=== PATIENT | female | born 1960 | race Caucasian/White ===

== ENCOUNTER 2024-07-03 14:50 | Inpatient (IN) | payer OTHER ==
[~2024-07-03] VITALS: Ht 157.5 cm; Wt 113.8 kg
--- NOTE | 2024-07-03 15:06 | ERN ---
ED Note History of Present Illness Stated Complaint: SENT BY DOC, FLUID OVERLOAD CHEST DOWN TO FEET Chief Complaint: Shortness of Breath Time Seen by MD: 14:58 Dictation: PATIENT IS A 64-YEAR-OLD FEMALE COMING IN TODAY FROM HER LOCAL PRIMARY CARE DOCTOR'S OFFICE WITH COMPLAINTS OF SHORTNESS A BREATH POSSIBLE FLUID OVERLOAD AND EDEMA TO HER LOWER EXTREMITIES. STATES THE ONSET WAS SEVERAL DAYS AGO. NO FEVER NO CHILLS NO CHEST PAIN NO BACK PAIN. SHE ALSO STATES SHE HAS BEEN STANDING UP FOR THE LAST 2-1/2 WEEKS AND ONLY SITS DOWN LONG ENOUGH TO TAKE A BREATH. SHE STATES SHE WILL SHE LIES DOWN SHE GETS SHORT OF BREATH. SHE STATES HER ONLY SIGNIFICANT MEDICAL HISTORY IS ANEMIA AND ASTHMA. HOWEVER SHE HAS NEVER HAD ANY BLOOD TRANSFUSIONS. PATIENT DOES STATE THAT SHE HAS HAD HEAVY VAGINAL BLEEDING OFF AND ON FOR SEVERAL MONTHS WORSE IN THE LAST 30 DAYS. SHE STATES SHE WAS SUPPOSED TO SEE AN CATHODIC PROTECTION TECHNICIAN DOCTOR TOMORROW HOWEVER CAME TO THE EMERGENCY ROOM. Allergies: Coded Allergies: Cephalosporins (Unverified Allergy, Unknown, 07/03/24) Latex, Natural Rubber (Unverified Allergy, Unknown, 07/03/24) cephalexin (Unverified Allergy, Unknown, 07/03/24) meperidine (Unverified Allergy, Unknown, 07/03/24) Past Medical History Past Medical History: Asthma, Other (ANEMIA) PSYCH History: no pertinent psych hx History: Not Applicable RN Note Reviewed/Agreed w/PFSH: Yes Review of System Dictation CONSTITUTIONAL: NEGATIVE EXCEPT FOR HPI HEAD/FACE: NEGATIVE EXCEPT FOR HPI EENT: NEGATIVE EXCEPT FOR HPI RESPIRATORY: NEGATIVE EXCEPT FOR HPI SHORTNESS A BREATH/EDEMA TO LOWER EXTREMITY GASTROINTESTINAL/ABDOMINAL: NEGATIVE EXCEPT FOR HPI GENITOURINARY: NEGATIVE EXCEPT FOR HPI MUSCULOSKELETAL: NEGATIVE EXCEPT FOR HPI INTEGUMENTARY: NEGATIVE EXCEPT FOR HPI NEUROLOGICAL/PSYCH: NEGATIVE EXCEPT FOR HPI HEMATOLOGIC/LYMPHATIC: NEGATIVE EXCEPT FOR HPI ALL SYSTEMS NEGATIVE, EXCEPT NOTED ABOVE. 13 POINT REVIEW OF SYSTEMS ASSESSED AND ALL NEGATIVE EXCEPT FOR ABOVE. Initial Vital Sign VS Vital Signs Date Time Temp Pulse Resp B/P (MAP) Pulse Ox O2 Delivery O2 Flow Rate FiO2 07/03/24 15:01 99.5 118 20 166/87 98 0 07/03/24 17:02 Room Air* 21 Physical Exam Dictation VITAL SIGNS REVIEWED GENERAL APPEARANCE: ALERT, ORIENTED X 3, MILD DISTRESS AND OBESE. APPEARS VERY DECONDITIONED HEAD AND FACE: NON-TRAUMATIC. EYES: PERRL, PINK CONJUNCTIVAS, EYELID NO TRAUMA, ANTERIOR CHAMBER WITH ARCUS SENILIS. EARS: PINNAS INTACT AND NO SIGNS OF TRAUMA OR ERYTHEMA EAR CANALS CLEAR AND NO DISCHARGE TM NO ERYTHEMA NOSE: NO DISCHARGE, NO BLEEDING. OROPHARYNX: MOUTH NORMAL, TONGUE PINK, PHARYNX CLEAR,NO ERYTHEMA, TONSILS NO EXUDATES, NO ABSCESSES NOTED, MUCOUS MEMBRANE MOIST NECK: SUPPLE, NON-TENDER, NO THYROMEGALY, NO MASSES, NO JVD, NO BRUITS BREAST:DEFERRED CHEST:NO TENDERNESS, NO CREPITUS, NO PARADOXICAL MOVEMENT, NO RETRACTIONS LUNGS:CLEAR, WELL-VENTILATED, SYMMETRIC, NO RALES, NO WHEEZING, NO RHONCHI, NO STRIDOR, GOOD BREATH SOUNDS BILATERALLY HEART: REGULAR RATE, REGULAR RHYTHM, NO MURMUR, NO GALLOPS VASCULAR: 3+ PERIPHERAL EDEMA TO KNEES, ABDOMEN: SOFT, POSITIVE BOWEL SOUNDS, NONDISTENDED, NO GUARDING, NONTENDER, NO REBOUND, NO MASSES NO HEPATOMEGALY, NO SPLENOMEGALY, NO ALEXANDRA'S SIGN, NO HERNIAS. RECTAL: DEFERRED GENITAL: EXTERNAL EXAM NEGATIVE, INTERNAL EXAM DEMONSTRATES OS IS OPEN WITH APPROXIMATELY 3 ML OF MAICO BLOOD. NO CMT NO LESIONS IN THE VAGINAL NEUROLOGICAL: NORMAL SPEECH, MOTOR FUNCTION INTACT, SENSORY FUNCTION INTACT MUSCULOSKELETAL: NECK NONTENDER, FULL RANGE OF MOTION, BACK NONTENDER, FULL RANGE OF MOTION, EXTREMITIES: NONTENDER, FULL RANGE OF MOTION SKIN: COLOR PINK, DRY, NO TURGOR, NO RASH, NO LACERATIONS, NO ABRASIONS, NO CONTUSIONS. LYMPHATIC: DEFERRED Results (Laboratory/Radiology) Laboratory/Radiology Laboratory Tests Test 07/03/24 16:19 07/03/24 16:48 White Blood Count 5.0 K/uL (4.8-10.8) Red Blood Count 2.34 MIL/uL (4.00-5.50) L Hemoglobin 6.2 g/dL (12.0-16.0) *L Hematocrit 20.8 % (36-48) *L Mean Corpuscular Volume 88.9 fL (79-99) Mean Corpuscular Hemoglobin 26.5 pg (27.0-33.0) L Mean Corpuscular Hemoglobin Concent 29.8 g/dL (32.0-36.0) L Red Cell Distribution Width 17.1 % (11.0-15.5) H Platelet Count 173 K/uL (130-400) Mean Platelet Volume 10.8 fL (7.5-10.5) H Immature Granulocyte % (Auto) 0.6 % (0-1) Neutrophils (%) (Auto) 75.0 % (40.0-77.0) Lymphocytes (%) (Auto) 9.4 % (21.0-51.0) L Monocytes (%) (Auto) 8.2 % (3.0-13.0) Eosinophils (%) (Auto) 6.0 % (0.0-8.0) Basophils (%) (Auto) 0.8 % (0.0-5.0) Neutrophils # (Auto) 3.7 K/uL (1.8-7.7) Lymphocytes # (Auto) 0.5 K/uL (1.0-4.8) L Monocytes # (Auto) 0.4 K/uL (0.1-1.0) Eosinophils # (Auto) 0.30 K/uL (0.00-0.70) Basophils # (Auto) 0.04 K/uL (0.00-0.20) Absolute Immature Granulocyte (auto 0.03 K/uL (0-1) Nucleated Red Blood Cells 0.0 % (0.0-0.19) White Cell Morphology Comment See comments Red Blood Cell Morphology See comments Sodium Level 137 mmol/L (136-145) Potassium Level 3.9 mmol/L (3.5-5.1) Chloride Level 102 mmol/L (101-111) Carbon Dioxide Level 30 mmol/L (21-32) Blood Urea Nitrogen 11 mg/dL (7-18) Creatinine 0.8 mg/dL (0.5-1.0) Glomerular Filtration Rate Calc 83 mL/min (>90) Random Glucose 129 mg/dL (70-105) H Total Calcium 8.8 mg/dL (8.5-10.1) Magnesium Level 1.90 mg/dL (1.80-2.40) Troponin I High Sensitivity 10 ng/L (4-50) B-Type Natriuretic Peptide 29 pg/mL (0-100) Urine Color YELLOW (YELLOW) Urine Appearance CLEAR (CLEAR) Urine pH 6.0 (5.0-8.0) Urine Specific [place] 1.022 (1.001-1.031) Urine Protein 20 mg/dL (NEGATIVE) H Urine Glucose (UA) NEGATIVE mg/dL (NEGATIVE) Urine Ketones 5 mg/dL (NEGATIVE) H Urine Occult Blood LARGE (NEGATIVE) H Urine Nitrate NEGATIVE (NEGATIVE) Urine Bilirubin NEGATIVE mg/dL (NEGATIVE) Urine Urobilinogen 2.0 mg/dL (0.2-1.0) H Urine Leukocyte Esterase NEGATIVE Shirley/uL Urine RBC 51-100 /HPF (0-1) H Urine WBC 6-10 /HPF (0-1) H Urine Squamous Epithelial Cells RARE /HPF (0-2) Urine Bacteria RARE /HPF (None Seen) CHEST 1VW REASON: SHORTNESS OF BREATH COMPARISON: None. FINDINGS: Single view of the chest was obtained. Lungs are clear. Heart size is normal. There is no pulmonary vascular congestion. Mediastinum and bony thorax appear unremarkable. IMPRESSION: 1. Normal single view chest x-ray. Labs Reviewed?: Yes EKG Comment: EKG SINUS TACHYCARDIA/HEART RATE 113/AXIS NORMAL/NO ECTOPY ED Course ED Course Orders Procedure Category Date Status Time Covid19 (Sars Antigen LAB 07/03/24 In Process Rapid) 14:59 Cbc With Differential LAB 07/03/24 Complete 14:59 B-Type Natriuretic LAB 07/03/24 Complete Peptide 14:59 Chest 1vw RAD 07/03/24 Resulted 14:59 12 Lead Ekg Tracing- EKG 07/03/24 Complete Technical 14:59 Magnesium LAB 07/03/24 Complete 14:59 Troponin I High LAB 07/03/24 Complete Sensitivity 14:59 Urinalysis Profile LAB 07/03/24 Complete 14:59 Basic Metabolic Panel LAB 07/03/24 Complete 14:59 Type And Screen BBK 07/03/24 In Process 16:57 Rbc-No Active Bleeding BBK 07/03/24 In Process 16:57 *Nursing CPOE 07/03/24 Transmitted Communication: 16:57 Us Pelvic Non-Ob Comp US 07/03/24 Resulted 17:06 Culture Urine NEEMA 07/03/24 In Process 17:07 Obstetrical Consult CONPHYSVC 07/03/24 Transmitted 18:35 Vital Signs Date Time Temp Pulse Resp B/P (MAP) Pulse Ox O2 Delivery O2 Flow Rate FiO2 07/03/24 17:02 97.9 120 24 153/85 99 Room Air* 0 21 07/03/24 15:01 99.5 118 20 166/87 98 0 1708, PATIENT HAS A H&H OF 6.2 AND 20.8 RESPECTIVELY. HAS A HISTORY OF DYSFUNCTIONAL UTERINE BLEEDING FOR MORE THAN 30 DAYS HAS NEVER SEEN AN CATHODIC PROTECTION TECHNICIAN DOCTOR NO PELVIC PAIN AT THIS TIME. WE WILL FOLLOW UP TO ADMINISTER1 UNIT PACKED RED BLOOD CELLS WE WILL PERFORM NON OB ULTRASOUND OF THE ABDOMEN PELVIS, WE WILL CONSULT OB AND HAVE PATIENT ADMITTED 171/SPOKE WITH DR. JAMESON OB. REVIEWED LABS AND PATIENT'S MEDICAL HISTORY HE SAID TO PERFORM ULTRASOUND AND A PELVIC EXAM AND THEN CALL HIM BACK WITH THE RESULTS. 1839/SPOKE WITH DR. JAMESON AND REVIEWED PELVIC EXAM/LABS/ULTRASOUND REPORT. SAID TO PLZ CONSULT HIM AND ADMIT TO HOSPITALIST AND HE WOULD SEE PATIENT IN THE MORNING. 50 SPOKE WITH MISA FELICIANO HOSPITALIST REVIEWED ULTRASOUND REPORT PELVIC LABS INTERVENTIONS TO INCLUDE MY DISCUSSION WITH DR. JAMESON AND HIS CONSULTATION. SHE AGREED TO ADMIT PATIENT. HEART Score Response (Comments) Value History: Low suspicion (0) 0 Age: 45-65yrs (+1) 1 Risk Factors: 1-2 risk factors (+1) 1 Initial Troponin: Normal limit (0) 0 Total 2 Medical Decision Making MDM MDM: DIFFERENTIAL DIAGNOSIS: SEVERE ANEMIA/CHF/ACS/AMI/PNEUMONIA/BRONCHITIS/ELECTROLYTE IMBALANCE/DEHYDRATION DYSFUNCTIONAL UTERINE BLEEDING/UTERINE MASS RATIONALE: TESTS CONSIDERED AND ORDERED SECONDARY TO SHARED DECISION MAKING INCLUDE: LABS, ECG AND RADIOLOGY PREVIOUS OUTSIDE RECORDS REVIEWED: OLD ER VISITS. NONE RISK OF COMPLICATION AND/OR MORBIDITY OR MORTALITY OF PATIENT MANAGEMENT: MODERATE MEDICATIONS-PER MEDICATION RECONCILIATION SEE NURSE'S NOTES NEED FOR HOSPITALIZATION: PATIENT DOES MEET CRITERIA FOR HOSPITALIZATION. BLOOD TRANSFUSION, OB CONSULTATION NEED FOR EMERGENCY MAJOR/MINOR SURGERY: NO THERE ARE NO SOCIAL CONCERNS WITH THIS PATIENT. PRESCRIPTION DRUG MANAGEMENT PRESCRIPTIONS WILL INCLUDE SYMPTOMATIC CARE PATIENT'S PRIOR EXTERNAL MEDICAL RECORDS FROM OTHER ER VISITS WERE REVIEWED BY ME INDICATED. PRIOR TESTING AND RESULTS FROM PREVIOUS VISITS WERE REVIEWED. PRIOR TESTS WERE TAKEN INTO ACCOUNT WITH MEDICAL DECISION MAKING AND RESOURCE UTILIZATION, INDEPENDENT HISTORIAN/HISTORIANS WERE USED TO OBTAIN COMPLETE MEDICAL HISTORY. I INDEPENDENTLY INTERPRETED THE TEST THAT WERE PERFORMED, RESULTS WERE REVIEWED BY ME AND CONSIDERED FINDINGS ON RADIOLOGY IF ORDERED. MEDICAL MANAGEMENT AND EXAMINATION INTERPRETATION DISCUSSIONS WERE HAD BY ME WITH OTHER QUALIFIED HEALTHCARE PROFESSIONALS INDICATED FOR THE PATIENT'S CARE. DX & DISP Disposition: Inpatient Decision to Admit Time: 17:10 Departure Impression: Primary Impression: Symptomatic anemia Additional Impressions: Dysfunctional uterine bleeding, Hyperglycemia, Uterine fibroid Condition: Stable Time of Disposition: 17:11 I have reviewed the case, and I agree with, Diagnosis and Plan LEE ANN HARPER NP Jul 03, 2024 15:06
--- NOTE | 2024-07-03 15:10 | EKG ---
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
--- NOTE | 2024-07-03 15:46 | HMCIMG ---
CHEST 1VW REASON: SHORTNESS OF BREATH COMPARISON: None. FINDINGS: Single view of the chest was obtained. Lungs are clear. Heart size is normal. There is no pulmonary vascular congestion. Mediastinum and bony thorax appear unremarkable. IMPRESSION: 1. Normal single view chest x-ray.
--- NOTE | 2024-07-03 16:25 | NUR ---
PT JUST BROUGHT INTO MY ED BED 10
[2024-07-03 16:37] LABS: BASOPHILS # (AUTO) 0.04 K/uL (0.00-0.20); BASOPHILS % (AUTO) 0.8 % (0.0-5.0); CREATININE 0.8 mg/dL (0.5-1.0); IMMATURE GRANULOCYTE ABSOLUTE 0.03 K/uL (0-1); LYMPHOCYTES # (AUTO) 0.5 K/uL (1.0-4.8); LYMPHOCYTES % (AUTO) 9.4 % (21.0-51.0); MAGNESIUM 1.9 mg/dL (1.80-2.40); MEAN CORPUSCULAR HEMOGLOBIN 26.5 pg (27.0-33.0); MEAN CORPUSCULAR HGB CONC 29.8 g/dL (32.0-36.0); MEAN CORPUSCULAR VOLUME 88.9 fL (79-99); MONOCYTES # (AUTO) 0.4 K/uL (0.1-1.0); MONOCYTES % (AUTO) 8.2 % (3.0-13.0); NEUTROPHILS # (AUTO) 3.7 K/uL (1.8-7.7); PLATELET COUNT (AUTO) 173 K/uL (130-400); POTASSIUM 3.9 mmol/L (3.5-5.1); RED BLOOD CELL COUNT(AUTO) 2.34 MIL/uL (4.00-5.50); RED CELL DISTRIBUTION WIDTH 17.1 % (11.0-15.5)
[2024-07-03 16:53] LABS: HEMATOCRIT 20.8 % (36-48)
[2024-07-03 16:57] LABS: APPEARANCE,URINE CLEAR (CLEAR); BILIRUBIN,URINE NEGATIVE (NEGATIVE); COLOR,URINE YELLOW (YELLOW); GLUCOSE, URINE (UA) NEGATIVE (NEGATIVE); KETONES,URINE 5 mg/dL (NEGATIVE); LEUKOCYTE ESTERASE ,URINE NEGATIVE Leu/uL (NEGATIVE); NITRATE,URINE NEGATIVE (NEGATIVE); OCCULT BLOOD,URINE LARGE (NEGATIVE); PROTEIN,URINE 20 mg/dL (NEGATIVE)
[2024-07-03 16:59] LABS: ADD UA MICROSCOPIC YES
[2024-07-03 17:04] LABS: BACTERIA,URINE RARE /HPF (None Seen); MUCUS,URINE RARE LPF (None Seen); RBC,URINE 51-100 /HPF (0-1); SQUAMOUS EPITHELIAL CELL,UR RARE /HPF (0-2)
[2024-07-03 17:11] LABS: B-TYPE NATRIURETIC PEPTIDE 29 pg/mL (0-100)
--- NOTE | 2024-07-03 17:31 | NUR ---
PT CHANGED INTO A HOSPITAL GOWN AND HOSPITAL SOCKS BY [facility] COUNSEL DOLORES
--- NOTE | 2024-07-03 17:39 | NUR ---
SONO TECH AT BEDSIDE W/PT
--- NOTE | 2024-07-03 18:28 | NUR ---
LEE ANN FELICIANO JUST COMPLETED HIS PELVIC EXAM W/STUDENT NURSE JAVAD
--- NOTE | 2024-07-03 18:29 | NUR ---
OXYGEN: PT PLACED ON 4L VIA N/C D/T EXREME SOB WHILE PLACED IN SEMI FOWLERS POSITION.
--- NOTE | 2024-07-03 18:49 | HMCIMG ---
US PELVIC NON-OB COMP HISTORY: Dysfunctional uterine bleeding COMPARISON: None TECHNIQUE: Transabdominal pelvic ultrasound study was performed. FINDINGS: The uterus measures 9.8 x 6.3 x 5.4 cm. Both ovaries are not seen. Both ovaries are not seen. There is fibroid in the posterior aspect of the uterus on the right measuring 3.2 x 3.5 x 3.3 cm. Small amount of free fluid is seen in the cul-de-sac. Endometrium is thick measuring 10 mm. IMPRESSION: 1. No adnexal mass is seen. Fibroid uterus. Thickened endometrium.
--- NOTE | 2024-07-03 18:51 | NUR ---
OB CONSULT: LEE ANN FELICIANO SPOKE TO DR JAMESON
--- NOTE | 2024-07-03 18:54 | NUR ---
[facility] INDUSTRIAL HEALTH ENGINEER CURRENTLY AT BEDSIDE W/THE PT
--- NOTE | 2024-07-03 19:20 | NUR ---
REPORT ENDORSED TO SONYA MATOS
[2024-07-03] MEDS ORDERED: acetaMINOPHEN 325 MG TAB PO PRN ×2 (19:30)
[2024-07-03] MEDS ORDERED: PoTASSium chloRIDE 20MEQ/100ML 100 ML IV PRN (19:30)
[2024-07-03] MEDS ORDERED: PoTASSium chl 10% ELIXIR 20MEQ 20 MEQ/15 ML UDCUP PO PRN (19:30)
[2024-07-03] MEDS ORDERED: ondanSETRON 4MG INJ IV PRN (19:30)
--- NOTE | 2024-07-03 19:30 | HP ---
[facility] HISTORY [facility] PHYSICAL Date of Service: Jul 03, 2024 Time of Service: 19:18 PCP: Kaitlynn Fu HISTORY OF PRESENT ILLNESS: This is a 64-year-old female with past medical history of asthma, anemia, hypothyroidism and morbid obesity who presents to the ED after coming from PCP's clinic today for complaints of shortness of breaths, edema and possible fluid overload evaluation.Patient states she has been having shortness of breath because of her Asthma and anemia because she has been having menstrual bleed for 3 weeks every month since 4 years ago and it has slowed down 10 months ago that sometimes she missed the period for a month however was started on Levothyroxine by her primary and coincidentally she said after taking it she started having 3 weeks of bleeding again and a week off without bleeding so she stopped taking her Levothyroxine last April but she started having progressive shortness of breath and edema 3 weeks ago.Patient reports she was sick for the past 3 weeks with cough and fever and her legs started to get swollen and today she went to her PCP because swelling has gone up to her abdomen and she has not been able to have a good sleep because if she lies down she gets very short of breath so she had to stand up most of the time to catch her breath. Patient reports she is supposed to see an OBGYN doctor tomorrow. Seen and examined patient in the ED awake,alert and coherent,pale looking .Patient denies fever,chills,chest pain,palpitation,cough , nausea, bloody emesis, bloody stool and abdominal pain.Patient reports she voids little and her last bowel movement is today and it was normal. Latest vital signs temperature 97.9, heart rate 120, respiration 24, pressure 153/85, saturation 99% on room air. Labs: WBC 5, hemoglobin 6.2, hematocrit 20.8 platelet count 173. Glucose 129 the rest of the chemistry is unremarkable BNP 29 troponin 10. Urinalysis remarkable for large hematuria positive for RBC, WBC urobilinogen , protein and ketones. SARs COVID result is negative. Chest x-ray result is normal. Pelvic ultrasound result revealed no adnexal mass is seen. Fibroid uterus thickened endometrium. While in the ER patient is pending to be transfused with 1 unit PRBC per ER recommendation. As per ER METALLURGICAL ENGINEERING TECHNICIAN's report he already consulted OBGYN Dr. Sabillon and agreed to evaluate the patient. We will admit patient for further medical management. Addendum : Post Transfusion primary nurse called and reported patient developed increased shortness of breath needing oxygen supplementation.Will request ABG ,Give Lasix 20mg IV x1 and Duoneb treatment and will transfer patient to PCCU and consult Pulmonology REVIEW OF SYSTEMS CONSTITUTIONAL: Appears pale looking Denies fevers, chills, or night sweats. No unintentional weight loss reported. NEUROLOGICAL: Denies headache, amaurosis fugax, motor weakness, sensory deficit, vertigo/spinning sensation, gait abnormalities, or tremors. ENT: No hearing loss, otalgia, otorrhea, rhinitis, rhinorrhea, hoarseness, or sore throat. CARDIOVASCULAR: Denies any exertional angina, dyspnea on exertion, orthopnea, paroxysmal nocturnal dyspnea, palpitations, life-threatening arrhythmias, claudication. PULMONARY: Complaints of shortness of breaths Denies cough, phlegm/sputum, hemoptysis, pleuritic chest pain. SLEEP: Complains of insomnia Denies morning headaches, daytime somnolence or napping. Denies knowledge of snoring. GASTROINTESTINAL: Complains of abdominal distention Denies any type of dysphagia to either liquids or solids. Denies nausea, vomiting, pyrosis, early satiety, abdominal pain, diarrhea, constipation, or changes in stool consistency or caliber. Denies coffee-ground emesis, hematemesis, hematochezia, or melanotic stools. GENITOURINARY: Complaints of voiding little amount of urine Denies frequency, urgency, nocturia, incontinence (Storage/Irritative symptoms.) Low urinary stream, straining to void, urinary intermittency or hesitancy, splitting of the voiding stream, terminal dribbling. ENDOCRINOLOGIC: Denies polyuria, polydipsia, polyphagia or heat/cold intolerances. HEMATOLOGIC: Complain of heavy menstrual bleeding Denies thrombophilia/previous clots, or coagulopathy ONCOLOGIC: Denies personal history of malignancy. DERMATOLOGIC: Denies rashes or pruritus. PSYCHIATRIC: Denies any suicidal or homicidal ideation. Denies hallucinations. PAST MEDICAL HISTORY: [ Asthma, anemia, hypothyroidism and morbid obesity ] PAST SURGICAL HISTORY: [ x1 and tubal ligation] PAST SOCIAL HISTORY: [ Patient lives with . Patient denies alcohol tobacco and recreational drug use ] FAMILY HISTORY: [ Noncontributory] Coded Allergies: Cephalosporins (Unverified Allergy, Unknown, 07/03/24) Latex, Natural Rubber (Unverified Allergy, Unknown, 07/03/24) cephalexin (Unverified Allergy, Unknown, 07/03/24) meperidine (Unverified Allergy, Unknown, 07/03/24) PHYSICAL EXAM GENERAL APPEARANCE: The patient is awake, alert, and oriented NEUROLOGICAL: Cranial nerves II-XII grossly intact. Motor is 5/5 in bilateral upper and lower extremities proximal to distal. No sensory deficits. HEENT: Face is symmetric. Pupils are equal and reactive. Extraocular movements are intact. NECK: Supple. No JVD. No thyromegaly. No submental, submandibular, pre- /postauricular, occipital or supraclavicular lymphadenopathy. CHEST: Normal chest expansion. No Telemetry. LUNGS: Diminished breath sounds CARDIOVASCULAR: Regular. S1 and S2 normal. No appreciable rubs, murmurs or gallops. ABDOMEN: Abdomen is distended and firmed There is no rebound, voluntary guarding, or rigidity. : Deferred. No Ma. EXTREMITIES: 3+ edema from bilateral lower extremities up to abdomen SKIN: No skin breakdown. Vital Sign (Last 24 Hours) 07/03/24 17:02 Temp 97.9 Pulse 120 Resp 24 B/P (MAP) 153/85 Pulse Ox 99 O2 Delivery Room Air* O2 Flow Rate 0 FiO2 21 LABS: Laboratory: Test 07/03/24 18:33 07/03/24 16:48 07/03/24 16:19 Range/Units SARS-CoV-2 Antigen (Rapid) PRESUMPTIVE NEGATIVE NEGATIVE Urine Color YELLOW YELLOW Urine Appearance CLEAR CLEAR Urine pH 6.0 5.0-8.0 Urine Specific [place] 1.022 1.001-1.031 Urine Protein 20 H NEGATIVE mg/dL Urine Glucose (UA) NEGATIVE NEGATIVE mg/dL Urine Ketones 5 H NEGATIVE mg/dL Urine Occult Blood LARGE H NEGATIVE Urine Nitrate NEGATIVE NEGATIVE Urine Bilirubin NEGATIVE NEGATIVE mg/dL Urine Urobilinogen 2.0 H 0.2-1.0 mg/dL Urine Leukocyte Esterase NEGATIVE NEGATIVE Shirley/uL Urine RBC 51-100 H 0-1 /HPF Urine WBC 6-10 H 0-1 /HPF Urine Squamous Epithelial Cells RARE 0-2 /HPF Urine Bacteria RARE None Seen /HPF White Blood Count 5.0 4.8-10.8 K/uL Red Blood Count 2.34 L 4.00-5.50 MIL/uL Hemoglobin 6.2 *L 12.0-16.0 g/dL Hematocrit 20.8 *L 36-48 % Mean Corpuscular Volume 88.9 79-99 fL Mean Corpuscular Hemoglobin 26.5 L 27.0-33.0 pg Mean Corpuscular Hemoglobin Concent 29.8 L 32.0-36.0 g/dL Red Cell Distribution Width 17.1 H 11.0-15.5 % Platelet Count 173 130-400 K/uL Mean Platelet Volume 10.8 H 7.5-10.5 fL Immature Granulocyte % (Auto) 0.6 0-1 % Neutrophils (%) (Auto) 75.0 40.0-77.0 % Lymphocytes (%) (Auto) 9.4 L 21.0-51.0 % Monocytes (%) (Auto) 8.2 3.0-13.0 % Eosinophils (%) (Auto) 6.0 0.0-8.0 % Basophils (%) (Auto) 0.8 0.0-5.0 % Neutrophils # (Auto) 3.7 1.8-7.7 K/uL Lymphocytes # (Auto) 0.5 L 1.0-4.8 K/uL Monocytes # (Auto) 0.4 0.1-1.0 K/uL Eosinophils # (Auto) 0.30 0.00-0.70 K/uL Basophils # (Auto) 0.04 0.00-0.20 K/uL Absolute Immature Granulocyte (auto 0.03 0-1 K/uL Nucleated Red Blood Cells 0.0 0.0-0.19 % White Cell Morphology Comment See comments Red Blood Cell Morphology See comments Sodium Level 137 136-145 mmol/L Potassium Level 3.9 3.5-5.1 mmol/L Chloride Level 102 101-111 mmol/L Carbon Dioxide Level 30 21-32 mmol/L Blood Urea Nitrogen 11 7-18 mg/dL Creatinine 0.8 0.5-1.0 mg/dL Glomerular Filtration Rate Calc 83 >90 mL/min Random Glucose 129 H 70-105 mg/dL Total Calcium 8.8 8.5-10.1 mg/dL Magnesium Level 1.90 1.80-2.40 mg/dL Troponin I High Sensitivity 10 4-50 ng/L B-Type Natriuretic Peptide 29 0-100 pg/mL DIAGNOSTICS / RADIOLOGY: [ ] ASSESSMENT: Severe blood loss anemia POA Acute Respiratory Failure POA Suspected uterine bleeding POA Fibroid uterus and thickened endometrium per pelvic ultrasound POA Uncontrolled hypertension POA Morbid obesity POA Hypothyroidism POA Suspected urinary tract infection POA PLAN: We will admit patient in medical telemetry We will start on heart healthy diet We will start on Levaquin 500 mg IV daily We will continue to transfuse 1 unit of blood PRBC and check H and H 1 hour post transfusion We will start on Famotidine 20 mg IV bid for GI prophylaxis We will replace electrolytes as needed per protocol We will obtain urine culture and deescalate antibiotic therapy We will add prn medication for fever,pain,nausea and vomiting We will reconcile home meds once medlist available We will seek OBGYN consultation We will obtain H and H p.r.n. bleeding We will request labs in am Further orders to follow depending on above results Case discussed with attending physician and came up with above treatment and plan of care. ADVANCED CARE PLANNING 1. Which of the following were discussed? Hospice Care - No Therapeutic options - Yes Advance Directives - No Other discussions - 2. Discussed with who? Patient 3. Voluntary nature of this service was explained to the patient? Yes 4. Amount of time spent - ___20____ 5. Reviewed by Physician? (if this service was performed by NPP) Yes Patient seen and examined by me. Agree with note by METALLURGICAL ENGINEERING TECHNICIAN SEE ADDITIONAL ORDERS PER CHART DISCUSSED WITH NURSING STAFF MIKI BARBOSA Jul 03, 2024 19:30
[2024-07-03] MEDS: furoSEMIDE 20MG VIAL IV ONE (23:34)
[2024-07-03] MEDS: FAMOTIDINE 20MG VIAL IV SCH (23:35)
[2024-07-03] MEDS: levoFLOXacin 500 MG/D5W 100 ML 100 ML IV SCH (23:35)
[2024-07-04] VITALS (18 sets, daily range): BP systolic 114–170; BP diastolic 62–79; PULSE 16–118; RESP 18–21; TEMP 97.8–98.6; O2SAT 95–99
--- NOTE | 2024-07-04 00:05 | NUR ---
BLOOD TRANFSUION 1PRBC GIVEN AT 23.30 WITH NO TRANSFUSION REACTION NOTED PT VS STABLE
--- NOTE | 2024-07-04 02:14 | NUR ---
REPORTED TO DON LINEN ROOM HOUSEPERSON PT HAVING BILAT UPPER LOBE WHEEZES, HOOKED TO O2 5L. SATS 98%- ORDERS MADE
[2024-07-04] MEDS: IpraTROPium/alBUTERol SULFATE 3 ML SOLUTION IH SCH (02:42)
--- NOTE | 2024-07-04 03:33 | NUR ---
SENT REPEAT H/H POST BLOOD TRANFUSION STILL FOR ABG- RT AWARE
[2024-07-04 03:58] LABS: ABG BASE EXCESS -0.4 mmol/L (-2.0-3.0); ABG HCO3 22.6 mmol/L (21.0-28.0); ABG OXYGEN SATURATION 97.6 % (94.0-98.0); ABG PCO2 30 mmHg (32-45); ABG PH 7.491 (7.350-7.450); CARBON MONOXIDE 0.9 % (0.5-1.5); DEVICE COMMENT RB,RN LEAH; HHb 2.4; PO2, ARTERIAL BG 98.6 mmHg (83.0-108.0); VENT MODE, BG RA,21 (ROOM AIR)
[2024-07-04] MEDS ORDERED: LEVO25CA4 PO (03:58)
[2024-07-04 04:03] LABS: BASOPHILS # (AUTO) 0.04 K/uL (0.00-0.20); BASOPHILS % (AUTO) 0.8 % (0.0-5.0); EOSINOPHILS # (AUTO) 0.48 K/uL (0.00-0.70); IMMATURE GRANULOCYTE ABSOLUTE 0.02 K/uL (0-1); LYMPHOCYTES # (AUTO) 0.7 K/uL (1.0-4.8); LYMPHOCYTES % (AUTO) 12.8 % (21.0-51.0); MEAN CORPUSCULAR HEMOGLOBIN 27.2 pg (27.0-33.0); MEAN CORPUSCULAR HGB CONC 30.4 g/dL (32.0-36.0); MEAN CORPUSCULAR VOLUME 89.5 fL (79-99); MONOCYTES # (AUTO) 0.6 K/uL (0.1-1.0); MONOCYTES % (AUTO) 11.6 % (3.0-13.0); NEUTROPHILS # (AUTO) 3.5 K/uL (1.8-7.7); NEUTROPHILS % (AUTO) 65.4 % (40.0-77.0); PLATELET COUNT (AUTO) 146 K/uL (130-400); RED BLOOD CELL COUNT(AUTO) 2.57 MIL/uL (4.00-5.50); RED CELL DISTRIBUTION WIDTH 16.2 % (11.0-15.5); WHITE BLOOD COUNT (AUTO) 5.3 K/uL (4.8-10.8)
[2024-07-04] MEDS: MAGNESIUM 2GM PREMIX 50ML 50 ML IV PRN (04:55)
[2024-07-04 08:01] LABS: INR 1.32 (0.85-1.15)
[2024-07-04 08:03] LABS: PARTIAL THROMBOPLASTIN TIME 25.2 SEC (26.3-35.5)
--- NOTE | 2024-07-04 08:51 | NUR ---
DR. JAMESON IN TO SEE PATIENT. UPDATE GIVEN.
[2024-07-04 08:52] LABS: ALBUMIN 2.3 g/dL (3.5-5.0); BILIRUBIN,TOTAL 2.8 mg/dL (0.2-1.0); CREATININE 0.8 mg/dL (0.5-1.0); MAGNESIUM 2.1 mg/dL (1.80-2.40); POTASSIUM 3.8 mmol/L (3.5-5.1); THYROID STIMULATING HORMONE 3.13 uIU/mL (0.36-3.74); TOTAL PROTEIN, SERUM 5.7 g/dL (6.0-8.3)
--- NOTE | 2024-07-04 10:13 | PN ---
[facility] PROGRESS NOTE Date of Service: Jul 04, 2024 Time of Service: 10:[address] REYNOLDS SUBJECTIVE: [ This is a 64-year-old female with past medical history of asthma, anemia, hypothyroidism and morbid obesity who presents to the ED after coming from PCP's clinic today for complaints of shortness of breaths, edema and possible fluid overload evaluation.Patient states she has been having shortness of breath because of her Asthma and anemia because she has been having menstrual bleed for 3 weeks every month since 4 years ago and it has slowed down 10 months ago that sometimes she missed the period for a month however was started on Levothyroxine by her primary and coincidentally she said after taking it she started having 3 weeks of bleeding again and a week off without bleeding so she stopped taking her Levothyroxine last April but she started having progressive shortness of breath and edema 3 weeks ago.Patient reports she was sick for the past 3 weeks with cough and fever and her legs started to get sw ollen and today she went to her PCP because swelling has gone up to her abdomen and she has not been able to have a good sleep because if she lies down she gets very short of breath so she had to stand up most of the time to catch her breath. Patient reports she is supposed to see an OBGYN doctor tomorrow. Seen and examined patient in the ED awake,alert and coherent,pale looking . Patient denies fever,chills,chest pain,palpitation,cough , nausea, bloody emesis, bloody stool and abdominal pain.Patient reports she voids little and her last bowel movement is today and it was normal. Latest vital signs temperature 97.9, heart rate 120, respiration 24, pressure 153/85, saturation 99% on room air. Labs: WBC 5, hemoglobin 6.2, hematocrit 20.8 platelet count 173. Glucose 129 the rest of the chemistry is unremarkable BNP 29 troponin 10. Urinalysis remarkable for large hematuria positive for RBC, WBC urobilinogen , protein and ketones. SARs COVID result is negative. Chest x-ray result is normal. Pelvic ultrasound result revealed no adnexal mass is seen. Fibroid uterus thickened endometrium. While in the ER patient is pending to be transfused with 1 unit PRBC per ER recommendation. As per ER COFFEE SHOP MANAGER's report he already consulted OBGYN Dr. Sabillon and agreed to evaluate the patient. We will admit patient for further medical management. Addendum : Post Transfusion primary nurse called and reported patient developed increased shortness of breath needing oxygen supplementation.Will request ABG ,Give Lasix 20mg IV x1 and Duoneb treatment and will transfer patient to PCCU and consult Pulmonology 07/04 patient was seen by nurse practitioner and physician during rounding in room 223 comfortably lying in bed. Patient is on room air. Patient pending evaluation by business support specialist and clearance for possible D and C. Patient was evaluated by Dr. Ridge ZEPEDA and would like to perform DandC on Sunday. Medical clearance needed. We will continue to monitor patient. A.m. labs] REVIEW OF SYSTEMS CONSTITUTIONAL: Appears pale looking Denies fevers, chills, or night sweats. No unintentional weight loss reported. NEUROLOGICAL: Denies headache, amaurosis fugax, motor weakness, sensory deficit, vertigo/spinning sensation, gait abnormalities, or tremors. ENT: No hearing loss, otalgia, otorrhea, rhinitis, rhinorrhea, hoarseness, or sore throat. CARDIOVASCULAR: Denies any exertional angina, dyspnea on exertion, orthopnea, paroxysmal nocturnal dyspnea, palpitations, life-threatening arrhythmias, claudication. PULMONARY: Complaints of shortness of breaths when ambulating Denies cough, phlegm/sputum, hemoptysis, pleuritic chest pain. SLEEP: Complains of insomnia Denies morning headaches, daytime somnolence or napping. Denies knowledge of snoring. GASTROINTESTINAL: Complains of abdominal distention Denies any type of dysphagia to either liquids or solids. Denies nausea, vomiting, pyrosis, early satiety, abdominal pain, diarrhea, constipation, or changes in stool consistency or caliber. Denies coffee-ground emesis, hematemesis, hematochezia, or melanotic stools. GENITOURINARY: Denies frequency, urgency, nocturia, incontinence (Storage/Irritative symptoms.) Low urinary stream, straining to void, urinary intermittency or hesitancy, splitting of the voiding stream, terminal dribbling. ENDOCRINOLOGIC: Denies polyuria, polydipsia, polyphagia or heat/cold intolerances. HEMATOLOGIC: Complain of heavy menstrual bleeding Denies thrombophilia/previous clots, or coagulopathy ONCOLOGIC: Denies personal history of malignancy. DERMATOLOGIC: Denies rashes or pruritus. PSYCHIATRIC: Denies any suicidal or homicidal ideation. Denies hallucinations. PHYSICAL EXAM GENERAL APPEARANCE: The patient is awake, alert, and oriented NEUROLOGICAL: Cranial nerves II-XII grossly intact. Motor is 5/5 in bilateral upper and lower extremities proximal to distal. No sensory deficits. HEENT: Face is symmetric. Pupils are equal and reactive. Extraocular movements are intact. NECK: Supple. No JVD. No thyromegaly. No submental, submandibular, pre- /postauricular, occipital or supraclavicular lymphadenopathy. CHEST: Normal chest expansion. No Telemetry. LUNGS: Diminished breath sounds CARDIOVASCULAR: Regular. S1 and S2 normal. No appreciable rubs, murmurs or gallops. ABDOMEN: Abdomen is distended and firmed There is no rebound, voluntary guarding, or rigidity. : Deferred. No Ma. EXTREMITIES: 2+ edema from bilateral lower extremities up to abdomen SKIN: No skin breakdown. Vital Signs (last 8hr) Date Time Temp Pulse Resp B/P (MAP) Pulse Ox O2 Delivery O2 Flow Rate FiO2 07/04/24 07:45 95 Room Air* 0 07/04/24 07:14 98 Room Air* 0 07/04/24 07:00 98.2 108 20 139/68 98 Room Air 07/04/24 06:51 105 21 N/A Room Air 07/04/24 06:51 105 07/04/24 04:59 98.1 107 20 134/62 98 Room Air 07/04/24 04:51 104 20 N/Cannula Low lpm 0.0 07/04/24 03:47 98.2 100 18 125/62 98 Room Air* 0 07/04/24 02:42 104 19 LABS: Laboratory: Test 07/04/24 07:25 07/04/24 03:57 07/04/24 03:30 07/03/24 18:33 Range/Units Prothrombin Time 14.0 H 9.6-11.6 SEC Prothromb Time International Ratio 1.32 H 0.85-1.15 Activated Partial Thromboplast Time 25.2 L 26.3-35.5 SEC Sodium Level 138 136-145 mmol/L Potassium Level 3.8 3.5-5.1 mmol/L Chloride Level 103 101-111 mmol/L Carbon Dioxide Level 27 21-32 mmol/L Blood Urea Nitrogen 11 7-18 mg/dL Creatinine 0.8 0.5-1.0 mg/dL Glomerular Filtration Rate Calc 83 >90 mL/min Random Glucose 100 70-105 mg/dL Total Calcium 8.6 8.5-10.1 mg/dL Magnesium Level 2.10 1.80-2.40 mg/dL Total Bilirubin 2.8 H 0.2-1.0 mg/dL Aspartate Amino Transf (AST/SGOT) 125 H 10-37 U/L Alanine Aminotransferase (ALT/SGPT) 88 H 12-78 U/L Alkaline Phosphatase 147 H 50-136 U/L Total Protein 5.7 L 6.0-8.3 g/dL Albumin 2.3 L 3.5-5.0 g/dL Thyroid Stimulating Hormone (TSH) 3.13 0.36-3.74 uIU/mL Blood Gas Specimen Type Arterial Arterial Blood pH 7.491 H 7.350-7.450 Arterial Blood Partial Pressure CO2 30 L 32-45 mmHg Arterial Blood Partial Pressure O2 98.6 83.0-108.0 mmHg Arterial Blood HCO3 22.6 21.0-28.0 mmol/L Arterial Blood Oxygen Saturation 97.6 94.0-98.0 % Arterial Blood Base Excess -0.4 -2.0-3.0 mmol/L Hemoglobin (Blood Gas) 8.0 L 12.0-16.0 g/dL Sodium (Blood Gas) 131 L 136-145 MMOL/L Bedside Potassium (Blood Gas) 3.7 3.4-4.5 MMOL/L Bedside Chloride (Blood Gas) 100 98-107 MMOL/L Bedside Glucose (Blood Gas) 105 H 65-95 MG/DL Bedside Ionized Calcium (Blood Gas) 1.16 1.15-1.33 MMOL/L Bedside Lactic Acid (Blood Gas) 1.55 H 0.36-0.75 MMOL/L Blood Gas Temperature 37.0 35.5-37.0 CELSIUS Blood Gas Vent Mode RA,21 ROOM AIR FiO2 21.0 % Blood Gas Specimen Comment JESÚS,RN SONYA White Blood Count 5.3 4.8-10.8 K/uL Red Blood Count 2.57 L 4.00-5.50 MIL/uL Hemoglobin 7.0 *L 12.0-16.0 g/dL Hematocrit 23.0 L 36-48 % Mean Corpuscular Volume 89.5 79-99 fL Mean Corpuscular Hemoglobin 27.2 27.0-33.0 pg Mean Corpuscular Hemoglobin Concent 30.4 L 32.0-36.0 g/dL Red Cell Distribution Width 16.2 H 11.0-15.5 % Platelet Count 146 130-400 K/uL Mean Platelet Volume 10.7 H 7.5-10.5 fL Immature Granulocyte % (Auto) 0.4 0-1 % Neutrophils (%) (Auto) 65.4 40.0-77.0 % Lymphocytes (%) (Auto) 12.8 L 21.0-51.0 % Monocytes (%) (Auto) 11.6 3.0-13.0 % Eosinophils (%) (Auto) 9.0 H 0.0-8.0 % Basophils (%) (Auto) 0.8 0.0-5.0 % Neutrophils # (Auto) 3.5 1.8-7.7 K/uL Lymphocytes # (Auto) 0.7 L 1.0-4.8 K/uL Monocytes # (Auto) 0.6 0.1-1.0 K/uL Eosinophils # (Auto) 0.48 0.00-0.70 K/uL Basophils # (Auto) 0.04 0.00-0.20 K/uL Absolute Immature Granulocyte (auto 0.02 0-1 K/uL Nucleated Red Blood Cells 0.0 0.0-0.19 % SARS-CoV-2 Antigen (Rapid) PRESUMPTIVE NEGATIVE NEGATIVE Test 07/03/24 16:48 07/03/24 16:19 Range/Units Urine Color YELLOW YELLOW Urine Appearance CLEAR CLEAR Urine pH 6.0 5.0-8.0 Urine Specific Strandquist 1.022 1.001-1.031 Urine Protein 20 H NEGATIVE mg/dL Urine Glucose (UA) NEGATIVE NEGATIVE mg/dL Urine Ketones 5 H NEGATIVE mg/dL Urine Occult Blood LARGE H NEGATIVE Urine Nitrate NEGATIVE NEGATIVE Urine Bilirubin NEGATIVE NEGATIVE mg/dL Urine Urobilinogen 2.0 H 0.2-1.0 mg/dL Urine Leukocyte Esterase NEGATIVE NEGATIVE Shirley/uL Urine RBC 51-100 H 0-1 /HPF Urine WBC 6-10 H 0-1 /HPF Urine Squamous Epithelial Cells RARE 0-2 /HPF Urine Bacteria RARE None Seen /HPF White Cell Morphology Comment See comments Red Blood Cell Morphology See comments Troponin I High Sensitivity 10 4-50 ng/L B-Type Natriuretic Peptide 29 0-100 pg/mL Current Medications Medications (Trade) Dose Ordered Sig/Avinash Route PRN Reason Start Time Stop Time Status Last Admin Dose Admin Acetaminophen (TYLenol 325MG TAB) 650 mg Q4H PRN PO MILD PAIN (1-3) 07/03/24 19:30 08/02/24 19:29 Acetaminophen (TYLenol 325MG TAB) 650 mg Q6H PRN PO TEMPERATURE GREATER THAN 101.5 07/03/24 19:30 08/02/24 19:29 Albuterol (DUOneb) 1 UDVIAL [id number] IH 07/04/24 00:00 08/03/24 00:00 07/04/24 06:48 1 UDVIAL Famotidine (Pepcid 20mg Vial) 20 mg BID IV 07/03/24 21:00 08/02/24 20:59 07/04/24 08:41 20 MG Hydralazine HCl (APRESOLine 20MG INJ) 10 mg Q6H PRN IV ADMINISTER FOR SBP > 160 07/04/24 02:30 08/03/24 02:29 Levofloxacin/ Dextrose 100 ml @ 100 mls/hr Q24H IV 07/03/24 19:30 07/13/24 19:29 07/03/24 23:35 100 MLS/HR Levothyroxine Sodium (SYNTHroid 25MCG TAB) 25 mcg SYN PO 07/05/24 06:30 08/04/24 06:29 Magnesium Sulfate 50 ml @ 0 mls/hr PROTOCOL PRN IV OTHER [SEE ORDER COMMENTS] 07/03/24 19:30 08/02/24 19:29 07/04/24 04:55 20 MLS/HR Ondansetron HCl (zoFRAN 4MG INJ) 4 mg Q6H PRN IV NAUSEA/VOMITING 07/03/24 19:30 08/02/24 19:29 Potassium Chloride 100 ml @ 100 mls/hr AD PRN IV POTASSIUM PROTOCOL 07/03/24 19:30 08/02/24 19:29 Potassium Chloride (K-Dur/Klor-Con 20meq) 20 meq AD PRN PO POTASSIUM PROTOCOL 07/03/24 19:30 08/02/24 19:29 Potassium Chloride (KCl 10% Elixir 20meq/15ml) 20 meq AD PRN PO POTASSIUM PROTOCOL 07/03/24 19:30 08/02/24 19:29 DIAGNOSTICS / RADIOLOGY: [ ] ASSESSMENT: Severe acute blood loss anemia requiring blood transfusion POA Multifactorial anemia POA Acute hypoxic Respiratory Failure POA Suspected uterine bleeding POA Fibroid uterus and thickened endometrium per pelvic ultrasound POA Uncontrolled hypertension POA Morbid obesity POA Hypothyroidism POA acute complicated cystitis POA PLAN: 07/07/2024 possible D and C by OBGYN We will admit patient in medical telemetry We will start on heart healthy diet We will start on Levaquin 500 mg IV daily We will continue to transfuse 1 unit of blood PRBC and check H and H 1 hour post transfusion We will start on Famotidine 20 mg IV bid for GI prophylaxis We will replace electrolytes as needed per protocol We will obtain urine culture and deescalate antibiotic therapy We will add prn medication for fever,pain,nausea and vomiting We will reconcile home meds once medlist available We will request labs in am Further orders to follow depending on above results Case discussed with attending physician and came up with above treatment and plan of care. ATTESTATION BY PHYSICIAN I have seen and examined the patient. I reviewed the documentation, medical decision making, and treatment plan as noted by the mid-level provider above. I agree with the findings and plan of care. NICHOLAS REYNOLDS MD, [facility]AT[facility] B [employer] ARCHITECT Jul 04, 2024 10:13
--- NOTE | 2024-07-04 10:22 | HP ---
HISTORY OF PRESENT ILLNESS: A 64-year-old female who presented to the ER by instruction of her PCP due to shortness of breath, fatigue and vaginal bleeding. I am consulted due to the anemia and the vaginal bleeding. The patient states that she has never gone through menopause and that she has been having periods regularly until about 3 months ago where they began to be constant and heavy with clots. The patient denies taking any blood thinners. This patient has a history of 7 pregnancies with 5 vaginal deliveries, 1 and a spontaneous miscarriage. She denies any pelvic pain. PAST HISTORY: Systemic illnesses, asthma, anemia, hypothyroidism, morbid obesity. SURGICAL HISTORY: x 1 with tubal ligation. ALLERGIES: LATEX, CEPHALOSPORIN, AND DEMEROL. PHYSICAL EXAMINATION: VITAL SIGNS: Stable, afebrile. GENERAL APPEARANCE: Alert, active, oriented in three spheres, no acute distress. ABDOMEN: Soft and nontender. Pelvic exam deferred. EXTREMITIES: 3+ pedal edema. NEUROLOGIC: Grossly intact. A pelvic ultrasound was performed, revealing a 3.5 cm fibroid on the uterus. The endometrial stripe was slightly thickened at 1 cm. No adnexal masses. ASSESSMENT: * Postmenopausal bleeding. * Anemia secondary to chronic blood loss. * Hypertension. * Morbid obesity. * Hypothyroidism. PLAN: Given the patient's presentation, we need to rule out endometrial adenocarcinoma. I spoke to the nurse and ordered an FSH and also requested a medical clearance for D and C, with hysteroscopy. We will proceed with this procedure as soon as she is medically cleared. TID: [id number] RECEIPT: [id number]
[2024-07-04 13:17] LABS: MEAN CORPUSCULAR HGB CONC 30.6 g/dL (32.0-36.0); MEAN CORPUSCULAR VOLUME 88.4 fL (79-99); RED BLOOD CELL COUNT(AUTO) 2.33 MIL/uL (4.00-5.50); RED CELL DISTRIBUTION WIDTH 16.5 % (11.0-15.5); WHITE BLOOD COUNT (AUTO) 4.1 K/uL (4.8-10.8)
[2024-07-04 13:32] LABS: HEMATOCRIT 20.6 % (36-48)
--- NOTE | 2024-07-04 15:30 | NUR ---
INITIATED BLOOD TRANSFUSION. HGB 6.3/HCT 20.3
--- NOTE | 2024-07-04 16:33 | CONS ---
[facility] CONSULTATION NOTE Date Patient Seen: Jul 04, 2024 Time of Visit: 16:26 Supervising Physician: WALESKA SMALL MD Reason for Consultation: Pulmonary clearance for D&C Primary Care Physician: [ ] Outpatient Specialists: [ ] Inpatient Consults: [ ] PROBLEM LIST: - Acute hypoxic respiratory failure on admission - Acute blood loss anemia secondary to uterine bleed on admission - Underlying asthma, without exacerbation - Severe morbid obesity class III, BMI 46.7 kg/mw - Essential hypertension - Hypothyroidism - Untreated/suspected undiagnosed obstructive sleep apnea - Obesity hypoventilation syndrome - Uterine bleed secondary to uterine fibroids as per medical history - Hyperlipidemia HPI: [facility] consulted for pulmonary clearance Medical history reviewed, patient is seen and evaluated Currently on 2 liters O2, awake, alert, well hydrated Presented with severe dizziness, dyspnea and marked vaginal bleeding Patient has underlying medical history of uterine fibroids On admission, patient with low hemoglobin requiring transfusion of blood products currently, no distress, pale, weak and with orthopnea Planned for DNC as per OBGYN PAST MEDICAL HX: Morbid obesity, severe class III Hypertension, asthma Suspected, untreated and undiagnosed obstructive sleep apnea Hypothyroidism Uterine fibroids PAST SURGICAL HX: noncontributory SOCIAL HISTORY: No tobacco, ETOH, or illicit drug use Coded Allergies: Cephalosporins (Unverified Allergy, Unknown, 07/03/24) Latex, Natural Rubber (Unverified Allergy, Unknown, 07/03/24) cephalexin (Unverified Allergy, Unknown, 07/03/24) meperidine (Unverified Allergy, Unknown, 07/03/24) REVIEW OF SYSTEMS: 12 point ROS reviewed with patient. Pertinent positives mentioned above. Otherwise negative. PHYSICAL EXAM: GENERAL: alert, weak, awake oriented x 3 HEENT: EOMI, Sclera non icteric, moist mucosa NECK: Supple, no JVD, trachea midline LUNGS: Clear breath sounds bilaterally. No wheezes HEART: Regular rate and rhythm. Normal S1 and S2, without murmurs ABD: Abdomen soft, nontender. Bowel sounds present EXT: No clubbing cyanosis or edema NEURO: Alert and oriented to person, follows commands Vital Signs (last 8hr) Date Time Temp Pulse Resp B/P (MAP) Pulse Ox O2 Delivery O2 Flow Rate FiO2 07/04/24 11:10 102 21 N/A Room Air 07/04/24 11:08 102 21 07/04/24 11:00 97.9 103 20 114/68 97 Room Air LABS: Hematology Labs: Test 07/04/24 13:07 07/04/24 03:30 07/03/24 16:19 Range/Units White Blood Count 4.1 L 4.8-10.8 K/uL Red Blood Count 2.33 L 4.00-5.50 MIL/uL Hemoglobin 6.3 *L 12.0-16.0 g/dL Hematocrit 20.6 *L 36-48 % Mean Corpuscular Volume 88.4 79-99 fL Mean Corpuscular Hemoglobin 27.0 27.0-33.0 pg Mean Corpuscular Hemoglobin Concent 30.6 L 32.0-36.0 g/dL Red Cell Distribution Width 16.5 H 11.0-15.5 % Platelet Count 130 130-400 K/uL Mean Platelet Volume 10.6 H 7.5-10.5 fL Nucleated Red Blood Cells 0.0 0.0-0.19 % Immature Granulocyte % (Auto) 0.4 0-1 % Neutrophils (%) (Auto) 65.4 40.0-77.0 % Lymphocytes (%) (Auto) 12.8 L 21.0-51.0 % Monocytes (%) (Auto) 11.6 3.0-13.0 % Eosinophils (%) (Auto) 9.0 H 0.0-8.0 % Basophils (%) (Auto) 0.8 0.0-5.0 % Neutrophils # (Auto) 3.5 1.8-7.7 K/uL Lymphocytes # (Auto) 0.7 L 1.0-4.8 K/uL Monocytes # (Auto) 0.6 0.1-1.0 K/uL Eosinophils # (Auto) 0.48 0.00-0.70 K/uL Basophils # (Auto) 0.04 0.00-0.20 K/uL Absolute Immature Granulocyte (auto 0.02 0-1 K/uL White Cell Morphology Comment See comments Red Blood Cell Morphology See comments Chemistry Labs: Test 07/04/24 07:25 07/03/24 16:19 Range/Units Sodium Level 138 136-145 mmol/L Potassium Level 3.8 3.5-5.1 mmol/L Chloride Level 103 101-111 mmol/L Carbon Dioxide Level 27 21-32 mmol/L Blood Urea Nitrogen 11 7-18 mg/dL Creatinine 0.8 0.5-1.0 mg/dL Glomerular Filtration Rate Calc 83 >90 mL/min Random Glucose 100 70-105 mg/dL Total Calcium 8.6 8.5-10.1 mg/dL Magnesium Level 2.10 1.80-2.40 mg/dL Total Bilirubin 2.8 H 0.2-1.0 mg/dL Aspartate Amino Transf (AST/SGOT) 125 H 10-37 U/L Alanine Aminotransferase (ALT/SGPT) 88 H 12-78 U/L Alkaline Phosphatase 147 H 50-136 U/L Total Protein 5.7 L 6.0-8.3 g/dL Albumin 2.3 L 3.5-5.0 g/dL Thyroid Stimulating Hormone (TSH) 3.13 0.36-3.74 uIU/mL Troponin I High Sensitivity 10 4-50 ng/L B-Type Natriuretic Peptide 29 0-100 pg/mL Coagulation Labs: Test 07/04/24 07:25 Range/Units Prothrombin Time 14.0 H 9.6-11.6 SEC Prothromb Time International Ratio 1.32 H 0.85-1.15 Activated Partial Thromboplast Time 25.2 L 26.3-35.5 SEC DIAGNOSTICS / RADIOLOGY RESULTS: [ Imaging scans reviewed at bedside ] PLAN There is no absolute contraindication for DNC from the pulmonary standpoint monitor blood pressure closely aspiration precautions continue supplemental oxygen NEURO: Minimize central acting medications as possible. Maintain fall precautions, adequate lighting during the day PULMONARY: Supplemental 02 as needed. Maintain aspiration precautions at all times CARDIOVASCULAR: Follow hemodynamics. Vital signs per facility protocol GI & NUTRITION: Continue with nutritional support. Continue stool softeners and laxatives as needed. KIDNEYS & ELECTROLYTES: Strict monitoring of intake, output and overall fluid balance. Avoid nephrotoxic medications to the extent possible. Medications to be dosed according to renal function. Monitor electrolytes and replace as needed ENDOCRINE: Maintain blood glucose between 100-180 at all times. Hypoglycemia protocol in place INFECTIOUS DISEASE: Trend temperature, WBC and procalcitonin level Follow cultures, deescalate antibiotics as soon as possible. Panculture if new onset fever ONCOLOGY/HEMATOLOGY/COAGULATION: Monitor for s/s of bleeding Monitor hemoglobin, coagulation studies as needed SKIN: Pressure ulcer prevention per facility protocol Specialty mattress ORTHO/REHAB: Continue PT/OT Prophylaxis: Continue GI and DVT prophylaxis Code Status: Full Resuscitation Disposition: TBD Other: Total patient care time exceeds 35 minutes excluding all procedures. ATTESTATION BY PHYSICIAN The clinical note was scribed on my behalf by LOIS Faustin and I attest to the accuracy of the clinical documentation Waleska Small MD I personally scribed for WALESKA SMALL MD ([email or web address]) on 07/04/24 at 16:33. Electronically submitted by Mich Foster ([email or web address]). WALESKA SMALL MD Jul 04, 2024 16:33
--- NOTE | 2024-07-04 18:15 | NUR ---
BLOOD TRANSFUSION COMPLETED AND TOLERATED WELL.
[2024-07-04] MEDS: hydrALAZine 20MG/ML VIAL IV PRN (18:43)
--- NOTE | 2024-07-04 18:43 | NUR ---
BP 170\90, MEDICATED WITH HYDRALAZINE 10 MG IV.
[2024-07-04 19:18] LABS: HEMATOCRIT 27.3 % (36-48)
--- NOTE | 2024-07-04 21:28 | NUR ---
D/C PLAN CM spoke to patient regarding d/c planning. Patient lives with spouse. Reports she is independent with ADL's. Denies having any home services or DME. No needs verbalized. Plan to home. Addendum: 07/04/24 at 2128 by NIKOLAY CHEN CM Amended: Links added.
--- NOTE | 2024-07-04 21:30 | NUR ---
PATIENT AAOX4, PATIENT STATES SHE IS UNABLE TO SIT DOWN WITHOUT COUGHING AND BEING VERY SHORT OF BREATH. MISA FOR HOSPITALIST MADE AWARE. HOSPITALIST RECOMMEND USING RECLINER. NEW ORDERS: BNP, D-DIMER.
[2024-07-05] VITALS (13 sets, daily range): BP systolic 116–139; BP diastolic 55–75; PULSE 100–107; RESP 18–20; TEMP 97.7–98.6; O2SAT 98–99
[2024-07-05 03:45] LABS: BASOPHILS # (AUTO) 0.05 K/uL (0.00-0.20); BASOPHILS % (AUTO) 0.9 % (0.0-5.0); EOSINOPHILS # (AUTO) 0.48 K/uL (0.00-0.70); EOSINOPHILS % (AUTO) 8.6 % (0.0-8.0); HEMATOCRIT 23.4 % (36-48); IMMATURE GRANULOCYTE ABSOLUTE 0.02 K/uL (0-1); LYMPHOCYTES # (AUTO) 0.6 K/uL (1.0-4.8); LYMPHOCYTES % (AUTO) 10.8 % (21.0-51.0); MEAN CORPUSCULAR HEMOGLOBIN 27.3 pg (27.0-33.0); MEAN CORPUSCULAR HGB CONC 30.8 g/dL (32.0-36.0); MEAN CORPUSCULAR VOLUME 88.6 fL (79-99); MONOCYTES # (AUTO) 0.7 K/uL (0.1-1.0); MONOCYTES % (AUTO) 12.4 % (3.0-13.0); NEUTROPHILS # (AUTO) 3.7 K/uL (1.8-7.7); NEUTROPHILS % (AUTO) 66.9 % (40.0-77.0); PLATELET COUNT (AUTO) 150 K/uL (130-400); RED BLOOD CELL COUNT(AUTO) 2.64 MIL/uL (4.00-5.50); RED CELL DISTRIBUTION WIDTH 16.7 % (11.0-15.5); WHITE BLOOD COUNT (AUTO) 5.6 K/uL (4.8-10.8)
[2024-07-05 03:59] LABS: ALBUMIN 2.1 g/dL (3.5-5.0); BILIRUBIN,TOTAL 2.6 mg/dL (0.2-1.0); CREATININE 0.8 mg/dL (0.5-1.0); MAGNESIUM 2.1 mg/dL (1.80-2.40); POTASSIUM 3.7 mmol/L (3.5-5.1); TOTAL PROTEIN, SERUM 5.2 g/dL (6.0-8.3)
--- NOTE | 2024-07-05 04:59 | NUR ---
D-DIMER LEVEL [id number]. HOSPITALIST MADE AWARE. PATIENT UNABLE TO LIE FLAT DUE TO SHORTNESS OF BREATH. HOSPITALIST AWARE.
[2024-07-05] MEDS ORDERED: IOHEXOL 350 MG/ML 100ML INFUS..BTL IV ONE (05:06)
--- NOTE | 2024-07-05 05:21 | NUR ---
PT UNABLE TO LAY DOWN FLAT FOR CT EXAM..CT PE EXAM WILL BE PENDING UNTIL FURTHER NOTICE
[2024-07-05] MEDS: levoTHYROxine 25 MCG TABLET PO SCH (06:30)
[2024-07-05] MEDS: PoTASSium chloRIDE 20MEQ ER 20 MEQ ERTAB PO PRN (06:33)
--- NOTE | 2024-07-05 08:37 | PN ---
[facility] PROGRESS NOTE Date Patient Seen: Jul 05, 2024 Time of Visit: 08:31 Supervising Physician: Dr. Small Primary Care Physician: Hospitalist Outpatient Specialists: [facility] Inpatient Consults: Dr. Small PROBLEM LIST: Acute hypoxic respiratory failure on admission Acute blood loss anemia secondary to uterine bleed on admission Underlying asthma, without exacerbation Severe morbid obesity class III, BMI 46.7 kg/mw Essential hypertension Hypothyroidism Untreated/suspected undiagnosed obstructive sleep apnea Obesity hypoventilation syndrome Uterine bleed secondary to uterine fibroids as per medical history Hyperlipidemia INTERVAL HISTORY: 07/05 patient is awake alert and oriented not in acute distress. No acute event overnight. Her vital signs this morning blood pressure of 134/71 heart rate is 106 respiratory rate is 18. She is on room air saturation oxygen 98%. Her chest x-ray Is clear, but patient has not been able to lay flat for CT scan with PE protocol. Her D dimer is >1K. Will obtain venous Doppler of the lower extremity. Given her Wells score for PE is 1.5 pts, 1.3% chance of PE. We can hold off on CT PE for now. Besides, we can not anticoagulate her since she has severe blood loss anemia. Her lab this morning with hemoglobin of 7.2 is down from 8.4 yesterday after she received 1 unit of PRBC. Continue to monitor HH. Continue with D and C per Obgyn. REVIEW OF SYSTEMS: 12 point ROS reviewed with patient. Pertinent positives mentioned above. Otherwise negative. PHYSICAL EXAM: GENERAL: alert, weak, awake oriented x 3 HEENT: EOMI, Sclera non icteric, moist mucosa NECK: Supple, no JVD, trachea midline LUNGS: Clear breath sounds bilaterally. No wheezes HEART: Regular rate and rhythm. Normal S1 and S2, without murmurs ABD: Abdomen soft, nontender. Bowel sounds present EXT: No clubbing cyanosis or edema NEURO: Alert and oriented to person, follows commands Vital Signs (last 8hr) Date Time Temp Pulse Resp B/P (MAP) Pulse Ox O2 Delivery O2 Flow Rate FiO2 07/05/24 08:07 98 Room Air* 0 21 07/05/24 07:41 97.7 106 18 134/71 99 Room Air 07/05/24 06:31 107 20 N/A Room Air 21 07/05/24 06:30 107 20 07/05/24 04:23 98.6 100 18 132/59 96 Room Air LABS: Hematology Labs: Test 07/05/24 03:37 07/03/24 16:19 Range/Units White Blood Count 5.6 # 4.8-10.8 K/uL Red Blood Count 2.64 L 4.00-5.50 MIL/uL Hemoglobin 7.2 L 12.0-16.0 g/dL Hematocrit 23.4 L 36-48 % Mean Corpuscular Volume 88.6 79-99 fL Mean Corpuscular Hemoglobin 27.3 27.0-33.0 pg Mean Corpuscular Hemoglobin Concent 30.8 L 32.0-36.0 g/dL Red Cell Distribution Width 16.7 H 11.0-15.5 % Platelet Count 150 130-400 K/uL Mean Platelet Volume 10.8 H 7.5-10.5 fL Immature Granulocyte % (Auto) 0.4 0-1 % Neutrophils (%) (Auto) 66.9 40.0-77.0 % Lymphocytes (%) (Auto) 10.8 L 21.0-51.0 % Monocytes (%) (Auto) 12.4 3.0-13.0 % Eosinophils (%) (Auto) 8.6 H 0.0-8.0 % Basophils (%) (Auto) 0.9 0.0-5.0 % Neutrophils # (Auto) 3.7 1.8-7.7 K/uL Lymphocytes # (Auto) 0.6 L 1.0-4.8 K/uL Monocytes # (Auto) 0.7 0.1-1.0 K/uL Eosinophils # (Auto) 0.48 0.00-0.70 K/uL Basophils # (Auto) 0.05 0.00-0.20 K/uL Absolute Immature Granulocyte (auto 0.02 0-1 K/uL Nucleated Red Blood Cells 0.0 0.0-0.19 % White Cell Morphology Comment See comments Red Blood Cell Morphology See comments Chemistry Labs: Test 07/05/24 03:37 07/04/24 07:25 07/03/24 16:19 Range/Units Sodium Level 138 136-145 mmol/L Potassium Level 3.7 3.5-5.1 mmol/L Chloride Level 104 101-111 mmol/L Carbon Dioxide Level 28 21-32 mmol/L Blood Urea Nitrogen 11 7-18 mg/dL Creatinine 0.8 0.5-1.0 mg/dL Glomerular Filtration Rate Calc 83 >90 mL/min Random Glucose 104 70-105 mg/dL Total Calcium 8.7 8.5-10.1 mg/dL Magnesium Level 2.10 1.80-2.40 mg/dL Total Bilirubin 2.6 H 0.2-1.0 mg/dL Aspartate Amino Transf (AST/SGOT) 104 H 10-37 U/L Alanine Aminotransferase (ALT/SGPT) 79 H 12-78 U/L Alkaline Phosphatase 136 50-136 U/L B-Type Natriuretic Peptide 29 0-100 pg/mL Total Protein 5.2 L 6.0-8.3 g/dL Albumin 2.1 L 3.5-5.0 g/dL Thyroid Stimulating Hormone (TSH) 3.13 0.36-3.74 uIU/mL Follicle Stimulating Hormone 13.5 L 25.8-134.8 mIU/mL Troponin I High Sensitivity 10 4-50 ng/L Coagulation Labs: Test 07/05/24 03:37 07/04/24 07:25 Range/Units D-Dimer Quantitative (PE/DVT) 2631 *H 0-500 ng/mL Prothrombin Time 14.0 H 9.6-11.6 SEC Prothromb Time International Ratio 1.32 H 0.85-1.15 Activated Partial Thromboplast Time 25.2 L 26.3-35.5 SEC DIAGNOSTICS / RADIOLOGY RESULTS: [ ] PLAN There is no absolute contraindication for DNC from the pulmonary standpoint monitor blood pressure closely aspiration precautions continue supplemental oxygen NEURO: Minimize central acting medications as possible. Maintain fall precautions, adequate lighting during the day PULMONARY: Supplemental 02 as needed. Maintain aspiration precautions at all times CARDIOVASCULAR: Follow hemodynamics. Vital signs per facility protocol GI & NUTRITION: Continue with nutritional support. Continue stool softeners and laxatives as needed. KIDNEYS & ELECTROLYTES: Strict monitoring of intake, output and overall fluid balance. Avoid nephrotoxic medications to the extent possible. Medications to be dosed according to renal function. Monitor electrolytes and replace as needed ENDOCRINE: Maintain blood glucose between 100-180 at all times. Hypoglycemia protocol in place INFECTIOUS DISEASE: Trend temperature, WBC and procalcitonin level Follow cultures, deescalate antibiotics as soon as possible. Panculture if new onset fever ONCOLOGY/HEMATOLOGY/COAGULATION: Monitor for s/s of bleeding Monitor hemoglobin, coagulation studies as needed SKIN: Pressure ulcer prevention per facility protocol Specialty mattress ORTHO/REHAB: Continue PT/OT Prophylaxis: Continue GI and DVT prophylaxis Code Status: Full Resuscitation Disposition: TBD Other: Total patient care time exceeds 35 minutes excluding all procedures. DEBBIE NAVARRO [facility] Jul 05, 2024 08:37
--- NOTE | 2024-07-05 09:14 | HMCIMG ---
ULTRASOUND ABDOMEN LIMITED INDICATION: Elevated liver enzymes COMPARISON: None FINDINGS: Examination is images secondary to patient body habitus and extensive overlying bowel gas. The liver is coarse in echotexture and increased in echogenicity; no focal lesion demonstrated. Main portal vein is patent, and normal direction of vascular flow demonstrated. The common bile duct diameter measures 4.0 mm. Gallbladder was not well-demonstrated secondary to extensive overlying bowel gas. Pancreas is obscured by overlying bowel gas as well. The right kidney measures 10.8 x 5.0 x 4.6 cm,and is normal in echogenicity, without evidence for hydronephrosis.No shadowing stones demonstrated. Small amount of free fluid scattered throughout the all four quadrants of the abdomen. IMPRESSION: Limitations as reported. Findings suggesting cirrhotic or other underlying liver disease and small-volume abdominal ascites. Pancreas and gallbladder were not well-demonstrated.
[2024-07-05] MEDS: furoSEMIDE 20MG VIAL IV ONE (11:17)
--- NOTE | 2024-07-05 12:23 | PN ---
[facility] PROGRESS NOTE Date of Service: Jul 05, 2024 Time of Service: 12:[address] Garcia SUBJECTIVE: [ This is a 64-year-old female with past medical history of asthma, anemia, hypothyroidism and morbid obesity who presents to the ED after coming from PCP's clinic today for complaints of shortness of breaths, edema and possible fluid overload evaluation.Patient states she has been having shortness of breath because of her Asthma and anemia because she has been having menstrual bleed for 3 weeks every month since 4 years ago and it has slowed down 10 months ago that sometimes she missed the period for a month however was started on Levothyroxine by her primary and coincidentally she said after taking it she started having 3 weeks of bleeding again and a week off without bleeding so she stopped taking her Levothyroxine last April but she started having progressive shortness of breath and edema 3 weeks ago.Patient reports she was sick for the past 3 weeks with cough and fever and her legs started to get swollen and today she went to her PCP because swelling has gone up to her abdomen and she has not been able to have a good sleep because if she lies down she gets very short of breath so she had to stand up most of the time to catch her breath. Patient reports she is supposed to see an OBGYN doctor tomorrow. Seen and examined patient in the ED awake,alert and coherent,pale looking .Patient denies fever,chills,chest pain,palpitation,cough , nausea, bloody emesis, bloody stool and abdominal pain.Patient reports she voids little and her last bowel movement is today and it was normal. Latest vital signs temperature 97.9, heart rate 120, respiration 24, pressure 153/85, saturation 99% on room air. Labs: WBC 5, hemoglobin 6.2, hematocrit 20.8 platelet count 173. Glucose 129 the rest of the chemistry is unremarkable BNP 29 troponin 10. Urinalysis remarkable for large hematuria positive for RBC, WBC urobilinogen , protein and ketones. SARs COVID result is negative. Chest x-ray result is normal. Pelvic ultrasound result revealed no adnexal mass is seen. Fibroid uterus thickened endometrium. While in the ER patient is pending to be transfused with 1 unit PRBC per ER recommendation. As per ER RELIEF CAPTAIN's report he already consulted OBGYN Dr. Sabillon and agreed to evaluate the patient. We will admit patient for further medical management. Addendum : Post Transfusion primary nurse called and reported patient developed increased shortness of breath needing oxygen supplementation.Will request ABG ,Give Lasix 20mg IV x1 and Duoneb treatment and will transfer patient to PCCU and consult Pulmonology 07/04 patient was seen by nurse practitioner and physician during rounding in room 223 comfortably lying in bed. Patient is on room air. Patient pending evaluation by cloth doffer and clearance for possible D and C. Patient was evaluated by Dr. Ridge ZEPEDA and would like to perform DandC on Sunday07/07/2024. Medical clearance needed. We will continue to monitor patient. A.m. labs 07/05 patient was seen by RELIEF CAPTAIN and physician during rounding in room 223. 2D echo still pending. Venous Doppler was ordered by cloth doffer pending results. Patient was also cleared by cloth doffer for D&C on Sunday with Dr. Sabillon. Ultrasound abdomen shows cirrhosis abdominal ascites small. We will continue to monitor patient in the meantime. Continue IV antibiotics Levaquin. A.m. labs] REVIEW OF SYSTEMS CONSTITUTIONAL: Appears pale looking Denies fevers, chills, or night sweats. No unintentional weight loss reported. NEUROLOGICAL: Denies headache, amaurosis fugax, motor weakness, sensory def icit, vertigo/spinning sensation, gait abnormalities, or tremors. ENT: No hearing loss, otalgia, otorrhea, rhinitis, rhinorrhea, hoarseness, or sore throat. CARDIOVASCULAR: Denies any exertional angina, dyspnea on exertion, orthopnea, paroxysmal nocturnal dyspnea, palpitations, life-threatening arrhythmias, claudication. PULMONARY: Complaints of shortness of breaths when ambulating Denies cough, phlegm/sputum, hemoptysis, pleuritic chest pain. SLEEP: Complains of insomnia Denies morning headaches, daytime somnolence or napping. Denies knowledge of snoring. GASTROINTESTINAL: Complains of abdominal distention Denies any type of dysphagia to either liquids or solids. Denies nausea, vomiting, pyrosis, early satiety, abdominal pain, diarrhea, constipation, or changes in stool consistency or caliber. Denies coffee-ground emesis, hematemesis, hematochezia, or melanotic stools. GENITOURINARY: Denies frequency, urgency, nocturia, incontinence (Storage/Irritative symptoms.) Low urinary stream, straining to void, urinary intermittency or hesitancy, splitting of the voiding stream, terminal dribbling. ENDOCRINOLOGIC: Denies polyuria, polydipsia, polyphagia or heat/cold intolerances. HEMATOLOGIC: Complain of heavy menstrual bleeding Denies thrombophilia/previous clots, or coagulopathy ONCOLOGIC: Denies personal history of malignancy. DERMATOLOGIC: Denies rashes or pruritus. PSYCHIATRIC: Denies any suicidal or homicidal ideation. Denies hallucinations. PHYSICAL EXAM GENERAL APPEARANCE: The patient is awake, alert, and oriented NEUROLOGICAL: Cranial nerves II-XII grossly intact. Motor is 5/5 in bilateral upper and lower extremities proximal to distal. No sensory deficits. HEENT: Face is symmetric. Pupils are equal and reactive. Extraocular movements are intact. NECK: Supple. No JVD. No thyromegaly. No submental, submandibular, pre- /postauricular, occipital or supraclavicular lymphadenopathy. CHEST: Normal chest expansion. No Telemetry. LUNGS: Diminished breath sounds CARDIOVASCULAR: Regular. S1 and S2 normal. No appreciable rubs, murmurs or gallops. ABDOMEN: Abdomen is distended and firmed There is no rebound, voluntary guarding, or rigidity. : Deferred. No Ma. EXTREMITIES: 2+ edema from bilateral lower extremities up to abdomen SKIN: No skin breakdown. Vital Signs (last 8hr) Date Time Temp Pulse Resp B/P (MAP) Pulse Ox O2 Delivery O2 Flow Rate FiO2 07/05/24 12:14 98.1 107 18 130/66 97 Room Air 07/05/24 11:33 102 20 07/05/24 11:33 102 20 N/A Room Air 07/05/24 08:07 98 Room Air* 0 07/05/24 07:41 97.7 106 18 134/71 99 Room Air 07/05/24 06:31 107 20 N/A Room Air 07/05/24 06:30 107 20 07/05/24 04:23 98.6 100 18 132/59 96 Room Air LABS: Laboratory: Test 07/05/24 03:37 07/04/24 07:25 07/04/24 03:57 07/03/24 18:33 Range/Units White Blood Count 5.6 # 4.8-10.8 K/uL Red Blood Count 2.64 L 4.00-5.50 MIL/uL Hemoglobin 7.2 L 12.0-16.0 g/dL Hematocrit 23.4 L 36-48 % Mean Corpuscular Volume 88.6 79-99 fL Mean Corpuscular Hemoglobin 27.3 27.0-33.0 pg Mean Corpuscular Hemoglobin Concent 30.8 L 32.0-36.0 g/dL Red Cell Distribution Width 16.7 H 11.0-15.5 % Platelet Count 150 130-400 K/uL Mean Platelet Volume 10.8 H 7.5-10.5 fL Immature Granulocyte % (Auto) 0.4 0-1 % Neutrophils (%) (Auto) 66.9 40.0-77.0 % Lymphocytes (%) (Auto) 10.8 L 21.0-51.0 % Monocytes (%) (Auto) 12.4 3.0-13.0 % Eosinophils (%) (Auto) 8.6 H 0.0-8.0 % Basophils (%) (Auto) 0.9 0.0-5.0 % Neutrophils # (Auto) 3.7 1.8-7.7 K/uL Lymphocytes # (Auto) 0.6 L 1.0-4.8 K/uL Monocytes # (Auto) 0.7 0.1-1.0 K/uL Eosinophils # (Auto) 0.48 0.00-0.70 K/uL Basophils # (Auto) 0.05 0.00-0.20 K/uL Absolute Immature Granulocyte (auto 0.02 0-1 K/uL Nucleated Red Blood Cells 0.0 0.0-0.19 % D-Dimer Quantitative (PE/DVT) 2631 *H 0-500 ng/mL Sodium Level 138 136-145 mmol/L Potassium Level 3.7 3.5-5.1 mmol/L Chloride Level 104 101-111 mmol/L Carbon Dioxide Level 28 21-32 mmol/L Blood Urea Nitrogen 11 7-18 mg/dL Creatinine 0.8 0.5-1.0 mg/dL Glomerular Filtration Rate Calc 83 >90 mL/min Random Glucose 104 70-105 mg/dL Total Calcium 8.7 8.5-10.1 mg/dL Magnesium Level 2.10 1.80-2.40 mg/dL Total Bilirubin 2.6 H 0.2-1.0 mg/dL Aspartate Amino Transf (AST/SGOT) 104 H 10-37 U/L Alanine Aminotransferase (ALT/SGPT) 79 H 12-78 U/L Alkaline Phosphatase 136 50-136 U/L B-Type Natriuretic Peptide 29 0-100 pg/mL Total Protein 5.2 L 6.0-8.3 g/dL Albumin 2.1 L 3.5-5.0 g/dL Prothrombin Time 14.0 H 9.6-11.6 SEC Prothromb Time International Ratio 1.32 H 0.85-1.15 Activated Partial Thromboplast Time 25.2 L 26.3-35.5 SEC Thyroid Stimulating Hormone (TSH) 3.13 0.36-3.74 uIU/mL Follicle Stimulating Hormone 13.5 L 25.8-134.8 mIU/mL Blood Gas Specimen Type Arterial Arterial Blood pH 7.491 H 7.350-7.450 Arterial Blood Partial Pressure CO2 30 L 32-45 mmHg Arterial Blood Partial Pressure O2 98.6 83.0-108.0 mmHg Arterial Blood HCO3 22.6 21.0-28.0 mmol/L Arterial Blood Oxygen Saturation 97.6 94.0-98.0 % Arterial Blood Base Excess -0.4 -2.0-3.0 mmol/L Hemoglobin (Blood Gas) 8.0 L 12.0-16.0 g/dL Sodium (Blood Gas) 131 L 136-145 MMOL/L Bedside Potassium (Blood Gas) 3.7 3.4-4.5 MMOL/L Bedside Chloride (Blood Gas) 100 98-107 MMOL/L Bedside Glucose (Blood Gas) 105 H 65-95 MG/DL Bedside Ionized Calcium (Blood Gas) 1.16 1.15-1.33 MMOL/L Bedside Lactic Acid (Blood Gas) 1.55 H 0.36-0.75 MMOL/L Blood Gas Temperature 37.0 35.5-37.0 CELSIUS Blood Gas Vent Mode RA,21 ROOM AIR FiO2 21.0 % Blood Gas Specimen Comment RB,RN SONYA SARS-CoV-2 Antigen (Rapid) PRESUMPTIVE NEGATIVE NEGATIVE Test 07/03/24 16:48 07/03/24 16:19 Range/Units Urine Color YELLOW YELLOW Urine Appearance CLEAR CLEAR Urine pH 6.0 5.0-8.0 Urine Specific [place] 1.022 1.001-1.031 Urine Protein 20 H NEGATIVE mg/dL Urine Glucose (UA) NEGATIVE NEGATIVE mg/dL Urine Ketones 5 H NEGATIVE mg/dL Urine Occult Blood LARGE H NEGATIVE Urine Nitrate NEGATIVE NEGATIVE Urine Bilirubin NEGATIVE NEGATIVE mg/dL Urine Urobilinogen 2.0 H 0.2-1.0 mg/dL Urine Leukocyte Esterase NEGATIVE NEGATIVE Shirley/uL Urine RBC 51-100 H 0-1 /HPF Urine WBC 6-10 H 0-1 /HPF Urine Squamous Epithelial Cells RARE 0-2 /HPF Urine Bacteria RARE None Seen /HPF White Cell Morphology Comment See comments Red Blood Cell Morphology See comments Troponin I High Sensitivity 10 4-50 ng/L Current Medications Medications (Trade) Dose Ordered Sig/Avinash Route PRN Reason Start Time Stop Time Status Last Admin Dose Admin Acetaminophen (TYLenol 325MG TAB) 650 mg Q4H PRN PO MILD PAIN (1-3) 07/03/24 19:30 08/02/24 19:29 Acetaminophen (TYLenol 325MG TAB) 650 mg Q6H PRN PO TEMPERATURE GREATER THAN 101.5 07/03/24 19:30 08/02/24 19:29 Albuterol (DUOneb) 1 UDVIAL [id number] IH 07/04/24 00:00 08/03/24 00:00 07/05/24 11:33 1 UDVIAL Famotidine (Pepcid 20mg Vial) 20 mg BID IV 07/03/24 21:00 08/02/24 20:59 07/05/24 09:09 20 MG Furosemide (LASix 40MG VIAL) 40 mg Q8H IV 07/05/24 16:00 08/04/24 15:59 Hydralazine HCl (APRESOLine 20MG INJ) 10 mg Q6H PRN IV ADMINISTER FOR SBP > 160 07/04/24 02:30 08/03/24 02:29 07/04/24 18:43 10 MG Levofloxacin/ Dextrose 100 ml @ 100 mls/hr Q24H IV 07/03/24 19:30 07/13/24 19:29 07/04/24 21:17 100 MLS/HR Levothyroxine Sodium (SYNTHroid 25MCG TAB) 25 mcg SYN PO 07/05/24 06:30 08/04/24 06:29 Magnesium Sulfate 50 ml @ 0 mls/hr PROTOCOL PRN IV OTHER [SEE ORDER COMMENTS] 07/03/24 19:30 08/02/24 19:29 07/04/24 04:55 20 MLS/HR Ondansetron HCl (zoFRAN 4MG INJ) 4 mg Q6H PRN IV NAUSEA/VOMITING 07/03/24 19:30 08/02/24 19:29 Potassium Chloride 100 ml @ 100 mls/hr AD PRN IV POTASSIUM PROTOCOL 07/03/24 19:30 08/02/24 19:29 Potassium Chloride (K-Dur/Klor-Con 20meq) 20 meq AD PRN PO POTASSIUM PROTOCOL 07/03/24 19:30 08/02/24 19:29 07/05/24 09:10 20 MEQ Potassium Chloride (KCl 10% Elixir 20meq/15ml) 20 meq AD PRN PO POTASSIUM PROTOCOL 07/03/24 19:30 08/02/24 19:29 DIAGNOSTICS / RADIOLOGY: [ ] ASSESSMENT: Severe acute blood loss anemia requiring blood transfusion POA Multifactorial anemia POA Acute hypoxic Respiratory Failure POA Suspected uterine bleeding POA Fibroid uterus and thickened endometrium per pelvic ultrasound POA Uncontrolled hypertension POA Morbid obesity POA Hypothyroidism POA acute complicated cystitis POA PLAN: 07/07/2024 possible D and C by OBGYN We will admit patient in medical telemetry We will start on heart healthy diet We will start on Levaquin 500 mg IV daily We will continue to transfuse 1 unit of blood PRBC and check H and H 1 hour post transfusion We will start on Famotidine 20 mg IV bid for GI prophylaxis We will replace electrolytes as needed per protocol We will obtain urine culture and deescalate antibiotic therapy We will add prn medication for fever,pain,nausea and vomiting We will reconcile home meds once medlist available We will request labs in am Further orders to follow depending on above results Case discussed with attending physician and came up with above treatment and plan of care. ATTESTATION BY PHYSICIAN I have seen and examined the patient. I reviewed the documentation, medical decision making, and treatment plan as noted by the mid-level provider above. I agree with the findings and plan of care. MD RAMON Garcia KATARZYNA B [employer] DES[employer] Jul 05, 2024 12:23
[2024-07-05 12:36] LABS: HEMATOCRIT 27.4 % (36-48)
[2024-07-05] MEDS: furoSEMIDE 40MG VIAL IV SCH (16:10)
--- NOTE | 2024-07-05 18:20 | HMCIMG ---
US VENOUS DOPPLER BILATERAL CLINICAL HISTORY: elevated d dimer COMPARISON: None FINDINGS: Bilateral lower extremity venous Doppler ultrasound was performed. Compression only was performed. There is normal compressibility of the right lower extremity venous vasculature. The left lower extremity also demonstrates normal compressibility with exception of the left distal superficial femoral vein which was not identified. IMPRESSION: Non-identification of the left distal superficial femoral vein otherwise there was no identified deep venous thrombosis.
[2024-07-05 21:37] LABS: HEMATOCRIT 23.9 % (36-48)
[2024-07-06] VITALS (13 sets, daily range): BP systolic 130–154; BP diastolic 56–81; PULSE 95–117; RESP 18–20; TEMP 98.1–98.7; O2SAT 98–100
[2024-07-06 03:51] LABS: BASOPHILS # (AUTO) 0.03 K/uL (0.00-0.20); BASOPHILS % (AUTO) 0.5 % (0.0-5.0); EOSINOPHILS # (AUTO) 0.49 K/uL (0.00-0.70); EOSINOPHILS % (AUTO) 8.9 % (0.0-8.0); HEMATOCRIT 24.4 % (36-48); IMMATURE GRANULOCYTE ABSOLUTE 0.03 K/uL (0-1); LYMPHOCYTES # (AUTO) 0.7 K/uL (1.0-4.8); MEAN CORPUSCULAR HEMOGLOBIN 26.4 pg (27.0-33.0); MEAN CORPUSCULAR HGB CONC 29.9 g/dL (32.0-36.0); MEAN CORPUSCULAR VOLUME 88.4 fL (79-99); MONOCYTES # (AUTO) 0.8 K/uL (0.1-1.0); MONOCYTES % (AUTO) 15.1 % (3.0-13.0); NEUTROPHILS # (AUTO) 3.5 K/uL (1.8-7.7); PLATELET COUNT (AUTO) 143 K/uL (130-400); RED BLOOD CELL COUNT(AUTO) 2.76 MIL/uL (4.00-5.50); RED CELL DISTRIBUTION WIDTH 16.6 % (11.0-15.5); WHITE BLOOD COUNT (AUTO) 5.5 K/uL (4.8-10.8)
[2024-07-06 04:07] LABS: ALBUMIN 2.2 g/dL (3.5-5.0); BILIRUBIN,TOTAL 2.2 mg/dL (0.2-1.0); CREATININE 0.9 mg/dL (0.5-1.0); MAGNESIUM 1.9 mg/dL (1.80-2.40); POTASSIUM 3.3 mmol/L (3.5-5.1); TOTAL PROTEIN, SERUM 5.5 g/dL (6.0-8.3)
[2024-07-06 09:05] LABS: HEMATOCRIT 26.6 % (36-48)
--- NOTE | 2024-07-06 09:25 | PN ---
[facility] PROGRESS NOTE Date Patient Seen: Jul 06, 2024 Time of Visit: 09:22 Supervising Physician: Dr. Small Primary Care Physician: Hospitalist Outpatient Specialists: STUART Inpatient Consults: Dr. Small PROBLEM LIST: Acute hypoxic respiratory failure on admission Fluid overload- anasarca Acute blood loss anemia secondary to uterine bleed on admission Underlying asthma, without exacerbation Liver cirrhosis- non alcohol Severe morbid obesity class III, BMI 46.7 kg/mw Essential hypertension Hypothyroidism Untreated/suspected undiagnosed obstructive sleep apnea Obesity hypoventilation syndrome Uterine bleed secondary to uterine fibroids as per medical history Hyperlipidemia INTERVAL HISTORY: 07/05 patient is awake alert and oriented not in acute distress. No acute event overnight. Her vital signs this morning blood pressure of 134/71 heart rate is 106 respiratory rate is 18. She is on room air saturation oxygen 98%. Her chest x-ray Is clear, but patient has not been able to lay flat for CT scan with PE protocol. Her D dimer is >1K. Will obtain venous Doppler of the lower extremity. Given her Wells score for PE is 1.5 pts, 1.3% chance of PE. We can hold off on CT PE for now. Besides, we can not anticoagulate her since she has severe blood loss anemia. Her lab this morning with hemoglobin of 7.2 is down from 8.4 yesterday after she received 1 unit of PRBC. Continue to monitor HH. Continue with D and C per Obgyn. 07/06 patient is awake alert oriented x3, no acute event overnight. Patient has been diuresed yesterday with the Lasix 60 mg and followed by 40 mg t.i.d., urine output is 2.9 L balance of-2.4 L. this morning with creatinine remains stable at 0.9 potassium is 3.3 we will replace this per protocol. She remains on room air with good saturation oxygen. Otherwise her liver function also has improved with total bilirubin of 2.2 down from 2.6 AST is 105 and ALT is 84 this is similar to yesterday hemoglobin is stable at 8.0. Urine culture negative to date. Ultrasound of the abdomen yesterday with small amount of ascites no need to do paracentesis. Patient has liver cirrhosis. Otherwise there is no contraindication from pulmonary standpoint proceed with OBGYN plan per surgery, continue to optimized diuretic for now and continue to monitor H.H. REVIEW OF SYSTEMS: 12 point ROS reviewed with patient. Pertinent positives mentioned above. Otherwise negative. PHYSICAL EXAM: GENERAL: alert, weak, awake oriented x 3 HEENT: EOMI, Sclera non icteric, moist mucosa NECK: Supple, no JVD, trachea midline LUNGS: Clear breath sounds bilaterally. No wheezes HEART: Regular rate and rhythm. Normal S1 and S2, without murmurs ABD: Abdomen soft, nontender. Bowel sounds present EXT: No clubbing cyanosis or edema NEURO: Alert and oriented to person, follows commands Vital Signs (last 8hr) Date Time Temp Pulse Resp B/P (MAP) Pulse Ox O2 Delivery O2 Flow Rate FiO2 07/06/24 08:00 100 Room Air* 0 21 07/06/24 07:48 98.6 117 20 139/70 100 Room Air 07/06/24 06:25 102 20 N/A Room Air 21 07/06/24 06:25 102 20 07/06/24 04:07 98.4 103 18 130/56 100 Room Air LABS: Hematology Labs: Test 07/06/24 08:55 07/06/24 03:23 Range/Units Hemoglobin 8.0 L 12.0-16.0 g/dL Hematocrit 26.6 L 36-48 % White Blood Count 5.5 4.8-10.8 K/uL Red Blood Count 2.76 L 4.00-5.50 MIL/uL Mean Corpuscular Volume 88.4 79-99 fL Mean Corpuscular Hemoglobin 26.4 L 27.0-33.0 pg Mean Corpuscular Hemoglobin Concent 29.9 L 32.0-36.0 g/dL Red Cell Distribution Width 16.6 H 11.0-15.5 % Platelet Count 143 130-400 K/uL Mean Platelet Volume 10.7 H 7.5-10.5 fL Immature Granulocyte % (Auto) 0.5 0-1 % Neutrophils (%) (Auto) 63.0 40.0-77.0 % Lymphocytes (%) (Auto) 12.0 L 21.0-51.0 % Monocytes (%) (Auto) 15.1 H 3.0-13.0 % Eosinophils (%) (Auto) 8.9 H 0.0-8.0 % Basophils (%) (Auto) 0.5 0.0-5.0 % Neutrophils # (Auto) 3.5 1.8-7.7 K/uL Lymphocytes # (Auto) 0.7 L 1.0-4.8 K/uL Monocytes # (Auto) 0.8 0.1-1.0 K/uL Eosinophils # (Auto) 0.49 0.00-0.70 K/uL Basophils # (Auto) 0.03 0.00-0.20 K/uL Absolute Immature Granulocyte (auto 0.03 0-1 K/uL Nucleated Red Blood Cells 0.0 0.0-0.19 % Chemistry Labs: Test 07/06/24 03:23 07/05/24 03:37 Range/Units Sodium Level 139 136-145 mmol/L Potassium Level 3.3 L 3.5-5.1 mmol/L Chloride Level 102 101-111 mmol/L Carbon Dioxide Level 31 21-32 mmol/L Blood Urea Nitrogen 10 7-18 mg/dL Creatinine 0.9 0.5-1.0 mg/dL Glomerular Filtration Rate Calc 72 >90 mL/min Random Glucose 109 H 70-105 mg/dL Total Calcium 8.5 8.5-10.1 mg/dL Magnesium Level 1.90 1.80-2.40 mg/dL Total Bilirubin 2.2 H 0.2-1.0 mg/dL Aspartate Amino Transf (AST/SGOT) 105 H 10-37 U/L Alanine Aminotransferase (ALT/SGPT) 84 H 12-78 U/L Alkaline Phosphatase 138 H 50-136 U/L Total Protein 5.5 L 6.0-8.3 g/dL Albumin 2.2 L 3.5-5.0 g/dL B-Type Natriuretic Peptide 29 0-100 pg/mL Coagulation Labs: Test 07/05/24 03:37 Range/Units D-Dimer Quantitative (PE/DVT) 2631 *H 0-500 ng/mL DIAGNOSTICS / RADIOLOGY RESULTS: [ ] PLAN There is no absolute contraindication for DNC from the pulmonary standpoint monitor blood pressure closely aspiration precautions continue supplemental oxygen NEURO: Minimize central acting medications as possible. Maintain fall precautions, adequate lighting during the day PULMONARY: Supplemental 02 as needed. Maintain aspiration precautions at all times CARDIOVASCULAR: Follow hemodynamics. Vital signs per facility protocol GI & NUTRITION: Continue with nutritional support. Continue stool softeners and laxatives as needed. KIDNEYS & ELECTROLYTES: Strict monitoring of intake, output and overall fluid balance. Avoid nephrotoxic medications to the extent possible. Medications to be dosed according to renal function. Monitor electrolytes and replace as needed ENDOCRINE: Maintain blood glucose between 100-180 at all times. Hypoglycemia protocol in place INFECTIOUS DISEASE: Trend temperature, WBC and procalcitonin level Follow cultures, deescalate antibiotics as soon as possible. Panculture if new onset fever ONCOLOGY/HEMATOLOGY/COAGULATION: Monitor for s/s of bleeding Monitor hemoglobin, coagulation studies as needed SKIN: Pressure ulcer prevention per facility protocol Specialty mattress ORTHO/REHAB: Continue PT/OT Prophylaxis: Continue GI and DVT prophylaxis Code Status: Full Resuscitation Disposition: TBD Other: Total patient care time exceeds 35 minutes excluding all procedures. DEBBIE NAVARRO [facility] Jul 06, 2024 09:25
--- NOTE | 2024-07-06 13:19 | PN ---
[facility] PROGRESS NOTE Date of Service: Jul 06, 2024 Time of Service: 13:[address] LIZARRAGA SUBJECTIVE: [ This is a 64-year-old female with past medical history of asthma, anemia, hypothyroidism and morbid obesity who presents to the ED after coming from PCP's clinic today for complaints of shortness of breaths, edema and possible fluid overload evaluation.Patient states she has been having shortness of breath because of her Asthma and anemia because she has been having menstrual bleed for 3 weeks every month since 4 years ago and it has slowed down 10 months ago that sometimes she missed the period for a month however was started on Levothyroxine by her primary and coincidentally she said after taking it she started having 3 weeks of bleeding again and a week off without bleeding so she stopped taking her Levothyroxine last April but she started having progressive shortness of breath and edema 3 weeks ago.Patient reports she was sick for the past 3 weeks with cough and fever and her legs started to get swollen and today she went to her PCP because swelling has gone up to her abdomen and she has not been able to have a good sleep because if she lies down she gets very short of breath so she had to stand up most of the time to catch her breath. Patient reports she is supposed to see an OBGYN doctor tomorrow. Seen and examined patient in the ED awake,alert and coherent,pale looking .Patient denies fever,chills,chest pain,palpitation,cough , nausea, bloody emesis, bloody stool and abdominal pain.Patient reports she voids little and her last bowel movement is today and it was normal. Latest vital signs temperature 97.9, heart rate 120, respiration 24, pressure 153/85, saturation 99% on room air. Labs: WBC 5, hemoglobin 6.2, hematocrit 20.8 platelet count 173. Glucose 129 the rest of the chemistry is unremarkable BNP 29 troponin 10. Urinalysis remarkable for large hematuria positive for RBC, WBC urobilinogen , protein and ketones. SARs COVID result is negative. Chest x-ray result is normal. Pelvic ultrasound result revealed no adnexal mass is seen. Fibroid uterus thickened endometrium. While in the ER patient is pending to be transfused with 1 unit PRBC per ER recommendation. As per ER BURR GRINDER's report he already consulted OBGYN Dr. Sabillon and agreed to evaluate the patient. We will admit patient for further medical management. Addendum : Post Transfusion primary nurse called and reported patient developed increased shortness of breath needing oxygen supplementation.Will request ABG ,Give Lasix 20mg IV x1 and Duoneb treatment and will transfer patient to PCCU and consult Pulmonology 07/04 patient was seen by nurse practitioner and physician during rounding in room 223 comfortably lying in bed. Patient is on room air. Patient pending evaluation by nurse rn bsn and clearance for possible D and C. Patient was evaluated by Dr. Ridge ZEPEDA and would like to perform DandC on Sunday07/07/2024. Medical clearance needed. We will continue to monitor patient. A.m. labs 07/05 patient was seen by BURR GRINDER and physician during rounding in room 223. 2D echo still pending. Venous Doppler was ordered by nurse rn bsn pending results. Patient was also cleared by nurse rn bsn for D&C on Sunday with Dr. Sabillon. Ultrasound abdomen shows cirrhosis abdominal ascites small. We will continue to monitor patient in the meantime. Continue IV antibiotics Levaquin. A.m. labs 07/06 patient was seen by BURR GRINDER and physician during rounding. Patient was cleared by nurse rn bsn for D&C to be performed on 07/07/2024. Patient is also cleared from the medical point to proceed with D and C. Patient is still pending 2D echo in the meantime. We will continue to monitor the patient a.m. labs] REVIEW OF SYSTEMS CONSTITUTIONAL: Appears pale looking Denies fevers, chills, or night sweats. No unintentional weight loss reported. NEUROLOGICAL: Denies headache, amaurosis fugax, motor weakness, sensory deficit, vertigo/spinning sensation, gait abnormalities, or tremors. ENT: No hearing loss, otalgia, otorrhea, rhinitis, rhinorrhea, hoarseness, or sore throat. CARDIOVASCULAR: Denies any exertional angina, dyspnea on exertion, orthopnea, paroxysmal nocturnal dyspnea, palpitations, life-threatening arrhythmias, claudication. PULMONARY: Complaints of shortness of breaths when ambulating Denies cough, phlegm/sputum, hemoptysis, pleuritic chest pain. SLEEP: Complains of insomnia Denies morning headaches, daytime somnolence or napping. Denies knowledge of snoring. GASTROINTESTINAL: Complains of abdominal distention Denies any type of dysphagia to either liquids or solids. Denies nausea, vomiting, pyrosis, early satiety, abdominal pain, diarrhea, constipation, or changes in stool consistency or caliber. Denies coffee-ground emesis, hematemesis, hematochezia, or melanotic stools. GENITOURINARY: Denies frequency, urgency, nocturia, incontinence (Storage/Irritative symptoms.) Low urinary stream, straining to void, urinary intermittency or hesitancy, splitting of the voiding stream, terminal dribbling. ENDOCRINOLOGIC: Denies polyuria, polydipsia, polyphagia or heat/cold intolerances. HEMATOLOGIC: Complain of heavy menstrual bleeding Denies throm bophilia/previous clots, or coagulopathy ONCOLOGIC: Denies personal history of malignancy. DERMATOLOGIC: Denies rashes or pruritus. PSYCHIATRIC: Denies any suicidal or homicidal ideation. Denies hallucinations. PHYSICAL EXAM GENERAL APPEARANCE: The patient is awake, alert, and oriented NEUROLOGICAL: Cranial nerves II-XII grossly intact. Motor is 5/5 in bilateral upper and lower extremities proximal to distal. No sensory deficits. HEENT: Face is symmetric. Pupils are equal and reactive. Extraocular movements are intact. NECK: Supple. No JVD. No thyromegaly. No submental, submandibular, pre- /postauricular, occipital or supraclavicular lymphadenopathy. CHEST: Normal chest expansion. No Telemetry. LUNGS: Diminished breath sounds CARDIOVASCULAR: Regular. S1 and S2 normal. No appreciable rubs, murmurs or gallops. ABDOMEN: Abdomen is distended and firmed There is no rebound, voluntary gu arding, or rigidity. : Deferred. No Ma. EXTREMITIES: 2+ edema from bilateral lower extremities up to abdomen SKIN: No skin breakdown. Vital Signs (last 8hr) Date Time Temp Pulse Resp B/P (MAP) Pulse Ox O2 Delivery O2 Flow Rate FiO2 07/06/24 12:20 98.1 106 20 149/81 98 Room Air 07/06/24 11:25 100 20 07/06/24 08:00 100 Room Air* 0 07/06/24 07:48 98.6 117 20 139/70 100 Room Air 07/06/24 06:25 102 20 N/A Room Air 07/06/24 06:25 102 20 LABS: Laboratory: Test 07/06/24 08:55 07/06/24 03:23 07/05/24 03:37 Range/Units Hemoglobin 8.0 L 12.0-16.0 g/dL Hematocrit 26.6 L 36-48 % White Blood Count 5.5 4.8-10.8 K/uL Red Blood Count 2.76 L 4.00-5.50 MIL/uL Mean Corpuscular Volume 88.4 79-99 fL Mean Corpuscular Hemoglobin 26.4 L 27.0-33.0 pg Mean Corpuscular Hemoglobin Concent 29.9 L 32.0-36.0 g/dL Red Cell Distribution Width 16.6 H 11.0-15.5 % Platelet Count 143 130-400 K/uL Mean Platelet Volume 10.7 H 7.5-10.5 fL Immature Granulocyte % (Auto) 0.5 0-1 % Neutrophils (%) (Auto) 63.0 40.0-77.0 % Lymphocytes (%) (Auto) 12.0 L 21.0-51.0 % Monocytes (%) (Auto) 15.1 H 3.0-13.0 % Eosinophils (%) (Auto) 8.9 H 0.0-8.0 % Basophils (%) (Auto) 0.5 0.0-5.0 % Neutrophils # (Auto) 3.5 1.8-7.7 K/uL Lymphocytes # (Auto) 0.7 L 1.0-4.8 K/uL Monocytes # (Auto) 0.8 0.1-1.0 K/uL Eosinophils # (Auto) 0.49 0.00-0.70 K/uL Basophils # (Auto) 0.03 0.00-0.20 K/uL Absolute Immature Granulocyte (auto 0.03 0-1 K/uL Nucleated Red Blood Cells 0.0 0.0-0.19 % Sodium Level 139 136-145 mmol/L Potassium Level 3.3 L 3.5-5.1 mmol/L Chloride Level 102 101-111 mmol/L Carbon Dioxide Level 31 21-32 mmol/L Blood Urea Nitrogen 10 7-18 mg/dL Creatinine 0.9 0.5-1.0 mg/dL Glomerular Filtration Rate Calc 72 >90 mL/min Random Glucose 109 H 70-105 mg/dL Total Calcium 8.5 8.5-10.1 mg/dL Magnesium Level 1.90 1.80-2.40 mg/dL Total Bilirubin 2.2 H 0.2-1.0 mg/dL Aspartate Amino Transf (AST/SGOT) 105 H 10-37 U/L Alanine Aminotransferase (ALT/SGPT) 84 H 12-78 U/L Alkaline Phosphatase 138 H 50-136 U/L Total Protein 5.5 L 6.0-8.3 g/dL Albumin 2.2 L 3.5-5.0 g/dL D-Dimer Quantitative (PE/DVT) 2631 *H 0-500 ng/mL B-Type Natriuretic Peptide 29 0-100 pg/mL Current Medications Medications (Trade) Dose Ordered Sig/Avinash Route PRN Reason Start Time Stop Time Status Last Admin Dose Admin Acetaminophen (TYLenol 325MG TAB) 650 mg Q4H PRN PO MILD PAIN (1-3) 07/03/24 19:30 08/02/24 19:29 Acetaminophen (TYLenol 325MG TAB) 650 mg Q6H PRN PO TEMPERATURE GREATER THAN 101.5 07/03/24 19:30 08/02/24 19:29 Albuterol (DUOneb) 1 UDVIAL [id number] IH 07/04/24 00:00 08/03/24 00:00 07/06/24 11:21 1 UDVIAL Famotidine (Pepcid 20mg Vial) 20 mg BID IV 07/03/24 21:00 08/02/24 20:59 07/06/24 09:38 20 MG Furosemide (LASix 40MG VIAL) 40 mg Q8H IV 07/05/24 16:00 08/04/24 15:59 07/06/24 09:38 40 MG Hydralazine HCl (APRESOLine 20MG INJ) 10 mg Q6H PRN IV ADMINISTER FOR SBP > 160 07/04/24 02:30 08/03/24 02:29 07/04/24 18:43 10 MG Levofloxacin/ Dextrose 100 ml @ 100 mls/hr Q24H IV 07/03/24 19:30 07/13/24 19:29 07/05/24 20:13 100 MLS/HR Levothyroxine Sodium (SYNTHroid 25MCG TAB) 25 mcg SYN PO 07/05/24 06:30 08/04/24 06:29 Magnesium Sulfate 50 ml @ 0 mls/hr PROTOCOL PRN IV OTHER [SEE ORDER COMMENTS] 07/03/24 19:30 08/02/24 19:29 07/04/24 04:55 20 MLS/HR Ondansetron HCl (zoFRAN 4MG INJ) 4 mg Q6H PRN IV NAUSEA/VOMITING 07/03/24 19:30 08/02/24 19:29 Potassium Chloride 100 ml @ 100 mls/hr AD PRN IV POTASSIUM PROTOCOL 07/03/24 19:30 08/02/24 19:29 Potassium Chloride (K-Dur/Klor-Con 20meq) 20 meq AD PRN PO POTASSIUM PROTOCOL 07/03/24 19:30 08/02/24 19:29 07/06/24 12:17 20 MEQ Potassium Chloride (KCl 10% Elixir 20meq/15ml) 20 meq AD PRN PO POTASSIUM PROTOCOL 07/03/24 19:30 08/02/24 19:29 DIAGNOSTICS / RADIOLOGY: [ ] ASSESSMENT: Severe acute blood loss anemia requiring blood transfusion POA Multifactorial anemia POA Acute hypoxic Respiratory Failure POA Suspected uterine bleeding POA Fibroid uterus and thickened endometrium per pelvic ultrasound POA Uncontrolled hypertension POA Morbid obesity POA Hypothyroidism POA acute complicated cystitis POA PLAN: 07/07/2024 possible D and C by OBGYN We will admit patient in medical telemetry We will start on heart healthy diet We will start on Levaquin 500 mg IV daily We will continue to transfuse 1 unit of blood PRBC and check H and H 1 hour post transfusion We will start on Famotidine 20 mg IV bid for GI prophylaxis We will replace electrolytes as needed per protocol We will obtain urine culture and deescalate antibiotic therapy We will add prn medication for fever,pain,nausea and vomiting We will reconcile home meds once medlist available We will request labs in am Further orders to follow depending on above results Case discussed with attending physician and came up with above treatment and plan of care. ATTESTATION BY PHYSICIAN I have seen and examined the patient. I reviewed the documentation, medical decision making, and treatment plan as noted by the mid-level provider above. I agree with the findings and plan of care. BhadrirajuMD STANFORD NAVARRO FIELD IDENTIFICATION SPECIALIST Jul 06, 2024 13:19
[2024-07-06 15:15] LABS: HEMATOCRIT 25.4 % (36-48)
--- NOTE | 2024-07-06 16:06 | NUR ---
WILL DEFER FROM TAKING FUROSEMIDE AT THIS TIME DUE TO WAITING ON ECHO TO BE DONE AND STATES SHE DOES NOT WANT TO HAVE TO GET UP TO GO TO BATHROOM WHILE TEST IS BEING DONE. WILL GIVE MEDICATION AT 6 OR 7PM.
[2024-07-06 22:01] LABS: HEMATOCRIT 24.9 % (36-48)
[2024-07-07] VITALS (24 sets, daily range): BP systolic 92–171; BP diastolic 46–83; PULSE 99–116; RESP 14–20; TEMP 97.2–98.7; O2SAT 98–100
[2024-07-07 03:40] LABS: BASOPHILS # (AUTO) 0.05 K/uL (0.00-0.20); BASOPHILS % (AUTO) 1.2 % (0.0-5.0); EOSINOPHILS # (AUTO) 0.41 K/uL (0.00-0.70); EOSINOPHILS % (AUTO) 9.6 % (0.0-8.0); IMMATURE GRANULOCYTE ABSOLUTE 0.02 K/uL (0-1); LYMPHOCYTES # (AUTO) 0.5 K/uL (1.0-4.8); LYMPHOCYTES % (AUTO) 12.6 % (21.0-51.0); MEAN CORPUSCULAR HEMOGLOBIN 27.3 pg (27.0-33.0); MEAN CORPUSCULAR HGB CONC 30.4 g/dL (32.0-36.0); MEAN CORPUSCULAR VOLUME 89.9 fL (79-99); MONOCYTES # (AUTO) 0.6 K/uL (0.1-1.0); NEUTROPHILS # (AUTO) 2.7 K/uL (1.8-7.7); NEUTROPHILS % (AUTO) 62.1 % (40.0-77.0); PLATELET COUNT (AUTO) 134 K/uL (130-400); RED BLOOD CELL COUNT(AUTO) 2.78 MIL/uL (4.00-5.50); RED CELL DISTRIBUTION WIDTH 16.6 % (11.0-15.5); WHITE BLOOD COUNT (AUTO) 4.3 K/uL (4.8-10.8)
[2024-07-07 03:56] LABS: ALBUMIN 2.2 g/dL (3.5-5.0); BILIRUBIN,TOTAL 1.6 mg/dL (0.2-1.0); CREATININE 0.9 mg/dL (0.5-1.0); MAGNESIUM 2.1 mg/dL (1.80-2.40); POTASSIUM 3.2 mmol/L (3.5-5.1); TOTAL PROTEIN, SERUM 5.6 g/dL (6.0-8.3)
--- NOTE | 2024-07-07 08:30 | NUR ---
TRANSFER-OR OR team here for patient for OR. Patient transferred to OR.
[2024-07-07] MEDS ORDERED: rocuRONium bROMide 10MG/1ML 5ML VL ONE (09:06)
[2024-07-07] MEDS ORDERED: phenylEPHRINE HCL 10 MG/ML 1ML VIAL IV ONE (09:06)
[2024-07-07] MEDS ORDERED: ondanSETRON 4MG INJ ONE (09:06)
[2024-07-07] MEDS ORDERED: SUCCINYLCHOLINE CHLORIDE 20 MG/ML 10 ML VIAL ONE (09:06)
[2024-07-07] MEDS ORDERED: proPOFol 10 MG/ML 20ML VIAL IV ONE (09:06)
[2024-07-07] MEDS ORDERED: MIDAZOLAM HCL 1 MG/ML 2ML VIAL ONE (09:06)
[2024-07-07] MEDS ORDERED: FENTanyl CITRate PF 50 MCG/1 ML 2ML VIAL ONE (09:07)
[2024-07-07] MEDS: CLINDAMYCIN IVPB 900MG/50ML 50 ML IV ONE (09:37)
--- NOTE | 2024-07-07 10:11 | OP ---
DATE OF PROCEDURE: 07/07/2024 PREOPERATIVE DIAGNOSES: Postmenopausal bleeding. POSTOPERATIVE DIAGNOSES: 1. Postmenopausal bleeding. 2. Endometrial polyps. PROCEDURE: D and C with hysteroscopy and excision of endometrial polyp. SURGEON: Ean Sabillon MD ANESTHESIA: General. COUNTS: Complete. COMPLICATIONS: None. DRAINS: None. SPECIMENS: 1. Large endometrial polyp. 2. Endometrial curettings. ESTIMATED BLOOD LOSS: Minimal. FINDINGS: 1. Examination under anesthesia revealed a normal external genitalia and vagina. There was an aborting polyp seen through the cervical os. It was smooth in appearance and did not show any active bleeding. 2. Hysteroscopy revealed a cavity that was regular in size, shape, and contour. No suspicious lesions. DESCRIPTION OF PROCEDURE: Under general anesthesia, the patient was scrubbed and draped in the usual dorsal lithotomy position. A weighted speculum was placed in the vagina and the cervix was visualized. The cervix was secured with long Allis. The polyp was grasped with a ring forceps and twisted clockwise until it was removed and forwarded to pathology. At this point, the cervix was probed and no dilation was necessary. Hysteroscope was introduced revealing the above described findings. Sharp curettage was performed yielding a scant amount of tissue, which was forwarded to pathology. Once no further tissue was obtained, the curette was removed. There was no bleeding per the cervical os. The hysteroscopy was repeated and showed no evidence of perforation and no active bleeding. The patient tolerated the procedure well without evidence of any complications. She was transferred to recovery following extubation. TID: [id number] RECEIPT: [id number]
--- NOTE | 2024-07-07 10:30 | NUR ---
RECEIVED-Transfer back to floor Patient back from surgical procedure. Patient alert and oriented with no complaints of pain.
--- NOTE | 2024-07-07 11:32 | PN ---
[facility] PROGRESS NOTE Date of Service: Jul 07, 2024 Time of Service: 11:[address] Bernardo SUBJECTIVE: [ This is a 64-year-old female with past medical history of asthma, anemia, hypothyroidism and morbid obesity who presents to the ED after coming from PCP's clinic today for complaints of shortness of breaths, edema and possible fluid overload evaluation.Patient states she has been having shortness of breath because of her Asthma and anemia because she has been having menstrual bleed for 3 weeks every month since 4 years ago and it has slowed down 10 months ago that sometimes she missed the period for a month however was started on Levothyroxine by her primary and coincidentally she said after taking it she started having 3 weeks of bleeding again and a week off without bleeding so she stopped taking her Levothyroxine last April but she started having progressive shortness of breath and edema 3 weeks ago.Patient reports she was sick for the past 3 weeks with cough and fever and her legs started to get sw ollen and today she went to her PCP because swelling has gone up to her abdomen and she has not been able to have a good sleep because if she lies down she gets very short of breath so she had to stand up most of the time to catch her breath. Patient reports she is supposed to see an OBGYN doctor tomorrow. Seen and examined patient in the ED awake,alert and coherent,pale looking . Patient denies fever,chills,chest pain,palpitation,cough , nausea, bloody emesis, bloody stool and abdominal pain.Patient reports she voids little and her last bowel movement is today and it was normal. Latest vital signs temperature 97.9, heart rate 120, respiration 24, pressure 153/85, saturation 99% on room air. Labs: WBC 5, hemoglobin 6.2, hematocrit 20.8 platelet count 173. Glucose 129 the rest of the chemistry is unremarkable BNP 29 troponin 10. Urinalysis remarkable for large hematuria positive for RBC, WBC urobilinogen , protein and ketones. SARs COVID result is negative. Chest x-ray result is normal. Pelvic ultrasound result revealed no adnexal mass is seen. Fibroid uterus thickened endometrium. While in the ER patient is pending to be transfused with 1 unit PRBC per ER recommendation. As per ER PRECISION LENS GENERATOR's report he already consulted OBGYN Dr. Sabillon and agreed to evaluate the patient. We will admit patient for further medical management. Addendum : Post Transfusion primary nurse called and reported patient developed increased shortness of breath needing oxygen supplementation.Will request ABG ,Give Lasix 20mg IV x1 and Duoneb treatment and will transfer patient to PCCU and consult Pulmonology 07/04 patient was seen by nurse practitioner and physician during rounding in room 223 comfortably lying in bed. Patient is on room air. Patient pending evaluation by software sales manager and clearance for possible D and C. Patient was evaluated by Dr. Ridge ZEPEDA and would like to perform DandC on Sunday. Medical clearance needed. We will continue to monitor patient. A.m. labs 07/05 patient was seen by PRECISION LENS GENERATOR and physician during rounding in room 223. 2D echo still pending. Venous Doppler was ordered by software sales manager pending results. Patient was also cleared by software sales manager for D&C on Sunday with Dr. Sabillon. Ultrasound abdomen shows cirrhosis abdominal ascites small. We will continue to monitor patient in the meantime. Continue IV antibiotics Levaquin. A.m. labs 07/06 patient was seen by PRECISION LENS GENERATOR and physician during rounding. Patient was cleared by software sales manager for D&C to be performed on 07/07/2024. Patient is also c leared from the medical point to proceed with D and C. Patient is still pending 2D echo in the meantime. We will continue to monitor the patient a.m. labs 07/07 patient was seen by nurse practitioner and physician during rounding. Patient's hemoglobin today is 7.6. Patient was taken to OR for D and C with Dr. Sabillon. Potassium 3.2 RN we will replace as appropriate. We will continue to monitor patient in the meantime. A.m. labs] REVIEW OF SYSTEMS CONSTITUTIONAL: Denies fevers, chills, or night sweats. No unintentional weight loss reported. NEUROLOGICAL: Denies headache, amaurosis fugax, motor weakness, sensory deficit, vertigo/spinning sensation, gait abnormalities, or tremors. ENT: No hearing loss, otalgia, otorrhea, rhinitis, rhinorrhea, hoarseness, or sore throat. CARDIOVASCULAR: Denies any exertional angina, dyspnea on exertion, orthopnea, paroxysmal nocturnal dyspnea, palpitations, life-threatening arrhythmias, claudication. PULMONARY: Denies shortness of breaths Denies cough, phlegm/sputum, hemoptysis, pleuritic chest pain. SLEEP: Complains of insomnia Denies morning headaches, daytime somnolence or napping. Denies knowledge of snoring. GASTROINTESTINAL: Complains of abdominal distention Denies any type of dysphagia to either liquids or solids. Denies nausea, vomiting, pyrosis, early satiety, abdominal pain, diarrhea, constipation, or changes in stool consistency or caliber. Denies coffee-ground emesis, hematemesis, hematochezia, or melanotic stools. GENITOURINARY: Denies frequency, urgency, nocturia, incontinence (Storage/Irritative symptoms.) Low urinary stream, straining to void, urinary intermittency or hesitancy, splitting of the voiding stream, terminal dribbling. ENDOCRINOLOGIC: Denies polyuria, polydipsia, polyphagia or heat/cold intolerances. HEMATOLOGIC: Denies thrombophilia/previous clots, or coagulopathy ONCOLOGIC: Denies personal history of malignancy. DERMATOLOGIC: Denies rashes or pruritus. PSYCHIATRIC: Denies any suicidal or homicidal ideation. Denies hallucinations. PHYSICAL EXAM GENERAL APPEARANCE: The patient is awake, alert, and oriented NEUROLOGICAL: Cranial nerves II-XII grossly intact. Motor is 5/5 in bilateral upper and lower extremities proximal to distal. No sensory deficits. HEENT: Face is symmetric. Pupils are equal and reactive. Extraocular movements are intact. NECK: Supple. No JVD. No thyromegaly. No submental, submandibular, pre- /postauricular, occipital or supraclavicular lymphadenopathy. CHEST: Normal chest expansion. No Telemetry. LUNGS: Diminished breath sounds CARDIOVASCULAR: Regular. S1 and S2 normal. No appreciable rubs, murmurs or gallops. ABDOMEN: Abdomen is distended and firmed There is no rebound, voluntary guarding, or rigidity. : Deferred. No Ma. EXTREMITIES: 2+ edema from bilateral lower extremities up to abdomen SKIN: No skin breakdown. Vital Signs (last 8hr) Date Time Temp Pulse Resp B/P (MAP) Pulse Ox O2 Delivery O2 Flow Rate FiO2 07/07/24 11:22 106 18 07/07/24 10:40 97.5 100 18 104/58 97 Room Air 07/07/24 10:35 102 18 106/57 96 Room Air 07/07/24 10:30 102 17 105/59 96 Room Air 07/07/24 10:25 104 16 123/57 95 Room Air 07/07/24 10:20 102 15 104/54 97 Room Air 07/07/24 10:15 99 14 117/57 96 Room Air 07/07/24 10:10 99 15 100/50 100 Nonrebreathing Mask 100 07/07/24 10:05 104 17 109/50 100 Nonrebreathing Mask 100 07/07/24 10:00 99 14 94/49 100 Nonrebreathing Mask 100 07/07/24 09:55 97.2 100 14 92/46 100 Nonrebreathing Mask 100 07/07/24 08:50 98.1 116 20 171/83 100 Room Air 07/07/24 08:25 100 Room Air* 0 21 07/07/24 08:22 98.6 106 20 129/65 98 Room Air 07/07/24 06:37 106 18 07/07/24 06:37 106 20 N/A Room Air 07/07/24 04:16 98.1 105 18 138/65 99 Room Air LABS: Laboratory: Test 07/07/24 03:22 Range/Units White Blood Count 4.3 L 4.8-10.8 K/uL Red Blood Count 2.78 L 4.00-5.50 MIL/uL Hemoglobin 7.6 L 12.0-16.0 g/dL Hematocrit 25.0 L 36-48 % Mean Corpuscular Volume 89.9 79-99 fL Mean Corpuscular Hemoglobin 27.3 27.0-33.0 pg Mean Corpuscular Hemoglobin Concent 30.4 L 32.0-36.0 g/dL Red Cell Distribution Width 16.6 H 11.0-15.5 % Platelet Count 134 130-400 K/uL Mean Platelet Volume 10.7 H 7.5-10.5 fL Immature Granulocyte % (Auto) 0.5 0-1 % Neutrophils (%) (Auto) 62.1 40.0-77.0 % Lymphocytes (%) (Auto) 12.6 L 21.0-51.0 % Monocytes (%) (Auto) 14.0 H 3.0-13.0 % Eosinophils (%) (Auto) 9.6 H 0.0-8.0 % Basophils (%) (Auto) 1.2 0.0-5.0 % Neutrophils # (Auto) 2.7 1.8-7.7 K/uL Lymphocytes # (Auto) 0.5 L 1.0-4.8 K/uL Monocytes # (Auto) 0.6 0.1-1.0 K/uL Eosinophils # (Auto) 0.41 0.00-0.70 K/uL Basophils # (Auto) 0.05 0.00-0.20 K/uL Absolute Immature Granulocyte (auto 0.02 0-1 K/uL Nucleated Red Blood Cells 0.0 0.0-0.19 % Sodium Level 139 136-145 mmol/L Potassium Level 3.2 L 3.5-5.1 mmol/L Chloride Level 102 101-111 mmol/L Carbon Dioxide Level 31 21-32 mmol/L Blood Urea Nitrogen 11 7-18 mg/dL Creatinine 0.9 0.5-1.0 mg/dL Glomerular Filtration Rate Calc 72 >90 mL/min Random Glucose 108 H 70-105 mg/dL Total Calcium 8.3 L 8.5-10.1 mg/dL Magnesium Level 2.10 1.80-2.40 mg/dL Total Bilirubin 1.6 #H 0.2-1.0 mg/dL Aspartate Amino Transf (AST/SGOT) 101 H 10-37 U/L Alanine Aminotransferase (ALT/SGPT) 79 H 12-78 U/L Alkaline Phosphatase 138 H 50-136 U/L Total Protein 5.6 L 6.0-8.3 g/dL Albumin 2.2 L 3.5-5.0 g/dL Current Medications Medications (Trade) Dose Ordered Sig/Avinash Route PRN Reason Start Time Stop Time Status Last Admin Dose Admin Acetaminophen (TYLenol 325MG TAB) 650 mg Q4H PRN PO MILD PAIN (1-3) 07/03/24 19:30 08/02/24 19:29 Acetaminophen (TYLenol 325MG TAB) 650 mg Q6H PRN PO TEMPERATURE GREATER THAN 101.5 07/03/24 19:30 08/02/24 19:29 Albuterol (DUOneb) 1 UDVIAL [id number] IH 07/04/24 00:00 08/03/24 00:00 07/07/24 11:19 1 UDVIAL Famotidine (Pepcid 20mg Vial) 20 mg BID IV 07/03/24 21:00 08/02/24 20:59 07/07/24 08:16 20 MG Furosemide (LASix 40MG VIAL) 40 mg Q8H IV 07/05/24 16:00 08/04/24 15:59 07/07/24 08:16 40 MG Hydralazine HCl (APRESOLine 20MG INJ) 10 mg Q6H PRN IV ADMINISTER FOR SBP > 160 07/04/24 02:30 08/03/24 02:29 07/04/24 18:43 10 MG Levofloxacin/ Dextrose 100 ml @ 100 mls/hr Q24H IV 07/03/24 19:30 07/13/24 19:29 07/06/24 19:43 100 MLS/HR Levothyroxine Sodium (SYNTHroid 25MCG TAB) 25 mcg SYN PO 07/05/24 06:30 08/04/24 06:29 Magnesium Sulfate 50 ml @ 0 mls/hr PROTOCOL PRN IV OTHER [SEE ORDER COMMENTS] 07/03/24 19:30 08/02/24 19:29 07/07/24 05:12 20 MLS/HR Ondansetron HCl (zoFRAN 4MG INJ) 4 mg Q6H PRN IV NAUSEA/VOMITING 07/03/24 19:30 08/02/24 19:29 Potassium Chloride 100 ml @ 50 mls/hr PROTOCOL IV 07/07/24 10:00 08/06/24 09:59 Potassium Chloride 100 ml @ 100 mls/hr AD PRN IV POTASSIUM PROTOCOL 07/03/24 19:30 08/02/24 19:29 Potassium Chloride (K-Dur/Klor-Con 20meq) 20 meq AD PRN PO POTASSIUM PROTOCOL 07/03/24 19:30 08/02/24 19:29 07/07/24 08:16 20 MEQ Potassium Chloride (KCl 10% Elixir 20meq/15ml) 20 meq AD PRN PO POTASSIUM PROTOCOL 07/03/24 19:30 08/02/24 19:29 DIAGNOSTICS / RADIOLOGY: [ ] ASSESSMENT: Severe acute blood loss anemia requiring blood transfusion POA Multifactorial anemia POA Acute hypoxic Respiratory Failure POA Suspected uterine bleeding POA Fibroid uterus and thickened endometrium per pelvic ultrasound POA Uncontrolled hypertension POA Morbid obesity POA Hypothyroidism POA acute complicated cystitis POA PLAN: 07/07/2024 D and C by OBGYN We will start on heart healthy diet We will start on Levaquin 500 mg IV daily We will continue to transfuse 1 unit of blood PRBC and check H and H 1 hour post transfusion We will start on Famotidine 20 mg IV bid for GI prophylaxis We will replace electrolytes as needed per protocol We will obtain urine culture and deescalate antibiotic therapy We will add prn medication for fever,pain,nausea and vomiting We will reconcile home meds once medlist available We will request labs in am Further orders to follow depending on above results Case discussed with attending physician and came up with above treatment and plan of care. ATTESTATION BY PHYSICIAN I have seen and examined the patient. I reviewed the documentation, medical decision making, and treatment plan as noted by the mid-level provider above. I agree with the findings and plan of care. NICHOLAS BERNARDO MD, [facility] Jul 07, 2024 11:32
--- NOTE | 2024-07-07 14:55 | NUR ---
Nursing note-report Report given to SHAWNA Davis on Med/Surg floor. Patient downgraded to Med/Surg and is to go to room 325. Patient's personal belongings verified to be back with patient. Patient's spouse aware of transfer.
--- NOTE | 2024-07-07 15:00 | NUR ---
RECEIVED PATIENT FROM 2ND FLOOR. PATEIENT IS ALERT, ORIENTED IN PERSON, TIME AND PLACE. NO SIGNS OF RESPIRATORY DISTRESS. PATIENT STATED FEELING NO PAIN OR DISCOMFORT AT THIS MOMENT. PIV ON LEFT HAND, SALINE LOCK. PITTING EDEMA #2 ON LOWER EXTREMITIES WITH SEVERE ERYTHEMA AND HOT TO TOUCH. BOWEL SOUND IN ALL FOUR ABDOMINAL QUADRANTS. DORSALIS PEDIS PULSE PRESENT AND STRONG ON BOTH FEET.
--- NOTE | 2024-07-07 15:00 | NUR ---
BLE redness/swelling Spoke to Dr. Bernardo concerning patient's concern for increased redness/swelling of BLE. Patient states she sees her legs are getting worse in color and she's concerned for cellulitis. Dr. Bernardo gave orders and pending for new ID consult to come see patient.
[2024-07-07] MEDS: cefTRIAXone 1G VIAL IVPB SCH (17:40)
--- NOTE | 2024-07-07 19:39 | HMCSR ---
APPROVED REPORT EXAM: Two-dimensional and M-mode echocardiogram with Doppler and color Doppler. INDICATION ICD: Congestive heart failure 2D Dimensions RVDd4.4 cmLVEF(%)73.2 (>50%)LVED Vol(simp.)114.0 mL IVSd1.2 (0.7-1.1cm)FS(%)42 %LVES Vol(simp.)41.3 mL LVDd4.3 (3.8-5.6cm)LA (2D)4.8 (1.6-4.0cm)LVEF(%, simp.)64 % PWd1.2 (0.7-1.1cm)Ao Root(2D)2.8 (2.0-3.7cm)LA ESV INDEX (4CH)43.60 mL/m2 IVSs1.2 cmLVOT diam1.8 (1.8-2.4cm)LA ESV INDEX (2CH)27.50 mL/m2 LVDs2.5 (2.5-4.0cm)LA ESV INDEX (BP)38.10 mL/m2 PWs1.9 cm Deformation Strain Apical 423.0 % Apical 224.0 % Apical 324.0 % Global Fjywbs19.0 % M-Mode Dimensions EPSS0.5 cm LA (MM)4.7 (1.6-4.0cm) Ao Root(MM)2.6 (2.0-3.7cm) Aortic Valve AoV VTI0.5 mAo Mean GR14.0 mmHgLVOT VTI0.34 m ROLAND (VMAX)1.9 cm2AVA (VTI) 1.9 cm2 Mitral Valve MV E Ooub821.3 cm/sDECEL Cnns694 ms MV A Kvlo571.8 cm/sP 1/2 T32 ms E/A ratio0.9MVA (PHT)6.9 cm2 TDI E/E' Mdfjob06.1E/E' Tmoiuyp70.1 Medial E' Peak V9.10 cm/sLateral E' Peak V7.40 cm/s Pulmonary Valve PV VTI0.39 mPV Mean GR8 mmHg Tricuspid Valve TR Vmax2.8 m/sRAP (EST) 8 heXjEOMM51.1 mmHg TR Peak GR31.1 mmHg Left Ventricle The left ventricle is normal size. GLS -24%. There is normal LV segmental wall motion. Mild concentri c left ventricular hypertrophy. LVEF is 60-65%. The left ventricular diastolic function is normal. Right Ventricle The right ventricle is mildly dilated. The right ventricular systolic function is normal. Atria The left atrium size is normal. The right atrium is mildly dilated. Aortic Valve The aortic valve is normal in structure. No aortic regurgitation is present. There is no aortic valvu lar stenosis. Mitral Valve The mitral valve is normal in structure. There is no mitral valve regurgitation noted. There is no mi tral valve stenosis. Tricuspid Valve The tricuspid valve is normal in structure. There is no tricuspid valve regurgitation noted. Pulmonic Valve The pulmonary valve is normal in structure. There is no pulmonic valvular regurgitation. Great Vessels The aortic root is normal in size. The IVC was not visualized. Pericardium There is no pericardial effusion. Other Information Quality : Good Conclusion LVEF is 60-65%. Mild concentric left ventricular hypertrophy. GLS -24%. There is normal LV segmental wall motion. The aortic root is normal in size. There is no pericardial effusion.
[2024-07-07] MEDS: furoSEMIDE 40 MG TABLET PO SCH (20:41)
[2024-07-08] VITALS (16 sets, daily range): BP systolic 117–154; BP diastolic 62–89; PULSE 87–120; RESP 16–22; TEMP 98.1–98.7; O2SAT 98–100
--- NOTE | 2024-07-08 00:26 | HMCIMG ---
US VENOUS DOPPLER BILATERAL HISTORY: Edema COMPARISON: None TECHNIQUE: Bilateral lower extremity venous Doppler ultrasound study was performed. FINDINGS: The common femoral, femoral, popliteal, and posterior tibial veins are visualized. Normal flow with augmentation and compressibilities are demonstrated. The greater saphenous veins are also seen and grossly patent. IMPRESSION: 1. No evidence of deep venous thrombosis is seen.
[2024-07-08] MEDS: guaiFENesin-DM 200/20MG 10ML PO ONE (02:18)
[2024-07-08 05:22] LABS: BASOPHILS # (AUTO) 0.03 K/uL (0.00-0.20); BASOPHILS % (AUTO) 0.7 % (0.0-5.0); EOSINOPHILS # (AUTO) 0.31 K/uL (0.00-0.70); EOSINOPHILS % (AUTO) 6.7 % (0.0-8.0); HEMATOCRIT 24.2 % (36-48); IMMATURE GRANULOCYTE ABSOLUTE 0.01 K/uL (0-1); LYMPHOCYTES # (AUTO) 0.5 K/uL (1.0-4.8); LYMPHOCYTES % (AUTO) 10.6 % (21.0-51.0); MEAN CORPUSCULAR HEMOGLOBIN 26.8 pg (27.0-33.0); MEAN CORPUSCULAR HGB CONC 29.8 g/dL (32.0-36.0); MONOCYTES # (AUTO) 0.5 K/uL (0.1-1.0); MONOCYTES % (AUTO) 11.1 % (3.0-13.0); NEUTROPHILS # (AUTO) 3.3 K/uL (1.8-7.7); NEUTROPHILS % (AUTO) 70.7 % (40.0-77.0); PLATELET COUNT (AUTO) 115 K/uL (130-400); RED BLOOD CELL COUNT(AUTO) 2.69 MIL/uL (4.00-5.50); RED CELL DISTRIBUTION WIDTH 16.4 % (11.0-15.5); WHITE BLOOD COUNT (AUTO) 4.6 K/uL (4.8-10.8)
[2024-07-08 05:45] LABS: ALBUMIN 2.2 g/dL (3.5-5.0); BILIRUBIN,TOTAL 1.5 mg/dL (0.2-1.0); CREATININE 0.9 mg/dL (0.5-1.0); MAGNESIUM 2.1 mg/dL (1.80-2.40); POTASSIUM 3.8 mmol/L (3.5-5.1); TOTAL PROTEIN, SERUM 5.5 g/dL (6.0-8.3)
--- NOTE | 2024-07-08 07:00 | NUR ---
PATIENT IS ALERT, ORIENTED IN PERSON, TIME AND PLACE. NO SIGNS OF RESPIRATORY DISTRESS. PATIENT STATED FEELING NO PAIN OR DISCOMFORT AT THIS MOMENT. PITTING EDEMA #2 ON LOWER EXTREMITIES WITH SEVERE ERYTHEMA AND HOT TO TOUCH. BOWEL SOUND HYPOACTIVE IN ALL FOUR ABDOMINAL QUADRANTS. DORSALIS PEDIS PULSE PRESENT AND STRONG ON BOTH FEET. PLACED 22 G ON RIGHT ANTECUBITAL.
[2024-07-08] MEDS: BENZONATATE 100 MG CAPSULE PO ONE (09:09)
[2024-07-08] MEDS: furoSEMIDE 40MG VIAL IV SCH (09:09)
[2024-07-08 09:10] LABS: INR 1.34 (0.85-1.15); PROTHROMBIN TIME 14.2 SEC (9.6-11.6)
[2024-07-08 09:12] LABS: PARTIAL THROMBOPLASTIN TIME 26.1 SEC (26.3-35.5)
--- NOTE | 2024-07-08 09:41 | HMCIMG ---
ABD 1VW HISTORY: Abdominal distention COMPARISON: None FINDINGS: A frontal projection of the abdomen was obtained. A nonspecific bowel gas pattern is seen. Fecal material is seen in the colon. Degenerative changes of the thoracolumbar spine are noted. The study is limited due to patient's body habitus. IMPRESSION: 1. A nonspecific bowel gas pattern is seen.
--- NOTE | 2024-07-08 10:47 | PN ---
[facility] PROGRESS NOTE Date of Service: Jul 08, 2024 Time of Service: 10:34 SUBJECTIVE: [ This is a 64-year-old female with past medical history of asthma, anemia, hypothyroidism and morbid obesity who presents to the ED after coming from PCP's clinic today for complaints of shortness of breaths, edema and possible fluid overload evaluation.Patient states she has been having shortness of breath because of her Asthma and anemia because she has been having menstrual bleed for 3 weeks every month since 4 years ago and it has slowed down 10 months ago that sometimes she missed the period for a month however was started on Levothyroxine by her primary and coincidentally she said after taking it she started having 3 weeks of bleeding again and a week off without bleeding so she stopped taking her Levothyroxine last April but she started having progressive shortness of breath and edema 3 weeks ago.Patient reports she was sick for the past 3 weeks with cough and fever and her legs started to get swollen and today she went to her PCP because swelling has gone up to her abdomen and she has not been able to have a good sleep because if she lies down she gets very short of breath so she had to stand up most of the time to catch her breath. Patient reports she is supposed to see an OBGYN doctor tomorrow. Seen and examined patient in the ED awake,alert and coherent,pale looking .Patient denies fever,chills,chest pain,palpitation,cough , nausea, bloody emesis, bloody stool and abdominal pain.Patient reports she voids little and her last bowel movement is today and it was normal. Latest vital signs temperature 97.9, heart rate 120, respiration 24, pressure 153/85, saturation 99% on room air. Labs: WBC 5, hemoglobin 6.2, hematocrit 20.8 platelet count 173. Glucose 129 the rest of the chemistry is unremarkable BNP 29 troponin 10. Urinalysis remarkable for large hematuria positive for RBC, WBC urobilinogen , protein and ketones. SARs COVID result is negative. Chest x-ray result is normal. Pelvic ultrasound result revealed no adnexal mass is seen. Fibroid uterus thickened endometrium. While in the ER patient is pending to be transfused with 1 unit PRBC per ER recommendation. As per ER INSPECTOR FINISHING's report he already consulted OBGYN Dr. Sabillon and agreed to evaluate the patient. We will admit patient for further medical management. Addendum : Post Transfusion primary nurse called and reported patient developed increased shortness of breath needing oxygen supplementation.Will request ABG ,Give Lasix 20mg IV x1 and Duoneb treatment and will transfer patient to PCCU and consult Pulmonology 07/04 patient was seen by nurse practitioner and physician during rounding in room 223 comfortably lying in bed. Patient is on room air. Patient pending evaluation by opener tender and clearance for possible D and C. Patient was evaluated by Dr. Ridge ZEPEDA and would like to perform DandC on Sunday07/07/2024. Medical clearance needed. We will continue to monitor patient. A.m. labs 07/05 patient was seen by INSPECTOR FINISHING and physician during rounding in room 223. 2D echo still pending. Venous Doppler was ordered by opener tender pending results. Patient was also cleared by opener tender for D&C on Sunday with Dr. Sabillon. Ultrasound abdomen shows cirrhosis abdominal ascites small. We will continue to monitor patient in the meantime. Continue IV antibiotics Levaquin. A.m. labs 07/06 patient was seen by INSPECTOR FINISHING and physician during rounding. Patient was cleared by opener tender for D&C to be performed on 07/07/2024. Patient is also cleared from the medical point to proceed with D and C. Patient is still pending 2D echo in the meantime. We will continue to monitor the patient a.m. labs 07/07 patient was seen by nurse practitioner and physician during rounding. Patient's hemoglobin today is 7.6. Patient was taken to OR for D and C with Dr. Sabillon. Potassium 3.2 RN we will replace as appropriate. We will continue to monitor patient in the meantime. A.m. labs 07/08 the patient has been seen and examined during my rounding, she looks edematous, BP 142/71, heart rate of 120, afebrile, saturating normal on room air. She remains alert oriented x3, denies nausea, no vomiting, no abdominal discomfort. She feels bloated, not passing gas. Admits swollen to both lower extremities. Noted to have erythema to both lower legs. REVIEW OF SYSTEMS CONSTITUTIONAL: Denies fevers, chills, or night sweats. No unintentional weight loss reported. NEUROLOGICAL: Denies headache, amaurosis fugax, motor weakness, sensory deficit, vertigo/spinning sensation, gait abnormalities, or tremors. ENT: No hearing loss, otalgia, otorrhea, rhinitis, rhinorrhea, hoarseness, or sore throat. CARDIOVASCULAR: Denies any exertional angina, dyspnea on exertion, orthopnea, paroxysmal nocturnal dyspnea, palpitations, life-threatening arrhythmias, cl audication. PULMONARY: Denies shortness of breaths Denies cough, phlegm/sputum, hemoptysis, pleuritic chest pain. SLEEP: Complains of insomnia Denies morning headaches, daytime somnolence or napping. Denies knowledge of snoring. GASTROINTESTINAL: Complains of abdominal distention Denies any type of dysphagia to either liquids or solids. Denies nausea, vomiting, pyrosis, early satiety, abdominal pain, diarrhea, constipation, or changes in stool consistency or caliber. Denies coffee-ground emesis, hematemesis, hematochezia, or melanotic stools. GENITOURINARY: Denies frequency, urgency, nocturia, incontinence (Storage/Irritative symptoms.) Low urinary stream, straining to void, urinary intermittency or hesitancy, splitting of the voiding stream, terminal dribbling. ENDOCRINOLOGIC: Denies polyuria, polydipsia, polyphagia or heat/cold intolerances. HEMATOLOGIC: Denies thrombophilia/previous clots, or coagulopathy ONCOLOGIC: Denies personal history of malignancy. DERMATOLOGIC: Denies rashes or pruritus. PSYCHIATRIC: Denies any suicidal or homicidal ideation. Denies hallucinations. PHYSICAL EXAM GENERAL APPEARANCE: Awake, following commands, looks edematous. NEUROLOGICAL: Cranial nerves II-XII grossly intact. Motor is 5/5 in bilateral upper and lower extremities proximal to distal. No sensory deficits. HEENT: Face is symmetric. Pupils are equal and reactive. Extraocular movements are intact. NECK: Supple. No JVD. No thyromegaly. No submental, submandibular, pre- /postauricular, occipital or supraclavicular lymphadenopathy. CHEST: Normal chest expansion. No Telemetry. LUNGS: No bilateral wheezing CARDIOVASCULAR: Regular. S1 and S2 normal. No appreciable rubs, murmurs or gallops. ABDOMEN: Abdomen is distended and firmed There is no rebound, voluntary guarding, or rigidity. : Deferred. No Ma. EXTREMITIES: Bilateral pedal edema 2+, with erythema on both lower extremities. SKIN: No skin breakdown. Vital Signs (last 8hr) Date Time Temp Pulse Resp B/P (MAP) Pulse Ox O2 Delivery O2 Flow Rate FiO2 07/08/24 08:00 98.1 120 22 142/71 96 Room Air 07/08/24 06:03 107 19 07/08/24 06:02 107 20 N/A Room Air 21 07/08/24 03:57 98.4 116 16 154/89 96 Room Air LABS: Laboratory: Test 07/08/24 08:49 07/08/24 05:15 Range/Units Prothrombin Time 14.2 H 9.6-11.6 SEC Prothromb Time International Ratio 1.34 H 0.85-1.15 Activated Partial Thromboplast Time 26.1 L 26.3-35.5 SEC White Blood Count 4.6 L 4.8-10.8 K/uL Red Blood Count 2.69 L 4.00-5.50 MIL/uL Hemoglobin 7.2 L 12.0-16.0 g/dL Hematocrit 24.2 L 36-48 % Mean Corpuscular Volume 90.0 79-99 fL Mean Corpuscular Hemoglobin 26.8 L 27.0-33.0 pg Mean Corpuscular Hemoglobin Concent 29.8 L 32.0-36.0 g/dL Red Cell Distribution Width 16.4 H 11.0-15.5 % Platelet Count 115 L 130-400 K/uL Mean Platelet Volume 10.3 7.5-10.5 fL Immature Granulocyte % (Auto) 0.2 0-1 % Neutrophils (%) (Auto) 70.7 40.0-77.0 % Lymphocytes (%) (Auto) 10.6 L 21.0-51.0 % Monocytes (%) (Auto) 11.1 3.0-13.0 % Eosinophils (%) (Auto) 6.7 0.0-8.0 % Basophils (%) (Auto) 0.7 0.0-5.0 % Neutrophils # (Auto) 3.3 1.8-7.7 K/uL Lymphocytes # (Auto) 0.5 L 1.0-4.8 K/uL Monocytes # (Auto) 0.5 0.1-1.0 K/uL Eosinophils # (Auto) 0.31 0.00-0.70 K/uL Basophils # (Auto) 0.03 0.00-0.20 K/uL Absolute Immature Granulocyte (auto 0.01 0-1 K/uL Nucleated Red Blood Cells 0.0 0.0-0.19 % Sodium Level 138 136-145 mmol/L Potassium Level 3.8 3.5-5.1 mmol/L Chloride Level 101 101-111 mmol/L Carbon Dioxide Level 32 21-32 mmol/L Blood Urea Nitrogen 14 7-18 mg/dL Creatinine 0.9 0.5-1.0 mg/dL Glomerular Filtration Rate Calc 72 >90 mL/min Random Glucose 111 H 70-105 mg/dL Total Calcium 8.4 L 8.5-10.1 mg/dL Magnesium Level 2.10 1.80-2.40 mg/dL Total Bilirubin 1.5 H 0.2-1.0 mg/dL Aspartate Amino Transf (AST/SGOT) 91 H 10-37 U/L Alanine Aminotransferase (ALT/SGPT) 72 12-78 U/L Alkaline Phosphatase 138 H 50-136 U/L Total Protein 5.5 L 6.0-8.3 g/dL Albumin 2.2 L 3.5-5.0 g/dL Current Medications Medications (Trade) Dose Ordered Sig/Avinash Route PRN Reason Start Time Stop Time Status Last Admin Dose Admin Acetaminophen (TYLenol 325MG TAB) 650 mg Q4H PRN PO MILD PAIN (1-3) 07/03/24 19:30 08/02/24 19:29 Acetaminophen (TYLenol 325MG TAB) 650 mg Q6H PRN PO TEMPERATURE GREATER THAN 101.5 07/03/24 19:30 08/02/24 19:29 Albuterol (DUOneb) 1 UDVIAL [id number] IH 07/04/24 00:00 08/03/24 00:00 07/08/24 06:02 1 UDVIAL Ceftriaxone Sodium (ROCEphine 1G INJ) 1 gm Q24H IVPB 07/07/24 17:00 07/17/24 16:59 07/07/24 17:40 1 GM Famotidine (Pepcid 20mg Vial) 20 mg BID IV 07/03/24 21:00 08/02/24 20:59 07/07/24 20:41 20 MG Furosemide (LASix 40MG TAB) 40 mg BID PO 07/07/24 21:00 07/08/24 08:21 DC 07/07/24 20:41 40 MG Furosemide (LASix 40MG VIAL) 40 mg Q8H IV 07/05/24 16:00 07/07/24 12:30 DC 07/07/24 08:16 40 MG Furosemide (LASix 40MG VIAL) 40 mg Q8H IV 07/08/24 08:30 08/07/24 08:29 07/08/24 09:09 40 MG Hydralazine HCl (APRESOLine 20MG INJ) 10 mg Q6H PRN IV ADMINISTER FOR SBP > 160 07/04/24 02:30 08/03/24 02:29 07/04/24 18:43 10 MG Levofloxacin/ Dextrose 100 ml @ 100 mls/hr Q24H IV 07/03/24 19:30 07/13/24 19:29 07/07/24 19:34 100 MLS/HR Levothyroxine Sodium (SYNTHroid 25MCG TAB) 25 mcg SYN PO 07/05/24 06:30 08/04/24 06:29 07/08/24 09:16 25 MCG Magnesium Sulfate 50 ml @ 0 mls/hr PROTOCOL PRN IV OTHER [SEE ORDER COMMENTS] 07/03/24 19:30 08/02/24 19:29 07/07/24 05:12 20 MLS/HR Ondansetron HCl (zoFRAN 4MG INJ) 4 mg Q6H PRN IV NAUSEA/VOMITING 07/03/24 19:30 08/02/24 19:29 Potassium Chloride 100 ml @ 50 mls/hr PROTOCOL IV 07/07/24 10:00 08/06/24 09:59 Potassium Chloride 100 ml @ 100 mls/hr AD PRN IV POTASSIUM PROTOCOL 07/03/24 19:30 08/02/24 19:29 Potassium Chloride (K-Dur/Klor-Con 20meq) 20 meq AD PRN PO POTASSIUM PROTOCOL 07/03/24 19:30 08/02/24 19:29 07/08/24 06:42 20 MEQ Potassium Chloride (KCl 10% Elixir 20meq/15ml) 20 meq AD PRN PO POTASSIUM PROTOCOL 07/03/24 19:30 08/02/24 19:29 DIAGNOSTICS / RADIOLOGY: [ ] ABD 1VW HISTORY: Abdominal distention COMPARISON: None FINDINGS: A frontal projection of the abdomen was obtained. A nonspecific bowel gas pattern is seen. Fecal material is seen in the colon. Degenerative changes of the thoracolumbar spine are noted. The study is limited due to patient's body habitus. IMPRESSION: 1. A nonspecific bowel gas pattern is seen. ASSESSMENT: Severe acute blood loss anemia requiring blood transfusion POA Multifactorial anemia POA Acute hypoxic Respiratory Failure POA Postmenopausal bleed, with the endometrial polyps, status post D&C with hysteroscopy and excision of endometrial polyp 07/07/2024 Fibroid uterus and thickened endometrium per pelvic ultrasound POA Uncontrolled hypertension POA Morbid obesity POA Hypothyroidism POA acute complicated cystitis POA PLAN: The patient to be upgraded to the PCU Cardiac library monitor Patient is mildly tachycardic, we will do 12 lead EKG Start metoprolol 25 mg p.o. b.i.d. and metoprolol 5 mg IV as needed for heart rate greater than 100 The patient with poor peripheral IV access, midline already inserted The patient is edematous, resume Lasix 40 mg IV q.8 hours Strict intake and output Daily weights KUB reviewed, fecal material noted, we will give lactulose x1 CT abdomen pelvis for further evaluation Ultrasound abdomen complete rule out ascites. Continue the patient on broad-spectrum IV antibiotics Infectious disease consultation requested, follow input and recommendation Doppler of the lower extremities negative for DVT Patient with the elevated D-dimer, CT PE protocol V/Q scan when able to lie flat Follow stat CBC, transfuse 1 unit if hemoglobin less than seven Replace electrolytes IV per protocol GI and DVT prophylaxis Plan of action discussed with the patient, all questions answered, agreed and understood the information provided. Total time spent greater than 45 minutes. NICHOLAS REYNOLDS MD Jul 08, 2024 10:47
--- NOTE | 2024-07-08 10:48 | EKG ---
[facility] Test Date: 2024-07-08 Test Time: 10:45:45 Pat Name: CELINA RIOS Department: [facility] Room: 228 Gender: F [employer] Supervisor: CAMRYN : 1960 Requested By: NICHOLAS REYNOLDS Order Number: [id number] Reading MD: Fanta Gimenez Measurements Intervals [place] Rate: 115 P: 47 FL: 126 QRS: 53 QRSD: 94 T: 36 QT: 348 QTc: 481 Interpretive Statements Sinus tachycardia Compared to ECG 07/03/2024 15:09:26 No significant changes Electronically Signed On 07-10-2024 17:34:10 EQUIPMENT MAINTENANCE TECHNICIAN by Fanta Gimenez Please click the below link to view image of tracing.
--- NOTE | 2024-07-08 10:56 | NUR ---
MIDLINE PLACEMENT 5 FR 2 LUMEN MIDLINE INSERTED TO UPPER ARM, RIGHT BASILIC VEIN USING STERILE TECHNIQUE. CATHETER TRIMMED TO 12 CM, 12 CM INTERNAL, 0 CM EXTERNAL. ARM CIRCUMFERENCE 38 CM. MIDLINE FLUSHES AND ASPIRATES BLOOD EASILY. MIDLINE OK TO USE- PER PROTOCOL.
[2024-07-08] MEDS: metoPROLOL tartRATE 25 MG TAB PO SCH (11:00)
[2024-07-08] MEDS: metoPROLOL tartRATE 1 MG/ML 5ML VIAL IV ONE ×2 (11:00→11:09)
[2024-07-08] MEDS ORDERED: metoPROLOL tartRATE 1 MG/ML 5ML VIAL IV PRN (11:00)
[2024-07-08] MEDS: LACTULOSE 20 GM/30 ML UDCUP PO ONE ×2 (11:03→11:10)
[2024-07-08] MEDS: Solu-medROL 125MG VIAL ONE (11:03)
[2024-07-08 11:06] LABS: HEMATOCRIT 25.5 % (36-48); MEAN CORPUSCULAR HEMOGLOBIN 26.7 pg (27.0-33.0); MEAN CORPUSCULAR HGB CONC 29.8 g/dL (32.0-36.0); MEAN CORPUSCULAR VOLUME 89.5 fL (79-99); RED BLOOD CELL COUNT(AUTO) 2.85 MIL/uL (4.00-5.50); RED CELL DISTRIBUTION WIDTH 16.4 % (11.0-15.5); WHITE BLOOD COUNT (AUTO) 4.3 K/uL (4.8-10.8)
[2024-07-08] MEDS: LACTULOSE 20 GM/30 ML UDCUP ONE (11:10)
[2024-07-08] MEDS: Solu-medROL 125MG VIAL IVP ONE (11:10)
[2024-07-08] MEDS: PoTASSium chloRIDE 20MEQ/100ML 100 ML IV ONE (11:13)
[2024-07-08 11:26] LABS: CREATININE 0.9 mg/dL (0.5-1.0); POTASSIUM 3.8 mmol/L (3.5-5.1)
[2024-07-08 11:33] LABS: ALBUMIN 2.2 g/dL (3.5-5.0); BILIRUBIN,TOTAL 1.6 mg/dL (0.2-1.0); MAGNESIUM 1.9 mg/dL (1.80-2.40); TOTAL PROTEIN, SERUM 5.8 g/dL (6.0-8.3)
--- NOTE | 2024-07-08 11:44 | NUR ---
PATIENT TRANSFERRED TO PCCU ROOM 228. GAVE REPORT TO MRS. CAMRON MATOS.
--- NOTE | 2024-07-08 15:14 | HMCIMG ---
CT ABDOMEN/PELVIS W/O CONTRAST HISTORY: Abdominal distention COMPARISON: None TECHNIQUE: Multiple sequential axial images of the abdomen and pelvis were obtained from the dome of the diaphragm through symphysis pubis. Patient was not given contrast through intravenous route. Oral contrast was not given. FINDINGS: No pleural effusion is seen bilaterally. There is no evidence of parenchymal disease or pulmonary nodule of the visualized lower lungs. Degenerative changes of the thoracolumbar spine are present. The heart is not enlarged. Cirrhotic changes of the liver are noted. Spleen is enlarged measuring 14.3 cm. Liver measures 14 cm. Gallstones are seen in the gallbladder. There are esophageal and abdominal varices. Adrenal glands and pancreas are unremarkable. There is no evidence of hydronephrosis bilaterally. No evidence of renal stone is seen. Fecal material is seen in the colon. There are normal size retroperitoneal and mesenteric lymph nodes. There is ascites. There is anasarca. Atherosclerotic changes are present. Pelvic sidewalls are symmetric bilaterally. Uterus is prominent. Bladder is poorly distended. IMPRESSION: 1. Cirrhotic liver with enlarged spleen with small ascites suggestive of portal hypertension. There are esophageal and abdominal varices. CT was performed with one or more following dose reduction techniques: automated exposure control, adjustment of the mA and kv according to patient's size, or use of a iterative reconstruction technique.
--- NOTE | 2024-07-08 15:44 | HMCIMG ---
US ABDOMINAL COMPLETE HISTORY: Ascites COMPARISON: None TECHNIQUE: Limited abdominal ultrasound study was performed for evaluation of ascites. FINDINGS: Small ascites is seen. IMPRESSION: 1. Small ascites.
[2024-07-08] MEDS ORDERED: VANCOMYCIN PROTOCOL PER PHARMACY IV SCH (16:30)
[2024-07-08] MEDS ORDERED: PHARMACY COMMUNICATION 1 EACH EACH MISC SCH (16:30)
[2024-07-08] MEDS: VANCOMYCIN 1G/250ML KIT 250 ML IV SCH (17:41)
--- NOTE | 2024-07-08 21:16 | CONS ---
DATE OF SERVICE: 07/08/2024. INFECTIOUS DISEASE CONSULTATION NOTE REQUESTING PHYSICIAN: Dr. Bernardo. REASON FOR CONSULTATION: Antibiotic management. HISTORY OF PRESENT ILLNESS: A 64-year-old female with history of obesity, postmenopausal bleed, anemia, and asthma who presented to the hospital with shortness of breath and bilateral leg swelling. The patient denied fever or chills. The patient found with severe anemia, was given 2 units of PRBC. The patient was evaluated by church official, underwent D and C with hysteroscopy. The patient ____ chest pain. The patient found with cellulitis of both the hospital and started on ceftriaxone on levofloxacin. PAST MEDICAL HISTORY: * Obesity. * Asthma. * Anemia. * Hypothyroidism. PAST SURGICAL HISTORY: * section. * Tubal ligation. ALLERGIES: * CYCLOSPORINE. * MEPERIDINE. CURRENT MEDICATIONS: Include: * Ceftriaxone. * Levofloxacin. * Lasix. * Synthroid. SOCIAL HISTORY: No alcohol, tobacco or illicit drug use. FAMILY HISTORY: Noncontributory. REVIEW OF SYSTEMS: CONSTITUTIONAL: Denies fever or chills. Positive for weakness. EYES: No eye pain, no photophobia or diplopia. HENT: No sore throat, no rhinorrhea or earache. NECK: No neck pain or neck swelling. RESPIRATORY: No cough, no hemoptysis or pleuritic pain. CARDIOVASCULAR: No chest pain, no palpitation or orthopnea. GASTROINTESTINAL: Denied nausea, vomiting, or abdominal pain. GENITOURINARY: No dysuria, urgency or urinary frequency. CENTRAL NERVOUS SYSTEM: No headache, dyspnea, or slurred speech. PSYCHIATRY: No depression. No suicidal ideation. PHYSICAL EXAMINATION: GENERAL: Elderly female, awake. VITAL SIGNS: Temperature 98.1, pulse 120, respiratory rate 18, and BP 142/78. EYES: No icterus. Pupils equal and reactive. HENT: No oral thrush seen. Moist oral mucosa. NECK: Supple, no JVD or thyromegaly. LUNGS: Good air entry. No rales, no rhonchi. CARDIOVASCULAR: S1, S2 regular. No murmur heard. ABDOMEN: Morbidly obese. No organomegaly. CENTRAL NERVOUS SYSTEM: Awake, alert, and oriented x 3. No focal deficits. SKIN: No rashes, no itchiness. LYMPHATIC: No peripheral lymphadenopathy. BACK: No deformity, no pressure ulcer. EXTREMITIES: Cellulitis involving both lower extremities pitting edema. LABORATORY DATA: Sodium 137, potassium 3.8, BUN 14, and creatinine 0.9. WBC 4.2, hemoglobin 7.6, and platelets 125. Urinalysis; wbc's 10, leukocyte esterase negative. Urine culture showed mixed don. RADIOLOGY: Venous Doppler of lower extremities unremarkable. ASSESSMENT: A 64-year-old female presenting with shortness of breath and leg edema. CURRENT PROBLEMS: Include: * Right leg cellulitis. * Left lower extremity cellulitis. * Anemia due to chronic blood loss. * Hypothyroidism. * Morbid obesity. PLAN: * Start the patient on vancomycin. * Continue levofloxacin. * Discontinue ceftriaxone. * Monitor hemoglobin and hematocrit. * Continue Synthroid. * Continue pain management. * Continue GI prophylaxis. * Follow up cultures. Thank you for allowing me to participate in the care of this patient. TID: [id number] RECEIPT: [id number]
[2024-07-09] VITALS (10 sets, daily range): BP systolic 118–149; BP diastolic 59–86; PULSE 85–101; RESP 18–21; TEMP 97.7–98.9; O2SAT 99–100
[2024-07-09 04:01] LABS: HEMATOCRIT 23.4 % (36-48); MEAN CORPUSCULAR HEMOGLOBIN 26.4 pg (27.0-33.0); MEAN CORPUSCULAR HGB CONC 29.5 g/dL (32.0-36.0); MEAN CORPUSCULAR VOLUME 89.7 fL (79-99); RED BLOOD CELL COUNT(AUTO) 2.61 MIL/uL (4.00-5.50); RED CELL DISTRIBUTION WIDTH 16.2 % (11.0-15.5)
--- NOTE | 2024-07-09 04:06 | NUR ---
Hemoglobin 6.9 Left message for Kristi Rendon regarding low Hemoglobin 6.9. Will be pending call back. Addendum: 07/09/24 at 0447 by JORDON ROSARIO RN RN 8 am Kristi was made aware of Hgb of 6.9 & wanted to know if patient was actively bleeding, which she is not. Asked BRADEN Rodarte if she was going to order a blood transfusion for patient, but there was no answer. Will await telephone orders. Addendum: 07/09/24 at 0529 by JORDON ROSARIO RN RN 05 am Received call back from Kristi Rendon w/ telephone orders to placed order for H/H recheck for 0700 am..
[2024-07-09 04:20] LABS: CREATININE 0.9 mg/dL (0.5-1.0); MAGNESIUM 2.1 mg/dL (1.80-2.40)
--- NOTE | 2024-07-09 07:16 | PN ---
[facility] PROGRESS NOTE Date of Service: Jul 09, 2024 Time of Service: 07:16 SUBJECTIVE: [ This is a 64-year-old female with past medical history of asthma, anemia, hypothyroidism and morbid obesity who presents to the ED after coming from PCP's clinic today for complaints of shortness of breaths, edema and possible fluid overload evaluation.Patient states she has been having shortness of breath because of her Asthma and anemia because she has been having menstrual bleed for 3 weeks every month since 4 years ago and it has slowed down 10 months ago that sometimes she missed the period for a month however was started on Levothyroxine by her primary and coincidentally she said after taking it she started having 3 weeks of bleeding again and a week off without bleeding so she stopped taking her Levothyroxine last April but she started having progressive shortness of breath and edema 3 weeks ago.Patient reports she was sick for the past 3 weeks with cough and fever and her legs started to get swollen and today she went to her PCP because swelling has gone up to her abdomen and she has not been able to have a good sleep because if she lies down she gets very short of breath so she had to stand up most of the time to catch her breath. Patient reports she is supposed to see an OBGYN doctor tomorrow. Seen and examined patient in the ED awake,alert and coherent,pale looking .Patient denies fever,chills,chest pain,palpitation,cough , nausea, bloody emesis, bloody stool and abdominal pain.Patient reports she voids little and her last bowel movement is today and it was normal. Latest vital signs temperature 97.9, heart rate 120, respiration 24, pressure 153/85, saturation 99% on room air. Labs: WBC 5, hemoglobin 6.2, hematocrit 20.8 platelet count 173. Glucose 129 the rest of the chemistry is unremarkable BNP 29 troponin 10. Urinalysis remarkable for large hematuria positive for RBC, WBC urobilinogen , protein and ketones. SARs COVID result is negative. Chest x-ray result is normal. Pelvic ultrasound result revealed no adnexal mass is seen. Fibroid uterus thickened endometrium. While in the ER patient is pending to be transfused with 1 unit PRBC per ER recommendation. As per ER DOLLY DRIVER's report he already consulted OBGYN Dr. Sabillon and agreed to evaluate the patient. We will admit patient for further medical management. Addendum : Post Transfusion primary nurse called and reported patient developed increased shortness of breath needing oxygen supplementation.Will request ABG ,Give Lasix 20mg IV x1 and Duoneb treatment and will transfer patient to PCCU and consult Pulmonology 07/04 patient was seen by nurse practitioner and physician during rounding in room 223 comfortably lying in bed. Patient is on room air. Patient pending evaluation by market developer and clearance for possible D and C. Patient was evaluated by Dr. Ridge ZEPEDA and would like to perform DandC on Sunday07/07/2024. Medical clearance needed. We will continue to monitor patient. A.m. labs 07/05 patient was seen by DOLLY DRIVER and physician during rounding in room 223. 2D echo still pending. Venous Doppler was ordered by market developer pending results. Patient was also cleared by market developer for D&C on Sunday with Dr. Sabillon. Ultrasound abdomen shows cirrhosis abdominal ascites small. We will continue to monitor patient in the meantime. Continue IV antibiotics Levaquin. A.m. labs 07/06 patient was seen by DOLLY DRIVER and physician during rounding. Patient was cleared by market developer for D&C to be performed on 07/07/2024. Patient is also cleared from the medical point to proceed with D and C. Patient is still pending 2D echo in the meantime. We will continue to monitor the patient a.m. labs 07/07 patient was seen by nurse practitioner and physician during rounding. Patient's hemoglobin today is 7.6. Patient was taken to OR for D and C with Dr. Sabillon. Potassium 3.2 RN we will replace as appropriate. We will continue to monitor patient in the meantime. A.m. labs 07/08 the patient has been seen and examined during my rounding, she looks edematous, BP 142/71, heart rate of 120, afebrile, saturating normal on room air. She remains alert oriented x3, denies nausea, no vomiting, no abdominal discomfort. She feels bloated, not passing gas. Admits swollen to both lower extremities. Noted to have erythema to both lower legs. 07/09 the patient has been seen and examined during my rounding earlier this morning, had three good bowel movements yesterday, she remains alert oriented x3, blood pressure and heart rate controlled. Denied chest pain, she feels less bloated, feels hungry, asking to advance her diet. Admits less swelling and erythema to both lower extremities. REVIEW OF SYSTEMS CONSTITUTIONAL: Denies fevers, chills, or night sweats. No unintentional weight loss reported. NEUROLOGICAL: Denies headache, amaurosis fugax, motor weakness, sensory deficit, vertigo/spinning sensation, gait abnormalities, or tremors. ENT: No hearing loss, otalgia, otorrhea, rhinitis, rhinorrhea, hoarseness, or sore throat. CARDIOVASCULAR: Denies any exertional angina, dyspnea on exertion, orthopnea, paroxysmal nocturnal dyspnea, palpitations, life-threatening arrhythmias, claudication. PULMONARY: Denies shortness of breaths Denies cough, phlegm/sputum, hemoptysis, pleuritic chest pain. SLEEP: Complains of insomnia Denies morning headaches, daytime somnolence or napping. Denies knowledge of snoring. GASTROINTESTINAL: Complains of abdominal distention Denies any type of dysphagia to either liquids or solids. Denies nausea, vomiting, pyrosis, early satiety, abdominal pain, diarrhea, constipation, or changes in stool consistency or caliber. Denies coffee-ground emesis, hematemesis, hematochezia, or melanotic stools. GENITOURINARY: Denies frequency, urgency, nocturia, incontinence (Storage/Irritative symptoms.) Low urinary stream, straining to void, urinary intermittency or hesitancy, splitting of the voiding stream, terminal dribbling. ENDOCRINOLOGIC: Denies polyuria, polydipsia, polyphagia or heat/cold intolerances. HEMATOLOGIC: Denies thrombophilia/previous clots, or coagulopathy ONCOLOGIC: Denies personal history of malignancy. DERMATOLOGIC: Denies rashes or pruritus. PSYCHIATRIC: Denies any suicidal or homicidal ideation. Denies hallucinations. PHYSICAL EXAM GENERAL APPEARANCE: Awake, following commands, looks mildly less edematous. NEUROLOGICAL: Cranial nerves II-XII grossly intact. Motor is 5/5 in bilateral upper and lower extremities proximal to distal. No sensory deficits. HEENT: Face is symmetric. Pupils are equal and reactive. Extraocular movements are intact. NECK: Supple. No JVD. No thyromegaly. No submental, submandibular, pre- /postauricular, occipital or supraclavicular lymphadenopathy. CHEST: Normal chest expansion. No Telemetry. LUNGS: No bilateral wheezing CARDIOVASCULAR: Regular. S1 and S2 normal. No appreciable rubs, murmurs or ga llops. ABDOMEN: Abdomen is distended and firmed There is no rebound, voluntary guarding, or rigidity. : Deferred. No Ma. EXTREMITIES: less erythema and swelling to both lower extremities. SKIN: No skin breakdown. Vital Signs (last 8hr) Date Time Temp Pulse Resp B/P (MAP) Pulse Ox O2 Delivery O2 Flow Rate FiO2 07/09/24 06:44 90 21 07/09/24 06:44 90 21 N/A Room Air 07/09/24 03:47 97.7 92 18 118/59 99 Room Air 07/08/24 23:49 87 18 LABS: Laboratory: Test 07/09/24 03:44 07/08/24 10:57 07/08/24 08:49 07/08/24 05:15 Range/Units White Blood Count 4.0 L 4.8-10.8 K/uL Red Blood Count 2.61 L 4.00-5.50 MIL/uL Hemoglobin 6.9 *L 12.0-16.0 g/dL Hematocrit 23.4 L 36-48 % Mean Corpuscular Volume 89.7 79-99 fL Mean Corpuscular Hemoglobin 26.4 L 27.0-33.0 pg Mean Corpuscular Hemoglobin Concent 29.5 L 32.0-36.0 g/dL Red Cell Distribution Width 16.2 H 11.0-15.5 % Platelet Count 101 L 130-400 K/uL Mean Platelet Volume 10.6 H 7.5-10.5 fL Nucleated Red Blood Cells 0.0 0.0-0.19 % Sodium Level 136 136-145 mmol/L Potassium Level 4.0 3.5-5.1 mmol/L Chloride Level 102 101-111 mmol/L Carbon Dioxide Level 30 21-32 mmol/L Blood Urea Nitrogen 17 7-18 mg/dL Creatinine 0.9 0.5-1.0 mg/dL Glomerular Filtration Rate Calc 72 >90 mL/min Random Glucose 134 H 70-105 mg/dL Total Calcium 8.6 8.5-10.1 mg/dL Magnesium Level 2.10 1.80-2.40 mg/dL Total Bilirubin 1.6 H 0.2-1.0 mg/dL Aspartate Amino Transf (AST/SGOT) 89 H 10-37 U/L Alanine Aminotransferase (ALT/SGPT) 74 12-78 U/L Alkaline Phosphatase 144 H 50-136 U/L Total Protein 5.8 L 6.0-8.3 g/dL Albumin 2.2 L 3.5-5.0 g/dL Prothrombin Time 14.2 H 9.6-11.6 SEC Prothromb Time International Ratio 1.34 H 0.85-1.15 Activated Partial Thromboplast Time 26.1 L 26.3-35.5 SEC Immature Granulocyte % (Auto) 0.2 0-1 % Neutrophils (%) (Auto) 70.7 40.0-77.0 % Lymphocytes (%) (Auto) 10.6 L 21.0-51.0 % Monocytes (%) (Auto) 11.1 3.0-13.0 % Eosinophils (%) (Auto) 6.7 0.0-8.0 % Basophils (%) (Auto) 0.7 0.0-5.0 % Neutrophils # (Auto) 3.3 1.8-7.7 K/uL Lymphocytes # (Auto) 0.5 L 1.0-4.8 K/uL Monocytes # (Auto) 0.5 0.1-1.0 K/uL Eosinophils # (Auto) 0.31 0.00-0.70 K/uL Basophils # (Auto) 0.03 0.00-0.20 K/uL Absolute Immature Granulocyte (auto 0.01 0-1 K/uL Current Medications Medications (Trade) Dose Ordered Sig/Avinash Route PRN Reason Start Time Stop Time Status Last Admin Dose Admin Acetaminophen (TYLenol 325MG TAB) 650 mg Q4H PRN PO MILD PAIN (1-3) 07/03/24 19:30 08/02/24 19:29 Acetaminophen (TYLenol 325MG TAB) 650 mg Q6H PRN PO TEMPERATURE GREATER THAN 101.5 07/03/24 19:30 08/02/24 19:29 Albuterol (DUOneb) 1 UDVIAL [id number] IH 07/04/24 00:00 08/03/24 00:00 07/09/24 06:43 1 UDVIAL Ceftriaxone Sodium (ROCEphine 1G INJ) 1 gm Q24H IVPB 07/07/24 17:00 07/08/24 16:28 DC 07/08/24 16:09 1 GM Famotidine (Pepcid 20mg Vial) 20 mg BID IV 07/03/24 21:00 08/02/24 20:59 07/08/24 20:01 20 MG Furosemide (LASix 40MG TAB) 40 mg BID PO 07/07/24 21:00 07/08/24 08:21 DC 07/07/24 20:41 40 MG Furosemide (LASix 40MG VIAL) 40 mg Q8H IV 07/05/24 16:00 07/07/24 12:30 DC 07/07/24 08:16 40 MG Furosemide (LASix 40MG VIAL) 40 mg Q8H IV 07/08/24 08:30 08/07/24 08:29 07/09/24 00:01 40 MG Hydralazine HCl (APRESOLine 20MG INJ) 10 mg Q6H PRN IV ADMINISTER FOR SBP > 160 07/04/24 02:30 08/03/24 02:29 07/04/24 18:43 10 MG Levofloxacin/ Dextrose 100 ml @ 100 mls/hr Q24H IV 07/03/24 19:30 07/13/24 19:29 07/08/24 20:02 100 MLS/HR Levothyroxine Sodium (SYNTHroid 25MCG TAB) 25 mcg SYN PO 07/05/24 06:30 08/04/24 06:29 07/09/24 04:58 25 MCG Magnesium Sulfate 50 ml @ 0 mls/hr PROTOCOL PRN IV OTHER [SEE ORDER COMMENTS] 07/03/24 19:30 08/02/24 19:29 07/08/24 20:02 25 MLS/HR Metoprolol Tartrate (loprESSOR) 5 mg Q4H PRN IV INCREASED HEART RATE 07/08/24 11:00 08/07/24 10:59 Metoprolol Tartrate (loprESSOR) 25 mg BID PO 07/08/24 11:00 08/07/24 10:59 07/08/24 20:01 25 MG Ondansetron HCl (zoFRAN 4MG INJ) 4 mg Q6H PRN IV NAUSEA/VOMITING 07/03/24 19:30 08/02/24 19:29 Pharmacy Profile Note (Lace Assessment) 1 each AD [facility] [place] 07/08/24 16:30 07/15/24 16:29 Potassium Chloride 100 ml @ 50 mls/hr PROTOCOL IV 07/07/24 10:00 08/06/24 09:59 Potassium Chloride 100 ml @ 100 mls/hr AD PRN IV POTASSIUM PROTOCOL 07/03/24 19:30 08/02/24 19:29 Potassium Chloride (K-Dur/Klor-Con 20meq) 20 meq AD PRN PO POTASSIUM PROTOCOL 07/03/24 19:30 08/02/24 19:29 07/08/24 21:49 20 MEQ Potassium Chloride (KCl 10% Elixir 20meq/15ml) 20 meq AD PRN PO POTASSIUM PROTOCOL 07/03/24 19:30 08/02/24 19:29 Vancomycin HCl 250 ml @ 125 mls/hr Q12H IV 07/08/24 18:00 07/18/24 17:59 07/09/24 04:59 125 MLS/HR Vancomycin HCl (Vancomycin Protocol) 1 each AD IV 07/08/24 16:30 07/22/24 16:29 DIAGNOSTICS / RADIOLOGY: [ ] ASSESSMENT: Severe acute blood loss anemia requiring blood transfusion POA Multifactorial anemia POA Acute hypoxic Respiratory Failure POA Postmenopausal bleed, with the endometrial polyps, status post D&C with hysteroscopy and excision of endometrial polyp 07/07/2024 Fibroid uterus and thickened endometrium per pelvic ultrasound POA Uncontrolled hypertension POA Morbid obesity POA Hypothyroidism POA acute complicated cystitis POA Pancytopenia Cellulitis to both lower extremities PLAN: The patient remains admitted to the PCU 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 b.i.d. Continue metoprolol 5 mg IV as needed for heart rate greater than 100 Continue the patient on furosemide 40 mg IV q.8 hours Albumin 25% IV x1 to be given today. Strict intake and output Daily weights Continue with the lactulose as needed Advanced diet to soft diet Continue the patient on broad-spectrum IV antibiotics Infectious disease input noted and appreciated Doppler of the lower extremities negative for DVT Follow repeat D-dimer today. Follow CBC transfuse as needed Replace electrolytes IV per protocol GI and DVT prophylaxis Disposition: The patient remains admitted to the PCU. Continue the patient on diuretics, close monitoring of the patient's daily weight as well as intake and output. We will give albumin 25% IV x1. Continue the patient on broad-spectrum IV antibiotics and follow ID input and recommendations. Patient with pancytopenia, Hematology consultation requested, follow input and recommendation. Plan of action discussed with the patient, all questions answered, agreed and understood the information provided. Total time spent greater than 45 minutes. NICHOLAS REYNOLDS MD Jul 09, 2024 07:16
[2024-07-09 07:25] LABS: HEMATOCRIT 23.7 % (36-48)
[2024-07-09 08:13] LABS: % IRON SATURATION 4.5 % (22-44)
[2024-07-09 09:05] LABS: BASOPHILS # (AUTO) 0.01 K/uL (0.00-0.20); BASOPHILS % (AUTO) 0.2 % (0.0-5.0); EOSINOPHILS # (AUTO) 0.01 K/uL (0.00-0.70); EOSINOPHILS % (AUTO) 0.2 % (0.0-8.0); IMMATURE GRANULOCYTE ABSOLUTE 0.03 K/uL (0-1); LYMPHOCYTES # (AUTO) 0.3 K/uL (1.0-4.8); LYMPHOCYTES % (AUTO) 6.1 % (21.0-51.0); MEAN CORPUSCULAR HEMOGLOBIN 27.3 pg (27.0-33.0); MEAN CORPUSCULAR HGB CONC 30.5 g/dL (32.0-36.0); MEAN CORPUSCULAR VOLUME 89.7 fL (79-99); MONOCYTES # (AUTO) 0.4 K/uL (0.1-1.0); MONOCYTES % (AUTO) 8.8 % (3.0-13.0); NEUTROPHILS # (AUTO) 3.7 K/uL (1.8-7.7); PLATELET COUNT (AUTO) 110 K/uL (130-400); RED BLOOD CELL COUNT(AUTO) 2.71 MIL/uL (4.00-5.50); RED CELL DISTRIBUTION WIDTH 16.1 % (11.0-15.5); WHITE BLOOD COUNT (AUTO) 4.4 K/uL (4.8-10.8)
[2024-07-09] MEDS: ALBUMIN (HUMAN) 25% 50 ML IV SCH (11:50)
--- NOTE | 2024-07-09 13:04 | PN ---
INFECTIOUS DISEASE PROGRESS NOTE Date of Service: Jul 09, 2024 SUBJECTIVE: [ ] PHYSICAL EXAM EYES: Anicteric. Pupils equal and reactive. HENT: No oral thrush seen, moist Oral mucosa NECK: Supple, no JVD or thyromegaly. LUNGS: Good air entry. No rales, no rhonchi. CARDIOVASCULAR: S1, S2 regular. No murmur heard. ABDOMEN: Soft, non tender, bowel sounds present, no organomegaly CENTRAL NERVOUS SYSTEM: Awake, alert, oriented x 3. SKIN: No rashes, no swelling. LYMPHATICS: No peripheral lymphadenopathy MUSCULOSKELETAL: No joint swelling, erythema or tenderness. EXTREMITIES: No cyanosis or clubbing. Bilateral lower extremity erythema. BACK: No deformity, no pressure ulcer. GENITOURINARY: No dysuria or hematuria Vital Sign (Last 12 Hours) 07/09/24 07/09/24 07/09/24 07/09/24 03:47 06:44 06:44 08:00 Temp 97.7 Pulse 92 90 90 Resp 18 21 21 B/P (MAP) 118/59 Pulse Ox 99 100 O2 Delivery Room Air N/A Room Air Room Air* O2 Flow Rate 0 FiO2 21 21 07/09/24 07/09/24 07/09/24 08:20 11:11 12:57 Temp 98.2 97.9 Pulse 101 85 95 Resp 18 21 18 B/P (MAP) 149/86 126/70 Pulse Ox 100 100 O2 Delivery Room Air Room Air Intake & Output (last 24hrs) 07/08/24 07/08/24 07/09/24 15:00 23:00 07:00 Intake Total 0 ml 640.0 ml 250.0 ml Output Total 900 ml 1500 ml 1000 ml Balance -900 ml -860.0 ml -750.0 ml LABS: Laboratory: Test 07/09/24 07:37 07/09/24 07:04 07/09/24 03:44 07/08/24 10:57 Range/Units D-Dimer Quantitative (PE/DVT) 2412 *H 0-500 ng/mL Iron Level 12 L 50-170 mcg/dL Total Iron Binding Capacity 263 250-450 mcg/dL Percent Iron Saturation 4.5 L 22-44 % White Blood Count 4.4 L 4.8-10.8 K/uL Red Blood Count 2.71 L 4.00-5.50 MIL/uL Hemoglobin 7.0 *L 12.0-16.0 g/dL Hematocrit 23.7 L 36-48 % Mean Corpuscular Volume 89.7 79-99 fL Mean Corpuscular Hemoglobin 27.3 27.0-33.0 pg Mean Corpuscular Hemoglobin Concent 30.5 L 32.0-36.0 g/dL Red Cell Distribution Width 16.1 H 11.0-15.5 % Platelet Count 110 L 130-400 K/uL Mean Platelet Volume 10.4 7.5-10.5 fL Immature Granulocyte % (Auto) 0.7 0-1 % Neutrophils (%) (Auto) 84.0 H 40.0-77.0 % Lymphocytes (%) (Auto) 6.1 L 21.0-51.0 % Monocytes (%) (Auto) 8.8 3.0-13.0 % Eosinophils (%) (Auto) 0.2 0.0-8.0 % Basophils (%) (Auto) 0.2 0.0-5.0 % Neutrophils # (Auto) 3.7 1.8-7.7 K/uL Lymphocytes # (Auto) 0.3 L 1.0-4.8 K/uL Monocytes # (Auto) 0.4 0.1-1.0 K/uL Eosinophils # (Auto) 0.01 0.00-0.70 K/uL Basophils # (Auto) 0.01 0.00-0.20 K/uL Absolute Immature Granulocyte (auto 0.03 0-1 K/uL Nucleated Red Blood Cells 0.0 0.0-0.19 % Sodium Level 136 136-145 mmol/L Potassium Level 4.0 3.5-5.1 mmol/L Chloride Level 102 101-111 mmol/L Carbon Dioxide Level 30 21-32 mmol/L Blood Urea Nitrogen 17 7-18 mg/dL Creatinine 0.9 0.5-1.0 mg/dL Glomerular Filtration Rate Calc 72 >90 mL/min Random Glucose 134 H 70-105 mg/dL Total Calcium 8.6 8.5-10.1 mg/dL Magnesium Level 2.10 1.80-2.40 mg/dL Total Bilirubin 1.6 H 0.2-1.0 mg/dL Aspartate Amino Transf (AST/SGOT) 89 H 10-37 U/L Alanine Aminotransferase (ALT/SGPT) 74 12-78 U/L Alkaline Phosphatase 144 H 50-136 U/L Total Protein 5.8 L 6.0-8.3 g/dL Albumin 2.2 L 3.5-5.0 g/dL Test 07/08/24 08:49 Range/Units Prothrombin Time 14.2 H 9.6-11.6 SEC Prothromb Time International Ratio 1.34 H 0.85-1.15 Activated Partial Thromboplast Time 26.1 L 26.3-35.5 SEC ASSESSMENT: Bilateral lower extremity cellulitis. Postmenopausal bleeding requiring blood transfusion. Morbid obesity. Hypertension. Hypothyroidism. PLAN: Continue vancomycin per pharmacy protocol. Continue levofloxacin IV. Monitor the hemoglobin and hematocrit. Continue pain management. We will monitor electrolytes. This case was reviewed and discussed with my supervising physician and the above assessment and plan was formulated and agreed upon. ATTESTATION BY PHYSICIAN I have seen and examined the patient. I reviewed the documentation, medical decision making, and treatment plan as noted by the mid-level provider above. I agree with the findings and plan of care. JAC JONES MD, MIRTA L [facility] Jul 09, 2024 13:04
[2024-07-09] MEDS: dexaMETHasone SOD PHOSPHATE 4 MG/ML 1ML VIAL IVP ONE (14:16)
[2024-07-09] MEDS: Vitamin B Complex/Vit C/Folic Acid PO SCH (14:23)
--- NOTE | 2024-07-09 14:35 | NUR ---
Nutritional Note: Chart, meds, and labs Reviewed. had three bowel movements yesterday. Current PO intake adequate 75% of meal taken. Recommend: -pt to f/u with PCP, consider sleep study to rule out COBLY and before starting weight management program. - Electrolyte replacements per protocol -Monitor PO intake%, wt, and labs -If No BM >3days consider bowel stimulant. - Please notify RD if additional nutrition concerns arise. SEE RD Nutritional Assessment for additional assessment information. Addendum: 07/09/24 at [address] Amended: Links added.
--- NOTE | 2024-07-09 14:45 | NUR ---
BLOOD TRANSFUSION INITIATED.
--- NOTE | 2024-07-09 18:10 | NUR ---
BLOOD TRANSFUSION COMPLETED AND TOLERATED WELL.
[2024-07-09] MEDS: furoSEMIDE 20MG VIAL IV ONE (18:16)
--- NOTE | 2024-07-09 21:49 | CONS ---
CONSULT NOTE: A 64-year-old female who presented to the ER by instruction of her PCP due to shortness of breath, fatigue and vaginal bleeding. I am consulted due to the anemia and the vaginal bleeding. The patient states that she has never gone through menopause and that she has been having periods regularly until about 3 months ago where they began to be constant and heavy with clots. Patient denied taking any anticoagulation or antiplatelet medication. This patient was evaluated by HUMAN RESOURCES RECORDS CLERK who is D&C with hysteroscopy was done status post polypectomy and endometrial biopsy. Patient actually doing very well with no obvious bleeding at this time. Patient received 1 unit of packed red blood cell. PAST HISTORY: Systemic illnesses, asthma, anemia, hypothyroidism, morbid obesity. SURGICAL HISTORY: x 1 with tubal ligation. ALLERGIES: LATEX, CEPHALOSPORIN, AND DEMEROL. PHYSICAL EXAMINATION: VITAL SIGNS: Stable, afebrile. GENERAL APPEARANCE: Alert, active, oriented in three spheres, no acute distress. ABDOMEN: Soft and nontender. Pelvic exam deferred. EXTREMITIES: 3+ pedal edema. NEUROLOGIC: Grossly intact. A pelvic ultrasound was performed, revealing a 3.5 cm fibroid on the uterus. The endometrial stripe was slightly thickened at 1 cm. No adnexal masses. ASSESSMENT: 1. Postmenopausal bleeding status post D&C and hysteroscopy was polypectomy and biopsy. 2. Severe anemia status post blood transfusion 3. Thrombocytopenia 4. Lymphopenia 5. Cirrhosis of the liver 6. Hypothyroidism 7. Morbid obesity Plan 1. Peripheral blood smear showed red blood cells to be microcytic hypochromic red blood cell consistent with iron deficiency anemia. There was no fragment cell or schistocyte. There is no teardrop cell. There is no rouleaux phenomena. There is no pelger-Huet cell. White blood cell with no blasts.Platelet count decreased in number. There is large platelet consistent with peripheral consumption of the platelet most likely cirrhosis of the liver and splenomegaly 2. There was hypersegmented neutrophils. This patient to be started on folic acid 1 mg p.o. daily and vitamin B12 1000 mcg p.o. daily. 3. This patient will be started on IV iron daily for 3 days this patient will need oral iron supplement every other day 4. Will follow-up with the result of the pathology after D&C. 5. There was decrease the platelet presents increased size of the platelet consistent with peripheral consumption of the platelet. Manual platelet count 1 20K. This is most likely due to cirrhosis of the liver and splenomegaly Laboratory Tests Test 07/09/24 03:44 07/09/24 07:04 07/09/24 07:37 White Blood Count 4.0 K/uL (4.8-10.8) L 4.4 K/uL (4.8-10.8) L Red Blood Count 2.61 MIL/uL (4.00-5.50) L 2.71 MIL/uL (4.00-5.50) L Hemoglobin 6.9 g/dL (12.0-16.0) *L 7.0 g/dL (12.0-16.0) *L Hematocrit 23.4 % (36-48) L 23.7 % (36-48) L Mean Corpuscular Volume 89.7 fL (79-99) 89.7 fL (79-99) Mean Corpuscular Hemoglobin 26.4 pg (27.0-33.0) L 27.3 pg (27.0-33.0) Mean Corpuscular Hemoglobin Concent 29.5 g/dL (32.0-36.0) L 30.5 g/dL (32.0-36.0) L Red Cell Distribution Width 16.2 % (11.0-15.5) H 16.1 % (11.0-15.5) H Platelet Count 101 K/uL (130-400) L 110 K/uL (130-400) L Mean Platelet Volume 10.6 fL (7.5-10.5) H 10.4 fL (7.5-10.5) Nucleated Red Blood Cells 0.0 % (0.0-0.19) 0.0 % (0.0-0.19) Sodium Level 136 mmol/L (136-145) Potassium Level 4.0 mmol/L (3.5-5.1) Chloride Level 102 mmol/L (101-111) Carbon Dioxide Level 30 mmol/L (21-32) Blood Urea Nitrogen 17 mg/dL (7-18) Creatinine 0.9 mg/dL (0.5-1.0) Glomerular Filtration Rate Calc 72 mL/min (>90) Random Glucose 134 mg/dL (70-105) H Total Calcium 8.6 mg/dL (8.5-10.1) Magnesium Level 2.10 mg/dL (1.80-2.40) Immature Granulocyte % (Auto) 0.7 % (0-1) Neutrophils (%) (Auto) 84.0 % (40.0-77.0) H Lymphocytes (%) (Auto) 6.1 % (21.0-51.0) L Monocytes (%) (Auto) 8.8 % (3.0-13.0) Eosinophils (%) (Auto) 0.2 % (0.0-8.0) Basophils (%) (Auto) 0.2 % (0.0-5.0) Neutrophils # (Auto) 3.7 K/uL (1.8-7.7) Lymphocytes # (Auto) 0.3 K/uL (1.0-4.8) L Monocytes # (Auto) 0.4 K/uL (0.1-1.0) Eosinophils # (Auto) 0.01 K/uL (0.00-0.70) Basophils # (Auto) 0.01 K/uL (0.00-0.20) Absolute Immature Granulocyte (auto 0.03 K/uL (0-1) D-Dimer Quantitative (PE/DVT) 2412 ng/mL (0-500) *H Iron Level 12 mcg/dL (50-170) L Total Iron Binding Capacity 263 mcg/dL (250-450) Percent Iron Saturation 4.5 % (22-44) L LAB RESULTS 07/09/24 07:37: D-Dimer Quantitative (PE/DVT) 2412*H, Iron Level 12L, Total Iron Binding Capacity 263, Percent Iron Saturation 4.5L 07/09/24 07:04: White Blood Count 4.4L, Red Blood Count 2.71L, Hemoglobin 7.0*L, Hematocrit 23.7L, Mean Corpuscular Volume 89.7, Mean Corpuscular Hemoglobin 27.3, Mean Corpuscular Hemoglobin Concent 30.5L, Red Cell Distribution Width 16.1H, Platelet Count 110L, Mean Platelet Volume 10.4, Immature Granulocyte % (Auto) 0.7, Neutrophils (%) (Auto) 84.0H, Lymphocytes (%) (Auto) 6.1L, Monocytes (%) (Auto) 8.8, Eosinophils (%) (Auto) 0.2, Basophils (%) (Auto) 0.2, Neutrophils # (Auto) 3.7, Lymphocytes # (Auto) 0.3L, Monocytes # (Auto) 0.4, Eosinophils # (Auto) 0.01, Basophils # (Auto) 0.01, Absolute Immature Granulocyte (auto 0.03, Nucleated Red Blood Cells 0.0 07/09/24 03:44: Sodium Level 136, Potassium Level 4.0, Chloride Level 102, Carbon Dioxide Level 30, Blood Urea Nitrogen 17, Creatinine 0.9, Glomerular Filtration Rate Calc 72, Random Glucose 134H, Total Calcium 8.6, Magnesium Level 2.10 07/08/24 10:57: Total Bilirubin 1.6H, Aspartate Amino Transf (AST/SGOT) 89H, Alanine Aminotransferase (ALT/SGPT) 74, Alkaline Phosphatase 144H, Total Protein 5.8L, Albumin 2.2L 07/08/24 08:49: Prothrombin Time 14.2H, Prothromb Time International Ratio 1.34H, Activated Partial Thromboplast Time 26.1L THEODORE CONTRERAS MD Jul 09, 2024 21:48
--- NOTE | 2024-07-09 21:58 | CONS ---
GASTROENTEROLOGY CONSULTATION NOTE Date of Consultation: Jul 09, 2024 Time of Consultation: 21:58 History of Present Illness: This is a 64-year-old female with past medical history of asthma, anemia, hypothyroidism and morbid obesity who presented due to shortness of breath, edema, possible fluid overload evaluation. She has been having menstrual bleeding for 3 weeks every month since 4 years ago however the last 10 months has improved and she missed. For months however she was started on levothyroxine and after she started taking that she began to have the bleeding again. Pelvic ultrasound revealing fibroid uterus with thickened endometrium. On 07/07/2024 patient had D&C with hysteroscopy and excision of endometrial polyp. We were consulted due to persistent anemia despite procedure and resolution of vaginal bleeding. Hemoglobin today down to 6.9 with a platelet count of 101. She denies any melena or hematochezia. Labs do appear consistent with cirrhosis. She does have family history of cirrhosis. Abdominal ultrasound revealing small ascites. Imaging also consistent with cirrhosis. Evidence of esophageal varices. Review of Systems: CONSTITUTIONAL: No malaise or change in sensation of wellbeing. ENMT: No rhinorrhea, otorrhea, sinus pain, ear ache. CARDIOVASCULAR: No angina, palpitations, orthopnea or paroxysmal dyspnea. RESPIRATORY: No SOB. GASTROINTESTINAL: No abdominal pain, nausea, vomiting, diarrhea, hematemesis, m micah or change in the patient's habitual bowel movements consistency/number. GENITOURINARY: No dysuria, hematuria or change in bladder continence. MUSCULOSKELETAL: No new muscle pain or decrease in muscular strength. No new joint swelling, redness or tenderness. SKIN: No new rash. Past Medical History: [ ] Past Surgical History: [ ] Past Social History: [ ] Family History: [ ] Coded Allergies: Cephalosporins (Unverified Allergy, Unknown, 07/03/24) Latex, Natural Rubber (Unverified Allergy, Unknown, 07/03/24) cephalexin (Unverified Allergy, Unknown, 07/03/24) meperidine (Unverified Allergy, Unknown, 07/03/24) Physical Exam: GEN: Awake, alert, oriented in person, time and place, and in no acute distress. HEENT: No sinus tenderness. Tympanic membranes were not examined. No rhinorrhea. Oral pharyngeal mucosa is pink, moist and within normal limits. Neck is supple with no cervical lymphadenopathy, thyromegaly or JVD. CHEST: Inspection, palpation and percussion of the chest were unremarkable. Lung auscultation revealed normal breath sounds bilaterally. CARDIAC: PMI is within normal limits. Heart sounds are regular. Normal S1, S2. No gallop or murmur. ABD: Soft, non-tender and not distended. No peritoneal signs on palpation. No organomegaly. Normal bowel sounds. EXT: No cyanosis or clubbing. No edema. SKIN: Intact. No rashes. JOINTS: No evidence of synovitis or acute arthritis. NEURO: Alert and oriented to name, place and person. Cranial nerve examination is unremarkable. No focal motor deficits. Normal speech. Gait is normal. Strength is normal. Vital Sign (Last 24 Hours) 07/09/24 07/09/24 08:00 16:59 Temp 99.0 B/P (MAP) 125/66 Pulse Ox 100 O2 Flow Rate 0 Intake & Output (last 24hrs) 07/08/24 07/08/24 07/09/24 15:00 23:00 07:00 Intake Total 0 ml 640.0 ml 250.0 ml Output Total 900 ml 1500 ml 1000 ml Balance -900 ml -860.0 ml -750.0 ml Laboratory: [ ] Laboratory: Test 07/09/24 07:37 07/09/24 07:04 07/09/24 03:44 07/08/24 10:57 Range/Units D-Dimer Quantitative (PE/DVT) 2412 *H 0-500 ng/mL Iron Level 12 L 50-170 mcg/dL Total Iron Binding Capacity 263 250-450 mcg/dL Percent Iron Saturation 4.5 L 22-44 % White Blood Count 4.4 L 4.8-10.8 K/uL Red Blood Count 2.71 L 4.00-5.50 MIL/uL Hemoglobin 7.0 *L 12.0-16.0 g/dL Hematocrit 23.7 L 36-48 % Mean Corpuscular Volume 89.7 79-99 fL Mean Corpuscular Hemoglobin 27.3 27.0-33.0 pg Mean Corpuscular Hemoglobin Concent 30.5 L 32.0-36.0 g/dL Red Cell Distribution Width 16.1 H 11.0-15.5 % Platelet Count 110 L 130-400 K/uL Mean Platelet Volume 10.4 7.5-10.5 fL Immature Granulocyte % (Auto) 0.7 0-1 % Neutrophils (%) (Auto) 84.0 H 40.0-77.0 % Lymphocytes (%) (Auto) 6.1 L 21.0-51.0 % Monocytes (%) (Auto) 8.8 3.0-13.0 % Eosinophils (%) (Auto) 0.2 0.0-8.0 % Basophils (%) (Auto) 0.2 0.0-5.0 % Neutrophils # (Auto) 3.7 1.8-7.7 K/uL Lymphocytes # (Auto) 0.3 L 1.0-4.8 K/uL Monocytes # (Auto) 0.4 0.1-1.0 K/uL Eosinophils # (Auto) 0.01 0.00-0.70 K/uL Basophils # (Auto) 0.01 0.00-0.20 K/uL Absolute Immature Granulocyte (auto 0.03 0-1 K/uL Nucleated Red Blood Cells 0.0 0.0-0.19 % Sodium Level 136 136-145 mmol/L Potassium Level 4.0 3.5-5.1 mmol/L Chloride Level 102 101-111 mmol/L Carbon Dioxide Level 30 21-32 mmol/L Blood Urea Nitrogen 17 7-18 mg/dL Creatinine 0.9 0.5-1.0 mg/dL Glomerular Filtration Rate Calc 72 >90 mL/min Random Glucose 134 H 70-105 mg/dL Total Calcium 8.6 8.5-10.1 mg/dL Magnesium Level 2.10 1.80-2.40 mg/dL Total Bilirubin 1.6 H 0.2-1.0 mg/dL Aspartate Amino Transf (AST/SGOT) 89 H 10-37 U/L Alanine Aminotransferase (ALT/SGPT) 74 12-78 U/L Alkaline Phosphatase 144 H 50-136 U/L Total Protein 5.8 L 6.0-8.3 g/dL Albumin 2.2 L 3.5-5.0 g/dL Test 07/08/24 08:49 Range/Units Prothrombin Time 14.2 H 9.6-11.6 SEC Prothromb Time International Ratio 1.34 H 0.85-1.15 Activated Partial Thromboplast Time 26.1 L 26.3-35.5 SEC Current Medications Medications (Trade) Dose Ordered Sig/Avinash Route PRN Reason Start Time Stop Time Status Last Admin Dose Admin Acetaminophen (TYLenol 325MG TAB) 650 mg Q4H PRN PO MILD PAIN (1-3) 07/03/24 19:30 08/02/24 19:29 Acetaminophen (TYLenol 325MG TAB) 650 mg Q6H PRN PO TEMPERATURE GREATER THAN 101.5 07/03/24 19:30 08/02/24 19:29 Albumin Human 50 ml @ 0 mls/hr AD IV 07/09/24 10:00 07/12/24 09:59 07/09/24 11:50 100 MLS/HR Albuterol (DUOneb) 1 UDVIAL [id number] IH 07/04/24 00:00 08/03/24 00:00 07/09/24 19:11 1 UDVIAL Ceftriaxone Sodium (ROCEphine 1G INJ) 1 gm Q24H IVPB 07/07/24 17:00 07/08/24 16:28 DC 07/08/24 16:09 1 GM Famotidine (Pepcid 20mg Vial) 20 mg BID IV 07/03/24 21:00 08/02/24 20:59 07/09/24 08:49 20 MG Furosemide (LASix 40MG TAB) 40 mg BID PO 07/07/24 21:00 07/08/24 08:21 DC 07/07/24 20:41 40 MG Furosemide (LASix 40MG VIAL) 40 mg Q8H IV 07/05/24 16:00 07/07/24 12:30 DC 07/07/24 08:16 40 MG Furosemide (LASix 40MG VIAL) 40 mg Q8H IV 07/08/24 08:30 08/07/24 08:29 07/09/24 18:16 40 MG Hydralazine HCl (APRESOLine 20MG INJ) 10 mg Q6H PRN IV ADMINISTER FOR SBP > 160 07/04/24 02:30 08/03/24 02:29 07/04/24 18:43 10 MG Levofloxacin/ Dextrose 100 ml @ 100 mls/hr Q24H IV 07/03/24 19:30 07/13/24 19:29 07/08/24 20:02 100 MLS/HR Levothyroxine Sodium (SYNTHroid 25MCG TAB) 25 mcg SYN PO 07/05/24 06:30 08/04/24 06:29 07/09/24 04:58 25 MCG Magnesium Sulfate 50 ml @ 0 mls/hr PROTOCOL PRN IV OTHER [SEE ORDER COMMENTS] 07/03/24 19:30 08/02/24 19:29 07/08/24 20:02 25 MLS/HR Metoprolol Tartrate (loprESSOR) 5 mg Q4H PRN IV INCREASED HEART RATE 07/08/24 11:00 08/07/24 10:59 Metoprolol Tartrate (loprESSOR) 25 mg BID PO 07/08/24 11:00 08/07/24 10:59 07/09/24 08:49 25 MG Ondansetron HCl (zoFRAN 4MG INJ) 4 mg Q6H PRN IV NAUSEA/VOMITING 07/03/24 19:30 08/02/24 19:29 Pharmacy Profile Note (Lace Assessment) 1 each AD MISC 07/08/24 16:30 07/15/24 16:29 Potassium Chloride 100 ml @ 50 mls/hr PROTOCOL IV 07/07/24 10:00 08/06/24 09:59 Potassium Chloride 100 ml @ 100 mls/hr AD PRN IV POTASSIUM PROTOCOL 07/03/24 19:30 08/02/24 19:29 Potassium Chloride (K-Dur/Klor-Con 20meq) 20 meq AD PRN PO POTASSIUM PROTOCOL 07/03/24 19:30 08/02/24 19:29 07/08/24 21:49 20 MEQ Potassium Chloride (KCl 10% Elixir 20meq/15ml) 20 meq AD PRN PO POTASSIUM PROTOCOL 07/03/24 19:30 08/02/24 19:29 Vancomycin HCl 250 ml @ 125 mls/hr Q12H IV 07/08/24 18:00 07/18/24 17:59 07/09/24 18:16 125 MLS/HR Vancomycin HCl (Vancomycin Protocol) 1 each AD IV 07/08/24 16:30 07/22/24 16:29 Vitamin B Complex/ Vit C/Folic Acid (Nephrovite Tablet) 1 cap DAILY PO 07/09/24 13:00 08/08/24 12:59 07/09/24 14:23 1 CAP Diagnostics / Radiology: [COPY/PASTE HERE IF NO REPORTS PLEASE DELETE SECTION] Assessment: Concern for GI bleed Acute blood loss anemia Abnormal imaging with esophageal varices Cirrhosis Plan: We recommend EGD; however, patient defers. She denies any overt GI bleeding. She can resume iron for now; however, will likely benefit from egd with banding especially if hgb continues to drop. KINGS HARDIN JEWEL CUPPING MACHINE OPERATOR Jul 09, 2024 21:58
[2024-07-10] VITALS (12 sets, daily range): BP systolic 131–150; BP diastolic 68–85; PULSE 77–91; RESP 16–20; TEMP 97.9–98.6; O2SAT 97–100
[2024-07-10 05:29] LABS: HEMATOCRIT 24.3 % (36-48); MEAN CORPUSCULAR HEMOGLOBIN 26.9 pg (27.0-33.0); MEAN CORPUSCULAR HGB CONC 30.9 g/dL (32.0-36.0); MEAN CORPUSCULAR VOLUME 87.1 fL (79-99); RED BLOOD CELL COUNT(AUTO) 2.79 MIL/uL (4.00-5.50); RED CELL DISTRIBUTION WIDTH 16.2 % (11.0-15.5); WHITE BLOOD COUNT (AUTO) 4.4 K/uL (4.8-10.8)
[2024-07-10 05:55] LABS: ALBUMIN 2.2 g/dL (3.5-5.0); BILIRUBIN,TOTAL 1.7 mg/dL (0.2-1.0); CREATININE 0.9 mg/dL (0.5-1.0); MAGNESIUM 2.2 mg/dL (1.80-2.40); POTASSIUM 3.5 mmol/L (3.5-5.1); TOTAL PROTEIN, SERUM 5.5 g/dL (6.0-8.3); VANCOMYCIN TROUGH 9.7 UG/ML (10.0-20.0)
[2024-07-10] MEDS ORDERED: VANCOMYCIN 1.25 GM/250 ML BAG 250 ML IV SCH (06:30)
[2024-07-10] MEDS: VANCOMYCIN 1.25 GM/250 ML BAG 250 ML IV SCH (08:13)
--- NOTE | 2024-07-10 08:38 | PN ---
[facility] PROGRESS NOTE Date of Service: Jul 10, 2024 Time of Service: 08:38 SUBJECTIVE: [ This is a 64-year-old female with past medical history of asthma, anemia, hypothyroidism and morbid obesity who presents to the ED after coming from PCP's clinic today for complaints of shortness of breaths, edema and possible fluid overload evaluation.Patient states she has been having shortness of breath because of her Asthma and anemia because she has been having menstrual bleed for 3 weeks every month since 4 years ago and it has slowed down 10 months ago that sometimes she missed the period for a month however was started on Levothyroxine by her primary and coincidentally she said after taking it she started having 3 weeks of bleeding again and a week off without bleeding so she stopped taking her Levothyroxine last April but she started having progressive shortness of breath and edema 3 weeks ago.Patient reports she was sick for the past 3 weeks with cough and fever and her legs started to get swollen and today she went to her PCP because swelling has gone up to her abdomen and she has not been able to have a good sleep because if she lies down she gets very short of breath so she had to stand up most of the time to catch her breath. Patient reports she is supposed to see an OBGYN doctor tomorrow. Seen and examined patient in the ED awake,alert and coherent,pale looking .Patient denies fever,chills,chest pain,palpitation,cough , nausea, bloody emesis, bloody stool and abdominal pain.Patient reports she voids little and her last bowel movement is today and it was normal. Latest vital signs temperature 97.9, heart rate 120, respiration 24, pressure 153/85, saturation 99% on room air. Labs: WBC 5, hemoglobin 6.2, hematocrit 20.8 platelet count 173. Glucose 129 the rest of the chemistry is unremarkable BNP 29 troponin 10. Urinalysis remarkable for large hematuria positive for RBC, WBC urobilinogen , protein and ketones. SARs COVID result is negative. Chest x-ray result is normal. Pelvic ultrasound result revealed no adnexal mass is seen. Fibroid uterus thickened endometrium. While in the ER patient is pending to be transfused with 1 unit PRBC per ER recommendation. As per ER [employer] WIENER's report he already consulted OBGYN Dr. Sabillon and agreed to evaluate the patient. We will admit patient for further medical management. Addendum : Post Transfusion primary nurse called and reported patient developed increased shortness of breath needing oxygen supplementation.Will request ABG ,Give Lasix 20mg IV x1 and Duoneb treatment and will transfer patient to PCCU and consult Pulmonology 07/04 patient was seen by nurse practitioner and physician during rounding in room 223 comfortably lying in bed. Patient is on room air. Patient pending evaluation by pharmacy district manager and clearance for possible D and C. Patient was evaluated by Dr. Ridge ZEPEDA and would like to perform DandC on Sunday07/07/2024. Medical clearance needed. We will continue to monitor patient. A.m. labs 07/05 patient was seen by [employer] and physician during rounding in room 223. 2D echo still pending. Venous Doppler was ordered by pharmacy district manager pending results. Patient was also cleared by pharmacy district manager for D&C on Sunday with Dr. Sabillon. Ultrasound abdomen shows cirrhosis abdominal ascites small. We will continue to monitor patient in the meantime. Continue IV antibiotics Levaquin. A.m. labs 07/06 patient was seen by [employer] and physician during rounding. Patient was cleared by pharmacy district manager for D&C to be performed on 07/07/2024. Patient is also cleared from the medical point to proceed with D and C. Patient is still pending 2D echo in the meantime. We will continue to monitor the patient a.m. labs 07/07 patient was seen by nurse practitioner and physician during rounding. Patient's hemoglobin today is 7.6. Patient was taken to OR for D and C with Dr. Sabillon. Potassium 3.2 RN we will replace as appropriate. We will continue to monitor patient in the meantime. A.m. labs 07/08 the patient has been seen and examined during my rounding, she looks edematous, BP 142/71, heart rate of 120, afebrile, saturating normal on room air. She remains alert oriented x3, denies nausea, no vomiting, no abdominal discomfort. She feels bloated, not passing gas. Admits swollen to both lower extremities. Noted to have erythema to both lower legs. 07/09 the patient has been seen and examined during my rounding earlier this morning, had three good bowel movements yesterday, she remains alert oriented x3, blood pressure and heart rate controlled. Denied chest pain, she feels less bloated, feels hungry, asking to advance her diet. Admits less swelling and erythema to both lower extremities. 07/10 the patient has been seen and examined during my rounding, no acute events overnight, she feels less edematous and looks less edematous today compared to yesterday. Received a one time dose of albumin IV, tolerated well, no acute reactions. Less edema and less erythema to both lower extremities. She is tolerating diet. REVIEW OF SYSTEMS CONSTITUTIONAL: Denies fevers, chills, or night sweats. No unintentional weight loss reported. NEUROLOGICAL: Denies headache, amaurosis fugax, motor weakness, sensory deficit, vertigo/spinning sensation, gait abnormalities, or tremors. ENT: No hearing loss, otalgia, otorrhea, rhinitis, rhinorrhea, hoarseness, or sore throat. CARDIOVASCULAR: Denies any exertional angina, dyspnea on exertion, orthopnea, paroxysmal nocturnal dyspnea, palpitations, life-threatening arrhythmias, claudication. PULMONARY: Denies shortness of breaths Denies cough, phlegm/sputum, hemoptysis, pleuritic chest pain. SLEEP: Complains of insomnia Denies morning headaches, daytime somnolence or napping. Denies knowledge of snoring. GASTROINTESTINAL: Complains of abdominal distention Denies any type of dysphagia to either liquids or solids. Denies nausea, vomiting, pyrosis, early satiety, abdominal pain, diarrhea, constipation, or changes in stool consistency or caliber. Denies coffee-ground emesis, hematemesis, hematochezia, or melanotic stools. GENITOURINARY: Denies frequency, urgency, nocturia, incontinence (Storage/Irritative symptoms.) Low urinary stream, straining to void, urinary intermittency or hesitancy, splitting of the voiding stream, terminal dribbling. ENDOCRINOLOGIC: Denies polyuria, polydipsia, polyphagia or heat/cold intolerances. HEMATOLOGIC: Denies thrombophilia/previous clots, or coagulopathy ONCOLOGIC: Denies personal history of malignancy. DERMATOLOGIC: Denies rashes or pruritus. PSYCHIATRIC: Denies any suicidal or homicidal ideation. Denies hallucinations. PHYSICAL EXAM GENERAL APPEARANCE: Awake, following commands, looks mildly less edematous. NEUROLOGICAL: Cranial nerves II-XII grossly intact. Motor is 5/5 in bilateral upper and lower extremities proximal to distal. No sensory deficits. HEENT: Face is symmetric. Pupils are equal and reactive. Extraocular movements are intact. NECK: Supple. No JVD. No thyromegaly. No submental, submandibular, pre- /postauricular, occipital or supraclavicular lymphadenopathy. CHEST: Normal chest expansion. No Telemetry. LUNGS: No bilateral wheezing CARDIOVASCULAR: Regular. S1 and S2 normal. No appreciable rubs, murmurs or gallops. ABDOMEN: Abdomen is distended and firmed There is no rebound, voluntary guarding, or rigidity. : Deferred. No Ma. EXTREMITIES: less erythema and swelling to both lower extremities. SKIN: No skin breakdown. Vital Signs (last 8hr) Date Time Temp Pulse Resp B/P (MAP) Pulse Ox O2 Delivery O2 Flow Rate FiO2 07/10/24 07:42 97.9 89 16 132/73 100 Room Air 07/10/24 06:36 87 20 N/A Room Air 21 07/10/24 06:35 87 20 07/10/24 04:24 98.6 91 18 138/80 97 Room Air LABS: Laboratory: Test 07/10/24 05:22 07/09/24 07:37 07/09/24 07:04 07/08/24 08:49 Range/Units White Blood Count 4.4 L 4.8-10.8 K/uL Red Blood Count 2.79 L 4.00-5.50 MIL/uL Hemoglobin 7.5 L 12.0-16.0 g/dL Hematocrit 24.3 L 36-48 % Mean Corpuscular Volume 87.1 79-99 fL Mean Corpuscular Hemoglobin 26.9 L 27.0-33.0 pg Mean Corpuscular Hemoglobin Concent 30.9 L 32.0-36.0 g/dL Red Cell Distribution Width 16.2 H 11.0-15.5 % Platelet Count 104 L 130-400 K/uL Mean Platelet Volume 10.0 7.5-10.5 fL Nucleated Red Blood Cells 0.0 0.0-0.19 % Sodium Level 137 136-145 mmol/L Potassium Level 3.5 3.5-5.1 mmol/L Chloride Level 102 101-111 mmol/L Carbon Dioxide Level 33 H 21-32 mmol/L Blood Urea Nitrogen 22 H 7-18 mg/dL Creatinine 0.9 0.5-1.0 mg/dL Glomerular Filtration Rate Calc 72 >90 mL/min Random Glucose 126 H 70-105 mg/dL Total Calcium 8.5 8.5-10.1 mg/dL Magnesium Level 2.20 1.80-2.40 mg/dL Total Bilirubin 1.7 H 0.2-1.0 mg/dL Aspartate Amino Transf (AST/SGOT) 57 H 10-37 U/L Alanine Aminotransferase (ALT/SGPT) 60 12-78 U/L Alkaline Phosphatase 128 50-136 U/L Total Protein 5.5 L 6.0-8.3 g/dL Albumin 2.2 L 3.5-5.0 g/dL Vancomycin Level Trough 9.7 L 10.0-20.0 UG/ML D-Dimer Quantitative (PE/DVT) 2412 *H 0-500 ng/mL Iron Level 12 L 50-170 mcg/dL Total Iron Binding Capacity 263 250-450 mcg/dL Percent Iron Saturation 4.5 L 22-44 % Immature Granulocyte % (Auto) 0.7 0-1 % Neutrophils (%) (Auto) 84.0 H 40.0-77.0 % Lymphocytes (%) (Auto) 6.1 L 21.0-51.0 % Monocytes (%) (Auto) 8.8 3.0-13.0 % Eosinophils (%) (Auto) 0.2 0.0-8.0 % Basophils (%) (Auto) 0.2 0.0-5.0 % Neutrophils # (Auto) 3.7 1.8-7.7 K/uL Lymphocytes # (Auto) 0.3 L 1.0-4.8 K/uL Monocytes # (Auto) 0.4 0.1-1.0 K/uL Eosinophils # (Auto) 0.01 0.00-0.70 K/uL Basophils # (Auto) 0.01 0.00-0.20 K/uL Absolute Immature Granulocyte (auto 0.03 0-1 K/uL Prothrombin Time 14.2 H 9.6-11.6 SEC Prothromb Time International Ratio 1.34 H 0.85-1.15 Activated Partial Thromboplast Time 26.1 L 26.3-35.5 SEC Current Medications Medications (Trade) Dose Ordered Sig/Avinash Route PRN Reason Start Time Stop Time Status Last Admin Dose Admin Acetaminophen (TYLenol 325MG TAB) 650 mg Q4H PRN PO MILD PAIN (1-3) 07/03/24 19:30 08/02/24 19:29 Acetaminophen (TYLenol 325MG TAB) 650 mg Q6H PRN PO TEMPERATURE GREATER THAN 101.5 07/03/24 19:30 08/02/24 19:29 Albumin Human 50 ml @ 0 mls/hr AD IV 07/09/24 10:00 07/12/24 09:59 07/09/24 11:50 100 MLS/HR Albuterol (DUOneb) 1 UDVIAL [id number] IH 07/04/24 00:00 08/03/24 00:00 07/10/24 06:33 1 UDVIAL Ceftriaxone Sodium (ROCEphine 1G INJ) 1 gm Q24H IVPB 07/07/24 17:00 07/08/24 16:28 DC 07/08/24 16:09 1 GM Famotidine (Pepcid 20mg Vial) 20 mg BID IV 07/03/24 21:00 08/02/24 20:59 07/10/24 08:18 20 MG Furosemide (LASix 40MG TAB) 40 mg BID PO 07/07/24 21:00 07/08/24 08:21 DC 07/07/24 20:41 40 MG Furosemide (LASix 40MG VIAL) 40 mg Q8H IV 07/05/24 16:00 07/07/24 12:30 DC 07/07/24 08:16 40 MG Furosemide (LASix 40MG VIAL) 40 mg Q8H IV 07/08/24 08:30 08/07/24 08:29 07/10/24 01:57 40 MG Hydralazine HCl (APRESOLine 20MG INJ) 10 mg Q6H PRN IV ADMINISTER FOR SBP > 160 07/04/24 02:30 08/03/24 02:29 07/04/24 18:43 10 MG Levofloxacin/ Dextrose 100 ml @ 100 mls/hr Q24H IV 07/03/24 19:30 07/13/24 19:29 07/09/24 23:35 100 MLS/HR Levothyroxine Sodium (SYNTHroid 25MCG TAB) 25 mcg SYN PO 07/05/24 06:30 08/04/24 06:29 07/10/24 06:53 25 MCG Magnesium Sulfate 50 ml @ 0 mls/hr PROTOCOL PRN IV OTHER [SEE ORDER COMMENTS] 07/03/24 19:30 08/02/24 19:29 07/08/24 20:02 25 MLS/HR Metoprolol Tartrate (loprESSOR) 5 mg Q4H PRN IV INCREASED HEART RATE 07/08/24 11:00 08/07/24 10:59 Metoprolol Tartrate (loprESSOR) 25 mg BID PO 07/08/24 11:00 08/07/24 10:59 07/10/24 08:18 25 MG Ondansetron HCl (zoFRAN 4MG INJ) 4 mg Q6H PRN IV NAUSEA/VOMITING 07/03/24 19:30 08/02/24 19:29 Pharmacy Profile Note (Lace Assessment) 1 each AD MISC 07/08/24 16:30 07/15/24 16:29 Potassium Chloride 100 ml @ 50 mls/hr PROTOCOL IV 07/07/24 10:00 08/06/24 09:59 Potassium Chloride 100 ml @ 100 mls/hr AD PRN IV POTASSIUM PROTOCOL 07/03/24 19:30 08/02/24 19:29 Potassium Chloride (K-Dur/Klor-Con 20meq) 20 meq AD PRN PO POTASSIUM PROTOCOL 07/03/24 19:30 08/02/24 19:29 07/08/24 21:49 20 MEQ Potassium Chloride (KCl 10% Elixir 20meq/15ml) 20 meq AD PRN PO POTASSIUM PROTOCOL 07/03/24 19:30 08/02/24 19:29 Vancomycin HCl 250 ml @ 125 mls/hr Q12H IV 07/08/24 18:00 07/10/24 06:03 DC 07/09/24 18:16 125 MLS/HR Vancomycin HCl 250 ml @ 125 mls/hr Q12H IV 07/10/24 06:30 07/10/24 06:22 DC Vancomycin HCl 250 ml @ 125 mls/hr Q12H IV 07/10/24 08:00 07/20/24 07:59 07/10/24 08:13 125 MLS/HR Vancomycin HCl (Vancomycin Protocol) 1 each AD IV 07/08/24 16:30 07/22/24 16:29 Vitamin B Complex/ Vit C/Folic Acid (Nephrovite Tablet) 1 cap DAILY PO 07/09/24 13:00 08/08/24 12:59 07/10/24 08:18 1 CAP DIAGNOSTICS / RADIOLOGY: [ ] ASSESSMENT: Severe acute blood loss anemia requiring blood transfusion POA Multifactorial anemia POA Acute hypoxic Respiratory Failure POA Postmenopausal bleed, with the endometrial polyps, status post D&C with hysteroscopy and excision of endometrial polyp 07/07/2024 Fibroid uterus and thickened endometrium per pelvic ultrasound POA Uncontrolled hypertension POA Morbid obesity POA Hypothyroidism POA acute complicated cystitis POA Pancytopenia Cellulitis to both lower extremities PLAN: The patient remains admitted to the PCU 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 b.i.d. Continue metoprolol 5 mg IV as needed for heart rate greater than 100 Continue the patient on furosemide 40 mg IV q.8 hours Albumin 25% IV x1 to be given today. Strict intake and output Daily weights Continue with the lactulose as needed Advanced diet to soft diet Continue the patient on broad-spectrum IV antibiotics Infectious disease input noted and appreciated Doppler of the lower extremities negative for DVT Follow repeat D-dimer today. Follow CBC transfuse as needed Replace electrolytes IV per protocol GI and DVT prophylaxis Disposition: The patient remains admitted to the PCU. Continue the patient on diuretics, close monitoring of the patient's daily weight as well as intake and output. Start albumin 25% IV q.8 hours. Continue with Lasix 40 mg IV q.8 hours. Continue the patient on broad-spectrum IV antibiotics and follow ID input and recommendations. Patient with pancytopenia, hematology input noted and appreciated, GI input noted and appreciated. Plan of action discussed with the patient, all questions answered, agreed and understood the information provided. Total time spent greater than 45 minutes. NICHOLAS REYNOLDS MD Jul 10, 2024 08:38
--- NOTE | 2024-07-10 12:06 | PN ---
GASTROENTEROLOGY PROGRESS NOTE Date of Visit: Jul 10, 2024 Time of Visit: 12:06 Events / Notes: [ ] Review of Systems: CONSTITUTIONAL: No malaise or change in sensation of wellbeing. ENMT: No rhinorrhea, otorrhea, sinus pain, ear ache. CARDIOVASCULAR: No angina, palpitations, orthopnea or paroxysmal dyspnea. RESPIRATORY: No SOB. GASTROINTESTINAL: No abdominal pain, nausea, vomiting, diarrhea, hematemesis, melena or change in the patient's habitual bowel movements consistency/number. GENITOURINARY: No dysuria, hematuria or change in bladder continence. MUSCULOSKELETAL: No new muscle pain or decrease in muscular strength. No new joint swelling, redness or tenderness. SKIN: No new rash. Physical Exam: GEN: Awake, alert, oriented in person, time and place, and in no acute distress. HEENT: No sinus tenderness. Tympanic membranes were not examined. No rhinorrhea. Oral pharyngeal mucosa is pink, moist and within normal limits. Neck is supple with no cervical lymphadenopathy, thyromegaly or JVD. CHEST: Inspection, palpation and percussion of the chest were unremarkable. Lung auscultation revealed normal breath sounds bilaterally. CARDIAC: PMI is within normal limits. Heart sounds are regular. Normal S1, S2. No gallop or murmur. ABD: Soft, non-tender and not distended. No peritoneal signs on palpation. No organomegaly. Normal bowel sounds. EXT: No cyanosis or clubbing. No edema. SKIN: Intact. No rashes. JOINTS: No evidence of synovitis or acute arthritis. NEURO: Alert and oriented to name, place and person. Cranial nerve examination is unremarkable. No focal motor deficits. Normal speech. Gait is normal. Strength is normal. Vital Signs (last 8hr) Date Time Temp Pulse Resp B/P (MAP) Pulse Ox O2 Delivery O2 Flow Rate FiO2 07/10/24 11:48 98.1 91 18 141/85 99 Room Air 07/10/24 08:37 100 Room Air* 0 07/10/24 07:42 97.9 89 16 132/73 100 Room Air 07/10/24 06:36 87 20 N/A Room Air 07/10/24 06:35 87 20 07/10/24 04:24 98.6 91 18 138/80 97 Room Air Laboratory: [ ] Laboratory: Test 07/10/24 05:22 07/09/24 07:37 07/09/24 07:04 Range/Units White Blood Count 4.4 L 4.8-10.8 K/uL Red Blood Count 2.79 L 4.00-5.50 MIL/uL Hemoglobin 7.5 L 12.0-16.0 g/dL Hematocrit 24.3 L 36-48 % Mean Corpuscular Volume 87.1 79-99 fL Mean Corpuscular Hemoglobin 26.9 L 27.0-33.0 pg Mean Corpuscular Hemoglobin Concent 30.9 L 32.0-36.0 g/dL Red Cell Distribution Width 16.2 H 11.0-15.5 % Platelet Count 104 L 130-400 K/uL Mean Platelet Volume 10.0 7.5-10.5 fL Nucleated Red Blood Cells 0.0 0.0-0.19 % Sodium Level 137 136-145 mmol/L Potassium Level 3.5 3.5-5.1 mmol/L Chloride Level 102 101-111 mmol/L Carbon Dioxide Level 33 H 21-32 mmol/L Blood Urea Nitrogen 22 H 7-18 mg/dL Creatinine 0.9 0.5-1.0 mg/dL Glomerular Filtration Rate Calc 72 >90 mL/min Random Glucose 126 H 70-105 mg/dL Total Calcium 8.5 8.5-10.1 mg/dL Magnesium Level 2.20 1.80-2.40 mg/dL Total Bilirubin 1.7 H 0.2-1.0 mg/dL Aspartate Amino Transf (AST/SGOT) 57 H 10-37 U/L Alanine Aminotransferase (ALT/SGPT) 60 12-78 U/L Alkaline Phosphatase 128 50-136 U/L Total Protein 5.5 L 6.0-8.3 g/dL Albumin 2.2 L 3.5-5.0 g/dL Vancomycin Level Trough 9.7 L 10.0-20.0 UG/ML D-Dimer Quantitative (PE/DVT) 2412 *H 0-500 ng/mL Iron Level 12 L 50-170 mcg/dL Total Iron Binding Capacity 263 250-450 mcg/dL Percent Iron Saturation 4.5 L 22-44 % Immature Granulocyte % (Auto) 0.7 0-1 % Neutrophils (%) (Auto) 84.0 H 40.0-77.0 % Lymphocytes (%) (Auto) 6.1 L 21.0-51.0 % Monocytes (%) (Auto) 8.8 3.0-13.0 % Eosinophils (%) (Auto) 0.2 0.0-8.0 % Basophils (%) (Auto) 0.2 0.0-5.0 % Neutrophils # (Auto) 3.7 1.8-7.7 K/uL Lymphocytes # (Auto) 0.3 L 1.0-4.8 K/uL Monocytes # (Auto) 0.4 0.1-1.0 K/uL Eosinophils # (Auto) 0.01 0.00-0.70 K/uL Basophils # (Auto) 0.01 0.00-0.20 K/uL Absolute Immature Granulocyte (auto 0.03 0-1 K/uL Current Medications Medications (Trade) Dose Ordered Sig/Avinash Route PRN Reason Start Time Stop Time Status Last Admin Dose Admin Acetaminophen (TYLenol 325MG TAB) 650 mg Q4H PRN PO MILD PAIN (1-3) 07/03/24 19:30 08/02/24 19:29 Acetaminophen (TYLenol 325MG TAB) 650 mg Q6H PRN PO TEMPERATURE GREATER THAN 101.5 07/03/24 19:30 08/02/24 19:29 Albumin Human 50 ml @ 0 mls/hr AD IV 07/09/24 10:00 07/12/24 09:59 07/09/24 11:50 100 MLS/HR Albumin Human 50 ml @ 0 mls/hr Q8H5 IV 07/10/24 13:00 07/20/24 12:59 UNV Albuterol (DUOneb) 1 UDVIAL [id number] IH 07/04/24 00:00 07/10/24 11:57 DC 07/10/24 06:33 1 UDVIAL Albuterol (DUOneb) 1 UDVIAL [id number] PRN IH WHEEZING 07/10/24 12:00 08/03/24 00:00 UNV Ceftriaxone Sodium (ROCEphine 1G INJ) 1 gm Q24H IVPB 07/07/24 17:00 07/08/24 16:28 DC 07/08/24 16:09 1 GM Famotidine (Pepcid 20mg Vial) 20 mg BID IV 07/03/24 21:00 08/02/24 20:59 07/10/24 08:18 20 MG Furosemide (LASix 40MG TAB) 40 mg BID PO 07/07/24 21:00 07/08/24 08:21 DC 07/07/24 20:41 40 MG Furosemide (LASix 40MG VIAL) 40 mg Q8H IV 07/05/24 16:00 07/07/24 12:30 DC 07/07/24 08:16 40 MG Furosemide (LASix 40MG VIAL) 40 mg Q8H IV 07/08/24 08:30 08/07/24 08:29 07/10/24 10:56 40 MG Hydralazine HCl (APRESOLine 20MG INJ) 10 mg Q6H PRN IV ADMINISTER FOR SBP > 160 07/04/24 02:30 08/03/24 02:29 07/04/24 18:43 10 MG Levofloxacin/ Dextrose 100 ml @ 100 mls/hr Q24H IV 07/03/24 19:30 07/13/24 19:29 07/09/24 23:35 100 MLS/HR Levothyroxine Sodium (SYNTHroid 25MCG TAB) 25 mcg SYN PO 07/05/24 06:30 08/04/24 06:29 07/10/24 06:53 25 MCG Magnesium Sulfate 50 ml @ 0 mls/hr PROTOCOL PRN IV OTHER [SEE ORDER COMMENTS] 07/03/24 19:30 08/02/24 19:29 07/08/24 20:02 25 MLS/HR Metoprolol Tartrate (loprESSOR) 5 mg Q4H PRN IV INCREASED HEART RATE 07/08/24 11:00 08/07/24 10:59 Metoprolol Tartrate (loprESSOR) 25 mg BID PO 07/08/24 11:00 08/07/24 10:59 07/10/24 08:18 25 MG Ondansetron HCl (zoFRAN 4MG INJ) 4 mg Q6H PRN IV NAUSEA/VOMITING 07/03/24 19:30 08/02/24 19:29 Pharmacy Profile Note (Lace Assessment) 1 each AD MISC 07/08/24 16:30 07/15/24 16:29 Potassium Chloride 100 ml @ 50 mls/hr PROTOCOL IV 07/07/24 10:00 08/06/24 09:59 Potassium Chloride 100 ml @ 100 mls/hr AD PRN IV POTASSIUM PROTOCOL 07/03/24 19:30 08/02/24 19:29 Potassium Chloride (K-Dur/Klor-Con 20meq) 20 meq AD PRN PO POTASSIUM PROTOCOL 07/03/24 19:30 08/02/24 19:29 07/08/24 21:49 20 MEQ Potassium Chloride (KCl 10% Elixir 20meq/15ml) 20 meq AD PRN PO POTASSIUM PROTOCOL 07/03/24 19:30 08/02/24 19:29 Vancomycin HCl 250 ml @ 125 mls/hr Q12H IV 07/08/24 18:00 07/10/24 06:03 DC 07/09/24 18:16 125 MLS/HR Vancomycin HCl 250 ml @ 125 mls/hr Q12H IV 07/10/24 06:30 07/10/24 06:22 DC Vancomycin HCl 250 ml @ 125 mls/hr Q12H IV 07/10/24 08:00 07/20/24 07:59 07/10/24 08:13 125 MLS/HR Vancomycin HCl (Vancomycin Protocol) 1 each AD IV 07/08/24 16:30 07/22/24 16:29 Vitamin B Complex/ Vit C/Folic Acid (Nephrovite Tablet) 1 cap DAILY PO 07/09/24 13:00 08/08/24 12:59 07/10/24 08:18 1 CAP Diagnostics / Radiology: [COPY/PASTE HERE IF NO REPORTS PLEASE DELETE SECTION] Assessment: Concern for GI bleed Acute blood loss anemia Abnormal imaging with esophageal varices Cirrhosis Plan: We recommend EGD; however, patient defers. She denies any overt GI bleeding. She can resume iron for now; however, will likely benefit from egd with banding especially if hgb continues to drop. KINGS HARDIN [employer] Jul 10, 2024 12:06
--- NOTE | 2024-07-10 12:20 | PN ---
INFECTIOUS DISEASE PROGRESS NOTE Date of Service: Jul 10, 2024 SUBJECTIVE: Patient was seen and examined at bedside in room 228. Patient is awake, alert and oriented x3. The erythema to the lower extremities has decreased this morning. No fever, temperature is 97.9 and the WBC is 4.4. Patient continues on vancomycin and levofloxacin IV. Patient was transfused 1 unit of PRBC yesterday for hemoglobin of 7.0 and this morning Hemoglobin is 7.5. We will continue to monitor patient. PHYSICAL EXAM EYES: Anicteric. Pupils equal and reactive. HENT: No oral thrush seen, moist Oral mucosa NECK: Supple, no JVD or thyromegaly. LUNGS: Good air entry. No rales, no rhonchi. CARDIOVASCULAR: S1, S2 regular. No murmur heard. ABDOMEN: Soft, non tender, bowel sounds present, no organomegaly CENTRAL NERVOUS SYSTEM: Awake, alert, oriented x 3. SKIN: No rashes, no swelling. LYMPHATICS: No peripheral lymphadenopathy MUSCULOSKELETAL: No joint swelling, erythema or tenderness. EXTREMITIES: No cyanosis or clubbing. Bilateral lower extremity erythema. BACK: No deformity, no pressure ulcer. GENITOURINARY: No dysuria or hematuria Vital Sign (Last 12 Hours) 07/10/24 07/10/24 07/10/24 07/10/24 04:24 06:35 06:36 07:42 Temp 98.6 97.9 Pulse 91 87 87 89 Resp 18 20 20 16 B/P (MAP) 138/80 132/73 Pulse Ox 97 100 O2 Delivery Room Air N/A Room Air Room Air FiO2 21 07/10/24 07/10/24 08:37 11:48 Temp 98.1 Pulse 91 Resp 18 B/P (MAP) 141/85 Pulse Ox 100 99 O2 Delivery Room Air* Room Air O2 Flow Rate 0 FiO2 21 Intake & Output (last 24hrs) 07/09/24 07/09/24 07/10/24 15:00 23:00 07:00 Intake Total 530.0 ml 575.0 ml Output Total 1350 ml 300 ml Balance -820.0 ml 275.0 ml LABS: Laboratory: Test 07/10/24 05:22 07/09/24 07:37 07/09/24 07:04 Range/Units White Blood Count 4.4 L 4.8-10.8 K/uL Red Blood Count 2.79 L 4.00-5.50 MIL/uL Hemoglobin 7.5 L 12.0-16.0 g/dL Hematocrit 24.3 L 36-48 % Mean Corpuscular Volume 87.1 79-99 fL Mean Corpuscular Hemoglobin 26.9 L 27.0-33.0 pg Mean Corpuscular Hemoglobin Concent 30.9 L 32.0-36.0 g/dL Red Cell Distribution Width 16.2 H 11.0-15.5 % Platelet Count 104 L 130-400 K/uL Mean Platelet Volume 10.0 7.5-10.5 fL Nucleated Red Blood Cells 0.0 0.0-0.19 % Sodium Level 137 136-145 mmol/L Potassium Level 3.5 3.5-5.1 mmol/L Chloride Level 102 101-111 mmol/L Carbon Dioxide Level 33 H 21-32 mmol/L Blood Urea Nitrogen 22 H 7-18 mg/dL Creatinine 0.9 0.5-1.0 mg/dL Glomerular Filtration Rate Calc 72 >90 mL/min Random Glucose 126 H 70-105 mg/dL Total Calcium 8.5 8.5-10.1 mg/dL Magnesium Level 2.20 1.80-2.40 mg/dL Total Bilirubin 1.7 H 0.2-1.0 mg/dL Aspartate Amino Transf (AST/SGOT) 57 H 10-37 U/L Alanine Aminotransferase (ALT/SGPT) 60 12-78 U/L Alkaline Phosphatase 128 50-136 U/L Total Protein 5.5 L 6.0-8.3 g/dL Albumin 2.2 L 3.5-5.0 g/dL Vancomycin Level Trough 9.7 L 10.0-20.0 UG/ML D-Dimer Quantitative (PE/DVT) 2412 *H 0-500 ng/mL Iron Level 12 L 50-170 mcg/dL Total Iron Binding Capacity 263 250-450 mcg/dL Percent Iron Saturation 4.5 L 22-44 % Immature Granulocyte % (Auto) 0.7 0-1 % Neutrophils (%) (Auto) 84.0 H 40.0-77.0 % Lymphocytes (%) (Auto) 6.1 L 21.0-51.0 % Monocytes (%) (Auto) 8.8 3.0-13.0 % Eosinophils (%) (Auto) 0.2 0.0-8.0 % Basophils (%) (Auto) 0.2 0.0-5.0 % Neutrophils # (Auto) 3.7 1.8-7.7 K/uL Lymphocytes # (Auto) 0.3 L 1.0-4.8 K/uL Monocytes # (Auto) 0.4 0.1-1.0 K/uL Eosinophils # (Auto) 0.01 0.00-0.70 K/uL Basophils # (Auto) 0.01 0.00-0.20 K/uL Absolute Immature Granulocyte (auto 0.03 0-1 K/uL ASSESSMENT: Bilateral lower extremity cellulitis. Postmenopausal bleeding requiring blood transfusion. Morbid obesity. Hypertension. Hypothyroidism. PLAN: Continue vancomycin per pharmacy protocol. Continue levofloxacin IV. Monitor the hemoglobin and hematocrit. Continue pain management. We will monitor electrolytes. This case was reviewed and discussed with my supervising physician and the above assessment and plan was formulated and agreed upon. ATTESTATION BY PHYSICIAN I have seen and examined the patient. I reviewed the documentation, medical decision making, and treatment plan as noted by the mid-level provider above. I agree with the findings and plan of care. JAC JONES MD, MIRTA L [facility] Jul 10, 2024 12:20
--- NOTE | 2024-07-10 12:52 | PN ---
A 64-year-old female who presented to the ER by instruction of her PCP due to shortness of breath, fatigue and vaginal bleeding. I am consulted due to the anemia and the vaginal bleeding. The patient states that she has never gone through menopause and that she has been having periods regularly until about 3 months ago where they began to be constant and heavy with clots. Patient denied taking any anticoagulation or antiplatelet medication. This patient was evaluated by DIRECT OF REAL ESTATE who is D&C with hysteroscopy was done status post polypectomy and endometrial biopsy. Patient actually doing very well with no obvious bleeding at this time. Patient received 1 unit of packed red blood cell. Hemoglobin level is stable at 7.5 g/deciliter. Platelet count 104K. There is no obvious bleeding PHYSICAL EXAMINATION: VITAL SIGNS: Stable, afebrile. GENERAL APPEARANCE: Alert, active, oriented in three spheres, no acute distress. ABDOMEN: Soft and nontender. Pelvic exam deferred. EXTREMITIES: 3+ pedal edema. NEUROLOGIC: Grossly intact. A pelvic ultrasound was performed, revealing a 3.5 cm fibroid on the uterus. The endometrial stripe was slightly thickened at 1 cm. No adnexal masses. ASSESSMENT: 1. Postmenopausal bleeding status post D&C and hysteroscopy was polypectomy and biopsy. 2. Severe anemia status post blood transfusion. Hemoglobin level stable at 7.5 g/dL. This patient was found to have iron deficiency anemia with the patient was started on IV iron 3. Thrombocytopenia 4. Lymphopenia 5. Cirrhosis of the liver 6. Hypothyroidism 7. Morbid obesity Plan 1. Peripheral blood smear showed red blood cells to be microcytic hypochromic red blood cell consistent with iron deficiency anemia. There was no fragment cell or schistocyte. There is no teardrop cell. There is no rouleaux phenomena. There is no pelger-Huet cell. White blood cell with no blasts.Platelet count decreased in number. There is large platelet consistent with peripheral consumption of the platelet most likely cirrhosis of the liver and splenomegaly 2. There was hypersegmented neutrophils. This patient to be started on folic acid 1 mg p.o. daily and vitamin B12 1000 mcg p.o. daily. 3. This patient will be started on IV iron daily for 3 days this patient will need oral iron supplement every other day. Patient will need iron treatment for 6 months 4. Will follow-up with the result of the pathology after D&C. 5. If this patient is stable then patient could be discharged follow-up with us in the next 2 weeks Vitals/Labs Vital Signs Date Time Temp Pulse Resp B/P (MAP) Pulse Ox O2 Delivery O2 Flow Rate FiO2 07/10/24 11:48 98.1 91 18 141/85 99 Room Air 07/10/24 08:37 0 21 Laboratory Tests 07/10/24 05:22 Medications Current Medications Acetaminophen 650 mg Q6H PRN PO; Start 07/03/24 at 19:30; Stop 08/02/24 at 19:29 Acetaminophen 650 mg Q4H PRN PO; Start 07/03/24 at 19:30; Stop 08/02/24 at 19:29 Ondansetron HCl 4 mg Q6H PRN IV; Start 07/03/24 at 19:30; Stop 08/02/24 at 19:29 Famotidine 20 mg BID IV Last administered on 07/10/24at 08:18; Start 07/03/24 at 21:00; Stop 08/02/24 at 20:59 Potassium Chloride 100 ml @ 100 mls/hr AD PRN IV; Start 07/03/24 at 19:30; Stop 08/02/24 at 19:29 Potassium Chloride 20 meq AD PRN PO; Start 07/03/24 at 19:30; Stop 08/02/24 at 19:29 Potassium Chloride 20 meq AD PRN PO Last administered on 07/08/24at 21:49; Start 07/03/24 at 19:30; Stop 08/02/24 at 19:29 Magnesium Sulfate 50 ml @ 0 mls/hr PROTOCOL PRN IV Last administered on 07/08/24at 20:02; Start 07/03/24 at 19:30; Stop 08/02/24 at 19:29 Levofloxacin/ Dextrose 100 ml @ 100 mls/hr Q24H IV Last administered on 07/09/24at 23:35; Start 07/03/24 at 19:30; Stop 07/13/24 at 19:29 Furosemide 20 mg ONCE ONCE IV Last administered on 07/03/24at 23:34; Start 07/03/24 at 23:30; Stop 07/03/24 at 23:31; Status DC Albuterol 1 UDVIAL [id number] IH Last administered on 07/10/24at 06:33; Start 07/04/24 at 00:00; Stop 07/10/24 at 11:57; Status DC Hydralazine HCl 10 mg Q6H PRN IV Last administered on 07/04/24at 18:43; Start 07/04/24 at 02:30; Stop 08/03/24 at 02:29 Levothyroxine Sodium 25 mcg SYN PO Last administered on 07/10/24at 06:53; Start 07/05/24 at 06:30; Stop 08/04/24 at 06:29 Iohexol 35,000 mg STK-MED ONCE IV; Start 07/05/24 at 05:06; Stop 07/05/24 at 05:09; Status DC Furosemide 40 mg Q8H IV Last administered on 07/07/24at 08:16; Start 07/05/24 at 16:00; Stop 07/07/24 at 12:30; Status DC Furosemide 60 mg ONCE ONCE IV Last administered on 07/05/24at 11:17; Start 07/05/24 at 10:30; Stop 07/05/24 at 10:31; Status DC Phenylephrine HCl 10 mg STK-MED ONCE IV; Start 07/07/24 at 09:06; Stop 07/07/24 at 09:06; Status DC Midazolam HCl 2 mg STK-MED ONCE .ROUTE; Start 07/07/24 at 09:06; Stop 07/07/24 at 09:06; Status DC Ondansetron HCl 4 mg STK-MED ONCE .ROUTE; Start 07/07/24 at 09:06; Stop 07/07/24 at 09:06; Status DC Succinylcholine Chloride 200 mg STK-MED ONCE .ROUTE; Start 07/07/24 at 09:06; Stop 07/07/24 at 09:07; Status DC Propofol 200 mg STK-MED ONCE IV; Start 07/07/24 at 09:06; Stop 07/07/24 at 09:07; Status DC Rocuronium Hemet 50 mg STK-MED ONCE .ROUTE; Start 07/07/24 at 09:06; Stop 07/07/24 at 09:07; Status DC Fentanyl Citrate 100 mcg STK-MED ONCE .ROUTE; Start 07/07/24 at 09:07; Stop 07/07/24 at 09:07; Status DC Clindamycin HCl/ Dextrose 50 ml @ As Directed STK-MED ONCE IV; Start 07/07/24 at 09:37; Stop 07/07/24 at 09:37; Status DC Potassium Chloride 100 ml @ 50 mls/hr PROTOCOL IV; Start 07/07/24 at 10:00; Stop 08/06/24 at 09:59 Ceftriaxone Sodium 1 gm Q24H IVPB Last administered on 07/08/24at 16:09; Start 07/07/24 at 17:00; Stop 07/08/24 at 16:28; Status DC Furosemide 40 mg BID PO Last administered on 07/07/24at 20:41; Start 07/07/24 at 21:00; Stop 07/08/24 at 08:21; Status DC Guaifenesin/ Dextromethorphan 10 ml ONCE ONCE PO Last administered on 07/08/24at 02:18; Start 07/08/24 at 02:30; Stop 07/08/24 at 08:16; Status DC Benzonatate 100 mg ONCE ONCE PO Last administered on 07/08/24at 09:09; Start 07/08/24 at 08:30; Stop 07/08/24 at 08:31; Status DC Furosemide 40 mg Q8H IV Last administered on 07/10/24at 10:56; Start 07/08/24 at 08:30; Stop 08/07/24 at 08:29 Metoprolol Tartrate 25 mg BID PO Last administered on 07/10/24at 08:18; Start 07/08/24 at 11:00; Stop 08/07/24 at 10:59 Metoprolol Tartrate 5 mg Q4H PRN IV; Start 07/08/24 at 11:00; Stop 08/07/24 at 10:59 Lactulose 20 gm ONCE ONCE PO Last administered on 07/08/24at 11:03; Start 07/08/24 at 11:00; Stop 07/08/24 at 11:01; Status DC Lactulose 20 gm STK-MED ONCE .ROUTE; Start 07/08/24 at 10:44; Stop 07/08/24 at 10:44; Status DC Metoprolol Tartrate 5 mg STK-MED ONCE IV Last administered on 07/08/24at 11:00; Start 07/08/24 at 10:44; Stop 07/08/24 at 10:44; Status DC Methylprednisolone Sodium Succinate 125 mg STK-MED ONCE .ROUTE Last administered on 07/08/24at 11:03; Start 07/08/24 at 10:44; Stop 07/08/24 at 10:44; Status DC Potassium Chloride 100 ml @ 50 mls/hr ONCE ONCE IV Last administered on 07/08/24at 11:13; Start 07/08/24 at 11:00; Stop 07/08/24 at 12:59; Status DC Metoprolol Tartrate 5 mg ONCE ONCE IV; Start 07/08/24 at 11:00; Stop 07/08/24 at 11:01; Status DC Lactulose 20 gm ONCE ONCE PO; Start 07/08/24 at 11:00; Stop 07/08/24 at 11:01; Status DC Methylprednisolone Sodium Succinate 125 mg ONCE ONCE IVP; Start 07/08/24 at 11:00; Stop 07/08/24 at 11:01; Status DC Vancomycin HCl 1 each AD IV; Start 07/08/24 at 16:30; Stop 07/22/24 at 16:29 Pharmacy Profile Note 1 each AD MISC; Start 07/08/24 at 16:30; Stop 07/15/24 at 16:29 Vancomycin HCl 250 ml @ 125 mls/hr Q12H IV Last administered on 07/09/24at 18:16; Start 07/08/24 at 18:00; Stop 07/10/24 at 06:03; Status DC Albumin Human 50 ml @ 0 mls/hr AD IV Last administered on 07/09/24at 11:50; Start 07/09/24 at 10:00; Stop 07/12/24 at 09:59 Vitamin B Complex/ Vit C/Folic Acid 1 cap DAILY PO Last administered on 07/10/24at 08:18; Start 07/09/24 at 13:00; Stop 08/08/24 at 12:59 Dexamethasone Sodium Phosphate 10 mg ONCE ONCE IVP Last administered on 07/09/24at 14:16; Start 07/09/24 at 13:00; Stop 07/09/24 at 13:12; Status DC Furosemide 20 mg ONCE ONCE IV; Start 07/09/24 at 13:00; Stop 07/09/24 at 13:12; Status DC Vancomycin HCl 250 ml @ 125 mls/hr Q12H IV; Start 07/10/24 at 06:30; Stop 07/10/24 at 06:22; Status DC Vancomycin HCl 250 ml @ 125 mls/hr Q12H IV Last administered on 07/10/24at 08:13; Start 07/10/24 at 08:00; Stop 07/20/24 at 07:59 Albuterol 1 UDVIAL [id number] PRN IH; Start 07/10/24 at 12:00; Stop 08/03/24 at 00:00 Albumin Human 50 ml @ 0 mls/hr Q8H5 IV; Start 07/10/24 at 13:00; Stop 07/20/24 at 12:59; Status UNV THEODORE CONTRERAS MD Jul 10, 2024 12:52
[2024-07-10] MEDS: ALBUMIN (HUMAN) 25% 50 ML IV SCH (16:37)
[2024-07-10] MEDS: IpraTROPium/alBUTERol SULFATE 3 ML SOLUTION IH PRN (23:20)
[2024-07-11] VITALS (7 sets, daily range): BP systolic 102–142; BP diastolic 54–81; PULSE 72–83; RESP 16–18; TEMP 97.5–98.3; O2SAT 100
[2024-07-11] MEDS: ALBUMIN (HUMAN) 25% 50 ML IV SCH (01:28)
[2024-07-11 03:51] LABS: HEMATOCRIT 28.5 % (36-48); MEAN CORPUSCULAR HEMOGLOBIN 26.2 pg (27.0-33.0); MEAN CORPUSCULAR HGB CONC 29.5 g/dL (32.0-36.0); MEAN CORPUSCULAR VOLUME 88.8 fL (79-99); PLATELET COUNT (AUTO) 124 K/uL (130-400); RED BLOOD CELL COUNT(AUTO) 3.21 MIL/uL (4.00-5.50); RED CELL DISTRIBUTION WIDTH 16.4 % (11.0-15.5); WHITE BLOOD COUNT (AUTO) 5.1 K/uL (4.8-10.8)
[2024-07-11] MEDS: IRON sUCROse COMPLEX 300 MG in 0.9% NACL 250ML 250 ML IV ONE (09:00)
--- NOTE | 2024-07-11 14:16 | PN ---
[facility] PROGRESS NOTE Date of Service: Jul 11, 2024 Time of Service: 14:09 SUBJECTIVE: [ This is a 64-year-old female with past medical history of asthma, anemia, hypothyroidism and morbid obesity who presents to the ED after coming from PCP's clinic today for complaints of shortness of breaths, edema and possible fluid overload evaluation.Patient states she has been having shortness of breath because of her Asthma and anemia because she has been having menstrual bleed for 3 weeks every month since 4 years ago and it has slowed down 10 months ago that sometimes she missed the period for a month however was started on Levothyroxine by her primary and coincidentally she said after taking it she started having 3 weeks of bleeding again and a week off without bleeding so she stopped taking her Levothyroxine last April but she started having progressive shortness of breath and edema 3 weeks ago.Patient reports she was sick for the past 3 weeks with cough and fever and her legs started to get swollen and today she went to her PCP because swelling has gone up to her abdomen and she has not been able to have a good sleep because if she lies down she gets very short of breath so she had to stand up most of the time to catch her breath. Patient reports she is supposed to see an OBGYN doctor tomorrow. Seen and examined patient in the ED awake,alert and coherent,pale looking .Patient denies fever,chills,chest pain,palpitation,cough , nausea, bloody emesis, bloody stool and abdominal pain.Patient reports she voids little and her last bowel movement is today and it was normal. Latest vital signs temperature 97.9, heart rate 120, respiration 24, pressure 153/85, saturation 99% on room air. Labs: WBC 5, hemoglobin 6.2, hematocrit 20.8 platelet count 173. Glucose 129 the rest of the chemistry is unremarkable BNP 29 troponin 10. Urinalysis remarkable for large hematuria positive for RBC, WBC urobilinogen , protein and ketones. SARs COVID result is negative. Chest x-ray result is normal. Pelvic ultrasound result revealed no adnexal mass is seen. Fibroid uterus thickened endometrium. While in the ER patient is pending to be transfused with 1 unit PRBC per ER recommendation. As per ER CLASS B TRUCK DRIVER's report he already consulted OBGYN Dr. Sabillon and agreed to evaluate the patient. We will admit patient for further medical management. Addendum : Post Transfusion primary nurse called and reported patient developed increased shortness of breath needing oxygen supplementation.Will request ABG ,Give Lasix 20mg IV x1 and Duoneb treatment and will transfer patient to PCCU and consult Pulmonology 07/04 patient was seen by nurse practitioner and physician during rounding in room 223 comfortably lying in bed. Patient is on room air. Patient pending evaluation by assistant community director and clearance for possible D and C. Patient was evaluated by Dr. Ridge ZEPEDA and would like to perform DandC on Sunday07/07/2024. Medical clearance needed. We will continue to monitor patient. A.m. labs 07/05 patient was seen by CLASS B TRUCK DRIVER and physician during rounding in room 223. 2D echo still pending. Venous Doppler was ordered by assistant community director pending results. Patient was also cleared by assistant community director for D&C on Sunday with Dr. Sabillon. Ultrasound abdomen shows cirrhosis abdominal ascites small. We will continue to monitor patient in the meantime. Continue IV antibiotics Levaquin. A.m. labs 07/06 patient was seen by CLASS B TRUCK DRIVER and physician during rounding. Patient was cleared by assistant community director for D&C to be performed on 07/07/2024. Patient is also cleared from the medical point to proceed with D and C. Patient is still pending 2D echo in the meantime. We will continue to monitor the patient a.m. labs 07/07 patient was seen by nurse practitioner and physician during rounding. Patient's hemoglobin today is 7.6. Patient was taken to OR for D and C with Dr. Sabillon. Potassium 3.2 RN we will replace as appropriate. We will continue to monitor patient in the meantime. A.m. labs 07/08 the patient has been seen and examined during my rounding, she looks edematous, BP 142/71, heart rate of 120, afebrile, saturating normal on room air. She remains alert oriented x3, denies nausea, no vomiting, no abdominal discomfort. She feels bloated, not passing gas. Admits swollen to both lower extremities. Noted to have erythema to both lower legs. 07/09 the patient has been seen and examined during my rounding earlier this morning, had three good bowel movements yesterday, she remains alert oriented x3, blood pressure and heart rate controlled. Denied chest pain, she feels less bloated, feels hungry, asking to advance her diet. Admits less swelling and erythema to both lower extremities. 07/10 the patient has been seen and examined during my rounding, no acute events overnight, she feels less edematous and looks less edematous today compared to yesterday. Received a one time dose of albumin IV, tolerated well, no acute reactions. Less edema and less erythema to both lower extremities. She is tolerating diet. 07/11 patient seen at bedside, no acute events overnight. She still has peripheral pitting edema, however she reports improvement since admission. She was initially resistant to the idea of EGD spent time explaining the pathophysiology of esophageal varices and spontaneous rupture resulting in GI bleed. Patient now open to EGD, GI has been contacted and patient will be made NPO after midnight. Also suggested to GI to do a more extensive workup to find the cause of her underlying liver failure as she has no history of alcohol use. She also reports a strong history of liver failure and her family which suggest either fatty liver disease that is familial in nature or an underlying genetic cause such as Jairon's disease or hemochromatosis. She has been afebrile, hemodynamically stable saturating well on room air. Hemoglobin improved from 7.5 up to 8.4, platelets improved from 104 up to 124, T bili elevated at 1.7, similar to yesterday, remainder of her labs are relatively unremarkable. REVIEW OF SYSTEMS 12 point ROS negative unless noted in HPI PHYSICAL EXAM GENERAL APPEARANCE: Awake, following commands, looks mildly less edematous. NEUROLOGICAL: Cranial nerves II-XII grossly intact. Motor is 5/5 in bilateral upper and lower extremities proximal to distal. No sensory deficits. HEENT: Face is symmetric. Pupils are equal and reactive. Extraocular movements are intact. NECK: Supple. No JVD. No thyromegaly. No submental, submandibular, pre- /postauricular, occipital or supraclavicular lymphadenopathy. CHEST: Normal chest expansion. No Telemetry. LUNGS: No bilateral wheezing CARDIOVASCULAR: Regular. S1 and S2 normal. No appreciable rubs, murmurs or gallops. ABDOMEN: Abdomen is distended and firmed There is no rebound, voluntary guarding, or rigidity. : Deferred. No Ma. EXTREMITIES: less erythema and swelling to both lower extremities. SKIN: No skin breakdown. Vital Signs (last 8hr) Date Time Temp Pulse Resp B/P (MAP) Pulse Ox O2 Delivery O2 Flow Rate FiO2 07/11/24 12:10 98.1 76 16 102/81 100 Room Air 07/11/24 08:28 100 Room Air* 0 21 07/11/24 08:02 98.1 80 16 120/54 100 Room Air LABS: Laboratory: Test 07/11/24 03:36 07/10/24 05:22 Range/Units White Blood Count 5.1 4.8-10.8 K/uL Red Blood Count 3.21 L 4.00-5.50 MIL/uL Hemoglobin 8.4 L 12.0-16.0 g/dL Hematocrit 28.5 L 36-48 % Mean Corpuscular Volume 88.8 79-99 fL Mean Corpuscular Hemoglobin 26.2 L 27.0-33.0 pg Mean Corpuscular Hemoglobin Concent 29.5 L 32.0-36.0 g/dL Red Cell Distribution Width 16.4 H 11.0-15.5 % Platelet Count 124 L 130-400 K/uL Mean Platelet Volume 10.0 7.5-10.5 fL Nucleated Red Blood Cells 0.0 0.0-0.19 % Red Blood Cell Morphology See comments Magnesium Level 2.10 1.80-2.40 mg/dL Sodium Level 137 136-145 mmol/L Potassium Level 3.5 3.5-5.1 mmol/L Chloride Level 102 101-111 mmol/L Carbon Dioxide Level 33 H 21-32 mmol/L Blood Urea Nitrogen 22 H 7-18 mg/dL Creatinine 0.9 0.5-1.0 mg/dL Glomerular Filtration Rate Calc 72 >90 mL/min Random Glucose 126 H 70-105 mg/dL Total Calcium 8.5 8.5-10.1 mg/dL Total Bilirubin 1.7 H 0.2-1.0 mg/dL Aspartate Amino Transf (AST/SGOT) 57 H 10-37 U/L Alanine Aminotransferase (ALT/SGPT) 60 12-78 U/L Alkaline Phosphatase 128 50-136 U/L Total Protein 5.5 L 6.0-8.3 g/dL Albumin 2.2 L 3.5-5.0 g/dL Vancomycin Level Trough 9.7 L 10.0-20.0 UG/ML Current Medications Medications (Trade) Dose Ordered Sig/Avinash Route PRN Reason Start Time Stop Time Status Last Admin Dose Admin Acetaminophen (TYLenol 325MG TAB) 650 mg Q4H PRN PO MILD PAIN (1-3) 07/03/24 19:30 08/02/24 19:29 Acetaminophen (TYLenol 325MG TAB) 650 mg Q6H PRN PO TEMPERATURE GREATER THAN 101.5 07/03/24 19:30 08/02/24 19:29 Albumin Human 50 ml @ 0 mls/hr AD IV 07/09/24 10:00 07/10/24 17:40 DC 07/09/24 11:50 100 MLS/HR Albumin Human 50 ml @ 0 mls/hr Q8H IV 07/11/24 00:00 07/13/24 00:00 07/11/24 08:37 25 MLS/HR Albumin Human 50 ml @ 0 mls/hr Q8H5 IV 07/10/24 13:00 07/10/24 17:36 DC 07/10/24 16:37 25 MLS/HR Albuterol (DUOneb) 1 UDVIAL [id number] IH 07/04/24 00:00 07/10/24 11:57 DC 07/10/24 06:33 1 UDVIAL Albuterol (DUOneb) 1 UDVIAL [id number] PRN IH WHEEZING 07/10/24 12:00 08/03/24 00:00 07/10/24 23:20 1 UDVIAL Ceftriaxone Sodium (ROCEphine 1G INJ) 1 gm Q24H IVPB 07/07/24 17:00 07/08/24 16:28 DC 07/08/24 16:09 1 GM Famotidine (Pepcid 20mg Vial) 20 mg BID IV 07/03/24 21:00 08/02/24 20:59 07/11/24 08:37 20 MG Furosemide (LASix 40MG TAB) 40 mg BID PO 07/07/24 21:00 07/08/24 08:21 DC 07/07/24 20:41 40 MG Furosemide (LASix 40MG VIAL) 40 mg Q8H IV 07/05/24 16:00 07/07/24 12:30 DC 07/07/24 08:16 40 MG Furosemide (LASix 40MG VIAL) 40 mg Q8H IV 07/08/24 08:30 08/07/24 08:29 07/11/24 12:06 40 MG Hydralazine HCl (APRESOLine 20MG INJ) 10 mg Q6H PRN IV ADMINISTER FOR SBP > 160 07/04/24 02:30 08/03/24 02:29 07/04/24 18:43 10 MG Levofloxacin/ Dextrose 100 ml @ 100 mls/hr Q24H IV 07/03/24 19:30 07/13/24 19:29 07/10/24 23:02 100 MLS/HR Levothyroxine Sodium (SYNTHroid 25MCG TAB) 25 mcg SYN PO 07/05/24 06:30 08/04/24 06:29 07/11/24 05:38 25 MCG Magnesium Sulfate 50 ml @ 0 mls/hr PROTOCOL PRN IV OTHER [SEE ORDER COMMENTS] 07/03/24 19:30 08/02/24 19:29 07/08/24 20:02 25 MLS/HR Metoprolol Tartrate (loprESSOR) 5 mg Q4H PRN IV INCREASED HEART RATE 07/08/24 11:00 08/07/24 10:59 Metoprolol Tartrate (loprESSOR) 25 mg BID PO 07/08/24 11:00 08/07/24 10:59 07/11/24 08:37 25 MG Ondansetron HCl (zoFRAN 4MG INJ) 4 mg Q6H PRN IV NAUSEA/VOMITING 07/03/24 19:30 08/02/24 19:29 Pharmacy Profile Note (Lace Assessment) 1 each AD MISC 07/08/24 16:30 07/10/24 17:37 DC Potassium Chloride 100 ml @ 50 mls/hr PROTOCOL IV 07/07/24 10:00 08/06/24 09:59 Potassium Chloride 100 ml @ 100 mls/hr AD PRN IV POTASSIUM PROTOCOL 07/03/24 19:30 07/10/24 17:37 DC Potassium Chloride (K-Dur/Klor-Con 20meq) 20 meq AD PRN PO POTASSIUM PROTOCOL 07/03/24 19:30 08/02/24 19:29 07/08/24 21:49 20 MEQ Potassium Chloride (KCl 10% Elixir 20meq/15ml) 20 meq AD PRN PO POTASSIUM PROTOCOL 07/03/24 19:30 08/02/24 19:29 Vancomycin HCl 250 ml @ 125 mls/hr Q12H IV 07/08/24 18:00 07/10/24 06:03 DC 07/09/24 18:16 125 MLS/HR Vancomycin HCl 250 ml @ 125 mls/hr Q12H IV 07/10/24 06:30 07/10/24 06:22 DC Vancomycin HCl 250 ml @ 125 mls/hr Q12H IV 07/10/24 08:00 07/20/24 07:59 07/11/24 08:39 125 MLS/HR Vancomycin HCl (Vancomycin Protocol) 1 each AD IV 07/08/24 16:30 07/22/24 16:29 Vitamin B Complex/ Vit C/Folic Acid (Nephrovite Tablet) 1 cap DAILY PO 07/09/24 13:00 08/08/24 12:59 07/11/24 08:37 1 CAP DIAGNOSTICS / RADIOLOGY: [ ] ASSESSMENT: Severe acute blood loss anemia requiring blood transfusion secondary to postmenopausal bleed s/p D&C (07/07/24) POA Multifactorial anemia POA Acute hypoxic Respiratory Failure, improving POA Postmenopausal bleed, with the endometrial polyps, status post D&C with hysteroscopy and excision of endometrial polyp 07/07/2024 Fibroid uterus and thickened endometrium per pelvic ultrasound POA Uncontrolled hypertension, resolved POA Morbid obesity POA Hypothyroidism POA acute complicated cystitis POA Pancytopenia Cellulitis to both lower extremities PLAN: The patient remains admitted to the PCU Cardiac groundwater monitoring technician EGD pending, will follow up Continue metoprolol 25 mg p.o. b.i.d. Continue metoprolol 5 mg IV as needed for heart rate greater than 100 Continue the patient on furosemide 40 mg IV q.8 hours Strict intake and output Daily weights Continue with the lactulose as needed Advanced diet to soft diet, NPO after midnight Continue the patient on broad-spectrum IV antibiotics Infectious disease input noted and appreciated Doppler of the lower extremities negative for DVT Follow CBC transfuse as needed Replace electrolytes IV per protocol GI and DVT prophylaxis Disposition: Pending EGD, GI recommendations, further diuresis JUMA FULLER MD Jul 11, 2024 14:16
--- NOTE | 2024-07-11 15:28 | PN ---
INFECTIOUS DISEASE PROGRESS NOTE Date of Service: Jul 11, 2024 SUBJECTIVE: Patient was seen and examined at bedside in room 228. Patient is awake, alert and oriented x3. No fever, temperature is 98.1. Patient continues on vancomycin and levofloxacin IV. Per report patient will be undergoing an EGD tomorrow. We will continue to monitor patient. PHYSICAL EXAM EYES: Anicteric. Pupils equal and reactive. HENT: No oral thrush seen, moist Oral mucosa NECK: Supple, no JVD or thyromegaly. LUNGS: Good air entry. No rales, no rhonchi. CARDIOVASCULAR: S1, S2 regular. No murmur heard. ABDOMEN: Soft, non tender, bowel sounds present, no organomegaly CENTRAL NERVOUS SYSTEM: Awake, alert, oriented x 3. SKIN: No rashes, no swelling. LYMPHATICS: No peripheral lymphadenopathy MUSCULOSKELETAL: No joint swelling, erythema or tenderness. EXTREMITIES: No cyanosis or clubbing. Bilateral lower extremity erythema. BACK: No deformity, no pressure ulcer. GENITOURINARY: No dysuria or hematuria Vital Sign (Last 12 Hours) 07/11/24 07/11/24 07/11/24 07/11/24 04:47 08:02 08:28 12:10 Temp 97.5 98.1 98.1 Pulse 78 80 76 Resp 18 16 16 B/P (MAP) 123/57 120/54 102/81 Pulse Ox 98 100 100 100 O2 Delivery Room Air Room Air Room Air* Room Air O2 Flow Rate 0 FiO2 21 Intake & Output (last 24hrs) 07/10/24 07/10/24 07/11/24 15:00 23:00 07:00 Intake Total 240 ml 240 ml Output Total 350 ml 900 ml 1100 ml Balance -110 ml -660 ml -1100 ml LABS: Laboratory: Test 07/11/24 03:36 07/10/24 05:22 Range/Units White Blood Count 5.1 4.8-10.8 K/uL Red Blood Count 3.21 L 4.00-5.50 MIL/uL Hemoglobin 8.4 L 12.0-16.0 g/dL Hematocrit 28.5 L 36-48 % Mean Corpuscular Volume 88.8 79-99 fL Mean Corpuscular Hemoglobin 26.2 L 27.0-33.0 pg Mean Corpuscular Hemoglobin Concent 29.5 L 32.0-36.0 g/dL Red Cell Distribution Width 16.4 H 11.0-15.5 % Platelet Count 124 L 130-400 K/uL Mean Platelet Volume 10.0 7.5-10.5 fL Nucleated Red Blood Cells 0.0 0.0-0.19 % Red Blood Cell Morphology See comments Magnesium Level 2.10 1.80-2.40 mg/dL Sodium Level 137 136-145 mmol/L Potassium Level 3.5 3.5-5.1 mmol/L Chloride Level 102 101-111 mmol/L Carbon Dioxide Level 33 H 21-32 mmol/L Blood Urea Nitrogen 22 H 7-18 mg/dL Creatinine 0.9 0.5-1.0 mg/dL Glomerular Filtration Rate Calc 72 >90 mL/min Random Glucose 126 H 70-105 mg/dL Total Calcium 8.5 8.5-10.1 mg/dL Total Bilirubin 1.7 H 0.2-1.0 mg/dL Aspartate Amino Transf (AST/SGOT) 57 H 10-37 U/L Alanine Aminotransferase (ALT/SGPT) 60 12-78 U/L Alkaline Phosphatase 128 50-136 U/L Total Protein 5.5 L 6.0-8.3 g/dL Albumin 2.2 L 3.5-5.0 g/dL Vancomycin Level Trough 9.7 L 10.0-20.0 UG/ML ASSESSMENT: Bilateral lower extremity cellulitis. Postmenopausal bleeding requiring blood transfusion. S/P D&C with hysteroscopy on 07/07/2024. Morbid obesity. Hypertension. Hypothyroidism. PLAN: Continue vancomycin per pharmacy protocol. Continue levofloxacin IV. Monitor the hemoglobin and hematocrit. Continue pain management. Possible EGD tomorrow. We will monitor electrolytes. This case was reviewed and discussed with my supervising physician and the above assessment and plan was formulated and agreed upon. ATTESTATION BY PHYSICIAN I have seen and examined the patient. I reviewed the documentation, medical decision making, and treatment plan as noted by the mid-level provider above. I agree with the findings and plan of care. JAC JONES MD, [facility]IRTA L [facility] Jul 11, 2024 15:28
--- NOTE | 2024-07-11 16:21 | PN ---
A 64-year-old female who presented to the ER by instruction of her PCP due to shortness of breath, fatigue and vaginal bleeding. I am consulted due to the anemia and the vaginal bleeding. The patient states that she has never gone through menopause and that she has been having periods regularly until about 3 months ago where they began to be constant and heavy with clots. Patient denied taking any anticoagulation or antiplatelet medication. This patient was evaluated by UNDERBASTER who is D&C with hysteroscopy was done status post polypectomy and endometrial biopsy. Patient actually doing very well with no obvious bleeding at this time. Patient received 1 unit of packed red blood cell. Hemoglobin level is stable at 7.5 g/deciliter. Platelet count 104K. There is no obvious bleeding PHYSICAL EXAMINATION: VITAL SIGNS: Stable, afebrile. GENERAL APPEARANCE: Alert, active, oriented in three spheres, no acute distress. ABDOMEN: Soft and nontender. Pelvic exam deferred. EXTREMITIES: 3+ pedal edema. NEUROLOGIC: Grossly intact. A pelvic ultrasound was performed, revealing a 3.5 cm fibroid on the uterus. The endometrial stripe was slightly thickened at 1 cm. No adnexal masses. ASSESSMENT: 1. Postmenopausal bleeding status post D&C and hysteroscopy was polypectomy and biopsy. 2. Severe anemia status post blood transfusion. Hemoglobin level stable at 7.5 g/dL. This patient was found to have iron deficiency anemia with the patient was started on IV iron 3. Thrombocytopenia 4. Lymphopenia 5. Cirrhosis of the liver 6. Hypothyroidism 7. Morbid obesity Plan 1. Peripheral blood smear showed red blood cells to be microcytic hypochromic red blood cell consistent with iron deficiency anemia. There was no fragment cell or schistocyte. There is no teardrop cell. There is no rouleaux phenomena. There is no pelger-Huet cell. White blood cell with no blasts.Platelet count decreased in number. There is large platelet consistent with peripheral consumption of the platelet most likely cirrhosis of the liver and splenomegaly 2. There was hypersegmented neutrophils. This patient to be started on folic acid 1 mg p.o. daily and vitamin B12 1000 mcg p.o. daily. 3. This patient will be started on IV iron daily for 3 days this patient will need oral iron supplement every other day. Patient will need iron treatment for 6 months 4. Will follow-up with the result of the pathology after D&C. 5. If this patient is stable then patient could be discharged follow-up with us in the next 2 weeks Vitals/Labs Vital Signs Date Time Temp Pulse Resp B/P (MAP) Pulse Ox O2 Delivery O2 Flow Rate FiO2 07/11/24 12:10 98.1 76 16 102/81 100 Room Air 07/11/24 08:28 0 21 Laboratory Tests 07/11/24 03:36 Medications Current Medications Acetaminophen 650 mg Q6H PRN PO; Start 07/03/24 at 19:30; Stop 08/02/24 at 19:29 Acetaminophen 650 mg Q4H PRN PO; Start 07/03/24 at 19:30; Stop 08/02/24 at 19:29 Ondansetron HCl 4 mg Q6H PRN IV; Start 07/03/24 at 19:30; Stop 08/02/24 at 19:29 Famotidine 20 mg BID IV Last administered on 07/11/24at 08:37; Start 07/03/24 at 21:00; Stop 08/02/24 at 20:59 Potassium Chloride 100 ml @ 100 mls/hr AD PRN IV; Start 07/03/24 at 19:30; Stop 07/10/24 at 17:37; Status DC Potassium Chloride 20 meq AD PRN PO; Start 07/03/24 at 19:30; Stop 08/02/24 at 19:29 Potassium Chloride 20 meq AD PRN PO Last administered on 07/08/24at 21:49; Start 07/03/24 at 19:30; Stop 08/02/24 at 19:29 Magnesium Sulfate 50 ml @ 0 mls/hr PROTOCOL PRN IV Last administered on 07/08/24at 20:02; Start 07/03/24 at 19:30; Stop 08/02/24 at 19:29 Levofloxacin/ Dextrose 100 ml @ 100 mls/hr Q24H IV Last administered on 07/10/24at 23:02; Start 07/03/24 at 19:30; Stop 07/13/24 at 19:29 Furosemide 20 mg ONCE ONCE IV Last administered on 07/03/24at 23:34; Start 07/03/24 at 23:30; Stop 07/03/24 at 23:31; Status DC Albuterol 1 UDVIAL [id number] IH Last administered on 07/10/24at 06:33; Start 07/04/24 at 00:00; Stop 07/10/24 at 11:57; Status DC Hydralazine HCl 10 mg Q6H PRN IV Last administered on 07/04/24at 18:43; Start 07/04/24 at 02:30; Stop 08/03/24 at 02:29 Levothyroxine Sodium 25 mcg SYN PO Last administered on 07/11/24at 05:38; Start 07/05/24 at 06:30; Stop 08/04/24 at 06:29 Iohexol 35,000 mg STK-MED ONCE IV; Start 07/05/24 at 05:06; Stop 07/05/24 at 05:09; Status DC Furosemide 40 mg Q8H IV Last administered on 07/07/24at 08:16; Start 07/05/24 at 16:00; Stop 07/07/24 at 12:30; Status DC Furosemide 60 mg ONCE ONCE IV Last administered on 07/05/24at 11:17; Start 07/05/24 at 10:30; Stop 07/05/24 at 10:31; Status DC Phenylephrine HCl 10 mg STK-MED ONCE IV; Start 07/07/24 at 09:06; Stop 07/07/24 at 09:06; Status DC Midazolam HCl 2 mg STK-MED ONCE .ROUTE; Start 07/07/24 at 09:06; Stop 07/07/24 at 09:06; Status DC Ondansetron HCl 4 mg STK-MED ONCE .ROUTE; Start 07/07/24 at 09:06; Stop 07/07/24 at 09:06; Status DC Succinylcholine Chloride 200 mg STK-MED ONCE .ROUTE; Start 07/07/24 at 09:06; Stop 07/07/24 at 09:07; Status DC Propofol 200 mg STK-MED ONCE IV; Start 07/07/24 at 09:06; Stop 07/07/24 at 09:07; Status DC Rocuronium Marquez 50 mg STK-MED ONCE .ROUTE; Start 07/07/24 at 09:06; Stop 07/07/24 at 09:07; Status DC Fentanyl Citrate 100 mcg STK-MED ONCE .ROUTE; Start 07/07/24 at 09:07; Stop 07/07/24 at 09:07; Status DC Clindamycin HCl/ Dextrose 50 ml @ As Directed STK-MED ONCE IV; Start 07/07/24 at 09:37; Stop 07/07/24 at 09:37; Status DC Potassium Chloride 100 ml @ 50 mls/hr PROTOCOL IV; Start 07/07/24 at 10:00; Stop 08/06/24 at 09:59 Ceftriaxone Sodium 1 gm Q24H IVPB Last administered on 07/08/24at 16:09; Start 07/07/24 at 17:00; Stop 07/08/24 at 16:28; Status DC Furosemide 40 mg BID PO Last administered on 07/07/24at 20:41; Start 07/07/24 at 21:00; Stop 07/08/24 at 08:21; Status DC Guaifenesin/ Dextromethorphan 10 ml ONCE ONCE PO Last administered on 07/08/24at 02:18; Start 07/08/24 at 02:30; Stop 07/08/24 at 08:16; Status DC Benzonatate 100 mg ONCE ONCE PO Last administered on 07/08/24at 09:09; Start 07/08/24 at 08:30; Stop 07/08/24 at 08:31; Status DC Furosemide 40 mg Q8H IV Last administered on 07/11/24at 12:06; Start 07/08/24 at 08:30; Stop 07/11/24 at 14:15; Status DC Metoprolol Tartrate 25 mg BID PO Last administered on 07/11/24at 08:37; Start 07/08/24 at 11:00; Stop 08/07/24 at 10:59 Metoprolol Tartrate 5 mg Q4H PRN IV; Start 07/08/24 at 11:00; Stop 08/07/24 at 10:59 Lactulose 20 gm ONCE ONCE PO Last administered on 07/08/24at 11:03; Start 07/08/24 at 11:00; Stop 07/08/24 at 11:01; Status DC Lactulose 20 gm STK-MED ONCE .ROUTE; Start 07/08/24 at 10:44; Stop 07/08/24 at 10:44; Status DC Metoprolol Tartrate 5 mg STK-MED ONCE IV Last administered on 07/08/24at 11:00; Start 07/08/24 at 10:44; Stop 07/08/24 at 10:44; Status DC Methylprednisolone Sodium Succinate 125 mg STK-MED ONCE .ROUTE Last administered on 07/08/24at 11:03; Start 07/08/24 at 10:44; Stop 07/08/24 at 10:44; Status DC Potassium Chloride 100 ml @ 50 mls/hr ONCE ONCE IV Last administered on 07/08/24at 11:13; Start 07/08/24 at 11:00; Stop 07/08/24 at 12:59; Status DC Metoprolol Tartrate 5 mg ONCE ONCE IV; Start 07/08/24 at 11:00; Stop 07/08/24 at 11:01; Status DC Lactulose 20 gm ONCE ONCE PO; Start 07/08/24 at 11:00; Stop 07/08/24 at 11:01; Status DC Methylprednisolone Sodium Succinate 125 mg ONCE ONCE IVP; Start 07/08/24 at 11:00; Stop 07/08/24 at 11:01; Status DC Vancomycin HCl 1 each AD IV; Start 07/08/24 at 16:30; Stop 07/22/24 at 16:29 Pharmacy Profile Note 1 each AD MISC; Start 07/08/24 at 16:30; Stop 07/10/24 at 17:37; Status DC Vancomycin HCl 250 ml @ 125 mls/hr Q12H IV Last administered on 07/09/24at 18:16; Start 07/08/24 at 18:00; Stop 07/10/24 at 06:03; Status DC Albumin Human 50 ml @ 0 mls/hr AD IV Last administered on 07/09/24at 11:50; Start 07/09/24 at 10:00; Stop 07/10/24 at 17:40; Status DC Vitamin B Complex/ Vit C/Folic Acid 1 cap DAILY PO Last administered on 07/11/24at 08:37; Start 07/09/24 at 13:00; Stop 08/08/24 at 12:59 Dexamethasone Sodium Phosphate 10 mg ONCE ONCE IVP Last administered on 07/09/24at 14:16; Start 07/09/24 at 13:00; Stop 07/09/24 at 13:12; Status DC Furosemide 20 mg ONCE ONCE IV; Start 07/09/24 at 13:00; Stop 07/09/24 at 13:12; Status DC Vancomycin HCl 250 ml @ 125 mls/hr Q12H IV; Start 07/10/24 at 06:30; Stop 07/10/24 at 06:22; Status DC Vancomycin HCl 250 ml @ 125 mls/hr Q12H IV Last administered on 07/11/24at 08:39; Start 07/10/24 at 08:00; Stop 07/20/24 at 07:59 Albuterol 1 UDVIAL [id number] PRN IH Last administered on 07/10/24at 23:20; Start 07/10/24 at 12:00; Stop 08/03/24 at 00:00 Albumin Human 50 ml @ 0 mls/hr Q8H5 IV Last administered on 07/10/24at 16:37; Start 07/10/24 at 13:00; Stop 07/10/24 at 17:36; Status DC Albumin Human 50 ml @ 0 mls/hr Q8H IV Last administered on 07/11/24at 08:37; Start 07/11/24 at 00:00; Stop 07/11/24 at 16:20; Status DC Iron Sucrose 300 mg/Sodium Chloride 250 ml @ 83 mls/hr ONCE ONCE IV; Start 07/11/24 at 09:00; Stop 07/11/24 at 12:00; Status DC Furosemide 40 mg BID@09,17 PO; Start 07/11/24 at 17:00; Stop 08/10/24 at 16:59 THEODORE CONTRERAS MD Jul 11, 2024 16:21
[2024-07-11] MEDS: furoSEMIDE 40 MG TABLET PO SCH (17:34)
--- NOTE | 2024-07-11 18:34 | PN ---
GASTROENTEROLOGY PROGRESS NOTE Date of Visit: Jul 11, 2024 Time of Visit: 18:34 Events / Notes: No acute events overnight. Patient seen today at bedside in no acute distress. Hemoglobin did trend up however she understands importance of endoscopy and is now agreeable. Review of Systems: CONSTITUTIONAL: No malaise or change in sensation of wellbeing. ENMT: No rhinorrhea, otorrhea, sinus pain, ear ache. CARDIOVASCULAR: No angina, palpitations, orthopnea or paroxysmal dyspnea. RESPIRATORY: No SOB. GASTROINTESTINAL: No abdominal pain, nausea, vomiting, diarrhea, hematemesis, melena or change in the patient's habitual bowel movements consistency/number. GENITOURINARY: No dysuria, hematuria or change in bladder continence. MUSCULOSKELETAL: No new muscle pain or decrease in muscular strength. No new joint swelling, redness or tenderness. SKIN: No new rash. Physical Exam: GEN: Awake, alert, oriented in person, time and place, and in no acute distress. HEENT: No sinus tenderness. Tympanic membranes were not examined. No rhinorrhea. Oral pharyngeal mucosa is pink, moist and within normal limits. Neck is supple with no cervical lymphadenopathy, thyromegaly or JVD. CHEST: Inspection, palpation and percussion of the chest were unremarkable. Lung auscultation revealed normal breath sounds bilaterally. CARDIAC: PMI is within normal limits. Heart sounds are regular. Normal S1, S2. No gallop or murmur. ABD: Soft, non-tender and not distended. No peritoneal signs on palpation. No organomegaly. Normal bowel sounds. EXT: No cyanosis or clubbing. No edema. SKIN: Intact. No rashes. JOINTS: No evidence of synovitis or acute arthritis. NEURO: Alert and oriented to name, place and person. Cranial nerve examination is unremarkable. No focal motor deficits. Normal speech. Gait is normal. Strength is normal. Vital Signs (last 8hr) Date Time Temp Pulse Resp B/P (MAP) Pulse Ox O2 Delivery O2 Flow Rate FiO2 07/11/24 16:42 97.9 72 16 142/57 97 Room Air 07/11/24 12:10 98.1 76 16 102/81 100 Room Air Laboratory: [ ] Laboratory: Test 07/11/24 14:05 07/11/24 03:36 07/10/24 05:22 Range/Units Ferritin 22 15-150 ng/mL White Blood Count 5.1 4.8-10.8 K/uL Red Blood Count 3.21 L 4.00-5.50 MIL/uL Hemoglobin 8.4 L 12.0-16.0 g/dL Hematocrit 28.5 L 36-48 % Mean Corpuscular Volume 88.8 79-99 fL Mean Corpuscular Hemoglobin 26.2 L 27.0-33.0 pg Mean Corpuscular Hemoglobin Concent 29.5 L 32.0-36.0 g/dL Red Cell Distribution Width 16.4 H 11.0-15.5 % Platelet Count 124 L 130-400 K/uL Mean Platelet Volume 10.0 7.5-10.5 fL Nucleated Red Blood Cells 0.0 0.0-0.19 % Red Blood Cell Morphology See comments Magnesium Level 2.10 1.80-2.40 mg/dL Sodium Level 137 136-145 mmol/L Potassium Level 3.5 3.5-5.1 mmol/L Chloride Level 102 101-111 mmol/L Carbon Dioxide Level 33 H 21-32 mmol/L Blood Urea Nitrogen 22 H 7-18 mg/dL Creatinine 0.9 0.5-1.0 mg/dL Glomerular Filtration Rate Calc 72 >90 mL/min Random Glucose 126 H 70-105 mg/dL Total Calcium 8.5 8.5-10.1 mg/dL Total Bilirubin 1.7 H 0.2-1.0 mg/dL Aspartate Amino Transf (AST/SGOT) 57 H 10-37 U/L Alanine Aminotransferase (ALT/SGPT) 60 12-78 U/L Alkaline Phosphatase 128 50-136 U/L Total Protein 5.5 L 6.0-8.3 g/dL Albumin 2.2 L 3.5-5.0 g/dL Vancomycin Level Trough 9.7 L 10.0-20.0 UG/ML Current Medications Medications (Trade) Dose Ordered Sig/Avinash Route PRN Reason Start Time Stop Time Status Last Admin Dose Admin Acetaminophen (TYLenol 325MG TAB) 650 mg Q4H PRN PO MILD PAIN (1-3) 07/03/24 19:30 08/02/24 19:29 Acetaminophen (TYLenol 325MG TAB) 650 mg Q6H PRN PO TEMPERATURE GREATER THAN 101.5 07/03/24 19:30 08/02/24 19:29 Albumin Human 50 ml @ 0 mls/hr AD IV 07/09/24 10:00 07/10/24 17:40 DC 07/09/24 11:50 100 MLS/HR Albumin Human 50 ml @ 0 mls/hr Q8H IV 07/11/24 00:00 07/11/24 16:20 DC 07/11/24 08:37 25 MLS/HR Albumin Human 50 ml @ 0 mls/hr Q8H5 IV 07/10/24 13:00 07/10/24 17:36 DC 07/10/24 16:37 25 MLS/HR Albuterol (DUOneb) 1 UDVIAL [id number] IH 07/04/24 00:00 07/10/24 11:57 DC 07/10/24 06:33 1 UDVIAL Albuterol (DUOneb) 1 UDVIAL [id number] PRN IH WHEEZING 07/10/24 12:00 08/03/24 00:00 07/10/24 23:20 1 UDVIAL Ceftriaxone Sodium (ROCEphine 1G INJ) 1 gm Q24H IVPB 07/07/24 17:00 07/08/24 16:28 DC 07/08/24 16:09 1 GM Famotidine (Pepcid 20mg Vial) 20 mg BID IV 07/03/24 21:00 08/02/24 20:59 07/11/24 08:37 20 MG Furosemide (LASix 40MG TAB) 40 mg BID PO 07/07/24 21:00 07/08/24 08:21 DC 07/07/24 20:41 40 MG Furosemide (LASix 40MG TAB) 40 mg BID@09,17 PO 07/11/24 17:00 08/10/24 16:59 07/11/24 17:34 40 MG Furosemide (LASix 40MG VIAL) 40 mg Q8H IV 07/05/24 16:00 07/07/24 12:30 DC 07/07/24 08:16 40 MG Furosemide (LASix 40MG VIAL) 40 mg Q8H IV 07/08/24 08:30 07/11/24 14:15 DC 07/11/24 12:06 40 MG Hydralazine HCl (APRESOLine 20MG INJ) 10 mg Q6H PRN IV ADMINISTER FOR SBP > 160 07/04/24 02:30 12/15/24 02:29 07/04/24 18:43 10 MG Levofloxacin/ Dextrose 100 ml @ 100 mls/hr Q24H IV 07/03/24 19:30 07/13/24 19:29 07/10/24 23:02 100 MLS/HR Levothyroxine Sodium (SYNTHroid 25MCG TAB) 25 mcg SYN PO 07/05/24 06:30 08/04/24 06:29 07/11/24 05:38 25 MCG Magnesium Sulfate 50 ml @ 0 mls/hr PROTOCOL PRN IV OTHER [SEE ORDER COMMENTS] 07/03/24 19:30 08/02/24 19:29 07/08/24 20:02 25 MLS/HR Metoprolol Tartrate (loprESSOR) 5 mg Q4H PRN IV INCREASED HEART RATE 07/08/24 11:00 08/07/24 10:59 Metoprolol Tartrate (loprESSOR) 25 mg BID PO 07/08/24 11:00 08/07/24 10:59 07/11/24 08:37 25 MG Ondansetron HCl (zoFRAN 4MG INJ) 4 mg Q6H PRN IV NAUSEA/VOMITING 07/03/24 19:30 08/02/24 19:29 Pharmacy Profile Note (Lace Assessment) 1 each AD MISC 07/08/24 16:30 07/10/24 17:37 DC Potassium Chloride 100 ml @ 50 mls/hr PROTOCOL IV 07/07/24 10:00 08/06/24 09:59 Potassium Chloride 100 ml @ 100 mls/hr AD PRN IV POTASSIUM PROTOCOL 07/03/24 19:30 07/10/24 17:37 DC Potassium Chloride (K-Dur/Klor-Con 20meq) 20 meq AD PRN PO POTASSIUM PROTOCOL 07/03/24 19:30 08/02/24 19:29 07/08/24 21:49 20 MEQ Potassium Chloride (KCl 10% Elixir 20meq/15ml) 20 meq AD PRN PO POTASSIUM PROTOCOL 07/03/24 19:30 08/02/24 19:29 Vancomycin HCl 250 ml @ 125 mls/hr Q12H IV 07/08/24 18:00 07/10/24 06:03 DC 07/09/24 18:16 125 MLS/HR Vancomycin HCl 250 ml @ 125 mls/hr Q12H IV 07/10/24 06:30 07/10/24 06:22 DC Vancomycin HCl 250 ml @ 125 mls/hr Q12H IV 07/10/24 08:00 07/20/24 07:59 07/11/24 08:39 125 MLS/HR Vancomycin HCl (Vancomycin Protocol) 1 each AD IV 07/08/24 16:30 07/22/24 16:29 Vitamin B Complex/ Vit C/Folic Acid (Nephrovite Tablet) 1 cap DAILY PO 07/09/24 13:00 08/08/24 12:59 07/11/24 08:37 1 CAP Diagnostics / Radiology: [COPY/PASTE HERE IF NO REPORTS PLEASE DELETE SECTION] Assessment: Concern for GI bleed Acute blood loss anemia Abnormal imaging with esophageal varices Cirrhosis Plan: EGD in AM Continue GI prophylaxis Advance diet as tolerated Avoid NSAIDs Antireflux measures Monitor H&H and transfuse as needed Call with questions, concerns or change in clinical status Patient to follow-up at clinic post discharge Thank you for this consult KINGS HARDIN CAKE WINDER Jul 11, 2024 18:34
[2024-07-12] VITALS (22 sets, daily range): BP systolic 99–146; BP diastolic 43–87; PULSE 69–84; RESP 13–21; TEMP 97.4–98.8; O2SAT 99–100
[2024-07-12] MEDS ORDERED: proPOFol 10 MG/ML 20ML VIAL IV ONE (11:14)
[2024-07-12] MEDS ORDERED: ketaMINE 50MG/ML SYRINGE 50 MG/ML DISP.SYRIN ONE (11:14)
[2024-07-12] MEDS ORDERED: LIDOCAINE PF 100MG/5ML (2%) SYRINGE 5ML ONE (11:14)
--- NOTE | 2024-07-12 14:20 | PN ---
[facility] PROGRESS NOTE Date of Service: Jul 12, 2024 Time of Service: 14:15 SUBJECTIVE: [ This is a 64-year-old female with past medical history of asthma, anemia, hypothyroidism and morbid obesity who presents to the ED after coming from PCP's clinic today for complaints of shortness of breaths, edema and possible fluid overload evaluation.Patient states she has been having shortness of breath because of her Asthma and anemia because she has been having menstrual bleed for 3 weeks every month since 4 years ago and it has slowed down 10 months ago that sometimes she missed the period for a month however was started on Levothyroxine by her primary and coincidentally she said after taking it she started having 3 weeks of bleeding again and a week off without bleeding so she stopped taking her Levothyroxine last April but she started having progressive shortness of breath and edema 3 weeks ago.Patient reports she was sick for the past 3 weeks with cough and fever and her legs started to get swollen and today she went to her PCP because swelling has gone up to her abdomen and she has not been able to have a good sleep because if she lies down she gets very short of breath so she had to stand up most of the time to catch her breath. Patient reports she is supposed to see an OBGYN doctor tomorrow. Seen and examined patient in the ED awake,alert and coherent,pale looking .Patient denies fever,chills,chest pain,palpitation,cough , nausea, bloody emesis, bloody stool and abdominal pain.Patient reports she voids little and her last bowel movement is today and it was normal. Latest vital signs temperature 97.9, heart rate 120, respiration 24, pressure 153/85, saturation 99% on room air. Labs: WBC 5, hemoglobin 6.2, hematocrit 20.8 platelet count 173. Glucose 129 the rest of the chemistry is unremarkable BNP 29 troponin 10. Urinalysis remarkable for large hematuria positive for RBC, WBC urobilinogen , protein and ketones. SARs COVID result is negative. Chest x-ray result is normal. Pelvic ultrasound result revealed no adnexal mass is seen. Fibroid uterus thickened endometrium. While in the ER patient is pending to be transfused with 1 unit PRBC per ER recommendation. As per ER SENIOR CATERING SALES MANAGER's report he already consulted OBGYN Dr. Sabillon and agreed to evaluate the patient. We will admit patient for further medical management. Addendum : Post Transfusion primary nurse called and reported patient developed increased shortness of breath needing oxygen supplementation.Will request ABG ,Give Lasix 20mg IV x1 and Duoneb treatment and will transfer patient to PCCU and consult Pulmonology 07/04 patient was seen by nurse practitioner and physician during rounding in room 223 comfortably lying in bed. Patient is on room air. Patient pending evaluation by plowing gardens and clearance for possible D and C. Patient was evaluated by Dr. Ridge ZEPEDA and would like to perform DandC on Sunday07/07/2024. Medical clearance needed. We will continue to monitor patient. A.m. labs 07/05 patient was seen by SENIOR CATERING SALES MANAGER and physician during rounding in room 223. 2D echo still pending. Venous Doppler was ordered by plowing gardens pending results. Patient was also cleared by plowing gardens for D&C on Sunday with Dr. Sabillon. Ultrasound abdomen shows cirrhosis abdominal ascites small. We will continue to monitor patient in the meantime. Continue IV antibiotics Levaquin. A.m. labs 07/06 patient was seen by SENIOR CATERING SALES MANAGER and physician during rounding. Patient was cleared by plowing gardens for D&C to be performed on 07/07/2024. Patient is also cleared from the medical point to proceed with D and C. Patient is still pending 2D echo in the meantime. We will continue to monitor the patient a.m. labs 07/07 patient was seen by nurse practitioner and physician during rounding. Patient's hemoglobin today is 7.6. Patient was taken to OR for D and C with Dr. Sabillon. Potassium 3.2 RN we will replace as appropriate. We will continue to monitor patient in the meantime. A.m. labs 07/08 the patient has been seen and examined during my rounding, she looks edematous, BP 142/71, heart rate of 120, afebrile, saturating normal on room air. She remains alert oriented x3, denies nausea, no vomiting, no abdominal discomfort. She feels bloated, not passing gas. Admits swollen to both lower extremities. Noted to have erythema to both lower legs. 07/09 the patient has been seen and examined during my rounding earlier this morning, had three good bowel movements yesterday, she remains alert oriented x3, blood pressure and heart rate controlled. Denied chest pain, she feels less bloated, feels hungry, asking to advance her diet. Admits less swelling and erythema to both lower extremities. 07/10 the patient has been seen and examined during my rounding, no acute events overnight, she feels less edematous and looks less edematous today compared to yesterday. Received a one time dose of albumin IV, tolerated well, no acute reactions. Less edema and less erythema to both lower extremities. She is tolerating diet. 07/11 patient seen at bedside, no acute events overnight. She still has peripheral pitting edema, however she reports improvement since admission. She was initially resistant to the idea of EGD spent time explaining the pathophysiology of esophageal varices and spontaneous rupture resulting in GI bleed. Patient now open to EGD, GI has been contacted and patient will be made NPO after midnight. Also suggested to GI to do a more extensive workup to find the cause of her underlying liver failure as she has no history of alcohol use. She also reports a strong history of liver failure and her family which suggest either fatty liver disease that is familial in nature or an underlying genetic cause such as Jairon's disease or hemochromatosis. She has been afebrile, hemodynamically stable saturating well on room air. Hemoglobin improved from 7.5 up to 8.4, platelets improved from 104 up to 124, T bili elevated at 1.7, similar to yesterday, remainder of her labs are relatively unremarkable. 07/12 patient seen at bedside, no acute events overnight. She is status post EGD where esophageal varices with recent bleeding were noted and banded x2. Her hemoglobin is stable and slowly improving. She continues on IV antibiotics for lower extremity cellulitis. We will follow up with Infectious Disease regarding discharge recommendations for antibiotics. She still has peripheral pitting edema we will continue with diuretics, we will try to change to oral furosemide and spironolactone combination. Explained fluid restriction to patient. Patient to continue on high-protein diet with ensure supplements. Patient reports an extensive family history liver disease, she has several brothers and and so that all have advanced liver disease. One of her brothers was diagnosed with primary sclerosing cholangitis while the others are in various stages of liver failure. This suggests that her family has a heritable condition. REVIEW OF SYSTEMS 12 point ROS negative unless noted in HPI PHYSICAL EXAM GENERAL APPEARANCE: Awake, following commands, looks mildly less edematous. NEUROLOGICAL: Cranial nerves II-XII grossly intact. Motor is 5/5 in bilateral upper and lower extremities proximal to distal. No sensory deficits. HEENT: Face is symmetric. Pupils are equal and reactive. Extraocular movements are intact. NECK: Supple. No JVD. No thyromegaly. No submental, submandibular, pre- /postauricular, occipital or supraclavicular lymphadenopathy. CHEST: Normal chest expansion. No Telemetry. LUNGS: No bilateral wheezing CARDIOVASCULAR: Regular. S1 and S2 normal. No appreciable rubs, murmurs or gallops. ABDOMEN: Abdomen is distended and firmed There is no rebound, voluntary guarding, or rigidity. : Deferred. No Ma. EXTREMITIES: less erythema and swelling to both lower extremities. SKIN: No skin breakdown. Vital Signs (last 8hr) Date Time Temp Pulse Resp B/P (MAP) Pulse Ox O2 Delivery O2 Flow Rate FiO2 07/12/24 13:25 82 124/71 100 Room Air 07/12/24 12:55 74 121/58 100 Room Air 07/12/24 12:40 74 130/67 100 Room Air 07/12/24 12:20 71 127/65 99 Room Air 07/12/24 12:05 77 126/66 94 Room Air 07/12/24 12:00 97.3 71 15 142/60 96 Room Air 07/12/24 11:55 71 18 139/66 96 Room Air 07/12/24 11:50 69 19 144/87 96 Room Air 07/12/24 11:45 71 13 140/75 97 Room Air 07/12/24 11:40 72 15 141/64 100 SIMPLE FACE MASK 10.0 07/12/24 11:35 69 19 146/63 100 SIMPLE FACE MASK 10.0 07/12/24 11:30 97.3 70 17 135/57 99 SIMPLE FACE MASK 10.0 07/12/24 11:17 Mask 10.0 07/12/24 11:17 Mask 07/12/24 08:30 100 Room Air* 0 21 07/12/24 08:00 98.1 84 19 122/58 98 Room Air 21 LABS: Laboratory: Test 07/11/24 18:55 07/11/24 14:05 07/11/24 03:36 Range/Units Vancomycin Level Trough 17.4 # 10.0-20.0 UG/ML Ferritin 22 15-150 ng/mL Anti-Nuclear Antibody Screen Negative Negative BARBARA-1 Antibody SS-A/Ro Antibody SS-B/La Antibody Sm (Garcia) IgG Antibody, Quant RESIDENTIAL TECH IgG Antibody, Quantitative Scl-70 (Scleroderma) Antibody Anti-Double Strand DNA Antibody Anti-Centromere IgG Antibody White Blood Count 5.1 4.8-10.8 K/uL Red Blood Count 3.21 L 4.00-5.50 MIL/uL Hemoglobin 8.4 L 12.0-16.0 g/dL Hematocrit 28.5 L 36-48 % Mean Corpuscular Volume 88.8 79-99 fL Mean Corpuscular Hemoglobin 26.2 L 27.0-33.0 pg Mean Corpuscular Hemoglobin Concent 29.5 L 32.0-36.0 g/dL Red Cell Distribution Width 16.4 H 11.0-15.5 % Platelet Count 124 L 130-400 K/uL Mean Platelet Volume 10.0 7.5-10.5 fL Nucleated Red Blood Cells 0.0 0.0-0.19 % Red Blood Cell Morphology See comments Magnesium Level 2.10 1.80-2.40 mg/dL Current Medications Medications (Trade) Dose Ordered Sig/Avinash Route PRN Reason Start Time Stop Time Status Last Admin Dose Admin Acetaminophen (TYLenol 325MG TAB) 650 mg Q4H PRN PO MILD PAIN (1-3) 07/03/24 19:30 08/02/24 19:29 Acetaminophen (TYLenol 325MG TAB) 650 mg Q6H PRN PO TEMPERATURE GREATER THAN 101.5 07/03/24 19:30 08/02/24 19:29 Albumin Human 50 ml @ 0 mls/hr AD IV 07/09/24 10:00 07/10/24 17:40 DC 07/09/24 11:50 100 MLS/HR Albumin Human 50 ml @ 0 mls/hr Q8H IV 07/11/24 00:00 07/11/24 16:20 DC 07/11/24 08:37 25 MLS/HR Albumin Human 50 ml @ 0 mls/hr Q8H5 IV 07/10/24 13:00 07/10/24 17:36 DC 07/10/24 16:37 25 MLS/HR Albuterol (DUOneb) 1 UDVIAL [id number] IH 07/04/24 00:00 07/10/24 11:57 DC 07/10/24 06:33 1 UDVIAL Albuterol (DUOneb) 1 UDVIAL [id number] PRN IH WHEEZING 07/10/24 12:00 08/03/24 00:00 07/10/24 23:20 1 UDVIAL Ceftriaxone Sodium (ROCEphine 1G INJ) 1 gm Q24H IVPB 07/07/24 17:00 07/08/24 16:28 DC 07/08/24 16:09 1 GM Famotidine (Pepcid 20mg Vial) 20 mg BID IV 07/03/24 21:00 08/02/24 20:59 07/12/24 09:38 20 MG Furosemide (LASix 40MG TAB) 40 mg BID PO 07/07/24 21:00 07/08/24 08:21 DC 07/07/24 20:41 40 MG Furosemide (LASix 40MG TAB) 40 mg BID@09,17 PO 07/11/24 17:00 08/10/24 16:59 07/11/24 17:34 40 MG Furosemide (LASix 40MG VIAL) 40 mg Q8H IV 07/05/24 16:00 07/07/24 12:30 DC 07/07/24 08:16 40 MG Furosemide (LASix 40MG VIAL) 40 mg Q8H IV 07/08/24 08:30 07/11/24 14:15 DC 07/11/24 12:06 40 MG Hydralazine HCl (APRESOLine 20MG INJ) 10 mg Q6H PRN IV ADMINISTER FOR SBP > 160 07/04/24 02:30 08/03/24 02:29 07/04/24 18:43 10 MG Levofloxacin/ Dextrose 100 ml @ 100 mls/hr Q24H IV 07/03/24 19:30 07/12/24 11:09 DC 07/11/24 20:47 100 MLS/HR Levothyroxine Sodium (SYNTHroid 25MCG TAB) 25 mcg SYN PO 07/05/24 06:30 08/04/24 06:29 07/12/24 05:35 25 MCG Magnesium Sulfate 50 ml @ 0 mls/hr PROTOCOL PRN IV OTHER [SEE ORDER COMMENTS] 07/03/24 19:30 08/02/24 19:29 07/08/24 20:02 25 MLS/HR Metoprolol Tartrate (loprESSOR) 5 mg Q4H PRN IV INCREASED HEART RATE 07/08/24 11:00 08/07/24 10:59 Metoprolol Tartrate (loprESSOR) 25 mg BID PO 07/08/24 11:00 08/07/24 10:59 07/12/24 09:49 25 MG Ondansetron HCl (zoFRAN 4MG INJ) 4 mg Q6H PRN IV NAUSEA/VOMITING 07/03/24 19:30 08/02/24 19:29 Pharmacy Profile Note (Lace Assessment) 1 each AD MISC 07/08/24 16:30 07/10/24 17:37 DC Potassium Chloride 100 ml @ 50 mls/hr PROTOCOL IV 07/07/24 10:00 08/06/24 09:59 Potassium Chloride 100 ml @ 100 mls/hr AD PRN IV POTASSIUM PROTOCOL 07/03/24 19:30 07/10/24 17:37 DC Potassium Chloride (K-Dur/Klor-Con 20meq) 20 meq AD PRN PO POTASSIUM PROTOCOL 07/03/24 19:30 08/02/24 19:29 07/08/24 21:49 20 MEQ Potassium Chloride (KCl 10% Elixir 20meq/15ml) 20 meq AD PRN PO POTASSIUM PROTOCOL 07/03/24 19:30 08/02/24 19:29 Vancomycin HCl 250 ml @ 125 mls/hr Q12H IV 07/08/24 18:00 07/10/24 06:03 DC 07/09/24 18:16 125 MLS/HR Vancomycin HCl 250 ml @ 125 mls/hr Q12H IV 07/10/24 06:30 07/10/24 06:22 DC Vancomycin HCl 250 ml @ 125 mls/hr Q12H IV 07/10/24 08:00 07/20/24 07:59 07/12/24 09:38 125 MLS/HR Vancomycin HCl (Vancomycin Protocol) 1 each AD IV 07/08/24 16:30 07/22/24 16:29 Vitamin B Complex/ Vit C/Folic Acid (Nephrovite Tablet) 1 cap DAILY PO 07/09/24 13:00 08/08/24 12:59 07/11/24 08:37 1 CAP DIAGNOSTICS / RADIOLOGY: [ ] ASSESSMENT: Severe acute blood loss anemia requiring blood transfusion secondary to postmenopausal bleed s/p D&C (07/07/24) POA Multifactorial anemia POA Anasarca Liver disease, MELD 12, POA Esophageal varices s/p banding x 2 (07/12/24) Extensive family history of liver disease Acute hypoxic Respiratory Failure, resolved POA Postmenopausal bleed, with the endometrial polyps, status post D&C with hy steroscopy and excision of endometrial polyp 07/07/2024 Fibroid uterus and thickened endometrium per pelvic ultrasound POA Uncontrolled hypertension, resolved POA Morbid obesity POA Hypothyroidism POA acute complicated cystitis POA Pancytopenia Cellulitis to both lower extremities PLAN: The patient remains admitted to the PCU Cardiac secured entrance monitor EGD pending, will follow up Continue metoprolol 25 mg p.o. b.i.d. Continue metoprolol 5 mg IV as needed for heart rate greater than 100 Continue the patient on furosemide 40 mg PO BID Start spironolactone 25mg q24h Start ensure supplements Strict intake and output Daily weights Continue with the lactulose as needed Advanced diet to soft diet, NPO after midnight Continue the patient on broad-spectrum IV antibiotics Infectious disease input noted and appreciated Doppler of the lower extremities negative for DVT Follow CBC transfuse as needed Replace electrolytes IV per protocol GI and DVT prophylaxis Disposition: Pending further diuresis, ID recommendations for JUMA Colon MD Jul 12, 2024 14:20
[2024-07-12] MEDS: SPIRONOLACTONE 25 MG TAB PO SCH (15:21)
--- NOTE | 2024-07-12 17:30 | NUR ---
PROMPT REC'D FROM DR. FULLER RE INSURANCE QUESTIONS. MET W PATIENT IN ROOM AND ANSWERED QUESTIONS AT LENGTH. EVIDENT THAT PATIENT HAS POOR SHORT TERM MEMORY. QUESTIONS THAT WERE ASKED ARE NOT REALLY WITHIN SCOPE OF CASE MAMAGEMENT/SS. HAS A LOT OF QUESTIONS ABOUT HER INSURANCE BENEFITS WHICH NEED TO BE ASKED OF HER INSURANCE DIRECTLY. CM GAVE GENERAL INFO NOT SPECIFIC TO ANY ONE INSURANCE PLAN. WILL NEED REINFORCEMENT
[2024-07-12 21:27] LABS: HEPATITIS C ANTIBODY Non-Reactive (Nonreactive)
[2024-07-12 21:28] LABS: HEPATITIS A IGM ANTIBODY Non-Reactive (Nonreactive); HEPATITIS B CORE IGM ANTIBODY Non-Reactive (Negative)
[2024-07-12 21:32] LABS: HEPATITIS B SURFACE ANTIGEN Non-Reactive (Nonreactive)
--- NOTE | 2024-07-12 22:36 | PN ---
DATE OF SERVICE: 07/12/2024. INFECTIOUS DISEASE FOLLOWUP NOTE SUBJECTIVE: The patient is seen and examined at bedside today. The patient has no fever, no chills. No nausea or vomiting. No abdominal pain. No bleeding tendency. No rashes or itchiness. The patient underwent EGD today, which shows esophageal varices for which banding was done. PHYSICAL EXAMINATION: VITAL SIGNS: Temperature 97.1. EYES: No icterus. Pupils equal and reactive. HENT: No oral thrush seen. Moist oral mucosa. NECK: Supple, no JVD or thyromegaly. LUNGS: Good air entry. No rales, no rhonchi. CARDIOVASCULAR: S1, S2, regular. No murmur heard. ABDOMEN: Soft, nontender. Bowel sounds present. CENTRAL NERVOUS SYSTEM: Awake, alert, and oriented x 3. No focal deficits. SKIN: No rashes, no itchiness. LYMPHATIC: No peripheral lymphadenopathy. BACK: No deformity, no pressure ulcer. EXTREMITIES: Pitting edema. Cellulitis of both lower extremities. ASSESSMENT: A 64-year-old female admitted with weakness and fatigue. CURRENT PROBLEMS: Include: * Severe anemia, status post transfusion. * Left lower extremity cellulitis. * Right lower extremity cellulitis. * Newly diagnosed liver cirrhosis. * Morbid obesity. * Hypothyroidism. * Esophageal varices, status post banding. PLAN: * Continue vancomycin. * Continue levofloxacin. * Monitor hemoglobin and hematocrit. * Keep leg elevated. * Continue pain management. * Continue Synthroid. * Continue Protonix. * Monitor electrolytes. TID: [id number] RECEIPT: [id number]
[2024-07-13] VITALS (9 sets, daily range): BP systolic 112–135; BP diastolic 52–67; PULSE 55–88; RESP 18–20; TEMP 98.1–98.6; O2SAT 95–100
[2024-07-13 04:21] LABS: BASOPHILS # (AUTO) 0.02 K/uL (0.00-0.20); BASOPHILS % (AUTO) 0.8 % (0.0-5.0); EOSINOPHILS # (AUTO) 0.15 K/uL (0.00-0.70); EOSINOPHILS % (AUTO) 6.3 % (0.0-8.0); HEMATOCRIT 24.2 % (36-48); LYMPHOCYTES # (AUTO) 0.4 K/uL (1.0-4.8); LYMPHOCYTES % (AUTO) 17.3 % (21.0-51.0); MEAN CORPUSCULAR HEMOGLOBIN 26.4 pg (27.0-33.0); MEAN CORPUSCULAR HGB CONC 30.6 g/dL (32.0-36.0); MEAN CORPUSCULAR VOLUME 86.4 fL (79-99); MONOCYTES # (AUTO) 0.3 K/uL (0.1-1.0); MONOCYTES % (AUTO) 11.8 % (3.0-13.0); NEUTROPHILS # (AUTO) 1.5 K/uL (1.8-7.7); NEUTROPHILS % (AUTO) 63.8 % (40.0-77.0); PLATELET COUNT (AUTO) 92 K/uL (130-400); RED CELL DISTRIBUTION WIDTH 16.1 % (11.0-15.5); WHITE BLOOD COUNT (AUTO) 2.4 K/uL (4.8-10.8)
[2024-07-13 04:39] LABS: ALBUMIN 2.4 g/dL (3.5-5.0); BILIRUBIN,TOTAL 1.6 mg/dL (0.2-1.0); CREATININE 0.8 mg/dL (0.5-1.0); MAGNESIUM 1.9 mg/dL (1.80-2.40); PHOSPHORUS 3.8 mg/dL (2.5-4.9)
[2024-07-13 04:52] LABS: EOSINOPHILS % (MANUAL) 3 % (1-6); LYMPHOCYTES % (MANUAL) 22 % (22-44); MAN.DIFF COMMENT-IMPRESSION MANUAL DIFFERENTIAL; MONOCYTES % (MANUAL) 8 % (2-9); PLATELET MORPHOLOGY COMMENT DECREASED; SEGMENTED NEUTROPHILS % 67 % (40-70); TOTAL CELLS COUNTED 100
[2024-07-13] MEDS: PoTASSium chloRIDE 20MEQ/100ML 100 ML IV SCH (04:57)
--- NOTE | 2024-07-13 09:53 | PN ---
[facility] PROGRESS NOTE Date of Service: Jul 13, 2024 Time of Service: 09:50 SUBJECTIVE: [ This is a 64-year-old female with past medical history of asthma, anemia, hypothyroidism and morbid obesity who presents to the ED after coming from PCP's clinic today for complaints of shortness of breaths, edema and possible fluid overload evaluation.Patient states she has been having shortness of breath because of her Asthma and anemia because she has been having menstrual bleed for 3 weeks every month since 4 years ago and it has slowed down 10 months ago that sometimes she missed the period for a month however was started on Levothyroxine by her primary and coincidentally she said after taking it she started having 3 weeks of bleeding again and a week off without bleeding so she stopped taking her Levothyroxine last April but she started having progressive shortness of breath and edema 3 weeks ago.Patient reports she was sick for the past 3 weeks with cough and fever and her legs started to get swollen and today she went to her PCP because swelling has gone up to her abdomen and she has not been able to have a good sleep because if she lies down she gets very short of breath so she had to stand up most of the time to catch her breath. Patient reports she is supposed to see an OBGYN doctor tomorrow. Seen and examined patient in the ED awake,alert and coherent,pale looking .Patient denies fever,chills,chest pain,palpitation,cough , nausea, bloody emesis, bloody stool and abdominal pain.Patient reports she voids little and her last bowel movement is today and it was normal. Latest vital signs temperature 97.9, heart rate 120, respiration 24, pressure 153/85, saturation 99% on room air. Labs: WBC 5, hemoglobin 6.2, hematocrit 20.8 platelet count 173. Glucose 129 the rest of the chemistry is unremarkable BNP 29 troponin 10. Urinalysis remarkable for large hematuria positive for RBC, WBC urobilinogen , protein and ketones. SARs COVID result is negative. Chest x-ray result is normal. Pelvic ultrasound result revealed no adnexal mass is seen. Fibroid uterus thickened endometrium. While in the ER patient is pending to be transfused with 1 unit PRBC per ER recommendation. As per ER MICROFABRICATION ENGINEER MANAGER's report he already consulted OBGYN Dr. Sabillon and agreed to evaluate the patient. We will admit patient for further medical management. Addendum : Post Transfusion primary nurse called and reported patient developed increased shortness of breath needing oxygen supplementation.Will request ABG ,Give Lasix 20mg IV x1 and Duoneb treatment and will transfer patient to PCCU and consult Pulmonology 07/04 patient was seen by nurse practitioner and physician during rounding in room 223 comfortably lying in bed. Patient is on room air. Patient pending evaluation by handle sewer and clearance for possible D and C. Patient was evaluated by Dr. Ridge ZEPEDA and would like to perform DandC on Sunday07/07/2024. Medical clearance needed. We will continue to monitor patient. A.m. labs 07/05 patient was seen by MICROFABRICATION ENGINEER MANAGER and physician during rounding in room 223. 2D echo still pending. Venous Doppler was ordered by handle sewer pending results. Patient was also cleared by handle sewer for D&C on Sunday with Dr. Sabillon. Ultrasound abdomen shows cirrhosis abdominal ascites small. We will continue to monitor patient in the meantime. Continue IV antibiotics Levaquin. A.m. labs 07/06 patient was seen by MICROFABRICATION ENGINEER MANAGER and physician during rounding. Patient was cleared by handle sewer for D&C to be performed on 07/07/2024. Patient is also cleared from the medical point to proceed with D and C. Patient is still pending 2D echo in the meantime. We will continue to monitor the patient a.m. labs 07/07 patient was seen by nurse practitioner and physician during rounding. Patient's hemoglobin today is 7.6. Patient was taken to OR for D and C with Dr. Sabillon. Potassium 3.2 RN we will replace as appropriate. We will continue to monitor patient in the meantime. A.m. labs 07/08 the patient has been seen and examined during my rounding, she looks edematous, BP 142/71, heart rate of 120, afebrile, saturating normal on room air. She remains alert oriented x3, denies nausea, no vomiting, no abdominal discomfort. She feels bloated, not passing gas. Admits swollen to both lower extremities. Noted to have erythema to both lower legs. 07/09 the patient has been seen and examined during my rounding earlier this morning, had three good bowel movements yesterday, she remains alert oriented x3, blood pressure and heart rate controlled. Denied chest pain, she feels less bloated, feels hungry, asking to advance her diet. Admits less swelling and erythema to both lower extremities. 07/10 the patient has been seen and examined during my rounding, no acute events overnight, she feels less edematous and looks less edematous today compared to yesterday. Received a one time dose of albumin IV, tolerated well, no acute reactions. Less edema and less erythema to both lower extremities. She is tolerating diet. 07/11 patient seen at bedside, no acute events overnight. She still has peripheral pitting edema, however she reports improvement since admission. She was initially resistant to the idea of EGD spent time explaining the pathophysiology of esophageal varices and spontaneous rupture resulting in GI bleed. Patient now open to EGD, GI has been contacted and patient will be made NPO after midnight. Also suggested to GI to do a more extensive workup to find the cause of her underlying liver failure as she has no history of alcohol use. She also reports a strong history of liver failure and her family which suggest either fatty liver disease that is familial in nature or an underlying genetic cause such as Jairon's disease or hemochromatosis. She has been afebrile, hemodynamically stable saturating well on room air. Hemoglobin improved from 7.5 up to 8.4, platelets improved from 104 up to 124, T bili elevated at 1.7, similar to yesterday, remainder of her labs are relatively unremarkable. 07/12 patient seen at bedside, no acute events overnight. She is status post EGD where esophageal varices with recent bleeding were noted and banded x2. Her hemoglobin is stable and slowly improving. She continues on IV antibiotics for lower extremity cellulitis. We will follow up with Infectious Disease regarding discharge recommendations for antibiotics. She still has peripheral pitting edema we will continue with diuretics, we will try to change to oral furosemide and spironolactone combination. Explained fluid restriction to patient. Patient to continue on high-protein diet with ensure supplements. Patient reports an extensive family history liver disease, she has several brothers and and so that all have advanced liver disease. One of her brothers was diagnosed with primary sclerosing cholangitis while the others are in various stages of liver failure. This suggests that her family has a heritable condition. 07/13 patient seen at bedside, no acute events overnight. Patient continues on IV antibiotics we will follow up with ID regarding recommendations for discharge. Her hemoglobin decreased from 8.4 down to 7.4, she denies any bloody bowel movements. All cell lines were decreased suggesting hemodilution, we will order a repeat hemoglobin today at 1:00 p.m.. Potassium mildly low at 3.0 we will replete according to protocol. Remainder of her labs are relatively unremarkable. REVIEW OF SYSTEMS 12 point ROS negative unless noted in HPI PHYSICAL EXAM GENERAL APPEARANCE: Awake, following commands, looks mildly less edematous. NEUROLOGICAL: Cranial nerves II-XII grossly intact. Motor is 5/5 in bilateral upper and lower extremities proximal to distal. No sensory deficits. HEENT: Face is symmetric. Pupils are equal and reactive. Extraocular movements are intact. NECK: Supple. No JVD. No thyromegaly. No submental, submandibular, pre- /postauricular, occipital or supraclavicular lymphadenopathy. CHEST: Normal chest expansion. No Telemetry. LUNGS: No bilateral wheezing CARDIOVASCULAR: Regular. S1 and S2 normal. No appreciable rubs, murmurs or gallops. ABDOMEN: Abdomen is distended and firmed There is no rebound, voluntary guarding, or rigidity. : Deferred. No Ma. EXTREMITIES: less erythema and swelling to both lower extremities. SKIN: No skin breakdown. Vital Signs (last 8hr) Date Time Temp Pulse Resp B/P (MAP) Pulse Ox O2 Delivery O2 Flow Rate FiO2 07/13/24 07:17 98.1 80 20 135/60 99 Room Air 07/13/24 04:06 98.1 55 20 121/67 98 Room Air LABS: Laboratory: Test 07/13/24 04:05 07/11/24 18:55 07/11/24 14:05 Range/Units White Blood Count 2.4 L 4.8-10.8 K/uL Red Blood Count 2.80 L 4.00-5.50 MIL/uL Hemoglobin 7.4 L 12.0-16.0 g/dL Hematocrit 24.2 L 36-48 % Mean Corpuscular Volume 86.4 79-99 fL Mean Corpuscular Hemoglobin 26.4 L 27.0-33.0 pg Mean Corpuscular Hemoglobin Concent 30.6 L 32.0-36.0 g/dL Red Cell Distribution Width 16.1 H 11.0-15.5 % Platelet Count 92 #L 130-400 K/uL Mean Platelet Volume 11.1 H 7.5-10.5 fL Immature Granulocyte % (Auto) 0.0 0-1 % Neutrophils (%) (Auto) 63.8 40.0-77.0 % Lymphocytes (%) (Auto) 17.3 L 21.0-51.0 % Monocytes (%) (Auto) 11.8 3.0-13.0 % Eosinophils (%) (Auto) 6.3 0.0-8.0 % Basophils (%) (Auto) 0.8 0.0-5.0 % Neutrophils # (Auto) 1.5 L 1.8-7.7 K/uL Lymphocytes # (Auto) 0.4 L 1.0-4.8 K/uL Monocytes # (Auto) 0.3 0.1-1.0 K/uL Eosinophils # (Auto) 0.15 0.00-0.70 K/uL Basophils # (Auto) 0.02 0.00-0.20 K/uL Absolute Immature Granulocyte (auto 0.00 0-1 K/uL Segmented Neutrophils % 67 40-70 % Lymphocytes % (Manual) 22 22-44 % Monocytes % (Manual) 8 2-9 % Eosinophils % (Manual) 3 1-6 % Nucleated Red Blood Cells 0.0 0.0-0.19 % Differential Comment MANUAL DIFFERENTIAL White Cell Morphology Comment Platelet Morphology Comment DECREASED Red Blood Cell Morphology HYPOCHROM CELLS 1+ Sodium Level 145 136-145 mmol/L Potassium Level 3.0 *L 3.5-5.1 mmol/L Chloride Level 105 101-111 mmol/L Carbon Dioxide Level 36 H 21-32 mmol/L Blood Urea Nitrogen 16 7-18 mg/dL Creatinine 0.8 0.5-1.0 mg/dL Glomerular Filtration Rate Calc 83 >90 mL/min Random Glucose 85 70-105 mg/dL Total Calcium 8.7 8.5-10.1 mg/dL Phosphorus Level 3.8 2.5-4.9 mg/dL Magnesium Level 1.90 1.80-2.40 mg/dL Total Bilirubin 1.6 H 0.2-1.0 mg/dL Aspartate Amino Transf (AST/SGOT) 67 H 10-37 U/L Alanine Aminotransferase (ALT/SGPT) 56 12-78 U/L Alkaline Phosphatase 128 50-136 U/L Total Protein 5.0 L 6.0-8.3 g/dL Albumin 2.4 L 3.5-5.0 g/dL Vancomycin Level Trough 17.4 # 10.0-20.0 UG/ML Ferritin 22 15-150 ng/mL Anti-Nuclear Antibody Screen Negative Negative Anti-Nuclear Antibody Interpret BARBARA-1 Antibody SS-A/Ro Antibody SS-B/La Antibody Sm (Garcia) IgG Antibody, Quant CHILD CARE AIDE IgG Antibody, Quantitative Scl-70 (Scleroderma) Antibody Anti-Double Strand DNA Antibody Anti-Centromere IgG Antibody Hepatitis A IgM Antibody Non-Reactive Nonreactive Hepatitis B Surface Antigen. Non-Reactive Nonreactive Hepatitis B Core IgM Antibody Non-Reactive Negative Hepatitis C Antibody Non-Reactive Nonreactive Current Medications Medications (Trade) Dose Ordered Sig/Avinash Route PRN Reason Start Time Stop Time Status Last Admin Dose Admin Acetaminophen (TYLenol 325MG TAB) 650 mg Q4H PRN PO MILD PAIN (1-3) 07/03/24 19:30 08/02/24 19:29 Acetaminophen (TYLenol 325MG TAB) 650 mg Q6H PRN PO TEMPERATURE GREATER THAN 101.5 07/03/24 19:30 08/02/24 19:29 Albumin Human 50 ml @ 0 mls/hr AD IV 07/09/24 10:00 07/10/24 17:40 DC 07/09/24 11:50 100 MLS/HR Albumin Human 50 ml @ 0 mls/hr Q8H IV 07/11/24 00:00 07/11/24 16:20 DC 07/11/24 08:37 25 MLS/HR Albumin Human 50 ml @ 0 mls/hr Q8H5 IV 07/10/24 13:00 07/10/24 17:36 DC 07/10/24 16:37 25 MLS/HR Albuterol (DUOneb) 1 UDVIAL [id number] IH 07/04/24 00:00 07/10/24 11:57 DC 07/10/24 06:33 1 UDVIAL Albuterol (DUOneb) 1 UDVIAL [id number] PRN IH WHEEZING 07/10/24 12:00 08/03/24 00:00 07/10/24 23:20 1 UDVIAL Ceftriaxone Sodium (ROCEphine 1G INJ) 1 gm Q24H IVPB 07/07/24 17:00 11/19/24 16:28 DC 07/08/24 16:09 1 GM Famotidine (Pepcid 20mg Vial) 20 mg BID IV 07/03/24 21:00 08/02/24 20:59 07/13/24 09:33 20 MG Furosemide (LASix 40MG TAB) 40 mg BID PO 07/07/24 21:00 07/08/24 08:21 DC 07/07/24 20:41 40 MG Furosemide (LASix 40MG TAB) 40 mg BID@09,17 PO 07/11/24 17:00 08/10/24 16:59 07/13/24 09:34 40 MG Furosemide (LASix 40MG VIAL) 40 mg Q8H IV 07/05/24 16:00 07/07/24 12:30 DC 07/07/24 08:16 40 MG Furosemide (LASix 40MG VIAL) 40 mg Q8H IV 07/08/24 08:30 07/11/24 14:15 DC 07/11/24 12:06 40 MG Hydralazine HCl (APRESOLine 20MG INJ) 10 mg Q6H PRN IV ADMINISTER FOR SBP > 160 07/04/24 02:30 08/03/24 02:29 07/04/24 18:43 10 MG Levofloxacin/ Dextrose 100 ml @ 100 mls/hr Q24H IV 07/03/24 19:30 07/12/24 11:09 DC 07/11/24 20:47 100 MLS/HR Levothyroxine Sodium (SYNTHroid 25MCG TAB) 25 mcg SYN PO 07/05/24 06:30 08/04/24 06:29 07/13/24 06:07 25 MCG Magnesium Sulfate 50 ml @ 0 mls/hr PROTOCOL PRN IV OTHER [SEE ORDER COMMENTS] 07/03/24 19:30 08/02/24 19:29 07/08/24 20:02 25 MLS/HR Metoprolol Tartrate (loprESSOR) 5 mg Q4H PRN IV INCREASED HEART RATE 07/08/24 11:00 08/07/24 10:59 Metoprolol Tartrate (loprESSOR) 25 mg BID PO 07/08/24 11:00 08/07/24 10:59 07/13/24 09:33 25 MG Ondansetron HCl (zoFRAN 4MG INJ) 4 mg Q6H PRN IV NAUSEA/VOMITING 07/03/24 19:30 08/02/24 19:29 Pharmacy Profile Note (Lace Assessment) 1 each AD MISC 07/08/24 16:30 07/10/24 17:37 DC Potassium Chloride 100 ml @ 50 mls/hr PROTOCOL IV 07/07/24 10:00 08/06/24 09:59 07/13/24 04:57 50 MLS/HR Potassium Chloride 100 ml @ 100 mls/hr AD PRN IV POTASSIUM PROTOCOL 07/03/24 19:30 07/10/24 17:37 DC Potassium Chloride (K-Dur/Klor-Con 20meq) 20 meq AD PRN PO POTASSIUM PROTOCOL 07/03/24 19:30 08/02/24 19:29 07/13/24 09:32 20 MEQ Potassium Chloride (KCl 10% Elixir 20meq/15ml) 20 meq AD PRN PO POTASSIUM PROTOCOL 07/03/24 19:30 08/02/24 19:29 Spironolactone (Aldactone 25mg) 25 mg DAILY PO 07/12/24 14:30 08/11/24 14:29 07/13/24 09:33 25 MG Vancomycin HCl 250 ml @ 125 mls/hr Q12H IV 07/08/24 18:00 07/10/24 06:03 DC 07/09/24 18:16 125 MLS/HR Vancomycin HCl 250 ml @ 125 mls/hr Q12H IV 07/10/24 06:30 07/10/24 06:22 DC Vancomycin HCl 250 ml @ 125 mls/hr Q12H IV 07/10/24 08:00 07/20/24 07:59 07/13/24 09:34 125 MLS/HR Vancomycin HCl (Vancomycin Protocol) 1 each AD IV 07/08/24 16:30 07/22/24 16:29 Vitamin B Complex/ Vit C/Folic Acid (Nephrovite Tablet) 1 cap DAILY PO 07/09/24 13:00 08/08/24 12:59 07/13/24 09:34 1 CAP DIAGNOSTICS / RADIOLOGY: [ ] ASSESSMENT: Severe acute blood loss anemia requiring blood transfusion secondary to postmenopausal bleed s/p D&C (07/07/24) POA Multifactorial anemia POA Anasarca Liver disease, MELD 12, POA Esophageal varices s/p banding x 2 (07/12/24) Extensive family history of liver disease Acute hypoxic Respiratory Failure, resolved POA Postmenopausal bleed, with the endometrial polyps, status post D&C with hysteroscopy and excision of endometrial polyp 07/07/2024 Fibroid uterus and thickened endometrium per pelvic ultrasound POA Uncontrolled hypertension, resolved POA Morbid obesity POA Hypothyroidism POA acute complicated cystitis POA Pancytopenia Cellulitis to both lower extremities PLAN: The patient remains admitted to the PCU Cardiac java [email or web address] technical lead EGD pending, will follow up Continue metoprolol 25 mg p.o. b.i.d. Continue metoprolol 5 mg IV as needed for heart rate greater than 100 Continue the patient on furosemide 40 mg PO BID Start spironolactone 25mg q24h Start ensure supplements Strict intake and output Daily weights Continue with the lactulose as needed Advanced diet to soft diet, NPO after midnight Continue the patient on broad-spectrum IV antibiotics Infectious disease input noted and appreciated Doppler of the lower extremities negative for DVT Follow CBC transfuse as needed Replace electrolytes IV per protocol GI and DVT prophylaxis Disposition: Pending further diuresis, ID recommendations for discharge JUMA FULLER MD Jul 13, 2024 09:53
[2024-07-13 10:11] LABS: HEMATOCRIT 28.3 % (36-48)
--- NOTE | 2024-07-13 23:04 | NUR ---
Bed alarm Educated on fall risk safety and need for chair alarm. Pt verbalizes understanding of fall risk safety but states previously signed a refusal as she does not like any alarms. Was unable to locate the refusal in chart. New refusal signed.
[2024-07-14] VITALS (7 sets, daily range): BP systolic 122–131; BP diastolic 62–64; PULSE 72–89; RESP 18–22; TEMP 98.2–98.7; O2SAT 96
[2024-07-14 04:27] LABS: BASOPHILS # (AUTO) 0.02 K/uL (0.00-0.20); BASOPHILS % (AUTO) 0.6 % (0.0-5.0); EOSINOPHILS # (AUTO) 0.16 K/uL (0.00-0.70); EOSINOPHILS % (AUTO) 4.7 % (0.0-8.0); HEMATOCRIT 25.7 % (36-48); IMMATURE GRANULOCYTE ABSOLUTE 0.01 K/uL (0-1); LYMPHOCYTES # (AUTO) 0.5 K/uL (1.0-4.8); LYMPHOCYTES % (AUTO) 13.3 % (21.0-51.0); MEAN CORPUSCULAR HEMOGLOBIN 26.4 pg (27.0-33.0); MONOCYTES # (AUTO) 0.5 K/uL (0.1-1.0); MONOCYTES % (AUTO) 13.9 % (3.0-13.0); NEUTROPHILS # (AUTO) 2.3 K/uL (1.8-7.7); NEUTROPHILS % (AUTO) 67.2 % (40.0-77.0); PLATELET COUNT (AUTO) 80 K/uL (130-400); RED BLOOD CELL COUNT(AUTO) 2.92 MIL/uL (4.00-5.50); RED CELL DISTRIBUTION WIDTH 16.2 % (11.0-15.5); WHITE BLOOD COUNT (AUTO) 3.4 K/uL (4.8-10.8)
--- NOTE | 2024-07-14 04:29 | PN ---
DATE OF SERVICE: 07/13/2024 INFECTIOUS DISEASE FOLLOWUP NOTE SUBJECTIVE: The patient is seen and examined at bedside. No fever, no chills. The patient is still complaining of blurred vision and leg swelling. No nausea, vomiting. No bleeding tendencies. No rashes or itchiness. Tolerating antibiotic. PHYSICAL EXAMINATION: VITAL SIGNS: Temperature 98.6. EYES: No icterus. Pupils are equal and reactive. HENT: No oral thrush seen. Moist oral mucosa. NECK: Supple. No JVD or thyromegaly. LUNGS: Good air entry. No rales. No rhonchi. CARDIOVASCULAR: S1, S2, regular. No murmur heard. ABDOMEN: . CENTRAL NERVOUS SYSTEM: Awake, alert, oriented x 3. No focal deficits. SKIN: No rashes. No itchiness. LYMPHATIC: No peripheral lymphadenopathy. EXTREMITIES: Pitting edema of both lower extremities with cellulitis. ASSESSMENT: A 64-year-old female with multiple problems which include: * Left lower extremity cellulitis. * Newly diagnosed liver cirrhosis. * Morbid obesity. * Hypothyroidism. * Anemia, status post transfusion. * Esophageal varices, status post banding. PLAN: * Continue vancomycin. * Continue levofloxacin. * Continue dialysis. * Continue pain management. * Continue Synthroid. * Monitor electrolytes. * Monitor hemoglobin and hematocrit. * Continue Protonix ____. TID: [id number] RECEIPT: [id number]
[2024-07-14 04:45] LABS: ALBUMIN 2.4 g/dL (3.5-5.0); BILIRUBIN,TOTAL 1.1 mg/dL (0.2-1.0); CREATININE 0.8 mg/dL (0.5-1.0); POTASSIUM 3.9 mmol/L (3.5-5.1); TOTAL PROTEIN, SERUM 5.1 g/dL (6.0-8.3)
--- NOTE | 2024-07-14 06:53 | NUR ---
PT HAS QUESTIONS Pt requesting to see a OB-ENTRY LEVEL MANAGEMENT as she has follow-up questions regarding her D&C. Pt states she has been having some light blood when she coughs and pees but says it is nothing like before. Will notify oncoming nurse.
--- NOTE | 2024-07-14 08:36 | NUR ---
DR. JAMESON PAGED DR. JAMESON WAS PAGED DUE TO PATIENT HAVING QUESTIONS REGARDING SCANT VAGINAL BLEEDING. DR. JAMESON STATED THAT WILL BE AN EXPECTED SYMPTOM UNTIL SHE CAN GET A HYSTERECTOMY WHICH SHE WAS TOO UNSTABLE TO GET DONE IN THIS ADMISSION. PATIENT WAS GIVEN THIS INFORMATION AND VOICED UNDERSTANDING.
[2024-07-14] MEDS: VANCOMYCIN 1G/250ML KIT 250 ML IV SCH (08:44)
--- NOTE | 2024-07-14 10:26 | PN ---
[facility] PROGRESS NOTE Date of Service: Jul 14, 2024 Time of Service: 10:24 SUBJECTIVE: [ This is a 64-year-old female with past medical history of asthma, anemia, hypothyroidism and morbid obesity who presents to the ED after coming from PCP's clinic today for complaints of shortness of breaths, edema and possible fluid overload evaluation.Patient states she has been having shortness of breath because of her Asthma and anemia because she has been having menstrual bleed for 3 weeks every month since 4 years ago and it has slowed down 10 months ago that sometimes she missed the period for a month however was started on Levothyroxine by her primary and coincidentally she said after taking it she started having 3 weeks of bleeding again and a week off without bleeding so she stopped taking her Levothyroxine last April but she started having progressive shortness of breath and edema 3 weeks ago.Patient reports she was sick for the past 3 weeks with cough and fever and her legs started to get swollen and today she went to her PCP because swelling has gone up to her abdomen and she has not been able to have a good sleep because if she lies down she gets very short of breath so she had to stand up most of the time to catch her breath. Patient reports she is supposed to see an OBGYN doctor tomorrow. Seen and examined patient in the ED awake,alert and coherent,pale looking .Patient denies fever,chills,chest pain,palpitation,cough , nausea, bloody emesis, bloody stool and abdominal pain.Patient reports she voids little and her last bowel movement is today and it was normal. Latest vital signs temperature 97.9, heart rate 120, respiration 24, pressure 153/85, saturation 99% on room air. Labs: WBC 5, hemoglobin 6.2, hematocrit 20.8 platelet count 173. Glucose 129 the rest of the chemistry is unremarkable BNP 29 troponin 10. Urinalysis remarkable for large hematuria positive for RBC, WBC urobilinogen , protein and ketones. SARs COVID result is negative. Chest x-ray result is normal. Pelvic ultrasound result revealed no adnexal mass is seen. Fibroid uterus thickened endometrium. While in the ER patient is pending to be transfused with 1 unit PRBC per ER recommendation. As per ER AUTO TECHNICIAN's report he already consulted OBGYN Dr. Sabillon and agreed to evaluate the patient. We will admit patient for further medical management. Addendum : Post Transfusion primary nurse called and reported patient developed increased shortness of breath needing oxygen supplementation.Will request ABG ,Give Lasix 20mg IV x1 and Duoneb treatment and will transfer patient to PCCU and consult Pulmonology 07/04 patient was seen by nurse practitioner and physician during rounding in room 223 comfortably lying in bed. Patient is on room air. Patient pending evaluation by nickel plater and clearance for possible D and C. Patient was evaluated by Dr. Ridge ZEPEDA and would like to perform DandC on Sunday07/07/2024. Medical clearance needed. We will continue to monitor patient. A.m. labs 07/05 patient was seen by AUTO TECHNICIAN and physician during rounding in room 223. 2D echo still pending. Venous Doppler was ordered by nickel plater pending results. Patient was also cleared by nickel plater for D&C on Sunday with Dr. Sabillon. Ultrasound abdomen shows cirrhosis abdominal ascites small. We will continue to monitor patient in the meantime. Continue IV antibiotics Levaquin. A.m. labs 07/06 patient was seen by AUTO TECHNICIAN and physician during rounding. Patient was cleared by nickel plater for D&C to be performed on 07/07/2024. Patient is also cleared from the medical point to proceed with D and C. Patient is still pending 2D echo in the meantime. We will continue to monitor the patient a.m. labs 07/07 patient was seen by nurse practitioner and physician during rounding. Patient's hemoglobin today is 7.6. Patient was taken to OR for D and C with Dr. Sabillon. Potassium 3.2 RN we will replace as appropriate. We will continue to monitor patient in the meantime. A.m. labs 07/08 the patient has been seen and examined during my rounding, she looks edematous, BP 142/71, heart rate of 120, afebrile, saturating normal on room air. She remains alert oriented x3, denies nausea, no vomiting, no abdominal discomfort. She feels bloated, not passing gas. Admits swollen to both lower extremities. Noted to have erythema to both lower legs. 07/09 the patient has been seen and examined during my rounding earlier this morning, had three good bowel movements yesterday, she remains alert oriented x3, blood pressure and heart rate controlled. Denied chest pain, she feels less bloated, feels hungry, asking to advance her diet. Admits less swelling and erythema to both lower extremities. 07/10 the patient has been seen and examined during my rounding, no acute events overnight, she feels less edematous and looks less edematous today compared to yesterday. Received a one time dose of albumin IV, tolerated well, no acute reactions. Less edema and less erythema to both lower extremities. She is tolerating diet. 07/11 patient seen at bedside, no acute events overnight. She still has peripheral pitting edema, however she reports improvement since admission. She was initially resistant to the idea of EGD spent time explaining the pathophysiology of esophageal varices and spontaneous rupture resulting in GI bleed. Patient now open to EGD, GI has been contacted and patient will be made NPO after midnight. Also suggested to GI to do a more extensive workup to find the cause of her underlying liver failure as she has no history of alcohol use. She also reports a strong history of liver failure and her family which suggest either fatty liver disease that is familial in nature or an underlying genetic cause such as Jairon's disease or hemochromatosis. She has been afebrile, hemodynamically stable saturating well on room air. Hemoglobin improved from 7.5 up to 8.4, platelets improved from 104 up to 124, T bili elevated at 1.7, similar to yesterday, remainder of her labs are relatively unremarkable. 07/12 patient seen at bedside, no acute events overnight. She is status post EGD where esophageal varices with recent bleeding were noted and banded x2. Her hemoglobin is stable and slowly improving. She continues on IV antibiotics for lower extremity cellulitis. We will follow up with Infectious Disease regarding discharge recommendations for antibiotics. She still has peripheral pitting edema we will continue with diuretics, we will try to change to oral furosemide and spironolactone combination. Explained fluid restriction to patient. Patient to continue on high-protein diet with ensure supplements. Patient reports an extensive family history liver disease, she has several brothers and and so that all have advanced liver disease. One of her brothers was diagnosed with primary sclerosing cholangitis while the others are in various stages of liver failure. This suggests that her family has a heritable condition. 07/13 patient seen at bedside, no acute events overnight. Patient continues on IV antibiotics we will follow up with ID regarding recommendations for discharge. Her hemoglobin decreased from 8.4 down to 7.4, she denies any bloody bowel movements. All cell lines were decreased suggesting hemodilution, we will order a repeat hemoglobin today at 1:00 p.m.. Potassium mildly low at 3.0 we will replete according to protocol. Remainder of her labs are relatively unremarkable. 07/14 patient seen at bedside, no acute events overnight. She continues on IV antibiotics, we will follow up with ID regarding discharge antibiotics. Discussed case with OBGYN who states that she will have spotting until she gets a hysterectomy, patient has been updated and understands. Hemoglobin improved from 7.4 up to 7.7, potassium improved from 3.0 up to 3.9, remainder of her labs are relatively unremarkable. Peripheral pitting edema slowly improving, we will continue with furosemide and spironolactone. Patient will likely always have some degree of peripheral pitting edema due to her liver disease and decreased systemic protein. REVIEW OF SYSTEMS 12 point ROS negative unless noted in HPI PHYSICAL EXAM GENERAL APPEARANCE: Awake, following commands, looks mildly less edematous. NEUROLOGICAL: Cranial nerves II-XII grossly intact. Motor is 5/5 in bilateral upper and lower extremities proximal to distal. No sensory deficits. HEENT: Face is symmetric. Pupils are equal and reactive. Extraocular movements are intact. NECK: Supple. No JVD. No thyromegaly. No submental, submandibular, pre- /postauricular, occipital or supraclavicular lymphadenopathy. CHEST: Normal chest expansion. No Telemetry. LUNGS: No bilateral wheezing CARDIOVASCULAR: Regular. S1 and S2 normal. No appreciable rubs, murmurs or gallops. ABDOMEN: Abdomen is distended and firmed There is no rebound, voluntary guarding, or rigidity. : Deferred. No Ma. EXTREMITIES: less erythema and swelling to both lower extremities. SKIN: No skin breakdown. Vital Signs (last 8hr) Date Time Temp Pulse Resp B/P (MAP) Pulse Ox O2 Delivery O2 Flow Rate FiO2 07/14/24 07:55 98.8 78 18 131/64 96 Room Air 07/14/24 07:33 89 20 N/A Room Air 21 07/14/24 04:34 98.6 79 18 122/64 97 Room Air LABS: Laboratory: Test 07/14/24 07:36 07/14/24 04:13 07/13/24 04:05 Range/Units Vancomycin Level Trough 13.4 # 10.0-20.0 UG/ML White Blood Count 3.4 L 4.8-10.8 K/uL Red Blood Count 2.92 L 4.00-5.50 MIL/uL Hemoglobin 7.7 L 12.0-16.0 g/dL Hematocrit 25.7 L 36-48 % Mean Corpuscular Volume 88.0 79-99 fL Mean Corpuscular Hemoglobin 26.4 L 27.0-33.0 pg Mean Corpuscular Hemoglobin Concent 30.0 L 32.0-36.0 g/dL Red Cell Distribution Width 16.2 H 11.0-15.5 % Platelet Count 80 L 130-400 K/uL Mean Platelet Volume 10.3 7.5-10.5 fL Immature Granulocyte % (Auto) 0.3 0-1 % Neutrophils (%) (Auto) 67.2 40.0-77.0 % Lymphocytes (%) (Auto) 13.3 L 21.0-51.0 % Monocytes (%) (Auto) 13.9 H 3.0-13.0 % Eosinophils (%) (Auto) 4.7 0.0-8.0 % Basophils (%) (Auto) 0.6 0.0-5.0 % Neutrophils # (Auto) 2.3 1.8-7.7 K/uL Lymphocytes # (Auto) 0.5 L 1.0-4.8 K/uL Monocytes # (Auto) 0.5 0.1-1.0 K/uL Eosinophils # (Auto) 0.16 0.00-0.70 K/uL Basophils # (Auto) 0.02 0.00-0.20 K/uL Absolute Immature Granulocyte (auto 0.01 0-1 K/uL Nucleated Red Blood Cells 0.0 0.0-0.19 % Sodium Level 144 136-145 mmol/L Potassium Level 3.9 3.5-5.1 mmol/L Chloride Level 105 101-111 mmol/L Carbon Dioxide Level 36 H 21-32 mmol/L Blood Urea Nitrogen 14 7-18 mg/dL Creatinine 0.8 0.5-1.0 mg/dL Glomerular Filtration Rate Calc 83 >90 mL/min Random Glucose 97 70-105 mg/dL Total Calcium 8.4 L 8.5-10.1 mg/dL Total Bilirubin 1.1 H 0.2-1.0 mg/dL Aspartate Amino Transf (AST/SGOT) 73 H 10-37 U/L Alanine Aminotransferase (ALT/SGPT) 51 12-78 U/L Alkaline Phosphatase 126 50-136 U/L Total Protein 5.1 L 6.0-8.3 g/dL Albumin 2.4 L 3.5-5.0 g/dL Segmented Neutrophils % 67 40-70 % Lymphocytes % (Manual) 22 22-44 % Monocytes % (Manual) 8 2-9 % Eosinophils % (Manual) 3 1-6 % Differential Comment MANUAL DIFFERENTIAL White Cell Morphology Comment Platelet Morphology Comment DECREASED Red Blood Cell Morphology HYPOCHROM CELLS 1+ Phosphorus Level 3.8 2.5-4.9 mg/dL Magnesium Level 1.90 1.80-2.40 mg/dL Current Medications Medications (Trade) Dose Ordered Sig/Avinash Route PRN Reason Start Time Stop Time Status Last Admin Dose Admin Acetaminophen (TYLenol 325MG TAB) 650 mg Q4H PRN PO MILD PAIN (1-3) 07/03/24 19:30 08/02/24 19:29 Acetaminophen (TYLenol 325MG TAB) 650 mg Q6H PRN PO TEMPERATURE GREATER THAN 101.5 07/03/24 19:30 08/02/24 19:29 Albumin Human 50 ml @ 0 mls/hr AD IV 07/09/24 10:00 07/10/24 17:40 DC 07/09/24 11:50 100 MLS/HR Albumin Human 50 ml @ 0 mls/hr Q8H IV 07/11/24 00:00 07/11/24 16:20 DC 07/11/24 08:37 25 MLS/HR Albumin Human 50 ml @ 0 mls/hr Q8H5 IV 07/10/24 13:00 07/10/24 17:36 DC 07/10/24 16:37 25 MLS/HR Albuterol (DUOneb) 1 UDVIAL [id number] 07/04/24 00:00 07/10/24 11:57 DC 07/10/24 06:33 1 UDVIAL Albuterol (DUOneb) 1 UDVIAL [id number] PRN IH [facility] 07/10/24 12:00 08/03/24 00:00 07/14/24 02:07 1 UDVIAL Ceftriaxone Sodium (ROCEphine 1G INJ) 1 gm Q24H IVPB 07/07/24 17:00 07/08/24 16:28 DC 07/08/24 16:09 1 GM Famotidine (Pepcid 20mg Vial) 20 mg BID IV 07/03/24 21:00 08/02/24 20:59 07/14/24 08:43 20 MG Furosemide (LASix 40MG TAB) 40 mg BID PO 07/07/24 21:00 07/08/24 08:21 DC 07/07/24 20:41 40 MG Furosemide (LASix 40MG TAB) 40 mg BID@09,17 PO 07/11/24 17:00 08/10/24 16:59 07/14/24 08:43 40 MG Furosemide (LASix 40MG VIAL) 40 mg Q8H IV 07/05/24 16:00 07/07/24 12:30 DC 07/07/24 08:16 40 MG Furosemide (LASix 40MG VIAL) 40 mg Q8H IV 07/08/24 08:30 07/11/24 14:15 DC 07/11/24 12:06 40 MG Hydralazine HCl (APRESOLine 20MG INJ) 10 mg Q6H PRN IV ADMINISTER FOR SBP > 160 07/04/24 02:30 08/03/24 02:29 07/04/24 18:43 10 MG Levofloxacin/ Dextrose 100 ml @ 100 mls/hr Q24H IV 07/03/24 19:30 07/12/24 11:09 DC 07/11/24 20:47 100 MLS/HR Levothyroxine Sodium (SYNTHroid 25MCG TAB) 25 mcg SYN PO 07/05/24 06:30 08/04/24 06:29 07/14/24 06:17 25 MCG Magnesium Sulfate 50 ml @ 0 mls/hr PROTOCOL PRN IV OTHER [SEE ORDER COMMENTS] 07/03/24 19:30 08/02/24 19:29 07/13/24 18:36 25 MLS/HR Metoprolol Tartrate (loprESSOR) 5 mg Q4H PRN IV INCREASED HEART RATE 07/08/24 11:00 08/07/24 10:59 Metoprolol Tartrate (loprESSOR) 25 mg BID PO 07/08/24 11:00 08/07/24 10:59 07/14/24 08:43 25 MG Ondansetron HCl (zoFRAN 4MG INJ) 4 mg Q6H PRN IV NAUSEA/VOMITING 07/03/24 19:30 08/02/24 19:29 Pharmacy Profile Note (Lace Assessment) 1 each AD MISC 07/08/24 16:30 07/10/24 17:37 DC Potassium Chloride 100 ml @ 50 mls/hr PROTOCOL IV 07/07/24 10:00 08/06/24 09:59 07/13/24 04:57 50 MLS/HR Potassium Chloride 100 ml @ 100 mls/hr AD PRN IV POTASSIUM PROTOCOL 07/03/24 19:30 07/10/24 17:37 DC Potassium Chloride (K-Dur/Klor-Con 20meq) 20 meq AD PRN PO POTASSIUM PROTOCOL 07/03/24 19:30 08/02/24 19:29 07/13/24 18:35 20 MEQ Potassium Chloride (KCl 10% Elixir 20meq/15ml) 20 meq AD PRN PO POTASSIUM PROTOCOL 07/03/24 19:30 08/02/24 19:29 Spironolactone (Aldactone 25mg) 25 mg DAILY PO 07/12/24 14:30 08/11/24 14:29 07/14/24 08:42 25 MG Vancomycin HCl 250 ml @ 125 mls/hr Q12H IV 07/08/24 18:00 07/10/24 06:03 DC 07/09/24 18:16 125 MLS/HR Vancomycin HCl 250 ml @ 125 mls/hr Q12H IV 07/10/24 06:30 07/10/24 06:22 DC Vancomycin HCl 250 ml @ 125 mls/hr Q12H IV 07/10/24 08:00 07/13/24 19:40 DC 07/13/24 09:34 125 MLS/HR Vancomycin HCl 250 ml @ 125 mls/hr Q12H IV 07/14/24 08:00 07/24/24 07:59 07/14/24 08:44 125 MLS/HR Vancomycin HCl (Vancomycin Protocol) 1 each AD IV 07/08/24 16:30 07/22/24 16:29 Vitamin B Complex/ Vit C/Folic Acid (Nephrovite Tablet) 1 cap DAILY PO 07/09/24 13:00 08/08/24 12:59 07/14/24 08:43 1 CAP DIAGNOSTICS / RADIOLOGY: [ ] ASSESSMENT: Severe acute blood loss anemia requiring blood transfusion secondary to postmenopausal bleed s/p D&C (07/07/24) POA Multifactorial anemia POA Anasarca Liver disease, MELD 12, POA Esophageal varices s/p banding x 2 (07/12/24) Extensive family history of liver disease Acute hypoxic Respiratory Failure, resolved POA Postmenopausal bleed, with the endometrial polyps, status post D&C with hysteroscopy and excision of endometrial polyp 07/07/2024 Fibroid uterus and thickened endometrium per pelvic ultrasound POA Uncontrolled hypertension, resolved POA Morbid obesity POA Hypothyroidism POA acute complicated cystitis POA Pancytopenia Cellulitis to both lower extremities PLAN: The patient remains admitted to the PCU Cardiac nuclear monitoring technician EGD pending, will follow up Continue metoprolol 25 mg p.o. b.i.d. Continue metoprolol 5 mg IV as needed for heart rate greater than 100 Continue the patient on furosemide 40 mg PO BID Start spironolactone 25mg q24h Start ensure supplements Strict intake and output Daily weights Continue with the lactulose as needed Advanced diet to soft diet, NPO after midnight Continue the patient on broad-spectrum IV antibiotics Infectious disease input noted and appreciated Doppler of the lower extremities negative for DVT Follow CBC transfuse as needed Replace electrolytes IV per protocol GI and DVT prophylaxis Disposition: Pending further diuresis, ID recommendations for discharge JUMA FULLER MD Jul 14, 2024 10:26
--- NOTE | 2024-07-14 12:43 | PN ---
A 64-year-old female who presented to the ER by instruction of her PCP due to shortness of breath, fatigue and vaginal bleeding. I am consulted due to the anemia and the vaginal bleeding. The patient states that she has never gone through menopause and that she has been having periods regularly until about 3 months ago where they began to be constant and heavy with clots. Patient denied taking any anticoagulation or antiplatelet medication. This patient was evaluated by [employer] who is D&C with hysteroscopy was done status post polypectomy and endometrial biopsy. Patient actually doing very well with no obvious bleeding at this time. Patient received 1 unit of packed red blood cell. Hemoglobin level is stable at 7.7 g/deciliter. Platelet count 104K. There is no obvious bleeding PHYSICAL EXAMINATION: VITAL SIGNS: Stable, afebrile. GENERAL APPEARANCE: Alert, active, oriented in three spheres, no acute distress. ABDOMEN: Soft and nontender. Pelvic exam deferred. EXTREMITIES: 3+ pedal edema. NEUROLOGIC: Grossly intact. A pelvic ultrasound was performed, revealing a 3.5 cm fibroid on the uterus. The endometrial stripe was slightly thickened at 1 cm. No adnexal masses. ASSESSMENT: 1. Postmenopausal bleeding status post D&C and hysteroscopy was polypectomy and biopsy. 2. Severe anemia status post blood transfusion. Hemoglobin level stable at 7.7 g/dL. This patient was found to have iron deficiency anemia with the patient was started on IV iron 3. Thrombocytopenia. Platelet count 80K 4. Lymphopenia. White blood count 3.4K 5. Cirrhosis of the liver 6. Hypothyroidism 7. Morbid obesity Plan 1. Peripheral blood smear showed red blood cells to be microcytic hypochromic red blood cell consistent with iron deficiency anemia. There was no fragment cell or schistocyte. There is no teardrop cell. There is no rouleaux phenomena. There is no pelger-Huet cell. White blood cell with no blasts.Platelet count decreased in number. There is large platelet consistent with peripheral consumption of the platelet most likely cirrhosis of the liver and splenomegaly 2. There was hypersegmented neutrophils. This patient to be started on folic acid 1 mg p.o. daily and vitamin B12 1000 mcg p.o. daily. 3. This patient will be started on IV iron daily for 3 days this patient will need oral iron supplement every other day. Patient will need iron treatment for 6 months 4. Will follow-up with the result of the pathology after D&C. 5. If this patient is stable then patient could be discharged follow-up with us in the next 2 weeks LAB RESULTS 07/14/24 07:36: Vancomycin Level Trough 13.4# 07/14/24 04:13: White Blood Count 3.4L, Red Blood Count 2.92L, Hemoglobin 7.7L, Hematocrit 25.7L, Mean Corpuscular Volume 88.0, Mean Corpuscular Hemoglobin 26.4L, Mean Corpuscular Hemoglobin Concent 30.0L, Red Cell Distribution Width 16.2H, Platelet Count 80L, Mean Platelet Volume 10.3, Immature Granulocyte % (Auto) 0.3, Neutrophils (%) (Auto) 67.2, Lymphocytes (%) (Auto) 13.3L, Monocytes (%) (Auto) 13.9H, Eosinophils (%) (Auto) 4.7, Basophils (%) (Auto) 0.6, Neutrophils # (Auto) 2.3, Lymphocytes # (Auto) 0.5L, Monocytes # (Auto) 0.5, Eosinophils # (Auto) 0.16, Basophils # (Auto) 0.02, Absolute Immature Granulocyte (auto 0.01, Nucleated Red Blood Cells 0.0, Sodium Level 144, Potassium Level 3.9, Chloride Level 105, Carbon Dioxide Level 36H, Blood Urea Nitrogen 14, Creatinine 0.8, Glomerular Filtration Rate Calc 83, Random Glucose 97, Total Calcium 8.4L, Total Bilirubin 1.1H, Aspartate Amino Transf (AST/SGOT) 73H, Alanine Aminotransferase (ALT/SGPT) 51, Alkaline Phosphatase 126, Total Protein 5.1L, Albumin 2.4L 07/13/24 04:05: Segmented Neutrophils % 67, Lymphocytes % (Manual) 22, Monocytes % (Manual) 8, Eosinophils % (Manual) 3, Differential Comment MANUAL DIFFERENTIAL, White Cell Morphology Comment , Platelet Morphology Comment DECREASED, Red Blood Cell Morphology HYPOCHROM CELLS 1+, Phosphorus Level 3.8, Magnesium Level 1.90 Laboratory Tests Test 07/13/24 18:54 07/14/24 04:13 07/14/24 07:36 Vancomycin Level Trough 22.0 UG/ML (10.0-20.0) #H 13.4 UG/ML (10.0-20.0) # White Blood Count 3.4 K/uL (4.8-10.8) L Red Blood Count 2.92 MIL/uL (4.00-5.50) L Hemoglobin 7.7 g/dL (12.0-16.0) L Hematocrit 25.7 % (36-48) L Mean Corpuscular Volume 88.0 fL (79-99) Mean Corpuscular Hemoglobin 26.4 pg (27.0-33.0) L Mean Corpuscular Hemoglobin Concent 30.0 g/dL (32.0-36.0) L Red Cell Distribution Width 16.2 % (11.0-15.5) H Platelet Count 80 K/uL (130-400) L Mean Platelet Volume 10.3 fL (7.5-10.5) Immature Granulocyte % (Auto) 0.3 % (0-1) Neutrophils (%) (Auto) 67.2 % (40.0-77.0) Lymphocytes (%) (Auto) 13.3 % (21.0-51.0) L Monocytes (%) (Auto) 13.9 % (3.0-13.0) H Eosinophils (%) (Auto) 4.7 % (0.0-8.0) Basophils (%) (Auto) 0.6 % (0.0-5.0) Neutrophils # (Auto) 2.3 K/uL (1.8-7.7) Lymphocytes # (Auto) 0.5 K/uL (1.0-4.8) L Monocytes # (Auto) 0.5 K/uL (0.1-1.0) Eosinophils # (Auto) 0.16 K/uL (0.00-0.70) Basophils # (Auto) 0.02 K/uL (0.00-0.20) Absolute Immature Granulocyte (auto 0.01 K/uL (0-1) Nucleated Red Blood Cells 0.0 % (0.0-0.19) Sodium Level 144 mmol/L (136-145) Potassium Level 3.9 mmol/L (3.5-5.1) Chloride Level 105 mmol/L (101-111) Carbon Dioxide Level 36 mmol/L (21-32) H Blood Urea Nitrogen 14 mg/dL (7-18) Creatinine 0.8 mg/dL (0.5-1.0) Glomerular Filtration Rate Calc 83 mL/min (>90) Random Glucose 97 mg/dL (70-105) Total Calcium 8.4 mg/dL (8.5-10.1) L Total Bilirubin 1.1 mg/dL (0.2-1.0) H Aspartate Amino Transf (AST/SGOT) 73 U/L (10-37) H Alanine Aminotransferase (ALT/SGPT) 51 U/L (12-78) Alkaline Phosphatase 126 U/L (50-136) Total Protein 5.1 g/dL (6.0-8.3) L Albumin 2.4 g/dL (3.5-5.0) L Vitals/Labs Vital Signs Date Time Temp Pulse Resp B/P (MAP) Pulse Ox O2 Delivery O2 Flow Rate FiO2 07/14/24 08:00 96 Room Air* 0 21 07/14/24 07:55 98.8 78 18 131/64 Laboratory Tests 07/14/24 04:13 Medications Current Medications Acetaminophen 650 mg Q6H PRN PO; Start 07/03/24 at 19:30; Stop 08/02/24 at 19:29 Acetaminophen 650 mg Q4H PRN PO; Start 07/03/24 at 19:30; Stop 08/02/24 at 19:29 Ondansetron HCl 4 mg Q6H PRN IV; Start 07/03/24 at 19:30; Stop 08/02/24 at 19:29 Famotidine 20 mg BID IV Last administered on 07/14/24at 08:43; Start 07/03/24 at 21:00; Stop 08/02/24 at 20:59 Potassium Chloride 100 ml @ 100 mls/hr AD PRN IV; Start 07/03/24 at 19:30; Stop 07/10/24 at 17:37; Status DC Potassium Chloride 20 meq AD PRN PO; Start 07/03/24 at 19:30; Stop 08/02/24 at 19:29 Potassium Chloride 20 meq AD PRN PO Last administered on 07/13/24at 18:35; Start 07/03/24 at 19:30; Stop 08/02/24 at 19:29 Magnesium Sulfate 50 ml @ 0 mls/hr PROTOCOL PRN IV Last administered on 07/13/24at 18:36; Start 07/03/24 at 19:30; Stop 08/02/24 at 19:29 Levofloxacin/ Dextrose 100 ml @ 100 mls/hr Q24H IV Last administered on 07/11/24at 20:47; Start 07/03/24 at 19:30; Stop 07/12/24 at 11:09; Status DC Furosemide 20 mg ONCE ONCE IV Last administered on 07/03/24at 23:34; Start 07/03/24 at 23:30; Stop 07/03/24 at 23:31; Status DC Albuterol 1 UDVIAL [id number] IH Last administered on 07/10/24at 06:33; Start 07/04/24 at 00:00; Stop 07/10/24 at 11:57; Status DC Hydralazine HCl 10 mg Q6H PRN IV Last administered on 07/04/24at 18:43; Start 07/04/24 at 02:30; Stop 08/03/24 at 02:29 Levothyroxine Sodium 25 mcg SYN PO Last administered on 07/14/24at 06:17; Start 07/05/24 at 06:30; Stop 08/04/24 at 06:29 Iohexol 35,000 mg STK-MED ONCE IV; Start 07/05/24 at 05:06; Stop 07/05/24 at 05:09; Status DC Furosemide 40 mg Q8H IV Last administered on 07/07/24at 08:16; Start 07/05/24 at 16:00; Stop 07/07/24 at 12:30; Status DC Furosemide 60 mg ONCE ONCE IV Last administered on 07/05/24at 11:17; Start 07/05/24 at 10:30; Stop 07/05/24 at 10:31; Status DC Phenylephrine HCl 10 mg STK-MED ONCE IV; Start 07/07/24 at 09:06; Stop 07/07/24 at 09:06; Status DC Midazolam HCl 2 mg STK-MED ONCE .ROUTE; Start 07/07/24 at 09:06; Stop 07/07/24 at 09:06; Status DC Ondansetron HCl 4 mg STK-MED ONCE .ROUTE; Start 07/07/24 at 09:06; Stop 07/07/24 at 09:06; Status DC Succinylcholine Chloride 200 mg STK-MED ONCE .ROUTE; Start 07/07/24 at 09:06; Stop 07/07/24 at 09:07; Status DC Propofol 200 mg STK-MED ONCE IV; Start 07/07/24 at 09:06; Stop 07/07/24 at 09:07; Status DC Rocuronium [place] 50 mg STK-MED ONCE .ROUTE; Start 07/07/24 at 09:06; Stop 07/07/24 at 09:07; Status DC Fentanyl Citrate 100 mcg STK-MED ONCE .ROUTE; Start 07/07/24 at 09:07; Stop 07/07/24 at 09:07; Status DC Clindamycin HCl/ Dextrose 50 ml @ As Directed STK-MED ONCE IV; Start 07/07/24 at 09:37; Stop 07/07/24 at 09:37; Status DC Potassium Chloride 100 ml @ 50 mls/hr PROTOCOL IV Last administered on 07/13/24at 04:57; Start 07/07/24 at 10:00; Stop 08/06/24 at 09:59 Ceftriaxone Sodium 1 gm Q24H IVPB Last administered on 07/08/24at 16:09; Start 07/07/24 at 17:00; Stop 07/08/24 at 16:28; Status DC Furosemide 40 mg BID PO Last administered on 07/07/24at 20:41; Start 07/07/24 at 21:00; Stop 07/08/24 at 08:21; Status DC Guaifenesin/ Dextromethorphan 10 ml ONCE ONCE PO Last administered on 07/08/24at 02:18; Start 07/08/24 at 02:30; Stop 07/08/24 at 08:16; Status DC Benzonatate 100 mg ONCE ONCE PO Last administered on 07/08/24at 09:09; Start 07/08/24 at 08:30; Stop 07/08/24 at 08:31; Status DC Furosemide 40 mg Q8H IV Last administered on 07/11/24at 12:06; Start 07/08/24 at 08:30; Stop 07/11/24 at 14:15; Status DC Metoprolol Tartrate 25 mg BID PO Last administered on 07/14/24at 08:43; Start 07/08/24 at 11:00; Stop 08/07/24 at 10:59 Metoprolol Tartrate 5 mg Q4H PRN IV; Start 07/08/24 at 11:00; Stop 08/07/24 at 10:59 Lactulose 20 gm ONCE ONCE PO Last administered on 07/08/24at 11:03; Start 07/08/24 at 11:00; Stop 07/08/24 at 11:01; Status DC Lactulose 20 gm STK-MED ONCE .ROUTE; Start 07/08/24 at 10:44; Stop 07/08/24 at 10:44; Status DC Metoprolol Tartrate 5 mg STK-MED ONCE IV Last administered on 07/08/24at 11:00; Start 07/08/24 at 10:44; Stop 07/08/24 at 10:44; Status DC Methylprednisolone Sodium Succinate 125 mg STK-MED ONCE .ROUTE Last administered on 07/08/24at 11:03; Start 07/08/24 at 10:44; Stop 07/08/24 at 10:44; Status DC Potassium Chloride 100 ml @ 50 mls/hr ONCE ONCE IV Last administered on 07/08/24at 11:13; Start 07/08/24 at 11:00; Stop 07/08/24 at 12:59; Status DC Metoprolol Tartrate 5 mg ONCE ONCE IV; Start 07/08/24 at 11:00; Stop 07/08/24 at 11:01; Status DC Lactulose 20 gm ONCE ONCE PO; Start 07/08/24 at 11:00; Stop 07/08/24 at 11:01; Status DC Methylprednisolone Sodium Succinate 125 mg ONCE ONCE IVP; Start 07/08/24 at 11:00; Stop 07/08/24 at 11:01; Status DC Vancomycin HCl 1 each AD IV; Start 07/08/24 at 16:30; Stop 07/22/24 at 16:29 Pharmacy Profile Note 1 each AD MISC; Start 07/08/24 at 16:30; Stop 07/10/24 at 17:37; Status DC Vancomycin HCl 250 ml @ 125 mls/hr Q12H IV Last administered on 07/09/24at 18:16; Start 07/08/24 at 18:00; Stop 07/10/24 at 06:03; Status DC Albumin Human 50 ml @ 0 mls/hr AD IV Last administered on 07/09/24at 11:50; Start 07/09/24 at 10:00; Stop 07/10/24 at 17:40; Status DC Vitamin B Complex/ Vit C/Folic Acid 1 cap DAILY PO Last administered on 07/14/24at 08:43; Start 07/09/24 at 13:00; Stop 08/08/24 at 12:59 Dexamethasone Sodium Phosphate 10 mg ONCE ONCE IVP Last administered on 07/09/24at 14:16; Start 07/09/24 at 13:00; Stop 07/09/24 at 13:12; Status DC Furosemide 20 mg ONCE ONCE IV; Start 07/09/24 at 13:00; Stop 07/09/24 at 13:12; Status DC Vancomycin HCl 250 ml @ 125 mls/hr Q12H IV; Start 07/10/24 at 06:30; Stop 07/10/24 at 06:22; Status DC Vancomycin HCl 250 ml @ 125 mls/hr Q12H IV Last administered on 07/13/24at 09:34; Start 07/10/24 at 08:00; Stop 07/13/24 at 19:40; Status DC Albuterol 1 UDVIAL [id number] PRN IH Last administered on 07/14/24at 02:07; Start 07/10/24 at 12:00; Stop 08/03/24 at 00:00 Albumin Human 50 ml @ 0 mls/hr Q8H5 IV Last administered on 07/10/24at 16:37; Start 07/10/24 at 13:00; Stop 07/10/24 at 17:36; Status DC Albumin Human 50 ml @ 0 mls/hr Q8H IV Last administered on 07/11/24at 08:37; Start 07/11/24 at 00:00; Stop 07/11/24 at 16:20; Status DC Iron Sucrose 300 mg/Sodium Chloride 250 ml @ 83 mls/hr ONCE ONCE IV; Start 07/11/24 at 09:00; Stop 07/11/24 at 12:00; Status DC Furosemide 40 mg BID@09,17 PO Last administered on 07/14/24at 08:43; Start 07/11/24 at 17:00; Stop 08/10/24 at 16:59 Propofol 200 mg STK-MED ONCE IV; Start 07/12/24 at 11:14; Stop 07/12/24 at 11:14; Status DC Ketamine HCl 50 mg STK-MED ONCE .ROUTE; Start 07/12/24 at 11:14; Stop 07/12/24 at 11:15; Status DC Lidocaine HCl 100 mg STK-MED ONCE .ROUTE; Start 07/12/24 at 11:14; Stop 07/12/24 at 11:15; Status DC Spironolactone 25 mg DAILY PO Last administered on 07/14/24at 08:42; Start 07/12/24 at 14:30; Stop 08/11/24 at 14:29 Vancomycin HCl 250 ml @ 125 mls/hr Q12H IV Last administered on 07/14/24at 08:44; Start 07/14/24 at 08:00; Stop 07/24/24 at 07:59 THEODORE CONTRERAS MD Jul 14, 2024 12:43
--- NOTE | 2024-07-14 14:56 | PN ---
INFECTIOUS DISEASE PROGRESS NOTE Date of Service: Jul 14, 2024 SUBJECTIVE: Patient was seen and examined at bedside in room 228. Patient is awake, alert and oriented x3. From Infectious Disease standpoint patient can be discharged on Keflex for 10 days. PHYSICAL EXAM EYES: Anicteric. Pupils equal and reactive. HENT: No oral thrush seen, moist Oral mucosa NECK: Supple, no JVD or thyromegaly. LUNGS: Good air entry. No rales, no rhonchi. CARDIOVASCULAR: S1, S2 regular. No murmur heard. ABDOMEN: Soft, non tender, bowel sounds present, no organomegaly CENTRAL NERVOUS SYSTEM: Awake, alert, oriented x 3. SKIN: No rashes, no swelling. LYMPHATICS: No peripheral lymphadenopathy MUSCULOSKELETAL: No joint swelling, erythema or tenderness. EXTREMITIES: No cyanosis or clubbing. Bilateral lower extremity erythema. BACK: No deformity, no pressure ulcer. GENITOURINARY: No dysuria or hematuria Vital Sign (Last 12 Hours) 07/14/24 07/14/24 07/14/24 07/14/24 04:34 07:33 07:55 08:00 Temp 98.6 98.8 Pulse 79 89 78 Resp 18 20 18 B/P (MAP) 122/64 131/64 Pulse Ox 97 96 96 O2 Delivery Room Air N/A Room Air Room Air Room Air* O2 Flow Rate 0 FiO2 21 21 07/14/24 12:00 Temp 98.2 Pulse 72 Resp 18 B/P (MAP) 125/64 Pulse Ox 100 Intake & Output (last 24hrs) 07/13/24 07/13/24 07/14/24 15:00 23:00 07:00 Intake Total 480 ml 590.0 ml Output Total 400 ml Balance 480 ml 590.0 ml -400 ml LABS: Laboratory: Test 07/14/24 07:36 07/14/24 04:13 07/13/24 04:05 Range/Units Vancomycin Level Trough 13.4 # 10.0-20.0 UG/ML White Blood Count 3.4 L 4.8-10.8 K/uL Red Blood Count 2.92 L 4.00-5.50 MIL/uL Hemoglobin 7.7 L 12.0-16.0 g/dL Hematocrit 25.7 L 36-48 % Mean Corpuscular Volume 88.0 79-99 fL Mean Corpuscular Hemoglobin 26.4 L 27.0-33.0 pg Mean Corpuscular Hemoglobin Concent 30.0 L 32.0-36.0 g/dL Red Cell Distribution Width 16.2 H 11.0-15.5 % Platelet Count 80 L 130-400 K/uL Mean Platelet Volume 10.3 7.5-10.5 fL Immature Granulocyte % (Auto) 0.3 0-1 % Neutrophils (%) (Auto) 67.2 40.0-77.0 % Lymphocytes (%) (Auto) 13.3 L 21.0-51.0 % Monocytes (%) (Auto) 13.9 H 3.0-13.0 % Eosinophils (%) (Auto) 4.7 0.0-8.0 % Basophils (%) (Auto) 0.6 0.0-5.0 % Neutrophils # (Auto) 2.3 1.8-7.7 K/uL Lymphocytes # (Auto) 0.5 L 1.0-4.8 K/uL Monocytes # (Auto) 0.5 0.1-1.0 K/uL Eosinophils # (Auto) 0.16 0.00-0.70 K/uL Basophils # (Auto) 0.02 0.00-0.20 K/uL Absolute Immature Granulocyte (auto 0.01 0-1 K/uL Nucleated Red Blood Cells 0.0 0.0-0.19 % Sodium Level 144 136-145 mmol/L Potassium Level 3.9 3.5-5.1 mmol/L Chloride Level 105 101-111 mmol/L Carbon Dioxide Level 36 H 21-32 mmol/L Blood Urea Nitrogen 14 7-18 mg/dL Creatinine 0.8 0.5-1.0 mg/dL Glomerular Filtration Rate Calc 83 >90 mL/min Random Glucose 97 70-105 mg/dL Total Calcium 8.4 L 8.5-10.1 mg/dL Total Bilirubin 1.1 H 0.2-1.0 mg/dL Aspartate Amino Transf (AST/SGOT) 73 H 10-37 U/L Alanine Aminotransferase (ALT/SGPT) 51 12-78 U/L Alkaline Phosphatase 126 50-136 U/L Total Protein 5.1 L 6.0-8.3 g/dL Albumin 2.4 L 3.5-5.0 g/dL Segmented Neutrophils % 67 40-70 % Lymphocytes % (Manual) 22 22-44 % Monocytes % (Manual) 8 2-9 % Eosinophils % (Manual) 3 1-6 % Differential Comment MANUAL DIFFERENTIAL White Cell Morphology Comment Platelet Morphology Comment DECREASED Red Blood Cell Morphology HYPOCHROM CELLS 1+ Phosphorus Level 3.8 2.5-4.9 mg/dL Magnesium Level 1.90 1.80-2.40 mg/dL ASSESSMENT: Bilateral lower extremity cellulitis. Postmenopausal bleeding requiring blood transfusion. S/P D&C with hysteroscopy on 07/07/2024. Morbid obesity. Hypertension. Hypothyroidism. PLAN: From Infectious Disease standpoint patient can be discharged on Keflex x 10 days. This case was reviewed and discussed with my supervising physician and the above assessment and plan was formulated and agreed upon. ATTESTATION BY PHYSICIAN I have seen and examined the patient. I reviewed the documentation, medical decision making, and treatment plan as noted by the mid-level provider above. I agree with the findings and plan of care. JAC JONES MD, [facility] Jul 14, 2024 14:56
[2024-07-14 15:00] LABS: HEMATOCRIT 27.7 % (36-48)
[2024-07-14] MEDS ORDERED: FURO40TA7 PO (15:06)
[2024-07-14] MEDS ORDERED: METO25 PO (15:06)
[2024-07-14] MEDS ORDERED: SPIR25TA6 PO (15:06)
--- NOTE | 2024-07-14 15:30 | DS ---
Discharge Summary Hospital Course Summary: 64 yo F presented with fluid overload and shortness of breath. She had severe peripheral pitting edema. Labwork also showed decreased Hgb which patient reported she has had almost continuous vaginal bleeding for the last 4 years. Her labs were also consistent with underlying liver disease. She reported a strong family history of liver failure that includes her brothers, mother, multiple aunts and nieces. She was admitted, started on diuretics, albumin infusions and empiric antibiotics. She was transfused and OBGYN was consulted. She was taken for D&C which she tolerated well, see the op note for more details. Due to bilateral lower extremity edema there was a concern for cellu litis and infectious disease was consulted. Her antibiotics were adjusted. After D&C patient continued to have decreased Hgb, an occult blood was ordered and was positive. GI was consulted due to her new cirrhosis diagnosis. They recommended EGD to assess for esophageal varices. Initially she declined the procedure due to her nervousness, once the purpose of the procedure was explained to her she was more open and consented to the procedure. EGD was done where esophageal varices with recent signs of bleeding were noted, they were banded. She tolerated the procedure well, see the op note for more details. Given her strong family history of liver failure GI ordered a series of blood tests to determine the underlying cause. By hospital day 11 she was stable and cleared for discharge. ID wrote a prescription for continued antibiotics. She will be discharged home to follow up with GI in 2 weeks for results to her labwork and for further workup. She has been advised to start a high protein diet and her new medications were explained to her. . Recruit Instructor(s): Gastroenterology Infectious Disease Hematology OBGYN Procedure(s): US ABDOMINAL COMPLETE HISTORY: Ascites COMPARISON: None TECHNIQUE: Limited abdominal ultrasound study was performed for evaluation of ascites. FINDINGS: Small ascites is seen. IMPRESSION: 1. Small ascites. CT ABDOMEN/PELVIS W/O CONTRAST HISTORY: Abdominal distention COMPARISON: None TECHNIQUE: Multiple sequential axial images of the abdomen and pelvis were obtained from the dome of the diaphragm through symphysis pubis. Patient was not given contrast through intravenous route. Oral contrast was not given. FINDINGS: No pleural effusion is seen bilaterally. There is no evidence of parenchymal disease or pulmonary nodule of the visualized lower lungs. Degenerative changes of the thoracolumbar spine are present. The heart is not enlarged. Cirrhotic changes of the liver are noted. Spleen is enlarged measuring 14.3 cm. Liver measures 14 cm. Gallstones are seen in the gallbladder. There are esophageal and abdominal varices. Adrenal glands and pancreas are unremarkable. There is no evidence of hydronephrosis bilaterally. No evidence of renal stone is seen. Fecal material is seen in the colon. There are normal size retroperitoneal and mesenteric lymph nodes. There is ascites. There is anasarca. Atherosclerotic changes are present. Pelvic sidewalls are symmetric bilaterally. Uterus is prominent. Bladder is poorly distended. IMPRESSION: 1. Cirrhotic liver with enlarged spleen with small ascites suggestive of portal hypertension. There are esophageal and abdominal varices. US VENOUS DOPPLER BILATERAL HISTORY: Edema COMPARISON: None TECHNIQUE: Bilateral lower extremity venous Doppler ultrasound study was performed. FINDINGS: The common femoral, femoral, popliteal, and posterior tibial veins are visualized. Normal flow with augmentation and compressibilities are demonstrated. The greater saphenous veins are also seen and grossly patent. IMPRESSION: 1. No evidence of deep venous thrombosis is seen. Echocardiogram: Conclusion LVEF is 60-65%. Mild concentric left ventricular hypertrophy. GLS -24%. There is normal LV segmental wall motion. The aortic root is normal in size. There is no pericardial effusion. ULTRASOUND ABDOMEN LIMITED INDICATION: Elevated liver enzymes COMPARISON: None FINDINGS: Examination is images secondary to patient body habitus and extensive overlying bowel gas. The liver is coarse in echotexture and increased in echogenicity; no focal lesion demonstrated. Main portal vein is patent, and normal direction of vascular flow demonstrated. The common bile duct diameter measures 4.0 mm. Gallbladder was not well-demonstrated secondary to extensive overlying bowel gas. Pancreas is obscured by overlying bowel gas as well. The right kidney measures 10.8 x 5.0 x 4.6 cm,and is normal in echogenicity, without evidence for hydronephrosis.No shadowing stones demonstrated. Small amount of free fluid scattered throughout the all four quadrants of the abdomen. IMPRESSION: Limitations as reported. Findings suggesting cirrhotic or other underlying liver disease and small-volume abdominal ascites. Pancreas and gallbladder were not well-demonstrated. US PELVIC NON-OB COMP HISTORY: Dysfunctional uterine bleeding COMPARISON: None TECHNIQUE: Transabdominal pelvic ultrasound study was performed. FINDINGS: The uterus measures 9.8 x 6.3 x 5.4 cm. Both ovaries are not seen. Both ovaries are not seen. There is fibroid in the posterior aspect of the uterus on the right measuring 3.2 x 3.5 x 3.3 cm. Small amount of free fluid is seen in the cul-de-sac. Endometrium is thick measuring 10 mm. IMPRESSION: 1. No adnexal mass is seen. Fibroid uterus. Thickened endometrium. CHEST 1VW REASON: SHORTNESS OF BREATH COMPARISON: None. FINDINGS: Single view of the chest was obtained. Lungs are clear. Heart size is normal. There is no pulmonary vascular congestion. Mediastinum and bony thorax appear unremarkable. IMPRESSION: 1. Normal single view chest x-ray. Assessment/Plan: Severe acute blood loss anemia requiring blood transfusion secondary to postmenopausal bleed s/p D&C (07/07/24) POA Multifactorial anemia POA Anasarca Liver disease, MELD 12, POA Esophageal varices s/p banding x 2 (07/12/24) Extensive family history of liver disease Acute hypoxic Respiratory Failure, resolved POA Postmenopausal bleed, with the endometrial polyps, status post D&C with hysteroscopy and excision of endometrial polyp 07/07/2024 Fibroid uterus and thickened endometrium per pelvic ultrasound POA Uncontrolled hypertension, resolved POA Morbid obesity POA Hypothyroidism POA acute complicated cystitis POA Pancytopenia Cellulitis to both lower extremities Discharge Instructions: Follow up with PCP in 3-7 days Follow up with Gastroenterology in 1-2 weeks Follow up with OBGYN in 1-2 weeks Home Medications: Reported Medications Levothyroxine Sodium (Levothyroxine) 25 Mcg Capsule, 25 MCG PO AM, CAP 07/04/24 New Medications: Furosemide (Lasix 40Mg Tab) 40 Mg Tablet 40 MG PO BID@09,17, #60 TAB 0 Refills Metoprolol Tartrate (Lopressor) 25 Mg Tab 25 MG PO BID, #60 TAB 0 Refills Spironolactone (Spironolactone) 25 Mg Tablet 25 MG PO DAILY, #30 TAB 0 Refills Continued Medications: Levothyroxine Sodium (Levothyroxine) 25 Mcg Capsule 25 MCG PO AM, CAP Time spent arranging discharge: 31-60 minutes JUMA FULLER MD Jul 14, 2024 15:30
--- NOTE | 2024-07-14 16:42 | NUR ---
UNABLE TO SETUP FOLLOW UP APPT WITH DR. JAMESON OR DR. JERRY DUE TO OUT OF NETWORK COVERAGE FROM CURRENT HEALTH INSURANCE. IN-NETWORK LIST PROVIDED BY PRINCIPAL TECHNICAL SPECIALIST.
--- NOTE | 2024-07-14 18:30 | NUR ---
DISCHARGE INSTRUCTION WERE GIVEN TO THIS PATIENT AND SPOUSE AT BEDSIDE. MID LINE TO LEFT UPPER ARM WAS REMOVED WITH CATHETER INTACT. 5 MINUTES OF MANUAL PRESSURE WAS APPLIED AND DRY DRESSING APPLIED. TELE MARK WAS REMOVED AND TAKEN BACK TO TELEMETRY ROOM. SCRIPT OF LEVAQUIN 500MG PO DAILY X 10 DAYS WAS WRITTEN BY DR. JONES AND PROVIDED TO THIS PATIENT. ALL BELONGINGS WERE TAKEN WITH THIS PATIENT. EDUCATIONAL INSTRUCTION WERE GIVEN ON NEW MEDICATIONS AND THEY VOICED AGREEMENT. FOLLOW UP APPT WAS PROVIDED FOR PCP AND LIST OF AVAILABLE GI AND OB-CUSTOMER CONTACT REPRESENTATIVE WERE PROVIDED WITHIN NETWORK. PATIENT WAS TAKEN DOWN TO PRIVATE VEHICLE VIA WHEEL CHAIR.
--- NOTE | 2024-07-14 20:02 | PN ---
GASTROENTEROLOGY PROGRESS NOTE Date of Visit: Jul 14, 2024 Time of Visit: 20:02 Events / Notes: No acute events overnight. Patient seen today at bedside in no acute distress. Hemoglobin did trend up however she understands importance of endoscopy and is now agreeable. Review of Systems: CONSTITUTIONAL: No malaise or change in sensation of wellbeing. ENMT: No rhinorrhea, otorrhea, sinus pain, ear ache. CARDIOVASCULAR: No angina, palpitations, orthopnea or paroxysmal dyspnea. RESPIRATORY: No SOB. GASTROINTESTINAL: No abdominal pain, nausea, vomiting, diarrhea, hematemesis, melena or change in the patient's habitual bowel movements consistency/number. GENITOURINARY: No dysuria, hematuria or change in bladder continence. MUSCULOSKELETAL: No new muscle pain or decrease in muscular strength. No new joint swelling, redness or tenderness. SKIN: No new rash. Physical Exam: GEN: Awake, alert, oriented in person, time and place, and in no acute distress. HEENT: No sinus tenderness. Tympanic membranes were not examined. No rhinorrhea. Oral pharyngeal mucosa is pink, moist and within normal limits. Neck is supple with no cervical lymphadenopathy, thyromegaly or JVD. CHEST: Inspection, palpation and percussion of the chest were unremarkable. Lung auscultation revealed normal breath sounds bilaterally. CARDIAC: PMI is within normal limits. Heart sounds are regular. Normal S1, S2. No gallop or murmur. ABD: Soft, non-tender and not distended. No peritoneal signs on palpation. No organomegaly. Normal bowel sounds. EXT: No cyanosis or clubbing. No edema. SKIN: Intact. No rashes. JOINTS: No evidence of synovitis or acute arthritis. NEURO: Alert and oriented to name, place and person. Cranial nerve examination is unremarkable. No focal motor deficits. Normal speech. Gait is normal. Strength is normal. Laboratory: [ ] Laboratory: Test 07/14/24 14:48 07/14/24 07:36 07/14/24 04:13 07/13/24 04:05 Range/Units Hemoglobin 8.2 L 12.0-16.0 g/dL Hematocrit 27.7 L 36-48 % Vancomycin Level Trough 13.4 # 10.0-20.0 UG/ML White Blood Count 3.4 L 4.8-10.8 K/uL Red Blood Count 2.92 L 4.00-5.50 MIL/uL Mean Corpuscular Volume 88.0 79-99 fL Mean Corpuscular Hemoglobin 26.4 L 27.0-33.0 pg Mean Corpuscular Hemoglobin Concent 30.0 L 32.0-36.0 g/dL Red Cell Distribution Width 16.2 H 11.0-15.5 % Platelet Count 80 L 130-400 K/uL Mean Platelet Volume 10.3 7.5-10.5 fL Immature Granulocyte % (Auto) 0.3 0-1 % Neutrophils (%) (Auto) 67.2 40.0-77.0 % Lymphocytes (%) (Auto) 13.3 L 21.0-51.0 % Monocytes (%) (Auto) 13.9 H 3.0-13.0 % Eosinophils (%) (Auto) 4.7 0.0-8.0 % Basophils (%) (Auto) 0.6 0.0-5.0 % Neutrophils # (Auto) 2.3 1.8-7.7 K/uL Lymphocytes # (Auto) 0.5 L 1.0-4.8 K/uL Monocytes # (Auto) 0.5 0.1-1.0 K/uL Eosinophils # (Auto) 0.16 0.00-0.70 K/uL Basophils # (Auto) 0.02 0.00-0.20 K/uL Absolute Immature Granulocyte (auto 0.01 0-1 K/uL Nucleated Red Blood Cells 0.0 0.0-0.19 % Sodium Level 144 136-145 mmol/L Potassium Level 3.9 3.5-5.1 mmol/L Chloride Level 105 101-111 mmol/L Carbon Dioxide Level 36 H 21-32 mmol/L Blood Urea Nitrogen 14 7-18 mg/dL Creatinine 0.8 0.5-1.0 mg/dL Glomerular Filtration Rate Calc 83 >90 mL/min Random Glucose 97 70-105 mg/dL Total Calcium 8.4 L 8.5-10.1 mg/dL Total Bilirubin 1.1 H 0.2-1.0 mg/dL Aspartate Amino Transf (AST/SGOT) 73 H 10-37 U/L Alanine Aminotransferase (ALT/SGPT) 51 12-78 U/L Alkaline Phosphatase 126 50-136 U/L Total Protein 5.1 L 6.0-8.3 g/dL Albumin 2.4 L 3.5-5.0 g/dL Segmented Neutrophils % 67 40-70 % Lymphocytes % (Manual) 22 22-44 % Monocytes % (Manual) 8 2-9 % Eosinophils % (Manual) 3 1-6 % Differential Comment MANUAL DIFFERENTIAL White Cell Morphology Comment Platelet Morphology Comment DECREASED Red Blood Cell Morphology HYPOCHROM CELLS 1+ Phosphorus Level 3.8 2.5-4.9 mg/dL Magnesium Level 1.90 1.80-2.40 mg/dL Current Medications Medications (Trade) Dose Ordered Sig/Avinash Route PRN Reason Start Time Stop Time Status Last Admin Dose Admin Acetaminophen (TYLenol 325MG TAB) 650 mg Q4H PRN PO MILD PAIN (1-3) 07/03/24 19:30 07/14/24 19:22 DC Acetaminophen (TYLenol 325MG TAB) 650 mg Q6H PRN PO TEMPERATURE GREATER THAN 101.5 07/03/24 19:30 07/14/24 19:22 DC Albumin Human 50 ml @ 0 mls/hr AD IV 07/09/24 10:00 07/10/24 17:40 DC 07/09/24 11:50 100 MLS/HR Albumin Human 50 ml @ 0 mls/hr Q8H IV 07/11/24 00:00 07/11/24 16:20 DC 07/11/24 08:37 25 MLS/HR Albumin Human 50 ml @ 0 mls/hr Q8H5 IV 07/10/24 13:00 07/10/24 17:36 DC 07/10/24 16:37 25 MLS/HR Albuterol (DUOneb) 1 UDVIAL [id number] IH 07/04/24 00:00 07/10/24 11:57 DC 07/10/24 06:33 1 UDVIAL Albuterol (DUOneb) 1 UDVIAL [id number] PRN IH WHEEZING 07/10/24 12:00 07/14/24 19:22 DC 07/14/24 02:07 1 UDVIAL Ceftriaxone Sodium (ROCEphine 1G INJ) 1 gm Q24H IVPB 07/07/24 17:00 07/08/24 16:28 DC 07/08/24 16:09 1 GM Famotidine (Pepcid 20mg Vial) 20 mg BID IV 07/03/24 21:00 07/14/24 19:22 DC 07/14/24 08:43 20 MG Furosemide (LASix 40MG TAB) 40 mg BID PO 07/07/24 21:00 07/08/24 08:21 DC 07/07/24 20:41 40 MG Furosemide (LASix 40MG TAB) 40 mg BID@09,17 PO 07/11/24 17:00 07/14/24 19:22 DC 07/14/24 17:42 40 MG Furosemide (LASix 40MG VIAL) 40 mg Q8H IV 07/05/24 16:00 07/07/24 12:30 DC 07/07/24 08:16 40 MG Furosemide (LASix 40MG VIAL) 40 mg Q8H IV 07/08/24 08:30 07/11/24 14:15 DC 07/11/24 12:06 40 MG Hydralazine HCl (APRESOLine 20MG INJ) 10 mg Q6H PRN IV ADMINISTER FOR SBP > 160 07/04/24 02:30 07/14/24 19:22 DC 07/04/24 18:43 10 MG Levofloxacin/ Dextrose 100 ml @ 100 mls/hr Q24H IV 07/03/24 19:30 07/12/24 11:09 DC 07/11/24 20:47 100 MLS/HR Levothyroxine Sodium (SYNTHroid 25MCG TAB) 25 mcg SYN PO 07/05/24 06:30 07/14/24 19:22 DC 07/14/24 06:17 25 MCG Magnesium Sulfate 50 ml @ 0 mls/hr PROTOCOL PRN IV OTHER [SEE ORDER COMMENTS] 07/03/24 19:30 07/14/24 19:22 DC 07/13/24 18:36 25 MLS/HR Metoprolol Tartrate (loprESSOR) 5 mg Q4H PRN IV INCREASED HEART RATE 07/08/24 11:00 07/14/24 19:22 DC Metoprolol Tartrate (loprESSOR) 25 mg BID PO 07/08/24 11:00 07/14/24 19:22 DC 07/14/24 08:43 25 MG Ondansetron HCl (zoFRAN 4MG INJ) 4 mg Q6H PRN IV NAUSEA/VOMITING 07/03/24 19:30 07/14/24 19:22 DC Pharmacy Profile Note (Lace Assessment) 1 each AD MISC 07/08/24 16:30 07/10/24 17:37 DC Potassium Chloride 100 ml @ 50 mls/hr PROTOCOL IV 07/07/24 10:00 07/14/24 19:22 DC 07/13/24 04:57 50 MLS/HR Potassium Chloride 100 ml @ 100 mls/hr AD PRN IV POTASSIUM PROTOCOL 07/03/24 19:30 07/10/24 17:37 DC Potassium Chloride (K-Dur/Klor-Con 20meq) 20 meq AD PRN PO POTASSIUM PROTOCOL 07/03/24 19:30 07/14/24 19:22 DC 07/13/24 18:35 20 MEQ Potassium Chloride (KCl 10% Elixir 20meq/15ml) 20 meq AD PRN PO POTASSIUM PROTOCOL 07/03/24 19:30 07/14/24 19:22 DC Spironolactone (Aldactone 25mg) 25 mg DAILY PO 07/12/24 14:30 07/14/24 19:22 DC 07/14/24 08:42 25 MG Vancomycin HCl 250 ml @ 125 mls/hr Q12H IV 07/08/24 18:00 07/10/24 06:03 DC 07/09/24 18:16 125 MLS/HR Vancomycin HCl 250 ml @ 125 mls/hr Q12H IV 07/10/24 06:30 07/10/24 06:22 DC Vancomycin HCl 250 ml @ 125 mls/hr Q12H IV 07/10/24 08:00 07/13/24 19:40 DC 07/13/24 09:34 125 MLS/HR Vancomycin HCl 250 ml @ 125 mls/hr Q12H IV 07/14/24 08:00 07/14/24 19:22 DC 07/14/24 08:44 125 MLS/HR Vancomycin HCl (Vancomycin Protocol) 1 each AD IV 07/08/24 16:30 07/14/24 19:22 DC Vitamin B Complex/ Vit C/Folic Acid (Nephrovite Tablet) 1 cap DAILY PO 07/09/24 13:00 07/14/24 19:22 DC 07/14/24 08:43 1 CAP Diagnostics / Radiology: [COPY/PASTE HERE IF NO REPORTS PLEASE DELETE SECTION] Assessment: Concern for GI bleed Acute blood loss anemia Abnormal imaging with esophageal varices Cirrhosis Plan: EGD in AM Continue GI prophylaxis Advance diet as tolerated Avoid NSAIDs Antireflux measures Monitor H&H and transfuse as needed Call with questions, concerns or change in clinical status Patient to follow-up at clinic post discharge Thank you for this consult [employer] FR[employer] 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
[2024-07-16 16:11] LABS: ALPHA-1-ANTITRYPSIN 112 mg/dL (101-187)
== END 2024-07-14 18:30 | disposition home or self-care (01) | DRG 744 ==
LOC: EDH 14:50 → EDHIP 18:53 → 2DH 07-04 04:21 → 3DH 07-07 14:55 → 2DH 07-08 11:40
PROVIDERS: ADMIT Internal Medicine; ATTEND Internal Medicine
PROC: 30233N1 Transfusion of Nonautologous Red Blood Cells into Peripheral Vein, Percutaneous Approach (ICD-10-PCS; 2024-07-03)
PROC: 0UDB8ZZ Extraction of Endometrium, Via Natural or Artificial Opening Endoscopic (ICD-10-PCS; principal; 2024-07-07 09:16)
PROC: 0DB78ZX Excision of Stomach, Pylorus, Via Natural or Artificial Opening Endoscopic, Diagnostic (ICD-10-PCS; 2024-07-12)
PROC: 06L28CZ Occlusion of Gastric Vein with Extraluminal Device, Via Natural or Artificial Opening Endoscopic (ICD-10-PCS; 2024-07-12)
DX: D25.9 Leiomyoma of uterus, unspecified (principal); I85.11 Secondary esophageal varices with bleeding; J96.01 Acute respiratory failure with hypoxia; D61.818 Other pancytopenia; I85.10 Secondary esophageal varices without bleeding; N30.01 Acute cystitis with hematuria; E66.2 Morbid (severe) obesity with alveolar hypoventilation; L03.116 Cellulitis of left lower limb; L03.115 Cellulitis of right lower limb; Z68.42 Body mass index [BMI] 45.0-49.9, adult; D62 Acute posthemorrhagic anemia; K74.60 Unspecified cirrhosis of liver; N95.0 Postmenopausal bleeding; N84.0 Polyp of corpus uteri; R93.89 Abnormal findings on diagnostic imaging of other specified body structures; I10 Essential (primary) hypertension; J45.909 Unspecified asthma, uncomplicated; R73.9 Hyperglycemia, unspecified; E03.9 Hypothyroidism, unspecified; N93.9 Abnormal uterine and vaginal bleeding, unspecified; E78.5 Hyperlipidemia, unspecified; Z88.1 Allergy status to other antibiotic agents; Z91.040 Latex allergy status; Z90.710 Acquired absence of both cervix and uterus
CPT/HCPCS: 36415; 36430; 36600; 43239; 43244; 71045; 74018; 74176; 76700; 76705; 76856; 80048; 80053; 80074; 80202; 81001; 82103; 82104; 82390; 82435; 82728; 82803; 82947; 83001; 83540; 83550; 83605; 83735; 83880; 84100; 84132; 84295; 84443; 84484; 85014; 85018; 85025; 85027; 85378; 85610; 85730; 86015; 86038; 86215; 86235; 86376; 86381; 86850; 86900; 86901; 86923; 87086; 87426; 88305; 93005; 93306; 93970; 94640; 94664; 96365; 96375; 99285; A4351; A4606; C1894; G0378; J0330; J0360; J0696; J1100; J1756; J1940; J1956; J2003; J2250; J2371; J2405; J2704; J2919; J3010; J3370; J3475; J3480; J3490; J7030; J7050; P9016; P9047; Q9967; 3370; A4215; A4216; A4222; A4223; A4620; A4657; C1750